=== PATIENT | male | born 1950 | race African-American/Black ===

== ENCOUNTER 2017-04-20 22:23 | Inpatient (IN) | payer MEDICARE, BC ==
[~2017-04-20] VITALS: Ht 193 cm; Wt 110.2 kg
[~2017-04-20 22:23] MED LIST: AMLODIPINE-BEN1 EAC3 ORAL; CARVEDILOL3.125 MG ORAL
[2017-04-21] VITALS (27 sets, daily range): BP systolic 136–195; BP diastolic 72–126
[2017-04-21] MEDS ORDERED: Morphine Sulfate 4mg/ml Inj IVP PRN ×2 (00:45→11:00)
[2017-04-21] MEDS ORDERED: DIPHENHYDR IV (00:53)
[2017-04-21] MEDS ORDERED: DIPRIVAN IV (01:15)
[2017-04-21] MEDS ORDERED: SODIUM CHLORID250 ML IV (01:15)
[2017-04-21] MEDS ORDERED: LABETALOL 5 MG/ML IV (01:15)
[2017-04-21] MEDS ORDERED: SOLU-MEDRO40 MG/1 M2 IJ (01:15)
[2017-04-21] MEDS ORDERED: EPINEPHRINE IV (01:15)
[2017-04-21] MEDS ORDERED: FIRAZYR30 MG/3 ML SQ (01:15)
[2017-04-21] MEDS ORDERED: FAMOTIDINE20 MG/2 ML IV (01:15)
[2017-04-21] MEDS ORDERED: MIDAZOLAM H IJ (01:15)
[2017-04-21] MEDS: D5 1/2NS 1,000 ML IV SCH ×2 (02:14→22:19)
[2017-04-21] MEDS: Solu-MEDROL 125mg Inj IVP SCH ×4 (02:15→20:09)
[2017-04-21 05:20] LABS: MEAN CORPUSCULAR HEMOGLOBIN 30.1 PG (27.0-31.0); MEAN CORPUSCULAR HGB CONC 31.9 G/DL (32.0-36.0); MEAN CORPUSCULAR VOLUME 94 FL (80-99); MEAN PLATELET VOLUME 9.1 FL (6.5-10.1); PLATELET COUNT 121 K/UL (150-450); RED BLOOD COUNT 4.25 M/UL (4.70-6.10); RED CELL DISTRIBUTION WIDTH 12.6 % (11.6-14.8); WHITE BLOOD COUNT 8.2 K/UL (4.8-10.8)
[2017-04-21 06:01] LABS: BAND NEUTROPHILS % (MANUAL) 0 % (0-8); BASOPHILS % (MANUAL) 0 % (0-2); EOSINOPHILS % (MANUAL) 1 % (0-3); LYMPHOCYTES % (MANUAL) 4 % (20-45); NEUTROPHILS % (MANUAL) 92 % (45-75); PLATELET ESTIMATE DECREASED; PLATELET MORPHOLOGY NORMAL; TOTAL CELLS COUNTED 100
[2017-04-21 06:12] LABS: ANION GAP 12 mmol/L (5-15); CARBON DIOXIDE 24 MMOL/L (21-32); CHLORIDE 109 MMOL/L (98-107); CREATININE 2.5 MG/DL (0.55-1.30); GLOMERULAR FILTRATION RATE 31.5 mL/min (>60); POTASSIUM 4.2 MMOL/L (3.5-5.1); SODIUM 145 MMOL/L (136-145)
[2017-04-21 08:43] LABS: ABG ALLEN TEST POSITIVE; ABG BASE EXCESS -0.4; ABG PCO2 40.9 mmHg (35.0-45.0)
[2017-04-21] MEDS: Pantoprazole Inj IVP SCH (08:56)
[2017-04-21] MEDS: Heparin 5000 units/ml inj SUBQ SCH ×2 (09:10→21:45)
--- NOTE | 2017-04-21 09:35 | Diagnostic Imaging Report ---
Indication: SOB Technique: One view of the chest Comparison: IV 2013 Findings: Interim endotracheal intubation, endotracheal tube tip in good position approximately 6 cm above the dayanara. There is left infrahilar atelectasis. The lungs and pleural space are otherwise clear. Heart size is normal. Aorta is tortuous and ectatic. Upper mediastinal prominence is stable. Impression: Satisfactory endotracheal intubation Left infrahilar atelectasis Other findings as described
[2017-04-21] MEDS ORDERED: D5 1/2NS 1000ml IV ONE (10:19)
--- NOTE | 2017-04-21 10:51 | History and Physical ---
History of Present Illness General Date patient seen: Apr 21, 2017 Present Illness HPI 67 year old male with hx of COPD, HTN, was taken to [facility] with dyspnea and respiratory failure. He was intubated and transferred to their ICU. He has been transferred to [facility] ICU for further management. Currently, pt is awake, nasally intubated and looks comfortable. Allergies: Coded Allergies: LISINOPRIL (Verified Allergy, Severe, 04/21/17) Medication History Scheduled Amlodipine Besylate/Benazepril 5-10 Mg* (Amlodipine-Benazepril 5-10 Mg*), 1 CAP ORAL DAILY, (Reported) Carvedilol* (Carvedilol*), 3.125 MG ORAL BID, (Reported) Miscellaneous Medications Diphenhydramine In 0.9 % Nacl (Diphenhydramine-Ns 50 Mg/50 Ml), 50 MG IV, ( Reported) Epinephrine HCl/Pf (Epinephrine 1 mg/ml Ampul), 0.3 MG IV, (Reported) Famotidine/Pf (Famotidine 20 Mg/2 Ml Vial), 20 MG IV, (Reported) Icatibant Acetate (Firazyr), 30 MG SQ, (Reported) Labetalol HCl (Labetalol HCl), 20 MG IV, (Reported) Methylprednisolone Sod Succ/Pf (Solu-Medrol (Pf) 40 Mg Vial), 125 MG IJ, ( Reported) Midazolam HCl (Midazolam HCl), 1 MG IJ, (Reported) Midazolam HCl (Midazolam HCl), 2 MG IJ, (Reported) Propofol (Diprivan), 1,000 MG IV, (Reported) Sodium Chloride 0.45 % (Sodium Chloride), 1,000 ML IV, (Reported) Patient History Healthcare decision maker Resuscitation status Full Code Advanced Directive on File Past Medical/Surgical History Past Medical/Surgical History: (1) Renal insufficiency (2) Smoker (3) Hypertension Review of Systems All Other Systems: negative except mentioned in HPI Physical Exam General Appearance: WD/WN Lines, tubes and drains: peripheral HEENT: normocephalic, atraumatic Neck: non-tender, normal alignment Respiratory/Chest: chest wall non-tender, lungs clear Breasts: no masses Cardiovascular/Chest: normal peripheral pulses Abdomen: normal bowel sounds Genitourinary/Rectal: normal genital exam Extremities: normal range of motion Last 24 Hour Vital Signs Date Time Temp Pulse Resp B/P (MAP) Pulse Ox O2 Delivery O2 Flow Rate FiO2 04/21/17 08:46 81 28 100 04/21/17 08:00 100 04/21/17 08:00 99.6 87 16 156/113 94 Mechanical Ventilator 100 04/21/17 07:20 93 32 100 04/21/17 07:00 89 13 158/90 94 Mechanical Ventilator 100 04/21/17 06:00 90 13 148/95 91 Mechanical Ventilator 100 04/21/17 05:16 93 26 100 04/21/17 05:00 92 15 145/93 92 Mechanical Ventilator 100 04/21/17 04:00 98.0 93 15 137/93 91 Mechanical Ventilator 100 04/21/17 04:00 97 04/21/17 03:29 96 21 100 04/21/17 03:00 100 16 162/100 93 Mechanical Ventilator 100 04/21/17 02:46 98.0 04/21/17 02:00 107 16 156/107 96 Mechanical Ventilator 100 04/21/17 01:24 98 28 100 04/21/17 01:00 100 04/21/17 01:00 98 16 156/107 95 Mechanical Ventilator 100 04/21/17 00:00 70 04/21/17 00:00 87 04/21/17 00:00 98.0 99 19 159/98 99 Mechanical Ventilator 70 04/20/17 23:56 75 20 70 04/20/17 23:51 75 20 70 Intake and Output 04/21/17 04/22/17 19:00 07:00 Output Total 50 ml Balance -50 ml Output Urine Total 50 ml Laboratory Tests Test 04/21/17 04:00 04/21/17 04:20 Arterial Blood pH 7.395 (7.350-7.450) Arterial Blood Partial Pressure CO2 40.9 mmHg (35.0-45.0) Arterial Blood Partial Pressure O2 75.0 mmHg (75.0-100.0) Arterial Blood HCO3 24.5 mmol/L (22.0-26.0) Arterial Blood Oxygen Saturation 94.7 % (92.0-98.0) Arterial Blood Base Excess -0.4 Dayron Test Positive White Blood Count 8.2 K/UL (4.8-10.8) Red Blood Count 4.25 M/UL (4.70-6.10) L Hemoglobin 12.8 G/DL (14.2-18.0) L Hematocrit 40.1 % (42.0-52.0) L Mean Corpuscular Volume 94 FL (80-99) Mean Corpuscular Hemoglobin 30.1 PG (27.0-31.0) Mean Corpuscular Hemoglobin Concent 31.9 G/DL (32.0-36.0) L Red Cell Distribution Width 12.6 % (11.6-14.8) Platelet Count 121 K/UL (150-450) L Mean Platelet Volume 9.1 FL (6.5-10.1) Neutrophils (%) (Auto) % (45.0-75.0) Lymphocytes (%) (Auto) % (20.0-45.0) Monocytes (%) (Auto) % (1.0-10.0) Eosinophils (%) (Auto) % (0.0-3.0) Basophils (%) (Auto) % (0.0-2.0) Differential Total Cells Counted 100 Neutrophils % (Manual) 92 % (45-75) H Lymphocytes % (Manual) 4 % (20-45) L Monocytes % (Manual) 3 % (1-10) Eosinophils % (Manual) 1 % (0-3) Basophils % (Manual) 0 % (0-2) Band Neutrophils 0 % (0-8) Platelet Estimate Decreased L Platelet Morphology Normal Sodium Level 145 MMOL/L (136-145) Potassium Level 4.2 MMOL/L (3.5-5.1) Chloride Level 109 MMOL/L (98-107) H Carbon Dioxide Level 24 MMOL/L (21-32) Anion Gap 12 mmol/L (5-15) Blood Urea Nitrogen 39 mg/dL (7-18) H Creatinine 2.5 MG/DL (0.55-1.30) H Estimat Glomerular Filtration Rate 31.5 mL/min (>60) Glucose Level 180 MG/DL (74-106) H Calcium Level 9.0 MG/DL (8.5-10.1) Microbiology Date/Time Source Procedure Growth Status 04/21/17 01:00 Sputum Gram Stain Pending Resulted 04/21/17 01:00 Sputum Sputum Culture - Preliminary NO GROWTH Resulted Height (Feet): 6 Height (Inches): 4.00 Weight (Pounds): 270 Medications Current Medications Medications (Trade) Dose Ordered Sig/Kelsi Route PRN Reason Start Time Stop Time Status Last Admin Dose Admin Acetaminophen (Tylenol) 650 mg Q6H PRN ORAL Mild Pain/Temp > 100.5 04/21/17 00:45 05/21/17 00:44 Dextrose/Sodium Chloride 1,000 ml @ 50 mls/hr Q20H IV 04/21/17 02:00 05/21/17 01:59 04/21/17 02:14 Heparin Sodium (Porcine) (Heparin 5000 units/ml) 5,000 units EVERY 12 HOURS SUBQ 04/21/17 09:00 05/21/17 08:59 04/21/17 09:10 Hydralazine HCl (Apresoline) 10 mg Q4H PRN IV For High Blood Pressure 04/21/17 00:45 05/21/17 00:44 Lorazepam (Ativan 2mg/ml 1ml) 2 mg Q2H PRN IV For Anxiety 04/21/17 00:45 04/28/17 00:44 Methylprednisolone Sodium Succinate (Solu-MEDROL) 60 mg Q6H IVP 04/21/17 02:00 05/21/17 01:59 04/21/17 08:56 Morphine Sulfate (Morphine Sulfate) 4 mg Q4H PRN IVP For Pain 04/21/17 00:45 04/28/17 00:44 04/21/17 02:16 Pantoprazole (Protonix) 40 mg DAILY IVP 04/21/17 09:00 05/21/17 08:59 04/21/17 08:56 Assessment/Plan Problem List: (1) Acute respiratory failure ICD Codes: J96.00 - Acute respiratory failure, unspecified whether with hypoxia or hypercapnia SNOMED: 95538418 (2) ATN (acute tubular necrosis) ICD Codes: N17.0 - Acute kidney failure with tubular necrosis SNOMED: 94830307 Respiratory: monitor respiratory rate, CXR Cardiac: continue to monitor HR/BP Renal: F/U I&O, keep IV fluid, check electrolytes Infectious Disease: check cultures Gastrointestinal: continue feedings/current rate Endocrine: monitor blood sugar Hematologic: monitor H/H, transfuse if hgb<8.5 Neurologic: PRN Ativan, keep patient comfortable Affect: PRN ativan Prophylaxis: Protonix Time Spent (Minutes): 40 Notes Reviewed: door captain, cardio, renal Discussed with: nurses, consultants, correctional case records supervisor VIVEK SOLOMON Apr 21, 2017 10:51
--- NOTE | 2017-04-21 11:14 | Consultation ---
Consult Note Consult Note asked to eval for elevated Cr 67 year old male with hx of COPD, HTN, was taken to [facility] with dyspnea and respiratory failure. He was intubated and transferred to their ICU. He has been transferred to [facility] for further management. Currently, pt is awake, nasally intubated and looks comfortable. Allergies: LISINOPRIL (Verified Allergy, Severe, 04/21/17) patient in ICU room B Family in room on Vent Has bonner Cr 2.5 Patient examined- discussed with RN data reviewed Assessment/Plan Acute respiratory failure- On Vent Renal failure ? CKD ? Superimposed Acute renal failure HTN- Smoker- Jorge Inhibor Allergy Plan: 2D Echo- Pulmonary support- urine studies- Kidney TIARRA CAREY Apr 21, 2017 11:14
[2017-04-21] MEDS: LORazepam Inj 2mg/ml 1ml IV PRN ×3 (11:28→19:56)
[2017-04-21] MEDS: Morphine Sulfate 4mg/ml Inj IVP PRN ×2 (12:44→22:44)
[2017-04-21 12:51] LABS: ALANINE AMINOTRANSFERASE 15 U/L (12-78); ALBUMIN/GLOBULIN RATIO 0.7 (1.0-2.7); ANION GAP 16 mmol/L (5-15); ASPARTATE AMINO TRANSFERASE 20 U/L (15-37); CALCIUM 8.9 MG/DL (8.5-10.1); CARBON DIOXIDE 21 MMOL/L (21-32); CHLORIDE 108 MMOL/L (98-107); CHOLESTEROL 138 MG/DL (< 200); CHOLESTEROL/HDL RATIO 3.9 (3.3-4.4); CREATININE 2.6 MG/DL (0.55-1.30); CRP QUANT 5.1 mg/dL (0.00-0.90); GLOMERULAR FILTRATION RATE 30.2 mL/min (>60); MAGNESIUM 1.9 MG/DL (1.8-2.4); PHOSPHORUS 3.7 MG/DL (2.5-4.9); POTASSIUM 4.4 MMOL/L (3.5-5.1); SODIUM 145 MMOL/L (136-145); TOTAL PROTEIN 7.5 G/DL (6.4-8.2); URIC ACID 6.7 MG/DL (2.6-7.2)
[2017-04-21] MEDS ORDERED: Lidocaine 1% Plain 30 ml INJ ONE (14:00)
[2017-04-21] MEDS ORDERED: Heparin 2000 units/Ns 1000ml INJ ONE (14:00)
--- NOTE | 2017-04-21 15:25 | Cardiology Report ---
APPROVED REPORT EXAM: Two-dimensional and M-mode echocardiogram with Doppler and color Doppler. INDICATION Left Ventricular Function M-Mode DIMENSIONS IVSd2.3 (0.7-1.1cm)Left Atrium (MM)5.8 (1.6-4.0cm) LVDd4.0 (3.5-5.6cm)Aortic Root4.3 (2.0-3.7cm) PWd1.9 (0.7-1.1cm)Aortic Cusp Exc.2.5 (1.5-2.0cm) LVDs2.4 (2.5-4.0cm) PWs2.5 cm Technically difficult and limited study due to patient on ventilator and combative. Normal left ventricular chamber size, systolic function and wall motion. Left ventricular ejection fraction estimated to be 60 %. Significant left ventricular hypertrophy. Anterior Echo-free space, may be due to pericardial fat or effusion. Mild bi-atrial enlargement. Right ventricular chamber size within normal limits. Mild focal aortic valve sclerosis with adequate cusp excursion. Mildly thickened mitral valve leaflets with normal excursion. Mild mitral annulus and aortic root calcification. Pulmonic valve not well visualized. Normal tricuspid valve structure. Subcostal views not obtained. A color flow and spectral Doppler study was performed and revealed: No aortic regurgitation. No mitral regurgitation. Left ventricular diastolic function could not be determined due to A-Fib. Mild tricuspid regurgitation. Tricuspid systolic velocities suggests peak right ventricular systolic pressure of 76 mmHg, consistent with severe pulmonary hypertension. Trace pulmonic regurgitation present.
--- NOTE | 2017-04-21 15:37 | Diagnostic Imaging Report ---
Indications: Needs long-term IV access Technique: Procedure performed at bedside. Procedural timeout performed. Ultrasound confirms patent compressible left basilic vein. Total sterile technique, including sterile probe cover and sterile gel, sterile gloves, hand hygiene, hat, mask,, sterile gown, large sterile drape, and preparation with 2% chlorhexidine utilized. Local anesthesia with 1% lidocaine. Under real-time ultrasound guidance, puncture basilic vein using 21-gauge needle, passage 0.018 guidewire, exchange for 5 Kiswahili peel-away sheath. 5 Kisw[place]ili Bard dual-lumen power PICC cut to 51 cm. It was inserted through the peel-away sheath. Peel-away sheath and guidewire removed. Catheter fixed to the skin. Both catheter ports aspirated and flushed. Patient tolerated procedure well, without immediate complication. Followup chest x-ray obtained, documents catheter tip position at the midsuperior vena cava Impression: Successful bedside placement of of PICC under sonographic guidance, as described above.
[2017-04-21] MEDS: Midazolam/D5W 100ml 100 ML IVPB SCH ×2 (17:37→23:06)
[2017-04-21 18:17] LABS: APPEARANCE,URINE SLIGHTLY CLOUDY; KETONES,URINE NEGATIVE (NEGATIVE); LEUKOCYTE ESTERASE ,URINE 1+ (NEGATIVE); NITRITE,URINE NEGATIVE (NEGATIVE); PH,URINE 6 (4.5-8.0); PROTEIN,URINE 3+ (NEGATIVE); UROBILINOGEN,URINE NORMAL MG/DL (0.0-1.0)
[2017-04-21 18:33] LABS: RBC,URINE TNTC /HPF (0 - 0)
[2017-04-21 18:35] LABS: BACTERIA,URINE FEW /HPF; SQUAMOUS EPITHELIAL CELL,UR OCCASIONAL /LPF (NONE/OCC)
--- NOTE | 2017-04-21 19:59 | Cardiology Progress Note ---
Assessment/Plan Assessment/Plan [id number] Objective Last 24 Hour Vital Signs Date Time Temp Pulse Resp B/P (MAP) Pulse Ox O2 Delivery O2 Flow Rate FiO2 04/21/17 18:56 98 21 90 04/21/17 18:00 100 14 145/95 95 Mechanical Ventilator 100 04/21/17 17:37 15 04/21/17 17:06 103 14 90 04/21/17 17:00 95 23 140/98 91 Mechanical Ventilator 100 04/21/17 16:00 100 04/21/17 16:00 111 04/21/17 16:00 99.2 93 14 141/72 91 Mechanical Ventilator 100 04/21/17 15:30 110 17 90 04/21/17 15:00 137 16 136/97 91 Mechanical Ventilator 100 04/21/17 14:00 137 32 183/112 91 Mechanical Ventilator 100 04/21/17 13:04 141 35 80 04/21/17 13:00 135 32 183/123 94 Mechanical Ventilator 100 04/21/17 12:00 100 04/21/17 12:00 140 04/21/17 12:00 99.6 140 30 174/108 93 Mechanical Ventilator 100 04/21/17 11:00 132 29 193/115 92 Mechanical Ventilator 100 04/21/17 10:55 88 29 80 04/21/17 10:38 169/97 04/21/17 10:00 89 16 181/114 94 Mechanical Ventilator 100 04/21/17 09:00 80 15 153/96 95 Mechanical Ventilator 100 04/21/17 08:46 81 28 100 04/21/17 08:00 85 04/21/17 08:00 100 04/21/17 08:00 99.6 87 16 156/113 94 Mechanical Ventilator 100 04/21/17 07:20 93 32 100 04/21/17 07:00 89 13 158/90 94 Mechanical Ventilator 100 04/21/17 06:00 90 13 148/95 91 Mechanical Ventilator 100 04/21/17 05:16 93 26 100 04/21/17 05:00 92 15 145/93 92 Mechanical Ventilator 100 04/21/17 04:00 98.0 93 15 137/93 91 Mechanical Ventilator 100 04/21/17 04:00 97 04/21/17 03:29 96 21 100 04/21/17 03:00 100 16 162/100 93 Mechanical Ventilator 100 04/21/17 02:46 98.0 04/21/17 02:00 107 16 156/107 96 Mechanical Ventilator 100 04/21/17 01:24 98 28 100 04/21/17 01:00 100 04/21/17 01:00 98 16 156/107 95 Mechanical Ventilator 100 04/21/17 00:00 70 04/21/17 00:00 87 04/21/17 00:00 98.0 99 19 159/98 99 Mechanical Ventilator 70 04/20/17 23:56 75 20 70 04/20/17 23:51 75 20 70 Intake and Output 04/21/17 04/22/17 19:00 07:00 Intake Total 600 ml Output Total 615 ml Balance -15 ml Intake IV Total 600 ml Output Urine Total 615 ml Laboratory Tests Test 04/21/17 04:00 04/21/17 04:20 04/21/17 16:30 Arterial Blood pH 7.395 (7.350-7.450) Arterial Blood Partial Pressure CO2 40.9 mmHg (35.0-45.0) Arterial Blood Partial Pressure O2 75.0 mmHg (75.0-100.0) Arterial Blood HCO3 24.5 mmol/L (22.0-26.0) Arterial Blood Oxygen Saturation 94.7 % (92.0-98.0) Arterial Blood Base Excess -0.4 Dayron Test Positive Sodium Level 145 MMOL/L (136-145) 145 MMOL/L (136-145) Potassium Level 4.4 MMOL/L (3.5-5.1) 4.2 MMOL/L (3.5-5.1) Chloride Level 108 MMOL/L (98-107) H 109 MMOL/L (98-107) H Carbon Dioxide Level 21 MMOL/L (21-32) 24 MMOL/L (21-32) Anion Gap 16 mmol/L (5-15) H 12 mmol/L (5-15) Blood Urea Nitrogen 37 mg/dL (7-18) H 39 mg/dL (7-18) H Creatinine 2.6 MG/DL (0.55-1.30) H 2.5 MG/DL (0.55-1.30) H Estimat Glomerular Filtration Rate 30.2 mL/min (>60) 31.5 mL/min (>60) Glucose Level 174 MG/DL (74-106) H 180 MG/DL (74-106) H Uric Acid 6.7 MG/DL (2.6-7.2) Calcium Level 8.9 MG/DL (8.5-10.1) 9.0 MG/DL (8.5-10.1) Phosphorus Level 3.7 MG/DL (2.5-4.9) Magnesium Level 1.9 MG/DL (1.8-2.4) Total Bilirubin 0.7 MG/DL (0.2-1.0) Gamma Glutamyl Transpeptidase 13 U/L (5-85) Aspartate Amino Transf (AST/SGOT) 20 U/L (15-37) Alanine Aminotransferase (ALT/SGPT) 15 U/L (12-78) Alkaline Phosphatase 54 U/L (46-116) Total Creatine Kinase 75 U/L (26-308) C-Reactive Protein, Quantitative 5.1 mg/dL (0.00-0.90) H Pro-B-Type Natriuretic Peptide 370 pg/mL (0-125) H Total Protein 7.5 G/DL (6.4-8.2) Albumin 3.2 G/DL (3.4-5.0) L Globulin 4.3 g/dL Albumin/Globulin Ratio 0.7 (1.0-2.7) L Triglycerides Level 170 MG/DL (0-200) Cholesterol Level 138 MG/DL (< 200) LDL Cholesterol 87 mg/dL (<100) HDL Cholesterol 35 MG/DL (40-60) L Cholesterol/HDL Ratio 3.9 (3.3-4.4) Thyroid Stimulating Hormone (TSH) 0.240 uiU/mL (0.360-3.740) White Blood Count 8.2 K/UL (4.8-10.8) Red Blood Count 4.25 M/UL (4.70-6.10) L Hemoglobin 12.8 G/DL (14.2-18.0) L Hematocrit 40.1 % (42.0-52.0) L Mean Corpuscular Volume 94 FL (80-99) Mean Corpuscular Hemoglobin 30.1 PG (27.0-31.0) Mean Corpuscular Hemoglobin Concent 31.9 G/DL (32.0-36.0) L Red Cell Distribution Width 12.6 % (11.6-14.8) Platelet Count 121 K/UL (150-450) L Mean Platelet Volume 9.1 FL (6.5-10.1) Neutrophils (%) (Auto) % (45.0-75.0) Lymphocytes (%) (Auto) % (20.0-45.0) Monocytes (%) (Auto) % (1.0-10.0) Eosinophils (%) (Auto) % (0.0-3.0) Basophils (%) (Auto) % (0.0-2.0) Differential Total Cells Counted 100 Neutrophils % (Manual) 92 % (45-75) H Lymphocytes % (Manual) 4 % (20-45) L Monocytes % (Manual) 3 % (1-10) Eosinophils % (Manual) 1 % (0-3) Basophils % (Manual) 0 % (0-2) Band Neutrophils 0 % (0-8) Platelet Estimate Decreased L Platelet Morphology Normal Urine Color Yellow Urine Appearance Slightly cloudy Urine pH 6 (4.5-8.0) Urine Specific Lambert 1.020 (1.005-1.035) Urine Protein 3+ (NEGATIVE) H Urine Glucose (UA) Negative (NEGATIVE) Urine Ketones Negative (NEGATIVE) Urine Occult Blood 5+ (NEGATIVE) H Urine Nitrite Negative (NEGATIVE) Urine Bilirubin Negative (NEGATIVE) Urine Urobilinogen Normal MG/DL (0.0-1.0) Urine Leukocyte Esterase 1+ (NEGATIVE) H Urine RBC Tntc /HPF (0 - 0) H Urine WBC 2-4 /HPF (0 - 0) Urine Squamous Epithelial Cells Occasional /LPF Urine Bacteria Few /HPF (NONE) Urine Eosinophils None seen Urine Random Sodium 81 MEQ/L (20-110) Microbiology Date/Time Source Procedure Growth Status 04/21/17 01:00 Sputum Gram Stain - Final Resulted 04/21/17 01:00 Sputum Sputum Culture - Preliminary NO GROWTH Resulted RUBEN CHAVEZ Apr 21, 2017 19:59
[2017-04-21] MEDS ORDERED: Metoprolol 5mg/5ml Inj IVP PRN (20:00)
[2017-04-21] MEDS: Dyna-Hex 2% Top Sol 2oz TOPIC SCH (20:09)
[2017-04-22] VITALS (46 sets, daily range): BP systolic 124–177; BP diastolic 75–104
[2017-04-22] MEDS: Solu-MEDROL 125mg Inj IVP SCH ×3 (01:34→20:50)
[2017-04-22] MEDS: Midazolam/D5W 100ml 100 ML IVPB SCH ×6 (03:30→20:06)
[2017-04-22] MEDS: Morphine Sulfate 4mg/ml Inj IVP PRN ×3 (04:21→18:55)
[2017-04-22 05:09] LABS: MEAN CORPUSCULAR HEMOGLOBIN 30.5 PG (27.0-31.0); MEAN CORPUSCULAR HGB CONC 32.4 G/DL (32.0-36.0); MEAN CORPUSCULAR VOLUME 94 FL (80-99); MEAN PLATELET VOLUME 11.6 FL (6.5-10.1); PLATELET COUNT 129 K/UL (150-450); RED CELL DISTRIBUTION WIDTH 12.7 % (11.6-14.8); WHITE BLOOD COUNT 6.8 K/UL (4.8-10.8)
[2017-04-22 05:30] LABS: ALANINE AMINOTRANSFERASE 22 U/L (12-78); ALBUMIN/GLOBULIN RATIO 0.7 (1.0-2.7); ANION GAP 10 mmol/L (5-15); ASPARTATE AMINO TRANSFERASE 23 U/L (15-37); CALCIUM 9.1 MG/DL (8.5-10.1); CARBON DIOXIDE 26 MMOL/L (21-32); CHLORIDE 113 MMOL/L (98-107); CREATININE 2.5 MG/DL (0.55-1.30); GLOMERULAR FILTRATION RATE 31.5 mL/min (>60); MAGNESIUM 2.2 MG/DL (1.8-2.4); PHOSPHORUS 2.2 MG/DL (2.5-4.9); POTASSIUM 4.4 MMOL/L (3.5-5.1); SODIUM 148 MMOL/L (136-145); TOTAL PROTEIN 7.4 G/DL (6.4-8.2)
[2017-04-22] MEDS: Nitroglycerin 2% oint pkt TOPIC SCH ×3 (06:01→18:01)
[2017-04-22 07:52] LABS: ABG PCO2 32.4 mmHg (35.0-45.0)
[2017-04-22 07:53] LABS: ABG ALLEN TEST POSITIVE; ABG BASE EXCESS -2.8
[2017-04-22] MEDS: Heparin 5000 units/ml inj SUBQ SCH (08:54)
[2017-04-22] MEDS: Pantoprazole Inj IVP SCH (09:00)
[2017-04-22 09:15] LABS: LYMPHOCYTES % (MANUAL) 4 % (20-45); NEUTROPHILS % (MANUAL) 92 % (45-75); TOTAL CELLS COUNTED 100
[2017-04-22 09:18] LABS: BAND NEUTROPHILS % (MANUAL) 0 % (0-8); BASOPHILS % (MANUAL) 0 % (0-2); EOSINOPHILS % (MANUAL) 0 % (0-3); PLATELET ESTIMATE DECREASED; PLATELET MORPHOLOGY NORMAL
--- NOTE | 2017-04-22 09:22 | Diagnostic Imaging Report ---
Indication: DYSPNEA Technique: One view of the chest Comparison: 04/21/2017 Findings: Previously demonstrated PICC has retracted somewhat, tip now projecting at the innominate venous confluence. The heart is upper limits normal in size. There is some left perihilar congestion or consolidation again demonstrated, unchanged. The remainder the lungs and pleural spaces are clear. Stable satisfactory position of endotracheal tube Impression: Slight withdrawal of the PICC. Otherwise essentially unchanged over one day, findings as described
--- NOTE | 2017-04-22 10:15 | Consultation ---
DATE OF CONSULTATION: 04/21/2017 CARDIOLOGY CONSULTATION REFERRING PHYSICIAN: Bryce Dias M.D. REASON FOR REFERRAL: Hypertension. HISTORY OF PRESENT ILLNESS: This is an elderly gentleman, who is not able to provide any meaningful history whatsoever. The patient's information is obtained from review of the chart. He presented by paramedics to [facility] having woke up, is severe, tongue swelling. The neighbors called the emergency medical services. Epinephrine was administered, 100% saturation was documented in the emergency room, felt to be angioedema, intubated emergently with anesthesia and ENT for airway protection nasally and subsequently the patient was transferred to [facility] for further care because of insurance reasons. PAST MEDICAL HISTORY: Positive for history of hypertension. No other information is available as such past medical history. He has had a history of COPD apparently per some of the records again that information is not known. ALLERGIES: Previously not been allergic to any medication. Obviously with this, CAROLIN inhibitor allergy and angioedema is suspected. SOCIAL HISTORY: No tobacco or alcohol use on file. REVIEW OF SYSTEMS: Unable to obtain. PHYSICAL EXAMINATION: GENERAL: Shows to be an elderly gentleman on a mechanical ventilator through nasotracheal intubation. He is on 90% FiO2 saturation only about 93% to 94%. NECK: Supple. He has a very poor . LUNGS: Anteriorly showed decreased breath sounds. CARDIAC: Regular rate and tachycardic. No heaves or thrills. ABDOMEN: Soft. EXTREMITIES: There is no edema of the lower extremities. NEUROLOGICAL: He is noncommunicative. He has been sedated. He is on the drip. LABORATORY AND DIAGNOSTIC DATA: White count 8.2, hemoglobin 12.8, and platelet count of 121. Most recent blood gas 7.39, pCO2 41, pO2 of 75, and bicarbonate of 25, and 94% saturation. Sodium 142, potassium 4.2, chloride 109, bicarbonate 24, BUN 39, creatinine 2.5, and glucose of 180. His creatinine is decreased from 2.9 on admission to 2.5. His liver function tests appeared to be okay. ProBNP is only 370. His total cholesterol is 138 with LDL of 87 and HDL of 35. TSH is 0.24. Remainder of thyroid stimulating hormones are pending at this time. Coags, INR 1.0 and PTT of 27. Chest x-ray performed shows left infrahilar atelectasis, lungs otherwise are clear. Echocardiogram was performed today showed ejection fraction of 60%, significant left ventricular hypertrophy, and unable to identify diastolic function secondary to atrial fibrillation. His telemetry data shows what appears to be sinus tachycardia, not atrial fibrillation. He has had some sinus rhythm earlier today as well. ASSESSMENT: 1. Allergic reaction. 2. Angioneurotic edema. 3. Hypertension. 4. Respiratory failure. 5. Hypoxemia. 6. Metabolic encephalopathy. 7. Renal insufficiency. 8. Tachycardia. PLAN: Dr. Dias, this patient was seen in cardiac consultation. The patient's cardiac enzyme has not been checked. I will order to check. His proBNP is not significantly elevated. His echocardiogram shows normal left ventricular systolic function. EKG will be ordered. His renal function to be followed. He should be on medications for blood pressure, possibly through the NG tube such as amlodipine if not then hydralazine and nitroglycerin. Nitro paste may be also administered for blood pressure control. The patient appears to be agitated at this time and it is possible that main blood pressure elevation at this time is likely related to agitation. However, he has had blood pressures in the 180/110s as well. I will follow the patient along with you. Geoff Giron M.D. DR: BRIANNE JOB#: [id number] CC:
--- NOTE | 2017-04-22 10:33 | Diagnostic Imaging Report ---
Indication: Acute renal failure Technique: Grayscale and duplex images of the kidneys, retroperitoneum, and bladder were obtained. Comparison:IV 2013 Findings: Right kidney measures 9.8 cm in length. Left kidney measures 10.6 cm in length. Both kidneys demonstrate normal echogenicity. Right kidney demonstrates borderline hydronephrosis. Right kidney demonstrates a 13 mm interpolar region cyst. Poorly visualized inferior vena cava. Left kidney is normal Bladder is empty, contains a Huff catheter. Impression: Borderline right hydronephrosis, etiology not demonstrated No left hydronephrosis Incidental finding of right renal cyst Huff catheter within empty bladder Note inability to visualize inferior vena cava.
--- NOTE | 2017-04-22 10:57 | General Progress Note ---
Assessment/Plan Status: unchanged Assessment/Plan status; Acute respiratory failure- On Vent Renal failure ? CKD ? Superimposed Acute renal failure HTN- Smoker- Jorge Inhibor Allergy Plan: Keep BP in check 2D Echo- EjFx 60% Pulmonary support- urine studies- Kidney MIKEY Right kidney demonstrates borderline hydronephrosis. Taper steroids as possible. Subjective ROS Limited/Unobtainable: Yes Allergies: Coded Allergies: LISINOPRIL (Verified Allergy, Severe, 04/21/17) Objective Last 24 Hour Vital Signs Date Time Temp Pulse Resp B/P (MAP) Pulse Ox O2 Delivery O2 Flow Rate FiO2 04/22/17 10:00 95 21 130/90 96 Mechanical Ventilator 100 04/22/17 10:00 19 04/22/17 09:05 100 23 100 04/22/17 09:00 95 21 135/90 96 Mechanical Ventilator 100 04/22/17 09:00 21 04/22/17 08:30 20 04/22/17 08:02 19 04/22/17 08:00 100.3 96 19 127/87 97 Mechanical Ventilator 100 04/22/17 08:00 100 04/22/17 08:00 96 04/22/17 07:24 97 20 100 04/22/17 07:00 96 20 135/88 98 Mechanical Ventilator 100 04/22/17 06:01 132/81 04/22/17 06:00 101 21 143/82 98 Mechanical Ventilator 100 04/22/17 06:00 21 04/22/17 05:30 103 21 133/82 98 Mechanical Ventilator 100 04/22/17 05:11 108 25 100 04/22/17 05:00 21 04/22/17 05:00 100 21 137/79 98 Mechanical Ventilator 100 04/22/17 04:30 110 20 149/82 98 Mechanical Ventilator 100 04/22/17 04:03 177/97 04/22/17 04:00 84 04/22/17 04:00 20 04/22/17 04:00 99.4 117 20 167/84 98 Mechanical Ventilator 100 04/22/17 04:00 100 04/22/17 03:30 91 20 147/97 94 Mechanical Ventilator 100 04/22/17 03:30 22 04/22/17 03:20 91 23 100 04/22/17 03:00 91 20 177/93 94 Mechanical Ventilator 100 04/22/17 03:00 21 04/22/17 02:30 91 21 157/94 96 Mechanical Ventilator 100 04/22/17 02:00 91 21 151/87 96 Mechanical Ventilator 100 04/22/17 02:00 20 04/22/17 01:30 99 21 145/89 96 Mechanical Ventilator 100 04/22/17 01:25 93 21 100 04/22/17 01:00 20 04/22/17 01:00 99 21 160/94 96 Mechanical Ventilator 100 04/22/17 00:30 99.0 99 23 158/93 96 Mechanical Ventilator 100 04/22/17 00:00 100 04/22/17 00:00 99.0 99 23 161/104 96 Mechanical Ventilator 100 04/22/17 00:00 21 04/21/17 23:30 95 22 146/92 96 Mechanical Ventilator 100 04/21/17 23:17 92 25 100 04/21/17 23:06 23 04/21/17 23:00 99 23 157/94 96 Mechanical Ventilator 100 04/21/17 23:00 23 04/21/17 22:30 102 23 195/92 96 Mechanical Ventilator 100 04/21/17 22:13 175/112 04/21/17 22:00 24 04/21/17 22:00 100 23 161/126 96 Mechanical Ventilator 100 04/21/17 21:30 99 24 100 04/21/17 21:30 98 23 153/114 96 Mechanical Ventilator 100 04/21/17 21:00 100 23 161/126 96 Mechanical Ventilator 100 04/21/17 21:00 20 04/21/17 20:30 101 24 152/107 93 Mechanical Ventilator 100 04/21/17 20:00 92 04/21/17 20:00 16 04/21/17 20:00 100 04/21/17 20:00 99.4 102 24 167/112 93 Mechanical Ventilator 100 04/21/17 18:56 98 21 90 04/21/17 18:00 100 14 145/95 95 Mechanical Ventilator 100 04/21/17 17:37 15 04/21/17 17:06 103 14 90 04/21/17 17:00 95 23 140/98 91 Mechanical Ventilator 100 04/21/17 16:00 100 04/21/17 16:00 111 04/21/17 16:00 99.2 93 14 141/72 91 Mechanical Ventilator 100 04/21/17 15:30 110 17 90 04/21/17 15:00 137 16 136/97 91 Mechanical Ventilator 100 04/21/17 14:00 137 32 183/112 91 Mechanical Ventilator 100 04/21/17 13:04 141 35 80 04/21/17 13:00 135 32 183/123 94 Mechanical Ventilator 100 04/21/17 12:00 100 04/21/17 12:00 140 04/21/17 12:00 99.6 140 30 174/108 93 Mechanical Ventilator 100 04/21/17 11:00 132 29 193/115 92 Mechanical Ventilator 100 Intake and Output 04/22/17 04/23/17 19:00 07:00 Intake Total 199 ml Output Total 180 ml Balance 19 ml Intake IV Total 199 ml Output Urine Total 180 ml Laboratory Tests 04/21/17 16:30: Urine Color Yellow, Urine Appearance Slightly cloudy, Urine pH 6, Urine Specific [place] 1.020, Urine Protein 3+H, Urine Glucose (UA) Negative, Urine Ketones Negative, Urine Occult Blood 5+H, Urine Nitrite Negative, Urine Bilirubin Negative, Urine Urobilinogen Normal, Urine Leukocyte Esterase 1+H, Urine RBC TntcH, Urine WBC 2-4, Urine Squamous Epithelial Cells Occasional, Urine Bacteria Few, Urine Eosinophils None seen, Urine Random Sodium 81 04/22/17 03:25: White Blood Count 6.8, Red Blood Count 4.40L, Hemoglobin 13.4L, Hematocrit 41.5L , Mean Corpuscular Volume 94, Mean Corpuscular Hemoglobin 30.5, Mean Corpuscular Hemoglobin Concent 32.4, Red Cell Distribution Width 12.7, Platelet Count 129L, Mean Platelet Volume 11.6H, Neutrophils (%) (Auto) , Lymphocytes (% ) (Auto) , Monocytes (%) (Auto) , Eosinophils (%) (Auto) , Basophils (%) (Auto) , Differential Total Cells Counted 100, Neutrophils % (Manual) 92H, Lymphocytes % (Manual) 4L, Monocytes % (Manual) 4, Eosinophils % (Manual) 0, Basophils % ( Manual) 0, Band Neutrophils 0, Platelet Estimate DecreasedL, Platelet Morphology Normal, Red Blood Cell Morphology Normal, Sodium Level 148H, Potassium Level 4.4, Chloride Level 113H, Carbon Dioxide Level 26, Anion Gap 10 , Blood Urea Nitrogen 47H, Creatinine 2.5H, Estimat Glomerular Filtration Rate 31.5, Glucose Level 206H, Calcium Level 9.1, Phosphorus Level 2.2L, Magnesium Level 2.2, Total Bilirubin 0.7, Aspartate Amino Transf (AST/SGOT) 23, Alanine Aminotransferase (ALT/SGPT) 22, Alkaline Phosphatase 56, Troponin I 0.622H, Total Protein 7.4, Albumin 3.1L, Globulin 4.3, Albumin/Globulin Ratio 0.7L 04/22/17 07:40: Arterial Blood pH 7.420, Arterial Blood Partial Pressure CO2 32.4L, Arterial Blood Partial Pressure O2 74.6L, Arterial Blood HCO3 20.7L, Arterial Blood Oxygen Saturation 94.7, Arterial Blood Base Excess -2.8, Dayron Test Positive Height (Feet): 6 Height (Inches): 4.00 Weight (Pounds): 267 General Appearance: moderate distress, agitated, other - intubated Cardiovascular: tachycardia Respiratory/Chest: decreased breath sounds Abdomen: distended Genitourinary/Rectal: other - TIARRA Gresham Apr 22, 2017 10:57
--- NOTE | 2017-04-22 12:41 | Pulmonolgy Critical Care Note ---
Critical Care - Asmt/Plan Problems: (1) Acute respiratory failure (2) ATN (acute tubular necrosis) (3) Hypertension (4) Renal insufficiency (5) Angioedema Respiratory: monitor respiratory rate, adjust FIO2, CXR, other - perfusin scan done results pending. still needs 100% Cardiac: d/c diagnostic cardiac sonographer Renal: F/U I&O, check electrolytes Infectious Disease: check cultures Gastrointestinal: hold feedings, abdominal imaging Endocrine: monitor blood sugar Hematologic: monitor H/H Neurologic: PRN Ativan, PRN Morphine Affect: PRN ativan Disposition: keep in ICU Notes Reviewed: cardio, renal Discussed with: nurses, consultants Critical Care - Objective Last 24 Hour Vital Signs Date Time Temp Pulse Resp B/P (MAP) Pulse Ox O2 Delivery O2 Flow Rate FiO2 04/22/17 12:14 140/86 04/22/17 12:00 100 04/22/17 11:45 23 04/22/17 11:25 100.2 04/22/17 11:12 94 23 100 04/22/17 11:00 92 20 137/96 98 Mechanical Ventilator 100 04/22/17 10:00 95 21 130/90 96 Mechanical Ventilator 100 04/22/17 10:00 19 04/22/17 09:05 100 23 100 04/22/17 09:00 95 21 135/90 96 Mechanical Ventilator 100 04/22/17 09:00 21 04/22/17 08:30 20 04/22/17 08:02 19 04/22/17 08:00 100.3 96 19 127/87 97 Mechanical Ventilator 100 04/22/17 08:00 100 04/22/17 08:00 96 04/22/17 07:24 97 20 100 04/22/17 07:00 96 20 135/88 98 Mechanical Ventilator 100 04/22/17 06:01 132/81 04/22/17 06:00 101 21 143/82 98 Mechanical Ventilator 100 04/22/17 06:00 21 04/22/17 05:30 103 21 133/82 98 Mechanical Ventilator 100 04/22/17 05:11 108 25 100 04/22/17 05:00 21 04/22/17 05:00 100 21 137/79 98 Mechanical Ventilator 100 04/22/17 04:30 110 20 149/82 98 Mechanical Ventilator 100 04/22/17 04:03 177/97 04/22/17 04:00 84 04/22/17 04:00 20 04/22/17 04:00 99.4 117 20 167/84 98 Mechanical Ventilator 100 04/22/17 04:00 100 04/22/17 03:30 91 20 147/97 94 Mechanical Ventilator 100 04/22/17 03:30 22 04/22/17 03:20 91 23 100 04/22/17 03:00 91 20 177/93 94 Mechanical Ventilator 100 04/22/17 03:00 21 04/22/17 02:30 91 21 157/94 96 Mechanical Ventilator 100 04/22/17 02:00 91 21 151/87 96 Mechanical Ventilator 100 04/22/17 02:00 20 04/22/17 01:30 99 21 145/89 96 Mechanical Ventilator 100 04/22/17 01:25 93 21 100 04/22/17 01:00 20 04/22/17 01:00 99 21 160/94 96 Mechanical Ventilator 100 04/22/17 00:30 99.0 99 23 158/93 96 Mechanical Ventilator 100 04/22/17 00:00 100 04/22/17 00:00 99.0 99 23 161/104 96 Mechanical Ventilator 100 04/22/17 00:00 21 04/21/17 23:30 95 22 146/92 96 Mechanical Ventilator 100 04/21/17 23:17 92 25 100 04/21/17 23:06 23 04/21/17 23:00 99 23 157/94 96 Mechanical Ventilator 100 04/21/17 23:00 23 04/21/17 22:30 102 23 195/92 96 Mechanical Ventilator 100 04/21/17 22:13 175/112 04/21/17 22:00 24 04/21/17 22:00 100 23 161/126 96 Mechanical Ventilator 100 04/21/17 21:30 99 24 100 04/21/17 21:30 98 23 153/114 96 Mechanical Ventilator 100 04/21/17 21:00 100 23 161/126 96 Mechanical Ventilator 100 04/21/17 21:00 20 04/21/17 20:30 101 24 152/107 93 Mechanical Ventilator 100 04/21/17 20:00 92 04/21/17 20:00 16 04/21/17 20:00 100 04/21/17 20:00 99.4 102 24 167/112 93 Mechanical Ventilator 100 04/21/17 18:56 98 21 90 04/21/17 18:00 100 14 145/95 95 Mechanical Ventilator 100 04/21/17 17:37 15 04/21/17 17:06 103 14 90 04/21/17 17:00 95 23 140/98 91 Mechanical Ventilator 100 04/21/17 16:00 100 04/21/17 16:00 111 04/21/17 16:00 99.2 93 14 141/72 91 Mechanical Ventilator 100 04/21/17 15:30 110 17 90 04/21/17 15:00 137 16 136/97 91 Mechanical Ventilator 100 04/21/17 14:00 137 32 183/112 91 Mechanical Ventilator 100 04/21/17 13:04 141 35 80 04/21/17 13:00 135 32 183/123 94 Mechanical Ventilator 100 Status: awake Condition: critical HEENT: atraumatic, normocephalic Lungs: clear, chest wall tender Heart: HR/BP stable Abdomen: soft, non-tender, active bowel sounds, feeding tube Extremities: no C/C/E, edema Micro: Microbiology Date/Time Source Procedure Growth Status 04/21/17 01:00 Sputum Gram Stain - Final Resulted 04/21/17 01:00 Sputum Sputum Culture - Preliminary Resulted 04/21/17 01:00 Indwelling Cath Urine Culture - Preliminary NO GROWTH AFTER 24 HOURS Resulted Critical Care - Subjective ROS Limited/Unobtainable: Yes ICU Day: 2 Condition: critical FI02: 100 Vent Support Breath Rate: 16 Vent Support Mode: AC Vent Tidal Volume: 700 Sputum Amount: Small PEEP: 5.0 PIP: 24 Fluids: d5 1/2 NS 50 cc.hour I&O: Intake and Output 04/22/17 04/23/17 19:00 07:00 Intake Total 199 ml Output Total 230 ml Balance -31 ml Intake IV Total 199 ml Output Urine Total 230 ml CXR: KALEE ET-Tube: 7.0 ET Position: 27 Labs: Laboratory Tests Test 04/21/17 16:30 04/22/17 03:25 04/22/17 07:40 04/22/17 12:00 Urine Color Yellow Urine Appearance Slightly cloudy Urine pH 6 (4.5-8.0) Urine Specific [place] 1.020 (1.005-1.035) Urine Protein 3+ (NEGATIVE) H Urine Glucose (UA) Negative (NEGATIVE) Urine Ketones Negative (NEGATIVE) Urine Occult Blood 5+ (NEGATIVE) H Urine Nitrite Negative (NEGATIVE) Urine Bilirubin Negative (NEGATIVE) Urine Urobilinogen Normal MG/DL (0.0-1.0) Urine Leukocyte Esterase 1+ (NEGATIVE) H Urine RBC Tntc /HPF (0 - 0) H Urine WBC 2-4 /HPF (0 - 0) Urine Squamous Epithelial Cells Occasional /LPF Urine Bacteria Few /HPF (NONE) Urine Eosinophils None seen Urine Random Sodium 81 MEQ/L (20-110) White Blood Count 6.8 K/UL (4.8-10.8) Red Blood Count 4.40 M/UL (4.70-6.10) L Hemoglobin 13.4 G/DL (14.2-18.0) L Hematocrit 41.5 % (42.0-52.0) L Mean Corpuscular Volume 94 FL (80-99) Mean Corpuscular Hemoglobin 30.5 PG (27.0-31.0) Mean Corpuscular Hemoglobin Concent 32.4 G/DL (32.0-36.0) Red Cell Distribution Width 12.7 % (11.6-14.8) Platelet Count 129 K/UL (150-450) L Mean Platelet Volume 11.6 FL (6.5-10.1) H Neutrophils (%) (Auto) % (45.0-75.0) Lymphocytes (%) (Auto) % (20.0-45.0) Monocytes (%) (Auto) % (1.0-10.0) Eosinophils (%) (Auto) % (0.0-3.0) Basophils (%) (Auto) % (0.0-2.0) Differential Total Cells Counted 100 Neutrophils % (Manual) 92 % (45-75) H Lymphocytes % (Manual) 4 % (20-45) L Monocytes % (Manual) 4 % (1-10) Eosinophils % (Manual) 0 % (0-3) Basophils % (Manual) 0 % (0-2) Band Neutrophils 0 % (0-8) Platelet Estimate Decreased L Platelet Morphology Normal Red Blood Cell Morphology Normal Sodium Level 148 MMOL/L (136-145) H Potassium Level 4.4 MMOL/L (3.5-5.1) Chloride Level 113 MMOL/L (98-107) H Carbon Dioxide Level 26 MMOL/L (21-32) Anion Gap 10 mmol/L (5-15) Blood Urea Nitrogen 47 mg/dL (7-18) H Creatinine 2.5 MG/DL (0.55-1.30) H Estimat Glomerular Filtration Rate 31.5 mL/min (>60) Glucose Level 206 MG/DL (74-106) H Calcium Level 9.1 MG/DL (8.5-10.1) Phosphorus Level 2.2 MG/DL (2.5-4.9) L Magnesium Level 2.2 MG/DL (1.8-2.4) Total Bilirubin 0.7 MG/DL (0.2-1.0) Aspartate Amino Transf (AST/SGOT) 23 U/L (15-37) Alanine Aminotransferase (ALT/SGPT) 22 U/L (12-78) Alkaline Phosphatase 56 U/L (46-116) Troponin I 0.622 ng/mL (0.000-0.056) Pending Total Protein 7.4 G/DL (6.4-8.2) Albumin 3.1 G/DL (3.4-5.0) L Globulin 4.3 g/dL Albumin/Globulin Ratio 0.7 (1.0-2.7) L Arterial Blood pH 7.420 (7.350-7.450) Arterial Blood Partial Pressure CO2 32.4 mmHg (35.0-45.0) L Arterial Blood Partial Pressure O2 74.6 mmHg (75.0-100.0) L Arterial Blood HCO3 20.7 mmol/L (22.0-26.0) L Arterial Blood Oxygen Saturation 94.7 % (92.0-98.0) Arterial Blood Base Excess -2.8 Dayron Test Positive VIVEK SOLOMON Apr 22, 2017 12:41
--- NOTE | 2017-04-22 12:45 | Consultation ---
History of Present Illness General Date patient seen: Apr 22, 2017 Time patient seen: 12:44 Reason for Consultation: lwo grade fever Present Illness HPI 67 y/o M with hx of COPD, HTN, tobacco abuse transferred from [place] to [facility] on 04[place]21. Patient presented there with dyspnea, resp failure and noticed to have severe tongue swelling and intubated nasally and admitted to ICU. Patient thought to have angioedema and received epinephrine On high dose steroids. Low grade fever. no leukocytosis. CXR with L perihilar atelactasis vs consoldiation. Not on abx. Allergies: Coded Allergies: LISINOPRIL (Verified Allergy, Severe, 04/21/17) Medication History Scheduled Amlodipine Besylate/Benazepril 5-10 Mg* (Amlodipine-Benazepril 5-10 Mg*), 1 CAP ORAL DAILY, (Reported) Carvedilol* (Carvedilol*), 3.125 MG ORAL BID, (Reported) Miscellaneous Medications Diphenhydramine In 0.9 % Nacl (Diphenhydramine-Ns 50 Mg/50 Ml), 50 MG IV, ( Reported) Epinephrine HCl/Pf (Epinephrine 1 mg/ml Ampul), 0.3 MG IV, (Reported) Famotidine/Pf (Famotidine 20 Mg/2 Ml Vial), 20 MG IV, (Reported) Icatibant Acetate (Firazyr), 30 MG SQ, (Reported) Labetalol HCl (Labetalol HCl), 20 MG IV, (Reported) Methylprednisolone Sod Succ/Pf (Solu-Medrol (Pf) 40 Mg Vial), 125 MG IJ, ( Reported) Midazolam HCl (Midazolam HCl), 1 MG IJ, (Reported) Midazolam HCl (Midazolam HCl), 2 MG IJ, (Reported) Propofol (Diprivan), 1,000 MG IV, (Reported) Sodium Chloride 0.45 % (Sodium Chloride), 1,000 ML IV, (Reported) Patient History Healthcare decision maker Resuscitation status Full Code Advanced Directive on File Patient History Narrative PHx: as above SHx +tobacco abuse Fhx: non contributory Review of Systems ROS Narrative unable to obtain Physical Exam Physical Exam Narrative General Appearance: sedated, intubated Lines, tubes and drains: peripheral, ETT HEENT: normocephalic, atraumatic Respiratory/Chest: chest wall non-tender, lungs clear Cardiovascular/Chest: normal peripheral pulses, no murmurs Abdomen: normal bowel sounds, S+D, NT, ND Extremities: no edema SKIN: no rashes Last 24 Hour Vital Signs Date Time Temp Pulse Resp B/P (MAP) Pulse Ox O2 Delivery O2 Flow Rate FiO2 04/22/17 12:14 140/86 04/22/17 12:00 100 04/22/17 11:45 23 04/22/17 11:25 100.2 04/22/17 11:12 94 23 100 04/22/17 11:00 92 20 137/96 98 Mechanical Ventilator 100 04/22/17 10:00 95 21 130/90 96 Mechanical Ventilator 100 04/22/17 10:00 19 04/22/17 09:05 100 23 100 04/22/17 09:00 95 21 135/90 96 Mechanical Ventilator 100 04/22/17 09:00 21 04/22/17 08:30 20 04/22/17 08:02 19 04/22/17 08:00 100.3 96 19 127/87 97 Mechanical Ventilator 100 04/22/17 08:00 100 04/22/17 08:00 96 04/22/17 07:24 97 20 100 04/22/17 07:00 96 20 135/88 98 Mechanical Ventilator 100 04/22/17 06:01 132/81 04/22/17 06:00 101 21 143/82 98 Mechanical Ventilator 100 04/22/17 06:00 21 04/22/17 05:30 103 21 133/82 98 Mechanical Ventilator 100 04/22/17 05:11 108 25 100 04/22/17 05:00 21 04/22/17 05:00 100 21 137/79 98 Mechanical Ventilator 100 04/22/17 04:30 110 20 149/82 98 Mechanical Ventilator 100 04/22/17 04:03 177/97 04/22/17 04:00 84 04/22/17 04:00 20 04/22/17 04:00 99.4 117 20 167/84 98 Mechanical Ventilator 100 04/22/17 04:00 100 04/22/17 03:30 91 20 147/97 94 Mechanical Ventilator 100 04/22/17 03:30 22 04/22/17 03:20 91 23 100 04/22/17 03:00 91 20 177/93 94 Mechanical Ventilator 100 04/22/17 03:00 21 04/22/17 02:30 91 21 157/94 96 Mechanical Ventilator 100 04/22/17 02:00 91 21 151/87 96 Mechanical Ventilator 100 04/22/17 02:00 20 04/22/17 01:30 99 21 145/89 96 Mechanical Ventilator 100 04/22/17 01:25 93 21 100 04/22/17 01:00 20 04/22/17 01:00 99 21 160/94 96 Mechanical Ventilator 100 04/22/17 00:30 99.0 99 23 158/93 96 Mechanical Ventilator 100 04/22/17 00:00 100 04/22/17 00:00 99.0 99 23 161/104 96 Mechanical Ventilator 100 04/22/17 00:00 21 04/21/17 23:30 95 22 146/92 96 Mechanical Ventilator 100 04/21/17 23:17 92 25 100 04/21/17 23:06 23 04/21/17 23:00 99 23 157/94 96 Mechanical Ventilator 100 04/21/17 23:00 23 04/21/17 22:30 102 23 195/92 96 Mechanical Ventilator 100 04/21/17 22:13 175/112 04/21/17 22:00 24 04/21/17 22:00 100 23 161/126 96 Mechanical Ventilator 100 04/21/17 21:30 99 24 100 04/21/17 21:30 98 23 153/114 96 Mechanical Ventilator 100 04/21/17 21:00 100 23 161/126 96 Mechanical Ventilator 100 04/21/17 21:00 20 04/21/17 20:30 101 24 152/107 93 Mechanical Ventilator 100 04/21/17 20:00 92 04/21/17 20:00 16 04/21/17 20:00 100 04/21/17 20:00 99.4 102 24 167/112 93 Mechanical Ventilator 100 04/21/17 18:56 98 21 90 04/21/17 18:00 100 14 145/95 95 Mechanical Ventilator 100 04/21/17 17:37 15 04/21/17 17:06 103 14 90 04/21/17 17:00 95 23 140/98 91 Mechanical Ventilator 100 04/21/17 16:00 100 04/21/17 16:00 111 04/21/17 16:00 99.2 93 14 141/72 91 Mechanical Ventilator 100 04/21/17 15:30 110 17 90 04/21/17 15:00 137 16 136/97 91 Mechanical Ventilator 100 04/21/17 14:00 137 32 183/112 91 Mechanical Ventilator 100 04/21/17 13:04 141 35 80 04/21/17 13:00 135 32 183/123 94 Mechanical Ventilator 100 Intake and Output 04/22/17 04/23/17 18:59 06:59 Intake Total 249 ml Output Total 380 ml Balance -131 ml Intake IV Total 249 ml Output Urine Total 380 ml Stool Total 0 ml Laboratory Tests Test 04/21/17 16:30 04/22/17 03:25 04/22/17 07:40 04/22/17 12:00 Urine Color Yellow Urine Appearance Slightly cloudy Urine pH 6 (4.5-8.0) Urine Specific [place] 1.020 (1.005-1.035) Urine Protein 3+ (NEGATIVE) H Urine Glucose (UA) Negative (NEGATIVE) Urine Ketones Negative (NEGATIVE) Urine Occult Blood 5+ (NEGATIVE) H Urine Nitrite Negative (NEGATIVE) Urine Bilirubin Negative (NEGATIVE) Urine Urobilinogen Normal MG/DL (0.0-1.0) Urine Leukocyte Esterase 1+ (NEGATIVE) H Urine RBC Tntc /HPF (0 - 0) H Urine WBC 2-4 /HPF (0 - 0) Urine Squamous Epithelial Cells Occasional /LPF Urine Bacteria Few /HPF (NONE) Urine Eosinophils None seen Urine Random Sodium 81 MEQ/L (20-110) White Blood Count 6.8 K/UL (4.8-10.8) Red Blood Count 4.40 M/UL (4.70-6.10) L Hemoglobin 13.4 G/DL (14.2-18.0) L Hematocrit 41.5 % (42.0-52.0) L Mean Corpuscular Volume 94 FL (80-99) Mean Corpuscular Hemoglobin 30.5 PG (27.0-31.0) Mean Corpuscular Hemoglobin Concent 32.4 G/DL (32.0-36.0) Red Cell Distribution Width 12.7 % (11.6-14.8) Platelet Count 129 K/UL (150-450) L Mean Platelet Volume 11.6 FL (6.5-10.1) H Neutrophils (%) (Auto) % (45.0-75.0) Lymphocytes (%) (Auto) % (20.0-45.0) Monocytes (%) (Auto) % (1.0-10.0) Eosinophils (%) (Auto) % (0.0-3.0) Basophils (%) (Auto) % (0.0-2.0) Differential Total Cells Counted 100 Neutrophils % (Manual) 92 % (45-75) H Lymphocytes % (Manual) 4 % (20-45) L Monocytes % (Manual) 4 % (1-10) Eosinophils % (Manual) 0 % (0-3) Basophils % (Manual) 0 % (0-2) Band Neutrophils 0 % (0-8) Platelet Estimate Decreased L Platelet Morphology Normal Red Blood Cell Morphology Normal Sodium Level 148 MMOL/L (136-145) H Potassium Level 4.4 MMOL/L (3.5-5.1) Chloride Level 113 MMOL/L (98-107) H Carbon Dioxide Level 26 MMOL/L (21-32) Anion Gap 10 mmol/L (5-15) Blood Urea Nitrogen 47 mg/dL (7-18) H Creatinine 2.5 MG/DL (0.55-1.30) H Estimat Glomerular Filtration Rate 31.5 mL/min (>60) Glucose Level 206 MG/DL (74-106) H Calcium Level 9.1 MG/DL (8.5-10.1) Phosphorus Level 2.2 MG/DL (2.5-4.9) L Magnesium Level 2.2 MG/DL (1.8-2.4) Total Bilirubin 0.7 MG/DL (0.2-1.0) Aspartate Amino Transf (AST/SGOT) 23 U/L (15-37) Alanine Aminotransferase (ALT/SGPT) 22 U/L (12-78) Alkaline Phosphatase 56 U/L (46-116) Troponin I 0.622 ng/mL (0.000-0.056) Pending Total Protein 7.4 G/DL (6.4-8.2) Albumin 3.1 G/DL (3.4-5.0) L Globulin 4.3 g/dL Albumin/Globulin Ratio 0.7 (1.0-2.7) L Arterial Blood pH 7.420 (7.350-7.450) Arterial Blood Partial Pressure CO2 32.4 mmHg (35.0-45.0) L Arterial Blood Partial Pressure O2 74.6 mmHg (75.0-100.0) L Arterial Blood HCO3 20.7 mmol/L (22.0-26.0) L Arterial Blood Oxygen Saturation 94.7 % (92.0-98.0) Arterial Blood Base Excess -2.8 Dayron Test Positive reviewed Height (Feet): 6 Height (Inches): 4.00 Weight (Pounds): 267 Medications Current Medications Medications (Trade) Dose Ordered Sig/Kelsi Route PRN Reason Start Time Stop Time Status Last Admin Dose Admin Acetaminophen (Tylenol) 650 mg Q6H PRN ORAL Mild Pain/Temp > 100.5 04/21/17 00:45 05/21/17 00:44 04/22/17 10:26 Chlorhexidine Gluconate (Malena-Hex 2%) 1 applic DAILY@2000 TOPIC 04/21/17 20:00 05/21/17 19:59 04/21/17 20:09 Dextrose/Sodium Chloride 1,000 ml @ 50 mls/hr Q20H IV 04/21/17 02:00 05/21/17 01:59 04/21/17 22:19 Heparin Sodium (Porcine) (Heparin 5000 units/ml) 5,000 units EVERY 12 HOURS SUBQ 04/21/17 09:00 05/21/17 08:59 04/22/17 08:54 Hydralazine HCl (Apresoline) 10 mg Q4H PRN IV For High Blood Pressure 04/21/17 00:45 05/21/17 00:44 04/22/17 04:03 Lorazepam (Ativan 2mg/ml 1ml) 2 mg Q2H PRN IV For Anxiety 04/21/17 00:45 04/28/17 00:44 04/21/17 19:56 Methylprednisolone Sodium Succinate (Solu-MEDROL) 60 mg EVERY 12 HOURS IVP 04/22/17 21:00 05/21/17 01:59 UNV Metoprolol Tartrate (Lopressor) 5 mg Q6H PRN IVP heart rate greater than 125 04/21/17 20:00 05/21/17 19:59 Midazolam HCl 100 ml @ 0 mls/hr Q24H IVPB 04/22/17 08:30 04/29/17 08:29 04/22/17 11:45 Morphine Sulfate (Morphine Sulfate) 4 mg Q2H PRN IVP For Severe Pain 04/21/17 11:45 04/28/17 11:44 04/22/17 04:21 Nitroglycerin (Nitro-Bid) 1 inch TID@0600,1200,1800 TOPIC 04/22/17 06:00 05/22/17 05:59 04/22/17 12:14 Pantoprazole (Protonix) 40 mg DAILY IVP 04/21/17 09:00 05/21/17 08:59 04/22/17 09:00 Assessment/Plan Assessment/Plan Abx: none Assesment: Angiodema s/p intubation , on high dose steroids- suspect 2ry to CAROLIN-I Low grade fever -u/a no pyuria; ucx NTD -Sp cx p ?Atelectasis vs consolidation- Possible PNA -CXR: There is some left perihilar congestion or consolidation again demonstrated, unchanged. The remainder the lungs and pleural spaces are clear. Renal insufficiency- ?acute vs chronic vs acute on chronic HTN COPD Tobacco abuse Plan: -Given low grade fever, high O2 requirements and possible consolidation on CXR, start IV Vanco and Unasyn for PNA (will cover for possible aspiration as well) pending sp cx -Obtain 2 sets of Bcx -f/u cx -Monitor CBC/BMP, temperatures -vent management -aspiration precautions Thank you for this consultation. Will continue to follow along with you. Discussed with Imani Olmstead M.D. Apr 22, 2017 12:45
--- NOTE | 2017-04-22 13:56 | Diagnostic Imaging Report ---
Indication: DYSPNEA Technique: IV administration 5.8 mCi 99M technetium macroaggregated albumin. Perfusion images obtained over the chest in multiple projections. Aerosol images could not be obtained, as patient is on ventilator Comparison: Reference made to chest radiograph of earlier the same day Findings: Definite perfusion defect is seen involving the superior segment right lower lobe. More questionable perfusion defects are seen the anterior and posterior basilar segments of the right lower lobe and much of the right middle lobe. Left lung perfusion is heterogeneous without is discrete segmental perfusion abnormality, although there is some suggestion of decreased perfusion in the posterior left upper lobe apex. Impression: Superior segment right lower lobe perfusion defect. Other equivocal right lung perfusion defects versus soft tissue attenuation artifact. In the absence of aerosol images, probably of pulmonary embolus cannot be assigned. Findings are somewhat suspicious but not definitive for the diagnosis of pulmonary embolus. Findings discussed by phone with Dr. Dias at the time of interpretation
[2017-04-22] MEDS: Ampicillin/Sulbactam Sod 3 GM in NS 110 ML IVPB SCH ×2 (14:11→20:51)
[2017-04-22] MEDS ORDERED: D5 1/2NS 1000ml IV ONE (14:16)
--- NOTE | 2017-04-22 14:23 | General Progress Note ---
Progress Note Progress Note Lung perfusion study didn't rule out PE. Considering that patient is on 100% the differential diagnosis is severe emphysema or PE. Will get CT without contrast initially, if there is no severe emphysema, we will get CT angio to look for PE. We, physicians and the daughter are aware of the potential renal impairment/ failure secondary to contrast. VIVEK SOLOMON Apr 22, 2017 14:23
--- NOTE | 2017-04-22 14:31 | GI Initial Consult Note ---
LindaRadha Virgilio N.P. 04/22/17 1431: History of Present Illness General Date patient seen: Apr 22, 2017 Time patient seen: 14:10 Referring physician: VIVEK ZHANG Reason for Consultation: ABDOMINAL DISTENTION Present Illness HPI 67 year old male with hx of COPD, HTN, was taken to [facility] with dyspnea and respiratory failure. He was intubated and transferred to their ICU. He has been transferred to [facility] for further management. Currently, pt is awake, nasally intubated and looks comfortable. GI consulted for abdominal distention. HPI as noted above. ROS limited, patient sedated in ICU. Seen on floor with daughter at bedside trach to vent, NGT present and clamped. Abdomen assessed appears enlarged and distended however soft, dull all quadrants. Per patient, the patient has long history of tobacco, ETOH and drug use. Presents today with hypoalbuminemia. Home Meds Reported Medications Sodium Chloride 0.45 % (SODIUM CHLORIDE) 250 Ml Pggybk.prt, 1000 ML IV 04/21/17 Midazolam HCl (Midazolam HCl) 2 Mg/2 Ml Vial, 2 MG IJ, VIAL 04/21/17 Midazolam HCl (Midazolam HCl) 2 Mg/2 Ml Vial, 1 MG IJ, VIAL 04/21/17 Labetalol HCl (Labetalol HCl) 5 Mg/1 Ml Vial, 20 MG IV, VIAL 04/21/17 Propofol (Diprivan) 10 Mg/1 Ml Vial, 1000 MG IV, EA 04/21/17 Icatibant Acetate (Firazyr) 30 Mg/3 Ml Syringe, 30 MG SQ, EA 04/21/17 Methylprednisolone Sod Succ/Pf (SOLU-MEDROL (PF) 40 MG VIAL) 40 Mg/1 Ml Vial, 125 MG IJ, VIAL 04/21/17 Epinephrine HCl/Pf (Epinephrine 1 mg/ml Ampul) 1 Mg/1 Ml Ampul, 0.3 MG IV, AMP 04/21/17 Famotidine/Pf (FAMOTIDINE 20 MG/2 ML VIAL) 20 Mg/2 Ml Vial, 20 MG IV, VIAL 04/21/17 Diphenhydramine In 0.9 % Nacl (DIPHENHYDRAMINE-NS 50 MG/50 ML) 50 Mg/50 Ml Piggyback, 50 MG IV, % 04/21/17 Amlodipine Besylate/Benazepril 5-10 Mg* (AMLODIPINE-BENAZEPRIL 5-10 MG*) 1 Each Capsule, 1 CAP ORAL DAILY 11/01/12 Carvedilol* (CARVEDILOL*) 3.125 Mg Tablet, 3.125 MG ORAL BID, #60 TAB 11/01/12 Med list reviewed/reconciled: Yes Allergies: Coded Allergies: LISINOPRIL (Verified Allergy, Severe, 04/21/17) Patient History History Provided By: Family Member, Medical Record [facility] Narrative (1) Renal insufficiency (2) Smoker (3) Hypertension (4) ETOH use Social History: Reports: smoking, alcohol use, drug use Review of Systems All Other Systems: limited Physical Exam Vital Signs Date Time Temp Pulse Resp B/P (MAP) Pulse Ox O2 Delivery O2 Flow Rate FiO2 04/20/17 23:51 75 20 70 04/21/17 00:00 98.0 159/98 99 Mechanical Ventilator Sp02 EP Interpretation: reviewed Labs Laboratory Tests Test 04/21/17 16:30 04/22/17 03:25 04/22/17 07:40 04/22/17 12:05 Urine Color Yellow Urine Appearance Slightly cloudy Urine pH 6 (4.5-8.0) Urine Specific [place] 1.020 (1.005-1.035) Urine Protein 3+ (NEGATIVE) H Urine Glucose (UA) Negative (NEGATIVE) Urine Ketones Negative (NEGATIVE) Urine Occult Blood 5+ (NEGATIVE) H Urine Nitrite Negative (NEGATIVE) Urine Bilirubin Negative (NEGATIVE) Urine Urobilinogen Normal MG/DL (0.0-1.0) Urine Leukocyte Esterase 1+ (NEGATIVE) H Urine RBC Tntc /HPF (0 - 0) H Urine WBC 2-4 /HPF (0 - 0) Urine Squamous Epithelial Cells Occasional /LPF Urine Bacteria Few /HPF (NONE) Urine Eosinophils None seen Urine Random Sodium 81 MEQ/L (20-110) White Blood Count 6.8 K/UL (4.8-10.8) Red Blood Count 4.40 M/UL (4.70-6.10) L Hemoglobin 13.4 G/DL (14.2-18.0) L Hematocrit 41.5 % (42.0-52.0) L Mean Corpuscular Volume 94 FL (80-99) Mean Corpuscular Hemoglobin 30.5 PG (27.0-31.0) Mean Corpuscular Hemoglobin Concent 32.4 G/DL (32.0-36.0) Red Cell Distribution Width 12.7 % (11.6-14.8) Platelet Count 129 K/UL (150-450) L Mean Platelet Volume 11.6 FL (6.5-10.1) H Neutrophils (%) (Auto) % (45.0-75.0) Lymphocytes (%) (Auto) % (20.0-45.0) Monocytes (%) (Auto) % (1.0-10.0) Eosinophils (%) (Auto) % (0.0-3.0) Basophils (%) (Auto) % (0.0-2.0) Differential Total Cells Counted 100 Neutrophils % (Manual) 92 % (45-75) H Lymphocytes % (Manual) 4 % (20-45) L Monocytes % (Manual) 4 % (1-10) Eosinophils % (Manual) 0 % (0-3) Basophils % (Manual) 0 % (0-2) Band Neutrophils 0 % (0-8) Platelet Estimate Decreased L Platelet Morphology Normal Red Blood Cell Morphology Normal Sodium Level 148 MMOL/L (136-145) H Potassium Level 4.4 MMOL/L (3.5-5.1) Chloride Level 113 MMOL/L (98-107) H Carbon Dioxide Level 26 MMOL/L (21-32) Anion Gap 10 mmol/L (5-15) Blood Urea Nitrogen 47 mg/dL (7-18) H Creatinine 2.5 MG/DL (0.55-1.30) H Estimat Glomerular Filtration Rate 31.5 mL/min (>60) Glucose Level 206 MG/DL (74-106) H Calcium Level 9.1 MG/DL (8.5-10.1) Phosphorus Level 2.2 MG/DL (2.5-4.9) L Magnesium Level 2.2 MG/DL (1.8-2.4) Total Bilirubin 0.7 MG/DL (0.2-1.0) Aspartate Amino Transf (AST/SGOT) 23 U/L (15-37) Alanine Aminotransferase (ALT/SGPT) 22 U/L (12-78) Alkaline Phosphatase 56 U/L (46-116) Troponin I 0.622 ng/mL (0.000-0.056) 0.706 ng/mL (0.000-0.056) Total Protein 7.4 G/DL (6.4-8.2) Albumin 3.1 G/DL (3.4-5.0) L Globulin 4.3 g/dL Albumin/Globulin Ratio 0.7 (1.0-2.7) L Arterial Blood pH 7.420 (7.350-7.450) Arterial Blood Partial Pressure CO2 32.4 mmHg (35.0-45.0) L Arterial Blood Partial Pressure O2 74.6 mmHg (75.0-100.0) L Arterial Blood HCO3 20.7 mmol/L (22.0-26.0) L Arterial Blood Oxygen Saturation 94.7 % (92.0-98.0) Arterial Blood Base Excess -2.8 Dayron Test Positive General Appearance: obese Head: normocephalic Neck: supple Respiratory: other - trach to vent Cardiovascular: normal rate Gastrointestinal: non tender, soft, no guarding, no mass, distended Rectal: deferred Skin: normal inspection, normal color, no rash, warm/dry, palpation normal Lymphatic: normal inspection, no adenopathy Current Medications Current Medications Medications (Trade) Dose Ordered Sig/Kelsi Route PRN Reason Start Time Stop Time Status Last Admin Dose Admin Acetaminophen (Tylenol) 650 mg Q6H PRN ORAL Mild Pain/Temp > 100.5 04/21/17 00:45 05/21/17 00:44 04/22/17 10:26 Ampicillin Sodium/ Sulbactam Sodium 3 gm/Sodium Chloride 110 ml @ 220 mls/hr Q12HR IVPB 04/22/17 14:30 04/29/17 14:29 Chlorhexidine Gluconate (Malena-Hex 2%) 1 applic DAILY@2000 TOPIC 04/21/17 20:00 05/21/17 19:59 04/21/17 20:09 Dextrose/Sodium Chloride 1,000 ml @ 50 mls/hr Q20H IV 04/21/17 02:00 05/21/17 01:59 04/21/17 22:19 Heparin Sodium (Porcine) (Heparin 5000 units/ml) 5,000 units EVERY 12 HOURS SUBQ 04/21/17 09:00 05/21/17 08:59 04/22/17 08:54 Hydralazine HCl (Apresoline) 10 mg Q4H PRN IV For High Blood Pressure 04/21/17 00:45 05/21/17 00:44 04/22/17 04:03 Lorazepam (Ativan 2mg/ml 1ml) 2 mg Q2H PRN IV For Anxiety 04/21/17 00:45 04/28/17 00:44 04/21/17 19:56 Methylprednisolone Sodium Succinate (Solu-MEDROL) 60 mg EVERY 12 HOURS IVP 04/22/17 21:00 05/21/17 01:59 Metoprolol Tartrate (Lopressor) 5 mg Q6H PRN IVP heart rate greater than 125 04/21/17 20:00 05/21/17 19:59 Midazolam HCl 100 ml @ 0 mls/hr Q24H IVPB 04/22/17 08:30 04/29/17 08:29 04/22/17 11:45 Morphine Sulfate (Morphine Sulfate) 4 mg Q2H PRN IVP For Severe Pain 04/21/17 11:45 04/28/17 11:44 04/22/17 04:21 Nicotine (Nicoderm) 1 patch Q24H TDERMAL 04/22/17 14:00 05/22/17 13:59 Nitroglycerin (Nitro-Bid) 1 inch TID@0600,1200,1800 TOPIC 04/22/17 06:00 05/22/17 05:59 04/22/17 12:14 Pantoprazole (Protonix) 40 mg DAILY IVP 04/21/17 09:00 05/21/17 08:59 04/22/17 09:00 Vancomycin HCl (Vanco rx to dose) 1 ea DAILY PRN MISC Per rx protocol 04/22/17 13:15 05/22/17 13:14 Vancomycin HCl/ Dextrose 250 ml @ 125 mls/hr Q36H IVPB 04/22/17 15:00 04/27/17 14:59 GI: Plan Problems: (1) Abdominal distension (2) Hypoalbuminemia (3) Smoker Plan defer GI procedures at this time, patient not stable given elevated troponin and respiratory failure. follow up KUB r/o intestinal gas and bloating hold NGTFs at this time, will consider LIS if needed for bowel compression possible gastroparesis >> glucose mgmt fu CT monitor H&H, prn transfusions cont ppi bowel regime, last BM x 2 days >> colace + miralax ATC fu labs Discussed with Dr. Cazares. Thank you for this patient referral, we will follow. [email or web address] 04/25/17 0949: History of Present Illness Present Illness Home Meds Reported Medications Sodium Chloride 0.45 % (SODIUM CHLORIDE) 250 Ml Pggybk.prt, 1000 ML IV 04/21/17 Midazolam HCl (Midazolam HCl) 2 Mg/2 Ml Vial, 2 MG IJ, VIAL 04/21/17 Midazolam HCl (Midazolam HCl) 2 Mg/2 Ml Vial, 1 MG IJ, VIAL 04/21/17 Labetalol HCl (Labetalol HCl) 5 Mg/1 Ml Vial, 20 MG IV, VIAL 04/21/17 Propofol (Diprivan) 10 Mg/1 Ml Vial, 1000 MG IV, EA 04/21/17 Icatibant Acetate (Firazyr) 30 Mg/3 Ml Syringe, 30 MG SQ, EA 04/21/17 Methylprednisolone Sod Succ/Pf (SOLU-MEDROL (PF) 40 MG VIAL) 40 Mg/1 Ml Vial, 125 MG IJ, VIAL 04/21/17 Epinephrine HCl/Pf (Epinephrine 1 mg/ml Ampul) 1 Mg/1 Ml Ampul, 0.3 MG IV, AMP 04/21/17 Famotidine/Pf (FAMOTIDINE 20 MG/2 ML VIAL) 20 Mg/2 Ml Vial, 20 MG IV, VIAL 04/21/17 Diphenhydramine In 0.9 % Nacl (DIPHENHYDRAMINE-NS 50 MG/50 ML) 50 Mg/50 Ml Piggyback, 50 MG IV, % 04/21/17 Amlodipine Besylate/Benazepril 5-10 Mg* (AMLODIPINE-BENAZEPRIL 5-10 MG*) 1 Each Capsule, 1 CAP ORAL DAILY 11/01/12 Carvedilol* (CARVEDILOL*) 3.125 Mg Tablet, 3.125 MG ORAL BID, #60 TAB 11/01/12 Allergies: Coded Allergies: LISINOPRIL (Verified Allergy, Severe, 04/21/17) GI: Plan Plan The patient was seen and examined at bedside and all new and available data was reviewed in the patients chart. I agree with the above findings, impression and plan. (Patient seen earlier today. Signature stamp does not reflect patient encounter time.). - [facility] Virgilio N.PBooker Apr 22, 2017 14:31 BRUNA CAZARES Apr 25, 2017 09:49
[2017-04-22] MEDS ORDERED: Vancomycin 1500mg IVPB SCH (15:00)
--- NOTE | 2017-04-22 16:04 | Diagnostic Imaging Report ---
Indication: Status post nasogastric tube placement Technique: Single view of the upper abdomen for evaluation of nasogastric tube Comparison: None Findings: There is a nasogastric tube in place, tip projected at the level gastric fundus, proximal port beyond the gastroesophageal junction. Bowel gas pattern is unremarkable. The included chest is unremarkable except for an endotracheal tube and some basilar atelectasis or scarring Impression: Satisfactory nasogastric intubation Other findings as noted
--- NOTE | 2017-04-22 16:30 | Diagnostic Imaging Report ---
ndication: DYSPNEA, low O2 saturation out of proportion to radiographic abnormality, indeterminate recent perfusion scan Technique: No axillary or chest wall mass or adenopathy. Precontrast spiral acquisitions obtained through the lungs multiplanar reconstructions were generated. Subsequent, IV administration nonionic contrast. Spiral acquisitions obtained from the lung bases to the lung apices. Multiplanar and 3-D reconstructions were generated. Total dose length product 899 and 917 mGycm. CTDIvol(s) 24, 12, 25, 29 mGy. Dose reduction achieved using automated exposure control no evidence of thoracic aortic dissection.. Precontrast images were obtained in order to see if there are sufficient pulmonary disease to preclude the need for contrast scanning. Patient was hydrated prior to the exam due to pre-existing renal insufficiency Comparison: Nuclear medicine lung perfusion scan earlier the same day, chest radiograph earlier the same day Findings: There is considerable image degradation due to respiratory motion artifact Pulmonary arterial bolus opacification is adequate. Incompletely occlusive thrombus is seen in the distal right main pulmonary artery, with extension into the right middle lobe branch and right lower lobe segmental branches. Less extensive thrombus is also seen in left upper lobe segmental branches and multiple basilar left lower lobe segmental branches. There is mild ectasia of the right and left pulmonary arteries, measuring 25 and 26 cm effectively, end of the main pulmonary artery which measures 35 mm. There is equivocal dilatation of the right ventricle, although the presence of left ventricular muscular hypertrophy and generalized cardiomegaly is difficult to state for certain. There is definitely, however, bowing of the interatrial septum. The ascending aorta is ectatic although not frankly aneurysmal, measuring 4.4 cm in diameter. There is consolidation and atelectasis of a significant portion of the posterior left lower lobe. There is also posterior dependent atelectasis of a portion of the right lower lobe. No definite effusions. No definite masses. There is some scarring at the left lung apex. There is an endotracheal tube in place in good position. There is a nasogastric tube in place in good position. No pericardial effusion. No mediastinal or hilar mass or adenopathy. The thyroid is diffusely massively enlarged, demonstrating innumerable nodules, some calcified. There is a left arm PICC. The bones are unremarkable. The included upper abdominal anatomy is remarkable for the presence of gallstones. Impression: Fairly extensive bilateral segmental pulmonary emboli. Interatrial septal bowing,, borderline pulmonary arterial dilatation, equivocal right ventricular dilatation raises concern for submassive pulmonary embolus Bilateral right greater than left pulmonary atelectatic changes Ectatic but not frankly aneurysmal ascending thoracic aorta left apical scarring Satisfactory endotracheal and nasogastric tube positions. Markedly enlarged multinodular thyroid, consistent with multinodular goiter Cholelithiasis [facility] Critical value report phoned to Dr. Dias at the time of interpretation The CT scanner at [facility] is accredited by the [employer] and the scans are performed using protocols designed to limit radiation exposure to as low as reasonably achievable to attain images of sufficient resolution adequate for diagnostic evaluation.
[2017-04-22] MEDS ORDERED: Heparin 25,000u/D5W 500ml 500 ML IV SCH (16:35)
[2017-04-22] MEDS ORDERED: Heparin 5000 units/ml inj IV ONE (16:45)
[2017-04-22 16:49] LABS: INR 1.1 (0.9-1.1); PROTHROMBIN TIME 11.1 SEC (9.30-11.50)
[2017-04-22] MEDS: LORazepam Inj 2mg/ml 1ml IV PRN (17:13)
[2017-04-22] MEDS: D5 1/2NS 1,000 ML IV SCH (18:01)
[2017-04-22] MEDS: Docusate 100mg/10ml Liq NG SCH (18:01)
--- NOTE | 2017-04-22 18:34 | Cardiology Progress Note ---
Assessment/Plan Assessment/Plan 1. Allergic reaction. 2. Angioneurotic edema. 3. Hypertension. 4. Respiratory failure. 5. Hypoxemia. 6. Metabolic encephalopathy. 7. Renal insufficiency. 8. Tachycardia. 9. pulm htn 10. Pulmo embolism 11. abn torp likely related to PE now on anticoag remain sedated ngt in place echo noted pasp 76 c/w pjtn related tp PE eventually will need chew for cuase of PE bp readign are fiale cotnrolled watch renal fxn piost iv contrast Subjective ROS Limited/Unobtainable: Yes Objective Last 24 Hour Vital Signs Date Time Temp Pulse Resp B/P (MAP) Pulse Ox O2 Delivery O2 Flow Rate FiO2 04/22/17 18:01 145/88 04/22/17 18:00 91 20 148/96 96 Mechanical Ventilator 100 04/22/17 18:00 21 04/22/17 17:35 91 22 100 04/22/17 17:30 97 20 136/86 96 Mechanical Ventilator 100 04/22/17 17:00 93 22 145/88 96 Mechanical Ventilator 100 04/22/17 17:00 19 04/22/17 16:30 85 18 156/102 98 Mechanical Ventilator 100 04/22/17 16:00 20 04/22/17 16:00 100 04/22/17 16:00 99.5 92 18 138/87 98 Mechanical Ventilator 100 04/22/17 16:00 89 04/22/17 15:45 22 04/22/17 15:30 92 17 137/88 98 Mechanical Ventilator 100 04/22/17 15:02 98 22 100 04/22/17 15:00 18 04/22/17 15:00 96 18 135/75 98 Mechanical Ventilator 100 04/22/17 14:30 93 18 138/93 97 Mechanical Ventilator 100 04/22/17 14:00 18 04/22/17 14:00 93 18 140/83 97 Mechanical Ventilator 100 04/22/17 13:30 89 20 140/83 97 Mechanical Ventilator 100 04/22/17 13:00 91 18 149/97 97 Mechanical Ventilator 100 04/22/17 13:00 18 04/22/17 13:00 95 22 100 04/22/17 12:30 97 20 149/97 98 Mechanical Ventilator 100 04/22/17 12:14 140/86 04/22/17 12:00 99.4 94 16 127/83 98 Mechanical Ventilator 100 04/22/17 12:00 20 04/22/17 12:00 92 04/22/17 12:00 100 04/22/17 11:45 23 04/22/17 11:30 94 20 140/86 98 Mechanical Ventilator 100 04/22/17 11:25 100.2 04/22/17 11:12 94 23 100 04/22/17 11:00 92 20 137/96 98 Mechanical Ventilator 100 04/22/17 10:30 99 21 135/86 96 Mechanical Ventilator 100 04/22/17 10:00 95 21 130/90 96 Mechanical Ventilator 100 04/22/17 10:00 19 04/22/17 09:30 98 20 132/88 96 Mechanical Ventilator 100 04/22/17 09:05 100 23 100 04/22/17 09:00 95 21 135/90 96 Mechanical Ventilator 100 04/22/17 09:00 21 04/22/17 08:30 20 04/22/17 08:30 92 20 124/86 97 Mechanical Ventilator 100 04/22/17 08:02 19 04/22/17 08:00 100.3 96 19 127/87 97 Mechanical Ventilator 100 04/22/17 08:00 100 04/22/17 08:00 96 04/22/17 07:30 94 20 132/75 98 Mechanical Ventilator 100 04/22/17 07:24 97 20 100 04/22/17 07:00 96 20 135/88 98 Mechanical Ventilator 100 04/22/17 06:01 132/81 04/22/17 06:00 101 21 143/82 98 Mechanical Ventilator 100 04/22/17 06:00 21 04/22/17 05:30 103 21 133/82 98 Mechanical Ventilator 100 04/22/17 05:11 108 25 100 04/22/17 05:00 21 04/22/17 05:00 100 21 137/79 98 Mechanical Ventilator 100 04/22/17 04:30 110 20 149/82 98 Mechanical Ventilator 100 04/22/17 04:03 177/97 04/22/17 04:00 84 04/22/17 04:00 20 04/22/17 04:00 99.4 117 20 167/84 98 Mechanical Ventilator 100 04/22/17 04:00 100 04/22/17 03:30 91 20 147/97 94 Mechanical Ventilator 100 04/22/17 03:30 22 04/22/17 03:20 91 23 100 04/22/17 03:00 91 20 177/93 94 Mechanical Ventilator 100 04/22/17 03:00 21 04/22/17 02:30 91 21 157/94 96 Mechanical Ventilator 100 04/22/17 02:00 91 21 151/87 96 Mechanical Ventilator 100 04/22/17 02:00 20 04/22/17 01:30 99 21 145/89 96 Mechanical Ventilator 100 04/22/17 01:25 93 21 100 04/22/17 01:00 20 04/22/17 01:00 99 21 160/94 96 Mechanical Ventilator 100 04/22/17 00:30 99.0 99 23 158/93 96 Mechanical Ventilator 100 04/22/17 00:00 100 04/22/17 00:00 99.0 99 23 161/104 96 Mechanical Ventilator 100 04/22/17 00:00 21 04/21/17 23:30 95 22 146/92 96 Mechanical Ventilator 100 04/21/17 23:17 92 25 100 04/21/17 23:06 23 04/21/17 23:00 99 23 157/94 96 Mechanical Ventilator 100 04/21/17 23:00 23 04/21/17 22:30 102 23 195/92 96 Mechanical Ventilator 100 04/21/17 22:13 175/112 04/21/17 22:00 24 04/21/17 22:00 100 23 161/126 96 Mechanical Ventilator 100 04/21/17 21:30 99 24 100 04/21/17 21:30 98 23 153/114 96 Mechanical Ventilator 100 04/21/17 21:00 100 23 161/126 96 Mechanical Ventilator 100 04/21/17 21:00 20 04/21/17 20:30 101 24 152/107 93 Mechanical Ventilator 100 04/21/17 20:00 92 04/21/17 20:00 16 04/21/17 20:00 100 04/21/17 20:00 99.4 102 24 167/112 93 Mechanical Ventilator 100 04/21/17 18:56 98 21 90 General Appearance: no apparent distress Neck: supple Cardiovascular: regular rhythm, tachycardia Respiratory/Chest: crackles/rales Abdomen: non tender, soft Extremities: no swelling Intake and Output 04/22/17 04/23/17 19:00 07:00 Intake Total 1279.102 ml Output Total 760 ml Balance 519.102 ml Intake IV Total 1279.102 ml Output Urine Total 760 ml Laboratory Tests Test 04/22/17 03:25 04/22/17 07:40 04/22/17 12:05 04/22/17 16:15 White Blood Count 6.8 K/UL (4.8-10.8) Red Blood Count 4.40 M/UL (4.70-6.10) L Hemoglobin 13.4 G/DL (14.2-18.0) L Hematocrit 41.5 % (42.0-52.0) L Mean Corpuscular Volume 94 FL (80-99) Mean Corpuscular Hemoglobin 30.5 PG (27.0-31.0) Mean Corpuscular Hemoglobin Concent 32.4 G/DL (32.0-36.0) Red Cell Distribution Width 12.7 % (11.6-14.8) Platelet Count 129 K/UL (150-450) L Mean Platelet Volume 11.6 FL (6.5-10.1) H Neutrophils (%) (Auto) % (45.0-75.0) Lymphocytes (%) (Auto) % (20.0-45.0) Monocytes (%) (Auto) % (1.0-10.0) Eosinophils (%) (Auto) % (0.0-3.0) Basophils (%) (Auto) % (0.0-2.0) Differential Total Cells Counted 100 Neutrophils % (Manual) 92 % (45-75) H Lymphocytes % (Manual) 4 % (20-45) L Monocytes % (Manual) 4 % (1-10) Eosinophils % (Manual) 0 % (0-3) Basophils % (Manual) 0 % (0-2) Band Neutrophils 0 % (0-8) Platelet Estimate Decreased L Platelet Morphology Normal Red Blood Cell Morphology Normal Sodium Level 148 MMOL/L (136-145) H Potassium Level 4.4 MMOL/L (3.5-5.1) Chloride Level 113 MMOL/L (98-107) H Carbon Dioxide Level 26 MMOL/L (21-32) Anion Gap 10 mmol/L (5-15) Blood Urea Nitrogen 47 mg/dL (7-18) H Creatinine 2.5 MG/DL (0.55-1.30) H Estimat Glomerular Filtration Rate 31.5 mL/min (>60) Glucose Level 206 MG/DL (74-106) H Calcium Level 9.1 MG/DL (8.5-10.1) Phosphorus Level 2.2 MG/DL (2.5-4.9) L Magnesium Level 2.2 MG/DL (1.8-2.4) Total Bilirubin 0.7 MG/DL (0.2-1.0) Aspartate Amino Transf (AST/SGOT) 23 U/L (15-37) Alanine Aminotransferase (ALT/SGPT) 22 U/L (12-78) Alkaline Phosphatase 56 U/L (46-116) Troponin I 0.622 ng/mL (0.000-0.056) 0.706 ng/mL (0.000-0.056) Total Protein 7.4 G/DL (6.4-8.2) Albumin 3.1 G/DL (3.4-5.0) L Globulin 4.3 g/dL Albumin/Globulin Ratio 0.7 (1.0-2.7) L Arterial Blood pH 7.420 (7.350-7.450) Arterial Blood Partial Pressure CO2 32.4 mmHg (35.0-45.0) L Arterial Blood Partial Pressure O2 74.6 mmHg (75.0-100.0) L Arterial Blood HCO3 20.7 mmol/L (22.0-26.0) L Arterial Blood Oxygen Saturation 94.7 % (92.0-98.0) Arterial Blood Base Excess -2.8 Dayron Test Positive Prothrombin Time 11.1 SEC (9.30-11.50) Prothromb Time International Ratio 1.1 (0.9-1.1) Activated Partial Thromboplast Time 29 SEC (23-33) Microbiology Date/Time Source Procedure Growth Status 04/21/17 01:00 Sputum Gram Stain - Final Resulted 04/21/17 01:00 Sputum Sputum Culture - Preliminary Resulted 04/21/17 01:00 Indwelling Cath Urine Culture - Preliminary NO GROWTH AFTER 24 HOURS Resulted RUBEN CHAVEZ Apr 22, 2017 18:34
--- NOTE | 2017-04-22 20:04 | Consultation ---
Consult Note Consult Note Have ordered hypercoagulable workup. Sulaiman Dudley Apr 22, 2017 20:04
[2017-04-22] MEDS: Dyna-Hex 2% Top Sol 2oz TOPIC SCH (20:14)
[2017-04-22] MEDS: Miralax 17gm pkt ORAL SCH (20:51)
[2017-04-23] VITALS (40 sets, daily range): BP systolic 121–193; BP diastolic 81–117
[2017-04-23 01:43] LABS: INR 1.1 (0.9-1.1)
[2017-04-23] MEDS: Heparin 25,000u/D5W 500ml 500 ML IV SCH ×3 (02:36→11:23)
[2017-04-23] MEDS: Midazolam/D5W 100ml 100 ML IVPB SCH ×8 (04:35→22:30)
[2017-04-23] MEDS: Morphine Sulfate 4mg/ml Inj IVP PRN ×3 (04:37→20:28)
[2017-04-23] MEDS: Nitroglycerin 2% oint pkt TOPIC SCH ×3 (06:03→17:15)
[2017-04-23 06:30] LABS: BASOPHILS % (AUTO) 0.9 % (0.0-2.0); LYMPHOCYTES % (AUTO) 7.9 % (20.0-45.0); MEAN CORPUSCULAR HEMOGLOBIN 30.6 PG (27.0-31.0); MEAN CORPUSCULAR HGB CONC 32.4 G/DL (32.0-36.0); MEAN CORPUSCULAR VOLUME 95 FL (80-99); MEAN PLATELET VOLUME 9.9 FL (6.5-10.1); MONOCYTES % (AUTO) 6.9 % (1.0-10.0); NEUTROPHILS % (AUTO) 84.3 % (45.0-75.0); PLATELET COUNT 107 K/UL (150-450); RED BLOOD COUNT 4.01 M/UL (4.70-6.10); RED CELL DISTRIBUTION WIDTH 13.4 % (11.6-14.8); WHITE BLOOD COUNT 6.1 K/UL (4.8-10.8)
[2017-04-23 07:29] LABS: FOLIC ACID 6.4 NG/ML (3.1-17.5)
--- NOTE | 2017-04-23 08:05 | Pulmonolgy Critical Care Note ---
Critical Care - Asmt/Plan Problems: (1) Acute respiratory failure (2) ATN (acute tubular necrosis) (3) Hypertension (4) Renal insufficiency (5) Angioedema Respiratory: monitor respiratory rate, adjust FIO2, CXR Cardiac: continue to monitor HR/BP Renal: F/U I&O, keep IV fluid Infectious Disease: check cultures Gastrointestinal: continue feedings/current rate, hold feedings Endocrine: monitor blood sugar, continue sliding scale insulin Hematologic: transfuse if hgb<8.5 Neurologic: PRN Ativan, PRN Morphine, keep patient comfortable Affect: PRN ativan Notes Reviewed: vocational teacher, renal Discussed with: nurses, consultants, welfare case workerconcert or lecture hall manager - Objective Last 24 Hour Vital Signs Date Time Temp Pulse Resp B/P (MAP) Pulse Ox O2 Delivery O2 Flow Rate FiO2 04/23/17 07:15 91 19 60 04/23/17 07:00 90 20 153/93 97 Mechanical Ventilator 100 04/23/17 06:03 134/93 04/23/17 06:00 90 17 149/93 98 Mechanical Ventilator 100 04/23/17 06:00 17 04/23/17 05:44 89 16 100 04/23/17 05:30 88 17 134/93 100 Mechanical Ventilator 100 04/23/17 05:00 89 17 142/95 98 Mechanical Ventilator 100 04/23/17 05:00 17 04/23/17 04:35 20 04/23/17 04:30 98.7 93 18 167/107 96 Mechanical Ventilator 100 04/23/17 04:00 20 04/23/17 04:00 89 19 131/95 98 Mechanical Ventilator 100 04/23/17 04:00 100 04/23/17 04:00 94 04/23/17 03:30 93 19 140/91 98 Mechanical Ventilator 100 04/23/17 03:00 95 19 161/98 97 Mechanical Ventilator 100 04/23/17 03:00 82 25 100 04/23/17 03:00 19 04/23/17 02:30 102 21 152/93 96 Mechanical Ventilator 100 04/23/17 02:00 20 04/23/17 02:00 97 20 147/101 96 Mechanical Ventilator 100 04/23/17 01:30 97 19 150/98 96 Mechanical Ventilator 100 04/23/17 01:28 87 24 100 04/23/17 01:00 97 19 158/105 97 Mechanical Ventilator 100 04/23/17 01:00 19 04/23/17 00:30 93 19 151/90 97 Mechanical Ventilator 100 04/23/17 00:00 18 04/23/17 00:00 98.8 97 19 152/101 97 Mechanical Ventilator 100 04/22/17 23:30 91 17 146/91 97 Mechanical Ventilator 100 04/22/17 23:00 89 17 144/90 97 Mechanical Ventilator 100 04/22/17 23:00 16 04/22/17 22:30 88 24 100 04/22/17 22:30 88 15 129/90 97 Mechanical Ventilator 100 04/22/17 22:00 16 04/22/17 22:00 87 15 130/86 97 Mechanical Ventilator 100 04/22/17 21:30 87 16 126/88 98 Mechanical Ventilator 100 87 04/22/17 21:16 90 22 100 04/22/17 21:00 15 04/22/17 21:00 90 15 137/91 98 Mechanical Ventilator 100 90 04/22/17 20:30 88 16 136/96 97 Mechanical Ventilator 100 88 04/22/17 20:06 18 04/22/17 20:00 88 04/22/17 20:00 98.5 88 16 134/88 97 Mechanical Ventilator 100 88 04/22/17 20:00 16 04/22/17 20:00 100 04/22/17 19:34 85 22 100 04/22/17 19:30 86 15 125/90 97 Mechanical Ventilator 100 86 04/22/17 19:00 87 20 129/96 96 Mechanical Ventilator 100 04/22/17 19:00 21 04/22/17 18:01 145/88 04/22/17 18:00 91 20 148/96 96 Mechanical Ventilator 100 04/22/17 18:00 21 04/22/17 17:35 91 22 100 04/22/17 17:30 97 20 136/86 96 Mechanical Ventilator 100 04/22/17 17:00 93 22 145/88 96 Mechanical Ventilator 100 04/22/17 17:00 19 04/22/17 16:30 85 18 156/102 98 Mechanical Ventilator 100 04/22/17 16:00 20 04/22/17 16:00 100 04/22/17 16:00 99.5 92 18 138/87 98 Mechanical Ventilator 100 04/22/17 16:00 89 04/22/17 15:45 22 04/22/17 15:30 92 17 137/88 98 Mechanical Ventilator 100 04/22/17 15:02 98 22 100 04/22/17 15:00 18 04/22/17 15:00 96 18 135/75 98 Mechanical Ventilator 100 04/22/17 14:30 93 18 138/93 97 Mechanical Ventilator 100 04/22/17 14:00 18 04/22/17 14:00 93 18 140/83 97 Mechanical Ventilator 100 04/22/17 13:30 89 20 140/83 97 Mechanical Ventilator 100 04/22/17 13:00 91 18 149/97 97 Mechanical Ventilator 100 04/22/17 13:00 18 04/22/17 13:00 95 22 100 04/22/17 12:30 97 20 149/97 98 Mechanical Ventilator 100 04/22/17 12:14 140/86 04/22/17 12:00 99.4 94 16 127/83 98 Mechanical Ventilator 100 04/22/17 12:00 20 04/22/17 12:00 92 04/22/17 12:00 100 04/22/17 11:45 23 04/22/17 11:30 94 20 140/86 98 Mechanical Ventilator 100 04/22/17 11:25 100.2 04/22/17 11:12 94 23 100 04/22/17 11:00 92 20 137/96 98 Mechanical Ventilator 100 04/22/17 10:30 99 21 135/86 96 Mechanical Ventilator 100 04/22/17 10:00 95 21 130/90 96 Mechanical Ventilator 100 04/22/17 10:00 19 04/22/17 09:30 98 20 132/88 96 Mechanical Ventilator 100 04/22/17 09:05 100 23 100 04/22/17 09:00 95 21 135/90 96 Mechanical Ventilator 100 04/22/17 09:00 21 04/22/17 08:30 20 04/22/17 08:30 92 20 124/86 97 Mechanical Ventilator 100 04/22/17 08:02 19 04/22/17 08:00 100.3 96 19 127/87 97 Mechanical Ventilator 100 04/22/17 08:00 100 04/22/17 08:00 96 Status: awake Condition: critical HEENT: atraumatic Neck: full ROM Lungs: chest wall tender Heart: HR/BP stable, HR/BP unstable Abdomen: non-tender, feeding tube Extremities: no C/C/E, edema Decubiti: stage Micro: Microbiology Date/Time Source Procedure Growth Status 04/21/17 01:00 Sputum Gram Stain - Final Complete 04/21/17 01:00 Sputum Sputum Culture - Final NORMAL UPPER RESPIRATORY MARGARITA AT 50 ... Complete 04/21/17 01:00 Indwelling Cath Urine Culture - Preliminary NO GROWTH AFTER 24 HOURS Resulted 04/21/17 00:30 Rectal Mucosa VRE Culture - Final NO VANCOMYCIN RESISTANT ENTEROCOCCUS ... Complete Critical Care - Subjective ROS Limited/Unobtainable: No ICU Day: 3 Interval Events: CT agnio was positive for PE, pt was started on Heparin drip. Fio2 is already down to 60%. pt is heavily sedated. Condition: critical EKG Rhythm: Sinus Rhythm FI02: 60 Vent Support Breath Rate: 16 Vent Support Mode: AC Vent Tidal Volume: 700 Sputum Amount: Scant PEEP: 5.0 PIP: 31 Fluids: d5 1/2 at 50 cc/hour CXR: CT positive for submassive ( it is massive) pulmonary embolism ET-Tube: 7.0 ET Position: 27 Labs: Laboratory Tests Test 04/22/17 12:05 04/22/17 16:15 04/22/17 23:55 04/23/17 05:15 Troponin I 0.706 ng/mL (0.000-0.056) 0.379 ng/mL (0.000-0.056) 0.301 ng/mL (0.000-0.056) Prothrombin Time 11.1 SEC (9.30-11.50) 12.0 SEC (9.30-11.50) H Prothromb Time International Ratio 1.1 (0.9-1.1) 1.1 (0.9-1.1) Activated Partial Thromboplast Time 29 SEC (23-33) > 150 SEC (23-33) *H Fibrinogen 319 mg/dL (200-400) Ferritin 664 NG/ML (8-388) H Folate 6.4 NG/ML (3.1-17.5) White Blood Count 6.1 K/UL (4.8-10.8) Red Blood Count 4.01 M/UL (4.70-6.10) L Hemoglobin 12.3 G/DL (14.2-18.0) L Hematocrit 38.0 % (42.0-52.0) L Mean Corpuscular Volume 95 FL (80-99) Mean Corpuscular Hemoglobin 30.6 PG (27.0-31.0) Mean Corpuscular Hemoglobin Concent 32.4 G/DL (32.0-36.0) Red Cell Distribution Width 13.4 % (11.6-14.8) Platelet Count 107 K/UL (150-450) L Mean Platelet Volume 9.9 FL (6.5-10.1) Neutrophils (%) (Auto) 84.3 % (45.0-75.0) H Lymphocytes (%) (Auto) 7.9 % (20.0-45.0) L Monocytes (%) (Auto) 6.9 % (1.0-10.0) Eosinophils (%) (Auto) 0.0 % (0.0-3.0) Basophils (%) (Auto) 0.9 % (0.0-2.0) Reticulocyte Count Pending Lupus Anticoagulant Pending Lupus Anticoagulant PTT Baseline Pending Lupus Anticoag DRVVT Screen Ratio Pending DRVVT Confirmation Interpretation Pending Hexagonal Phase Comment Pending Protein C Activity Pending Protein S Antigen Pending Free Protein S Pending Anti-Thrombin III Activity Pending Factor V Mutation Pending Prothrombin Gene Mutation Pending Prothrombin Gene Shared Component Pending Sodium Level Pending Potassium Level Pending Chloride Level Pending Carbon Dioxide Level Pending Blood Urea Nitrogen Pending Creatinine Pending Estimat Glomerular Filtration Rate Pending Glucose Level Pending Hemoglobin A1c Pending Calcium Level Pending Phosphorus Level Pending Magnesium Level Pending Total Bilirubin Pending Gamma Glutamyl Transpeptidase Pending Aspartate Amino Transf (AST/SGOT) Pending Alanine Aminotransferase (ALT/SGPT) Pending Alkaline Phosphatase Pending Total Creatine Kinase Pending Pro-B-Type Natriuretic Peptide Pending Total Protein Pending Albumin Pending Globulin Pending Triglycerides Level Pending Cholesterol Level Pending LDL Cholesterol Pending HDL Cholesterol Pending Cholesterol/HDL Ratio Pending Anti-Cardiolipin IgM Antibody Pending VIVEK SOLOMON Apr 23, 2017 08:05
[2017-04-23] MEDS: Ampicillin/Sulbactam Sod 3 GM in NS 110 ML IVPB SCH ×2 (08:24→20:33)
[2017-04-23] MEDS: Docusate 100mg/10ml Liq NG SCH ×3 (08:24→17:15)
[2017-04-23] MEDS: Solu-MEDROL 125mg Inj IVP SCH ×2 (08:24→20:33)
[2017-04-23] MEDS: Pantoprazole Inj IVP SCH (08:25)
[2017-04-23 08:37] LABS: ALANINE AMINOTRANSFERASE 30 U/L (12-78); ALBUMIN/GLOBULIN RATIO 0.7 (1.0-2.7); ANION GAP 13 mmol/L (5-15); ASPARTATE AMINO TRANSFERASE 22 U/L (15-37); CALCIUM 8.5 MG/DL (8.5-10.1); CARBON DIOXIDE 23 MMOL/L (21-32); CHLORIDE 113 MMOL/L (98-107); CHOLESTEROL 155 MG/DL (< 200); CHOLESTEROL/HDL RATIO 3.7 (3.3-4.4); CREATININE 2.6 MG/DL (0.55-1.30); GLOMERULAR FILTRATION RATE 30.2 mL/min (>60); MAGNESIUM 2.1 MG/DL (1.8-2.4); PHOSPHORUS 3.1 MG/DL (2.5-4.9); SODIUM 149 MMOL/L (136-145); TOTAL PROTEIN 6.7 G/DL (6.4-8.2)
--- NOTE | 2017-04-23 08:44 | General Progress Note ---
Assessment/Plan Problem List: (1) Renal insufficiency ICD Codes: N28.9 - Disorder of kidney and ureter, unspecified SNOMED: 823761050 (2) Hypertension ICD Codes: I10 - Essential (primary) hypertension SNOMED: 91644404 (3) Acute respiratory failure ICD Codes: J96.00 - Acute respiratory failure, unspecified whether with hypoxia or hypercapnia SNOMED: 27990847 (4) Angioedema ICD Codes: T78.3XXA - Angioneurotic edema, initial encounter SNOMED: 35062086 (5) Abdominal distension ICD Codes: R14.0 - Abdominal distension (gaseous) SNOMED: 63400319 (6) Hypoalbuminemia ICD Codes: E88.09 - Other disorders of plasma-protein metabolism, not elsewhere classified SNOMED: 039247576 Assessment/Plan start NGTF fu labs fu pulm recs Subjective ROS Limited/Unobtainable: No Allergies: Coded Allergies: LISINOPRIL (Verified Allergy, Severe, 04/21/17) Objective Last 24 Hour Vital Signs Date Time Temp Pulse Resp B/P (MAP) Pulse Ox O2 Delivery O2 Flow Rate FiO2 04/23/17 08:28 20 04/23/17 08:00 99.1 91 18 144/95 94 Mechanical Ventilator 60 04/23/17 08:00 60 04/23/17 07:15 91 19 60 04/23/17 07:00 90 20 153/93 97 Mechanical Ventilator 100 04/23/17 07:00 20 04/23/17 06:03 134/93 04/23/17 06:00 90 17 149/93 98 Mechanical Ventilator 100 04/23/17 06:00 17 04/23/17 05:44 89 16 100 04/23/17 05:30 88 17 134/93 100 Mechanical Ventilator 100 04/23/17 05:00 89 17 142/95 98 Mechanical Ventilator 100 04/23/17 05:00 17 04/23/17 04:35 20 04/23/17 04:30 98.7 93 18 167/107 96 Mechanical Ventilator 100 04/23/17 04:00 20 04/23/17 04:00 89 19 131/95 98 Mechanical Ventilator 100 04/23/17 04:00 100 04/23/17 04:00 94 04/23/17 03:30 93 19 140/91 98 Mechanical Ventilator 100 04/23/17 03:00 95 19 161/98 97 Mechanical Ventilator 100 04/23/17 03:00 82 25 100 04/23/17 03:00 19 04/23/17 02:30 102 21 152/93 96 Mechanical Ventilator 100 04/23/17 02:00 20 04/23/17 02:00 97 20 147/101 96 Mechanical Ventilator 100 04/23/17 01:30 97 19 150/98 96 Mechanical Ventilator 100 04/23/17 01:28 87 24 100 04/23/17 01:00 97 19 158/105 97 Mechanical Ventilator 100 04/23/17 01:00 19 04/23/17 00:30 93 19 151/90 97 Mechanical Ventilator 100 04/23/17 00:00 18 04/23/17 00:00 98.8 97 19 152/101 97 Mechanical Ventilator 100 04/22/17 23:30 91 17 146/91 97 Mechanical Ventilator 100 04/22/17 23:00 89 17 144/90 97 Mechanical Ventilator 100 04/22/17 23:00 16 04/22/17 22:30 88 24 100 04/22/17 22:30 88 15 129/90 97 Mechanical Ventilator 100 04/22/17 22:00 16 04/22/17 22:00 87 15 130/86 97 Mechanical Ventilator 100 04/22/17 21:30 87 16 126/88 98 Mechanical Ventilator 100 87 04/22/17 21:16 90 22 100 04/22/17 21:00 15 04/22/17 21:00 90 15 137/91 98 Mechanical Ventilator 100 90 04/22/17 20:30 88 16 136/96 97 Mechanical Ventilator 100 88 04/22/17 20:06 18 04/22/17 20:00 88 04/22/17 20:00 98.5 88 16 134/88 97 Mechanical Ventilator 100 88 04/22/17 20:00 16 04/22/17 20:00 100 04/22/17 19:34 85 22 100 04/22/17 19:30 86 15 125/90 97 Mechanical Ventilator 100 86 04/22/17 19:00 87 20 129/96 96 Mechanical Ventilator 100 04/22/17 19:00 21 04/22/17 18:01 145/88 04/22/17 18:00 91 20 148/96 96 Mechanical Ventilator 100 04/22/17 18:00 21 04/22/17 17:35 91 22 100 04/22/17 17:30 97 20 136/86 96 Mechanical Ventilator 100 04/22/17 17:00 93 22 145/88 96 Mechanical Ventilator 100 04/22/17 17:00 19 04/22/17 16:30 85 18 156/102 98 Mechanical Ventilator 100 04/22/17 16:00 20 04/22/17 16:00 100 04/22/17 16:00 99.5 92 18 138/87 98 Mechanical Ventilator 100 04/22/17 16:00 89 04/22/17 15:45 22 04/22/17 15:30 92 17 137/88 98 Mechanical Ventilator 100 04/22/17 15:02 98 22 100 04/22/17 15:00 18 04/22/17 15:00 96 18 135/75 98 Mechanical Ventilator 100 04/22/17 14:30 93 18 138/93 97 Mechanical Ventilator 100 04/22/17 14:00 18 04/22/17 14:00 93 18 140/83 97 Mechanical Ventilator 100 04/22/17 13:30 89 20 140/83 97 Mechanical Ventilator 100 04/22/17 13:00 91 18 149/97 97 Mechanical Ventilator 100 04/22/17 13:00 18 04/22/17 13:00 95 22 100 04/22/17 12:30 97 20 149/97 98 Mechanical Ventilator 100 04/22/17 12:14 140/86 04/22/17 12:00 99.4 94 16 127/83 98 Mechanical Ventilator 100 04/22/17 12:00 20 04/22/17 12:00 92 04/22/17 12:00 100 04/22/17 11:45 23 04/22/17 11:30 94 20 140/86 98 Mechanical Ventilator 100 04/22/17 11:25 100.2 04/22/17 11:12 94 23 100 04/22/17 11:00 92 20 137/96 98 Mechanical Ventilator 100 04/22/17 10:30 99 21 135/86 96 Mechanical Ventilator 100 04/22/17 10:00 95 21 130/90 96 Mechanical Ventilator 100 04/22/17 10:00 19 04/22/17 09:30 98 20 132/88 96 Mechanical Ventilator 100 04/22/17 09:05 100 23 100 04/22/17 09:00 95 21 135/90 96 Mechanical Ventilator 100 04/22/17 09:00 21 Intake and Output 04/23/17 04/24/17 19:00 07:00 Intake Total 50 ml Output Total 100 ml Balance -50 ml Free Water 50 ml Output Urine Total 100 ml Laboratory Tests 04/22/17 12:05: Troponin I 0.706H 04/22/17 16:15: Prothrombin Time 11.1, Prothromb Time International Ratio 1.1, Activated Partial Thromboplast Time 29 04/22/17 23:55: Troponin I 0.379H, Prothrombin Time 12.0H, Prothromb Time International Ratio 1.1, Activated Partial Thromboplast Time > 150*H, Fibrinogen 319, Ferritin 664H , Folate 6.4 04/23/17 05:15: Troponin I 0.301H, White Blood Count 6.1, Red Blood Count 4.01L, Hemoglobin 12.3L, Hematocrit 38.0L, Mean Corpuscular Volume 95, Mean Corpuscular Hemoglobin 30.6, Mean Corpuscular Hemoglobin Concent 32.4, Red Cell Distribution Width 13.4, Platelet Count 107L, Mean Platelet Volume 9.9, Neutrophils (%) (Auto) 84.3H, Lymphocytes (%) (Auto) 7.9L, Monocytes (%) (Auto) 6.9, Eosinophils (%) (Auto) 0.0, Basophils (%) (Auto) 0.9, Reticulocyte Count [ Pending], Lupus Anticoagulant [Pending], Lupus Anticoagulant PTT Baseline [ Pending], Lupus Anticoag DRVVT Screen Ratio [Pending], DRVVT Confirmation Interpretation [Pending], Hexagonal Phase Comment [Pending], Protein C Activity [Pending], Protein S Antigen [Pending], Free Protein S [Pending], Anti-Thrombin III Activity [Pending], Factor V Mutation [Pending], Prothrombin Gene Mutation [ Pending], Prothrombin Gene Shared Component [Pending], Sodium Level 149H, Potassium Level 4.0, Chloride Level 113H, Carbon Dioxide Level 23, Anion Gap 13 , Blood Urea Nitrogen 54H, Creatinine 2.6H, Estimat Glomerular Filtration Rate 30.2, Glucose Level 186H, Hemoglobin A1c [Pending], Calcium Level 8.5, Phosphorus Level 3.1, Magnesium Level 2.1, Total Bilirubin 0.8, Gamma Glutamyl Transpeptidase 35, Aspartate Amino Transf (AST/SGOT) 22, Alanine Aminotransferase (ALT/SGPT) 30, Alkaline Phosphatase 43L, Total Creatine Kinase 113, Pro-B-Type Natriuretic Peptide 6830H, Total Protein 6.7, Albumin 2.8L, Globulin 3.9, Albumin/Globulin Ratio 0.7L, Triglycerides Level 79, Cholesterol Level 155, LDL Cholesterol 101H, HDL Cholesterol 42, Cholesterol/HDL Ratio 3.7, Anti-Cardiolipin IgM Antibody [Pending] 04/23/17 07:40: Activated Partial Thromboplast Time [Pending], D-Dimer [Pending] Height (Feet): 6 Height (Inches): 4.00 Weight (Pounds): 274 General Appearance: lethargic EENT: normal ENT inspection Neck: supple Cardiovascular: normal rate Respiratory/Chest: decreased breath sounds Abdomen: normal bowel sounds, non tender, soft Extremities: non-tender BRUNA SUH Apr 23, 2017 08:44
[2017-04-23] MEDS: LORazepam Inj 2mg/ml 1ml IV PRN ×3 (08:53→16:02)
--- NOTE | 2017-04-23 09:17 | Infectious Diseases Prog Note ---
Assessment/Plan Assessment/Plan Abx: IV Vanco/Unasyn 04/22- Assesment: Angiodema s/p intubation , on high dose steroids- suspect 2ry to CAROLIN-I Possible Submassive b/l PE LLL PNA -CXR: There is some left perihilar congestion or consolidation again demonstrated, unchanged. The remainder the lungs and pleural spaces are clear. -CTA chest: Fairly extensive bilateral segmental pulmonary emboli. Interatrial septal bowing,, borderline pulmonary arterial dilatation, equivocal right ventricular dilatation raises concern for submassive pulmonary embolus. Bilateral right greater than left pulmonary atelectatic changes. Ectatic but not frankly aneurysmal ascending thoracic aorta left apical scarring. There is consolidation and atelectasis of a significant portion of the posterior left lower lobe. There is also posterior dependent atelectasis of a portion of the right lower lobe. No definite effusions. No definite masses. No pericardial effusion. No mediastinal or hilar mass or adenopathy. Markedly enlarged multinodular thyroid, consistent with multinodular goiter -Sp cx NTD Low grade fever- 2ry to above; improving -u/a no pyuria; ucx NTD -Bcx p Renal insufficiency- ?acute vs chronic vs acute on chronic Mutinodular goiter HTN COPD Tobacco abuse Plan: -d/c IV Vancomcyin #2 as no MRSA growth on sp cx -Continue IV Unasyn #2 for presumed PNA (will cover for possible aspiration as well) pending sp cx -f/u 2 sets of Bcx -Monitor CBC/BMP, temperatures -anticoagulation and steroids per primary team -vent management -aspiration precautions Thank you for this consultation. Will continue to follow along with you. Discussed with RN. Subjective Allergies: Coded Allergies: LISINOPRIL (Verified Allergy, Severe, 04/21/17) Subjective afebrile in ~ 24hrs no leukocytosis CTA showed possible submassive b/l PE and consoldation down to 60% fio2 from 100% Objective Vital Signs Last 24 Hour Vital Signs Date Time Temp Pulse Resp B/P (MAP) Pulse Ox O2 Delivery O2 Flow Rate FiO2 04/23/17 09:10 92 21 60 04/23/17 08:28 20 04/23/17 08:00 99.1 91 18 144/95 94 Mechanical Ventilator 60 04/23/17 08:00 60 04/23/17 07:15 91 19 60 04/23/17 07:00 90 20 153/93 97 Mechanical Ventilator 100 04/23/17 07:00 20 04/23/17 06:03 134/93 04/23/17 06:00 90 17 149/93 98 Mechanical Ventilator 100 04/23/17 06:00 17 04/23/17 05:44 89 16 100 04/23/17 05:30 88 17 134/93 100 Mechanical Ventilator 100 04/23/17 05:00 89 17 142/95 98 Mechanical Ventilator 100 04/23/17 05:00 17 04/23/17 04:35 20 04/23/17 04:30 98.7 93 18 167/107 96 Mechanical Ventilator 100 04/23/17 04:00 20 04/23/17 04:00 89 19 131/95 98 Mechanical Ventilator 100 04/23/17 04:00 100 04/23/17 04:00 94 04/23/17 03:30 93 19 140/91 98 Mechanical Ventilator 100 04/23/17 03:00 95 19 161/98 97 Mechanical Ventilator 100 04/23/17 03:00 82 25 100 04/23/17 03:00 19 04/23/17 02:30 102 21 152/93 96 Mechanical Ventilator 100 04/23/17 02:00 20 04/23/17 02:00 97 20 147/101 96 Mechanical Ventilator 100 04/23/17 01:30 97 19 150/98 96 Mechanical Ventilator 100 04/23/17 01:28 87 24 100 04/23/17 01:00 97 19 158/105 97 Mechanical Ventilator 100 04/23/17 01:00 19 04/23/17 00:30 93 19 151/90 97 Mechanical Ventilator 100 04/23/17 00:00 18 04/23/17 00:00 98.8 97 19 152/101 97 Mechanical Ventilator 100 04/22/17 23:30 91 17 146/91 97 Mechanical Ventilator 100 04/22/17 23:00 89 17 144/90 97 Mechanical Ventilator 100 04/22/17 23:00 16 04/22/17 22:30 88 24 100 04/22/17 22:30 88 15 129/90 97 Mechanical Ventilator 100 04/22/17 22:00 16 04/22/17 22:00 87 15 130/86 97 Mechanical Ventilator 100 04/22/17 21:30 87 16 126/88 98 Mechanical Ventilator 100 87 04/22/17 21:16 90 22 100 04/22/17 21:00 15 04/22/17 21:00 90 15 137/91 98 Mechanical Ventilator 100 90 04/22/17 20:30 88 16 136/96 97 Mechanical Ventilator 100 88 04/22/17 20:06 18 04/22/17 20:00 88 04/22/17 20:00 98.5 88 16 134/88 97 Mechanical Ventilator 100 88 04/22/17 20:00 16 04/22/17 20:00 100 04/22/17 19:34 85 22 100 04/22/17 19:30 86 15 125/90 97 Mechanical Ventilator 100 86 04/22/17 19:00 87 20 129/96 96 Mechanical Ventilator 100 04/22/17 19:00 21 04/22/17 18:01 145/88 04/22/17 18:00 91 20 148/96 96 Mechanical Ventilator 100 04/22/17 18:00 21 04/22/17 17:35 91 22 100 04/22/17 17:30 97 20 136/86 96 Mechanical Ventilator 100 04/22/17 17:00 93 22 145/88 96 Mechanical Ventilator 100 04/22/17 17:00 19 04/22/17 16:30 85 18 156/102 98 Mechanical Ventilator 100 04/22/17 16:00 20 04/22/17 16:00 100 04/22/17 16:00 99.5 92 18 138/87 98 Mechanical Ventilator 100 04/22/17 16:00 89 04/22/17 15:45 22 04/22/17 15:30 92 17 137/88 98 Mechanical Ventilator 100 04/22/17 15:02 98 22 100 04/22/17 15:00 18 04/22/17 15:00 96 18 135/75 98 Mechanical Ventilator 100 04/22/17 14:30 93 18 138/93 97 Mechanical Ventilator 100 04/22/17 14:00 18 04/22/17 14:00 93 18 140/83 97 Mechanical Ventilator 100 04/22/17 13:30 89 20 140/83 97 Mechanical Ventilator 100 04/22/17 13:00 91 18 149/97 97 Mechanical Ventilator 100 04/22/17 13:00 18 04/22/17 13:00 95 22 100 04/22/17 12:30 97 20 149/97 98 Mechanical Ventilator 100 04/22/17 12:14 140/86 04/22/17 12:00 99.4 94 16 127/83 98 Mechanical Ventilator 100 04/22/17 12:00 20 04/22/17 12:00 92 04/22/17 12:00 100 04/22/17 11:45 23 04/22/17 11:30 94 20 140/86 98 Mechanical Ventilator 100 04/22/17 11:25 100.2 04/22/17 11:12 94 23 100 04/22/17 11:00 92 20 137/96 98 Mechanical Ventilator 100 04/22/17 10:30 99 21 135/86 96 Mechanical Ventilator 100 04/22/17 10:00 95 21 130/90 96 Mechanical Ventilator 100 04/22/17 10:00 19 04/22/17 09:30 98 20 132/88 96 Mechanical Ventilator 100 Height (Feet): 6 Height (Inches): 4.00 Weight (Pounds): 274 Objective General Appearance: sedated, intubated Lines, tubes and drains: peripheral, ETT HEENT: normocephalic, atraumatic Respiratory/Chest: chest wall non-tender, lungs clear Cardiovascular/Chest: normal peripheral pulses, no murmurs Abdomen: normal bowel sounds, S+D, NT, ND Extremities: no edema SKIN: no rashes Microbiology Date/Time Source Procedure Growth Status 04/22/17 13:00 Sputum Gram Stain - Final Resulted 04/22/17 13:00 Sputum Sputum Culture Pending Resulted 04/21/17 01:00 Sputum Gram Stain - Final Complete 04/21/17 01:00 Sputum Sputum Culture - Final NORMAL UPPER RESPIRATORY MARGARITA AT 50 ... Complete 04/21/17 01:00 Indwelling Cath Urine Culture - Preliminary NO GROWTH AFTER 24 HOURS Resulted 04/21/17 00:30 Rectal Mucosa VRE Culture - Final NO VANCOMYCIN RESISTANT ENTEROCOCCUS ... Complete Laboratory Tests Test 04/22/17 12:05 04/22/17 16:15 04/22/17 23:55 04/23/17 05:15 Troponin I 0.706 ng/mL (0.000-0.056) 0.379 ng/mL (0.000-0.056) 0.301 ng/mL (0.000-0.056) Prothrombin Time 11.1 SEC (9.30-11.50) 12.0 SEC (9.30-11.50) H Prothromb Time International Ratio 1.1 (0.9-1.1) 1.1 (0.9-1.1) Activated Partial Thromboplast Time 29 SEC (23-33) > 150 SEC (23-33) *H Fibrinogen 319 mg/dL (200-400) Ferritin 664 NG/ML (8-388) H Folate 6.4 NG/ML (3.1-17.5) White Blood Count 6.1 K/UL (4.8-10.8) Red Blood Count 4.01 M/UL (4.70-6.10) L Hemoglobin 12.3 G/DL (14.2-18.0) L Hematocrit 38.0 % (42.0-52.0) L Mean Corpuscular Volume 95 FL (80-99) Mean Corpuscular Hemoglobin 30.6 PG (27.0-31.0) Mean Corpuscular Hemoglobin Concent 32.4 G/DL (32.0-36.0) Red Cell Distribution Width 13.4 % (11.6-14.8) Platelet Count 107 K/UL (150-450) L Mean Platelet Volume 9.9 FL (6.5-10.1) Neutrophils (%) (Auto) 84.3 % (45.0-75.0) H Lymphocytes (%) (Auto) 7.9 % (20.0-45.0) L Monocytes (%) (Auto) 6.9 % (1.0-10.0) Eosinophils (%) (Auto) 0.0 % (0.0-3.0) Basophils (%) (Auto) 0.9 % (0.0-2.0) Reticulocyte Count Pending Lupus Anticoagulant Pending Lupus Anticoagulant PTT Baseline Pending Lupus Anticoag DRVVT Screen Ratio Pending DRVVT Confirmation Interpretation Pending Hexagonal Phase Comment Pending Protein C Activity Pending Protein S Antigen Pending Free Protein S Pending Anti-Thrombin III Activity Pending Factor V Mutation Pending Prothrombin Gene Mutation Pending Prothrombin Gene Shared Component Pending Sodium Level 149 MMOL/L (136-145) H Potassium Level 4.0 MMOL/L (3.5-5.1) Chloride Level 113 MMOL/L (98-107) H Carbon Dioxide Level 23 MMOL/L (21-32) Anion Gap 13 mmol/L (5-15) Blood Urea Nitrogen 54 mg/dL (7-18) H Creatinine 2.6 MG/DL (0.55-1.30) H Estimat Glomerular Filtration Rate 30.2 mL/min (>60) Glucose Level 186 MG/DL (74-106) H Hemoglobin A1c Pending Calcium Level 8.5 MG/DL (8.5-10.1) Phosphorus Level 3.1 MG/DL (2.5-4.9) Magnesium Level 2.1 MG/DL (1.8-2.4) Total Bilirubin 0.8 MG/DL (0.2-1.0) Gamma Glutamyl Transpeptidase 35 U/L (5-85) Aspartate Amino Transf (AST/SGOT) 22 U/L (15-37) Alanine Aminotransferase (ALT/SGPT) 30 U/L (12-78) Alkaline Phosphatase 43 U/L (46-116) L Total Creatine Kinase 113 U/L (26-308) Pro-B-Type Natriuretic Peptide 6830 pg/mL (0-125) H Total Protein 6.7 G/DL (6.4-8.2) Albumin 2.8 G/DL (3.4-5.0) L Globulin 3.9 g/dL Albumin/Globulin Ratio 0.7 (1.0-2.7) L Triglycerides Level 79 MG/DL (0-200) Cholesterol Level 155 MG/DL (< 200) LDL Cholesterol 101 mg/dL (<100) H HDL Cholesterol 42 MG/DL (40-60) Cholesterol/HDL Ratio 3.7 (3.3-4.4) Anti-Cardiolipin IgM Antibody Pending Test 04/23/17 07:40 Activated Partial Thromboplast Time Pending D-Dimer Pending Current Medications Medications (Trade) Dose Ordered Sig/Kelsi Route PRN Reason Start Time Stop Time Status Last Admin Dose Admin Acetaminophen (Tylenol) 650 mg Q6H PRN ORAL Mild Pain/Temp > 100.5 04/21/17 00:45 05/21/17 00:44 04/22/17 10:26 Ampicillin Sodium/ Sulbactam Sodium 3 gm/Sodium Chloride 110 ml @ 220 mls/hr Q12HR IVPB 04/22/17 14:30 04/29/17 14:29 04/23/17 08:24 Chlorhexidine Gluconate (Malena-Hex 2%) 1 applic DAILY@2000 TOPIC 04/21/17 20:00 05/21/17 19:59 04/22/17 20:14 Dextrose/Sodium Chloride 1,000 ml @ 100 mls/hr Q10H IV 04/24/17 09:00 05/24/17 08:59 Docusate Sodium (Colace) 100 mg THREE TIMES A DAY NG 04/22/17 18:00 05/22/17 17:59 04/23/17 08:24 Heparin Sodium/ Dextrose 500 ml @ 33.913 mls/ hr adjust per protocol IV 04/23/17 03:15 05/23/17 03:14 04/23/17 06:42 Hydralazine HCl (Apresoline) 10 mg Q4H PRN IV For High Blood Pressure 04/21/17 00:45 05/21/17 00:44 04/22/17 04:03 Lorazepam (Ativan 2mg/ml 1ml) 2 mg Q2H PRN IV For Anxiety 04/21/17 00:45 04/28/17 00:44 04/23/17 08:53 Methylprednisolone Sodium Succinate (Solu-MEDROL) 60 mg EVERY 12 HOURS IVP 04/22/17 21:00 05/21/17 01:59 04/23/17 08:24 Metoprolol Tartrate (Lopressor) 5 mg Q6H PRN IVP heart rate greater than 125 04/21/17 20:00 05/21/17 19:59 Midazolam HCl 100 ml @ 0 mls/hr Q24H IVPB 04/22/17 08:30 04/29/17 08:29 04/23/17 08:28 Morphine Sulfate (Morphine Sulfate) 4 mg Q2H PRN IVP For Severe Pain 04/21/17 11:45 04/28/17 11:44 04/23/17 04:37 Nicotine (Nicoderm) 1 patch Q24H TDERMAL 04/22/17 14:00 05/22/17 13:59 04/22/17 14:11 Nitroglycerin (Nitro-Bid) 1 inch TID@0600,1200,1800 TOPIC 04/22/17 06:00 05/22/17 05:59 04/23/17 06:03 Pantoprazole (Protonix) 40 mg DAILY IVP 04/21/17 09:00 05/21/17 08:59 04/23/17 08:25 Polyethylene Glycol (Miralax) 17 gm BEDTIME ORAL 04/22/17 21:00 05/22/17 20:59 04/22/17 20:51 Vancomycin HCl (Vanco rx to dose) 1 ea DAILY PRN MISC Per rx protocol 04/22/17 13:15 05/22/17 13:14 Vancomycin HCl/ Dextrose 250 ml @ 125 mls/hr Q24H IVPB 04/23/17 15:00 04/28/17 14:59 Imani Diggs M.D. Apr 23, 2017 09:17
--- NOTE | 2017-04-23 09:23 | Cardiology Progress Note ---
Assessment/Plan Assessment/Plan 1. Allergic reaction. 2. Angioneurotic edema. 3. Hypertension. 4. Respiratory failure. 5. Hypoxemia. 6. Metabolic encephalopathy. 7. Renal insufficiency. 8. Tachycardia. 9. pulm htn 10. Pulmo embolism 11. abn torp likely related to PE 12 ACEI allergy now on anticoag remain sedated ngt in place echo noted pasp 76 c/w pjtn related tp PE today i actualy reviewed some of the echo images form prior echo and compared to present images begin performed today echo repeat today rv not appear enlarged compared to last time pasp seem lower (60's now) however (study not yet complete) ct personally reviewed there is distal right PA embolism not in the main stem his bp is high has been on ntp and iv hydralazine now has ngt will start on Norvasc fio2 requirement are now lower on 55% fio2 as opposed to 90-100% yest sat 93-96 % d/w [facility] staff we discussed possibility of transfer to [facility] however given lack of hemodynamic instability and lack of proximal main stem PA embolism and improved pasp adn no evidence for sig RV dysfunction he is felt not to require mechanical thrombectomy or chemical thrombolysis at this time will have venous duplex may need ivc filter temp if sig thrombus burden continue full dose anticoagulation ct also showes consolidation which may explain some of his hypoxemia as well is on abx sig time spent on the care of this pt on urgent and critical basis renal function is abn but nto yet changed form baseline tele reviewed ekg reviewed Subjective ROS Limited/Unobtainable: Yes Subjective intubated , on cosmo Objective Last 24 Hour Vital Signs Date Time Temp Pulse Resp B/P (MAP) Pulse Ox O2 Delivery O2 Flow Rate FiO2 04/23/17 08:28 20 04/23/17 08:00 99.1 91 18 144/95 94 Mechanical Ventilator 60 04/23/17 08:00 60 04/23/17 07:15 91 19 60 04/23/17 07:00 90 20 153/93 97 Mechanical Ventilator 100 04/23/17 07:00 20 04/23/17 06:03 134/93 04/23/17 06:00 90 17 149/93 98 Mechanical Ventilator 100 04/23/17 06:00 17 04/23/17 05:44 89 16 100 04/23/17 05:30 88 17 134/93 100 Mechanical Ventilator 100 04/23/17 05:00 89 17 142/95 98 Mechanical Ventilator 100 04/23/17 05:00 17 04/23/17 04:35 20 04/23/17 04:30 98.7 93 18 167/107 96 Mechanical Ventilator 100 04/23/17 04:00 20 04/23/17 04:00 89 19 131/95 98 Mechanical Ventilator 100 04/23/17 04:00 100 04/23/17 04:00 94 04/23/17 03:30 93 19 140/91 98 Mechanical Ventilator 100 04/23/17 03:00 95 19 161/98 97 Mechanical Ventilator 100 04/23/17 03:00 82 25 100 04/23/17 03:00 19 04/23/17 02:30 102 21 152/93 96 Mechanical Ventilator 100 04/23/17 02:00 20 04/23/17 02:00 97 20 147/101 96 Mechanical Ventilator 100 04/23/17 01:30 97 19 150/98 96 Mechanical Ventilator 100 04/23/17 01:28 87 24 100 04/23/17 01:00 97 19 158/105 97 Mechanical Ventilator 100 04/23/17 01:00 19 04/23/17 00:30 93 19 151/90 97 Mechanical Ventilator 100 04/23/17 00:00 18 04/23/17 00:00 98.8 97 19 152/101 97 Mechanical Ventilator 100 04/22/17 23:30 91 17 146/91 97 Mechanical Ventilator 100 04/22/17 23:00 89 17 144/90 97 Mechanical Ventilator 100 04/22/17 23:00 16 04/22/17 22:30 88 24 100 04/22/17 22:30 88 15 129/90 97 Mechanical Ventilator 100 04/22/17 22:00 16 04/22/17 22:00 87 15 130/86 97 Mechanical Ventilator 100 04/22/17 21:30 87 16 126/88 98 Mechanical Ventilator 100 87 04/22/17 21:16 90 22 100 04/22/17 21:00 15 04/22/17 21:00 90 15 137/91 98 Mechanical Ventilator 100 90 04/22/17 20:30 88 16 136/96 97 Mechanical Ventilator 100 88 04/22/17 20:06 18 04/22/17 20:00 88 04/22/17 20:00 98.5 88 16 134/88 97 Mechanical Ventilator 100 88 04/22/17 20:00 16 04/22/17 20:00 100 04/22/17 19:34 85 22 100 04/22/17 19:30 86 15 125/90 97 Mechanical Ventilator 100 86 04/22/17 19:00 87 20 129/96 96 Mechanical Ventilator 100 04/22/17 19:00 21 04/22/17 18:01 145/88 04/22/17 18:00 91 20 148/96 96 Mechanical Ventilator 100 04/22/17 18:00 21 04/22/17 17:35 91 22 100 04/22/17 17:30 97 20 136/86 96 Mechanical Ventilator 100 04/22/17 17:00 93 22 145/88 96 Mechanical Ventilator 100 04/22/17 17:00 19 04/22/17 16:30 85 18 156/102 98 Mechanical Ventilator 100 04/22/17 16:00 20 04/22/17 16:00 100 04/22/17 16:00 99.5 92 18 138/87 98 Mechanical Ventilator 100 04/22/17 16:00 89 04/22/17 15:45 22 04/22/17 15:30 92 17 137/88 98 Mechanical Ventilator 100 04/22/17 15:02 98 22 100 04/22/17 15:00 18 04/22/17 15:00 96 18 135/75 98 Mechanical Ventilator 100 04/22/17 14:30 93 18 138/93 97 Mechanical Ventilator 100 04/22/17 14:00 18 04/22/17 14:00 93 18 140/83 97 Mechanical Ventilator 100 04/22/17 13:30 89 20 140/83 97 Mechanical Ventilator 100 04/22/17 13:00 91 18 149/97 97 Mechanical Ventilator 100 04/22/17 13:00 18 04/22/17 13:00 95 22 100 04/22/17 12:30 97 20 149/97 98 Mechanical Ventilator 100 04/22/17 12:14 140/86 04/22/17 12:00 99.4 94 16 127/83 98 Mechanical Ventilator 100 04/22/17 12:00 20 04/22/17 12:00 92 04/22/17 12:00 100 04/22/17 11:45 23 04/22/17 11:30 94 20 140/86 98 Mechanical Ventilator 100 04/22/17 11:25 100.2 04/22/17 11:12 94 23 100 04/22/17 11:00 92 20 137/96 98 Mechanical Ventilator 100 04/22/17 10:30 99 21 135/86 96 Mechanical Ventilator 100 04/22/17 10:00 95 21 130/90 96 Mechanical Ventilator 100 04/22/17 10:00 19 04/22/17 09:30 98 20 132/88 96 Mechanical Ventilator 100 General Appearance: alert, on vent Cardiovascular: normal rate, tachycardia Respiratory/Chest: lungs clear, normal breath sounds Abdomen: normal bowel sounds, non tender, soft Extremities: no swelling Intake and Output 04/23/17 04/24/17 19:00 07:00 Intake Total 50 ml Output Total 100 ml Balance -50 ml Free Water 50 ml Output Urine Total 100 ml Laboratory Tests Test 04/22/17 12:05 04/22/17 16:15 04/22/17 23:55 04/23/17 05:15 Troponin I 0.706 ng/mL (0.000-0.056) 0.379 ng/mL (0.000-0.056) 0.301 ng/mL (0.000-0.056) Prothrombin Time 11.1 SEC (9.30-11.50) 12.0 SEC (9.30-11.50) H Prothromb Time International Ratio 1.1 (0.9-1.1) 1.1 (0.9-1.1) Activated Partial Thromboplast Time 29 SEC (23-33) > 150 SEC (23-33) *H Fibrinogen 319 mg/dL (200-400) Ferritin 664 NG/ML (8-388) H Folate 6.4 NG/ML (3.1-17.5) White Blood Count 6.1 K/UL (4.8-10.8) Red Blood Count 4.01 M/UL (4.70-6.10) L Hemoglobin 12.3 G/DL (14.2-18.0) L Hematocrit 38.0 % (42.0-52.0) L Mean Corpuscular Volume 95 FL (80-99) Mean Corpuscular Hemoglobin 30.6 PG (27.0-31.0) Mean Corpuscular Hemoglobin Concent 32.4 G/DL (32.0-36.0) Red Cell Distribution Width 13.4 % (11.6-14.8) Platelet Count 107 K/UL (150-450) L Mean Platelet Volume 9.9 FL (6.5-10.1) Neutrophils (%) (Auto) 84.3 % (45.0-75.0) H Lymphocytes (%) (Auto) 7.9 % (20.0-45.0) L Monocytes (%) (Auto) 6.9 % (1.0-10.0) Eosinophils (%) (Auto) 0.0 % (0.0-3.0) Basophils (%) (Auto) 0.9 % (0.0-2.0) Reticulocyte Count Pending Lupus Anticoagulant Pending Lupus Anticoagulant PTT Baseline Pending Lupus Anticoag DRVVT Screen Ratio Pending DRVVT Confirmation Interpretation Pending Hexagonal Phase Comment Pending Protein C Activity Pending Protein S Antigen Pending Free Protein S Pending Anti-Thrombin III Activity Pending Factor V Mutation Pending Prothrombin Gene Mutation Pending Prothrombin Gene Shared Component Pending Sodium Level 149 MMOL/L (136-145) H Potassium Level 4.0 MMOL/L (3.5-5.1) Chloride Level 113 MMOL/L (98-107) H Carbon Dioxide Level 23 MMOL/L (21-32) Anion Gap 13 mmol/L (5-15) Blood Urea Nitrogen 54 mg/dL (7-18) H Creatinine 2.6 MG/DL (0.55-1.30) H Estimat Glomerular Filtration Rate 30.2 mL/min (>60) Glucose Level 186 MG/DL (74-106) H Hemoglobin A1c Pending Calcium Level 8.5 MG/DL (8.5-10.1) Phosphorus Level 3.1 MG/DL (2.5-4.9) Magnesium Level 2.1 MG/DL (1.8-2.4) Total Bilirubin 0.8 MG/DL (0.2-1.0) Gamma Glutamyl Transpeptidase 35 U/L (5-85) Aspartate Amino Transf (AST/SGOT) 22 U/L (15-37) Alanine Aminotransferase (ALT/SGPT) 30 U/L (12-78) Alkaline Phosphatase 43 U/L (46-116) L Total Creatine Kinase 113 U/L (26-308) Pro-B-Type Natriuretic Peptide 6830 pg/mL (0-125) H Total Protein 6.7 G/DL (6.4-8.2) Albumin 2.8 G/DL (3.4-5.0) L Globulin 3.9 g/dL Albumin/Globulin Ratio 0.7 (1.0-2.7) L Triglycerides Level 79 MG/DL (0-200) Cholesterol Level 155 MG/DL (< 200) LDL Cholesterol 101 mg/dL (<100) H HDL Cholesterol 42 MG/DL (40-60) Cholesterol/HDL Ratio 3.7 (3.3-4.4) Anti-Cardiolipin IgM Antibody Pending Test 04/23/17 07:40 Activated Partial Thromboplast Time Pending D-Dimer Pending Microbiology Date/Time Source Procedure Growth Status 04/22/17 13:00 Sputum Gram Stain - Final Resulted 04/22/17 13:00 Sputum Sputum Culture Pending Resulted 04/21/17 01:00 Sputum Gram Stain - Final Complete 04/21/17 01:00 Sputum Sputum Culture - Final NORMAL UPPER RESPIRATORY MARGARITA AT 50 ... Complete 04/21/17 01:00 Indwelling Cath Urine Culture - Preliminary NO GROWTH AFTER 24 HOURS Resulted 04/21/17 00:30 Rectal Mucosa VRE Culture - Final NO VANCOMYCIN RESISTANT ENTEROCOCCUS ... Complete RUBEN CHAVEZ Apr 23, 2017 09:23
[2017-04-23] MEDS ORDERED: D5 1/2NS 1000ml IV ONE (09:35)
[2017-04-23] MEDS ORDERED: Sterile Water Irrig 1000ml IRRIG ONE (09:35)
[2017-04-23] MEDS ORDERED: Tubing IV Secondary IV ONE (09:35)
--- NOTE | 2017-04-23 10:16 | Diagnostic Imaging Report ---
Indication: DYSPNEA Technique: One view of the chest Comparison: 04/22/2017 Findings: Again demonstrated is upper mediastinum, consistent with multinodular goiter described on recent CT scan. Again demonstrated is of perihilar consolidation, unchanged. The remainder the lungs and pleural spaces are clear. Stable satisfactory positions of endotracheal and nasogastric tubes. The heart remains enlarged. Impression: Unchanged, over one day, findings as above.
--- NOTE | 2017-04-23 11:49 | General Progress Note ---
Assessment/Plan Status: unchanged Status Narrative Cr unchanged Assessment/Plan status; Pulmonary emboli , on heparin Acute respiratory failure- On Vent Renal failure ? CKD ? Superimposed Acute renal failure HTN- Smoker- Jorge Inhibor Allergy Plan: Keep BP in check 2D Echo- EjFx 60% Pulmonary support- urine studies- Kidney MIKEY Right kidney demonstrates borderline hydronephrosis. Taper steroids as possible. monitor renal parameters- Avoid nephrotoxics Subjective ROS Limited/Unobtainable: Yes Allergies: Coded Allergies: LISINOPRIL (Verified Allergy, Severe, 04/21/17) Objective Last 24 Hour Vital Signs Date Time Temp Pulse Resp B/P (MAP) Pulse Ox O2 Delivery O2 Flow Rate FiO2 04/23/17 11:30 106 25 151/89 94 Mechanical Ventilator 60 04/23/17 11:28 116 31 60 04/23/17 11:15 159/99 04/23/17 11:15 159/99 04/23/17 11:00 101 24 159/99 92 Mechanical Ventilator 60 04/23/17 10:30 102 24 193/117 92 Mechanical Ventilator 60 04/23/17 10:00 97 24 161/101 93 Mechanical Ventilator 60 04/23/17 09:53 95 168/95 04/23/17 09:30 95 22 168/95 93 Mechanical Ventilator 60 04/23/17 09:10 92 21 60 04/23/17 09:00 93 28 147/96 93 Mechanical Ventilator 55 04/23/17 08:30 91 20 161/108 95 Mechanical Ventilator 60 04/23/17 08:28 20 04/23/17 08:00 99.1 91 18 144/95 94 Mechanical Ventilator 60 04/23/17 08:00 60 04/23/17 08:00 24 04/23/17 08:00 91 04/23/17 07:30 91 16 148/93 90 Mechanical Ventilator 100 04/23/17 07:15 91 19 60 04/23/17 07:00 90 20 153/93 97 Mechanical Ventilator 100 04/23/17 07:00 20 04/23/17 06:03 134/93 04/23/17 06:00 90 17 149/93 98 Mechanical Ventilator 100 04/23/17 06:00 17 04/23/17 05:44 89 16 100 04/23/17 05:30 88 17 134/93 100 Mechanical Ventilator 100 04/23/17 05:00 89 17 142/95 98 Mechanical Ventilator 100 04/23/17 05:00 17 04/23/17 04:35 20 04/23/17 04:30 98.7 93 18 167/107 96 Mechanical Ventilator 100 04/23/17 04:00 20 04/23/17 04:00 89 19 131/95 98 Mechanical Ventilator 100 04/23/17 04:00 100 04/23/17 04:00 94 04/23/17 03:30 93 19 140/91 98 Mechanical Ventilator 100 04/23/17 03:00 95 19 161/98 97 Mechanical Ventilator 100 04/23/17 03:00 82 25 100 04/23/17 03:00 19 04/23/17 02:30 102 21 152/93 96 Mechanical Ventilator 100 04/23/17 02:00 20 04/23/17 02:00 97 20 147/101 96 Mechanical Ventilator 100 04/23/17 01:30 97 19 150/98 96 Mechanical Ventilator 100 04/23/17 01:28 87 24 100 04/23/17 01:00 97 19 158/105 97 Mechanical Ventilator 100 04/23/17 01:00 19 04/23/17 00:30 93 19 151/90 97 Mechanical Ventilator 100 04/23/17 00:00 18 04/23/17 00:00 98.8 97 19 152/101 97 Mechanical Ventilator 100 04/22/17 23:30 91 17 146/91 97 Mechanical Ventilator 100 04/22/17 23:00 89 17 144/90 97 Mechanical Ventilator 100 04/22/17 23:00 16 04/22/17 22:30 88 24 100 04/22/17 22:30 88 15 129/90 97 Mechanical Ventilator 100 04/22/17 22:00 16 04/22/17 22:00 87 15 130/86 97 Mechanical Ventilator 100 04/22/17 21:30 87 16 126/88 98 Mechanical Ventilator 100 87 04/22/17 21:16 90 22 100 04/22/17 21:00 15 04/22/17 21:00 90 15 137/91 98 Mechanical Ventilator 100 90 04/22/17 20:30 88 16 136/96 97 Mechanical Ventilator 100 88 04/22/17 20:06 18 04/22/17 20:00 88 04/22/17 20:00 98.5 88 16 134/88 97 Mechanical Ventilator 100 88 04/22/17 20:00 16 04/22/17 20:00 100 04/22/17 19:34 85 22 100 04/22/17 19:30 86 15 125/90 97 Mechanical Ventilator 100 86 04/22/17 19:00 87 20 129/96 96 Mechanical Ventilator 100 04/22/17 19:00 21 04/22/17 18:01 145/88 04/22/17 18:00 91 20 148/96 96 Mechanical Ventilator 100 04/22/17 18:00 21 04/22/17 17:35 91 22 100 04/22/17 17:30 97 20 136/86 96 Mechanical Ventilator 100 04/22/17 17:00 93 22 145/88 96 Mechanical Ventilator 100 04/22/17 17:00 19 04/22/17 16:30 85 18 156/102 98 Mechanical Ventilator 100 04/22/17 16:00 20 04/22/17 16:00 100 04/22/17 16:00 99.5 92 18 138/87 98 Mechanical Ventilator 100 04/22/17 16:00 89 04/22/17 15:45 22 04/22/17 15:30 92 17 137/88 98 Mechanical Ventilator 100 04/22/17 15:02 98 22 100 04/22/17 15:00 18 04/22/17 15:00 96 18 135/75 98 Mechanical Ventilator 100 04/22/17 14:30 93 18 138/93 97 Mechanical Ventilator 100 04/22/17 14:00 18 04/22/17 14:00 93 18 140/83 97 Mechanical Ventilator 100 04/22/17 13:30 89 20 140/83 97 Mechanical Ventilator 100 04/22/17 13:00 91 18 149/97 97 Mechanical Ventilator 100 04/22/17 13:00 18 04/22/17 13:00 95 22 100 04/22/17 12:30 97 20 149/97 98 Mechanical Ventilator 100 04/22/17 12:14 140/86 04/22/17 12:00 99.4 94 16 127/83 98 Mechanical Ventilator 100 04/22/17 12:00 20 04/22/17 12:00 92 04/22/17 12:00 100 Intake and Output 04/23/17 04/24/17 19:00 07:00 Intake Total 281.913 ml Output Total 525 ml Balance -243.087 ml Free Water 50 ml IV Total 171.913 ml Other 60 ml Output Urine Total 525 ml Laboratory Tests 04/22/17 12:05: Troponin I 0.706H 04/22/17 16:15: Prothrombin Time 11.1, Prothromb Time International Ratio 1.1, Activated Partial Thromboplast Time 29 04/22/17 23:55: Troponin I 0.379H, Prothrombin Time 12.0H, Prothromb Time International Ratio 1.1, Activated Partial Thromboplast Time > 150*H, Fibrinogen 319, Ferritin 664H , Folate 6.4 04/23/17 05:15: Troponin I 0.301H, White Blood Count 6.1, Red Blood Count 4.01L, Hemoglobin 12.3L, Hematocrit 38.0L, Mean Corpuscular Volume 95, Mean Corpuscular Hemoglobin 30.6, Mean Corpuscular Hemoglobin Concent 32.4, Red Cell Distribution Width 13.4, Platelet Count 107L, Mean Platelet Volume 9.9, Neutrophils (%) (Auto) 84.3H, Lymphocytes (%) (Auto) 7.9L, Monocytes (%) (Auto) 6.9, Eosinophils (%) (Auto) 0.0, Basophils (%) (Auto) 0.9, Reticulocyte Count [ Pending], Lupus Anticoagulant [Pending], Lupus Anticoagulant PTT Baseline [ Pending], Lupus Anticoag DRVVT Screen Ratio [Pending], DRVVT Confirmation Interpretation [Pending], Hexagonal Phase Comment [Pending], Protein C Activity [Pending], Protein S Antigen [Pending], Free Protein S [Pending], Anti-Thrombin III Activity [Pending], Factor V Mutation [Pending], Prothrombin Gene Mutation [ Pending], Prothrombin Gene Shared Component [Pending], Sodium Level 149H, Potassium Level 4.0, Chloride Level 113H, Carbon Dioxide Level 23, Anion Gap 13 , Blood Urea Nitrogen 54H, Creatinine 2.6H, Estimat Glomerular Filtration Rate 30.2, Glucose Level 186H, Hemoglobin A1c [Pending], Calcium Level 8.5, Phosphorus Level 3.1, Magnesium Level 2.1, Total Bilirubin 0.8, Gamma Glutamyl Transpeptidase 35, Aspartate Amino Transf (AST/SGOT) 22, Alanine Aminotransferase (ALT/SGPT) 30, Alkaline Phosphatase 43L, Total Creatine Kinase 113, Pro-B-Type Natriuretic Peptide 6830H, Total Protein 6.7, Albumin 2.8L, Globulin 3.9, Albumin/Globulin Ratio 0.7L, Triglycerides Level 79, Cholesterol Level 155, LDL Cholesterol 101H, HDL Cholesterol 42, Cholesterol/HDL Ratio 3.7, Anti-Cardiolipin IgM Antibody [Pending] 04/23/17 07:40: Activated Partial Thromboplast Time 105H, D-Dimer [Pending] Height (Feet): 6 Height (Inches): 4.00 Weight (Pounds): 274 General Appearance: no apparent distress, other - intubated on vent- on Versed Cardiovascular: tachycardia Respiratory/Chest: decreased breath sounds Abdomen: soft, distended Objective no other changes TIARRA PARTIDA Apr 23, 2017 11:49
[2017-04-23 12:08] LABS: RETICULOCYTE COUNT 0.6 % (0.0-2.0)
[2017-04-23 12:21] LABS: PATH BLOOD SMEAR/OMC SENT TO PATHOLOGIST
[2017-04-23 13:34] LABS: HEMOGLOBIN A1C 6.7 % (4.3-6.0)
[2017-04-23] MEDS ORDERED: Vancomycin 1500mg IVPB SCH (15:00)
[2017-04-23] MEDS: Dyna-Hex 2% Top Sol 2oz TOPIC SCH (19:45)
[2017-04-23] MEDS: Miralax 17gm pkt ORAL SCH (20:33)
[2017-04-24] VITALS (46 sets, daily range): BP systolic 94–168; BP diastolic 53–100
[2017-04-24] MEDS: Heparin 25,000u/D5W 500ml 500 ML IV SCH ×2 (00:02→17:44)
[2017-04-24] MEDS: Midazolam/D5W 100ml 100 ML IVPB SCH ×5 (01:11→12:18)
[2017-04-24 05:27] LABS: MEAN CORPUSCULAR VOLUME 94 FL (80-99); MEAN PLATELET VOLUME 8.9 FL (6.5-10.1); PLATELET COUNT 99 K/UL (150-450); RED BLOOD COUNT 4.07 M/UL (4.70-6.10); RED CELL DISTRIBUTION WIDTH 12.6 % (11.6-14.8); WHITE BLOOD COUNT 7.6 K/UL (4.8-10.8)
[2017-04-24] MEDS: Nitroglycerin 2% oint pkt TOPIC SCH ×3 (05:59→17:42)
[2017-04-24 06:22] LABS: ALANINE AMINOTRANSFERASE 46 U/L (12-78); ALBUMIN/GLOBULIN RATIO 0.6 (1.0-2.7); ANION GAP 9 mmol/L (5-15); ASPARTATE AMINO TRANSFERASE 39 U/L (15-37); CALCIUM 8.8 MG/DL (8.5-10.1); CARBON DIOXIDE 25 MMOL/L (21-32); CHLORIDE 111 MMOL/L (98-107); CREATININE 2.6 MG/DL (0.55-1.30); GLOMERULAR FILTRATION RATE 30.2 mL/min (>60); MAGNESIUM 2.2 MG/DL (1.8-2.4); PHOSPHORUS 3.6 MG/DL (2.5-4.9); POTASSIUM 4.3 MMOL/L (3.5-5.1); SODIUM 145 MMOL/L (136-145); TOTAL PROTEIN 6.9 G/DL (6.4-8.2)
[2017-04-24 06:49] LABS: ABG ALLEN TEST POSITIVE; ABG BASE EXCESS -0.6; ABG PCO2 39.6 mmHg (35.0-45.0)
[2017-04-24 07:19] LABS: BILIRUBIN,DIRECT 0.3 MG/DL (0.0-0.3)
--- NOTE | 2017-04-24 08:08 | General Progress Note ---
Assessment/Plan Problem List: (1) Renal insufficiency ICD Codes: N28.9 - Disorder of kidney and ureter, unspecified SNOMED: 870705247 (2) Hypertension ICD Codes: I10 - Essential (primary) hypertension SNOMED: 85327296 (3) Acute respiratory failure ICD Codes: J96.00 - Acute respiratory failure, unspecified whether with hypoxia or hypercapnia SNOMED: 25414851 (4) Angioedema ICD Codes: T78.3XXA - Angioneurotic edema, initial encounter SNOMED: 03690514 (5) Abdominal distension ICD Codes: R14.0 - Abdominal distension (gaseous) SNOMED: 08373236 (6) Hypoalbuminemia ICD Codes: E88.09 - Other disorders of plasma-protein metabolism, not elsewhere classified SNOMED: 900970624 Assessment/Plan NGTF tolerated fu labs fu pulm recs Subjective ROS Limited/Unobtainable: No Allergies: Coded Allergies: LISINOPRIL (Verified Allergy, Severe, 04/21/17) Objective Last 24 Hour Vital Signs Date Time Temp Pulse Resp B/P (MAP) Pulse Ox O2 Delivery O2 Flow Rate FiO2 04/24/17 07:00 94 16 136/84 96 Mechanical Ventilator 60 04/24/17 06:48 16 04/24/17 06:31 77 16 60 04/24/17 06:30 83 17 121/83 96 Mechanical Ventilator 60 04/24/17 06:00 17 04/24/17 06:00 78 16 121/83 97 Mechanical Ventilator 60 04/24/17 05:59 131/78 04/24/17 05:30 78 16 126/78 96 Mechanical Ventilator 60 04/24/17 05:25 84 19 60 04/24/17 05:00 87 17 131/78 95 Mechanical Ventilator 60 04/24/17 05:00 17 04/24/17 04:30 94 18 119/83 94 Mechanical Ventilator 60 04/24/17 04:04 16 04/24/17 04:00 60 04/24/17 04:00 17 04/24/17 04:00 89 04/24/17 04:00 100.0 90 17 135/91 95 Mechanical Ventilator 60 04/24/17 03:30 95 17 148/86 95 Mechanical Ventilator 60 04/24/17 03:05 95 20 60 04/24/17 03:00 97 17 138/84 97 Mechanical Ventilator 60 04/24/17 03:00 17 04/24/17 02:30 97 17 131/82 97 Mechanical Ventilator 60 04/24/17 02:00 92 17 141/85 97 Mechanical Ventilator 60 04/24/17 02:00 18 04/24/17 01:30 89 16 141/87 97 Mechanical Ventilator 60 04/24/17 01:25 87 18 60 04/24/17 01:11 17 04/24/17 01:00 89 17 137/85 95 Mechanical Ventilator 60 04/24/17 01:00 17 04/24/17 00:30 88 16 143/90 94 Mechanical Ventilator 60 04/24/17 00:04 94 04/24/17 00:00 17 04/24/17 00:00 98.7 94 16 134/88 94 Mechanical Ventilator 60 04/24/17 00:00 60 04/23/17 23:30 95 16 141/85 95 Mechanical Ventilator 60 04/23/17 23:00 88 16 134/86 95 Mechanical Ventilator 60 04/23/17 23:00 17 04/23/17 23:00 89 19 60 04/23/17 22:30 89 16 140/88 94 Mechanical Ventilator 60 04/23/17 22:30 16 04/23/17 22:00 16 04/23/17 22:00 99.1 88 17 142/89 94 Mechanical Ventilator 60 04/23/17 21:30 90 17 137/85 94 Mechanical Ventilator 60 04/23/17 21:18 104 28 60 04/23/17 21:00 17 04/23/17 21:00 93 19 130/88 94 Mechanical Ventilator 60 04/23/17 20:30 94 17 121/90 94 Mechanical Ventilator 60 04/23/17 20:00 100.4 91 19 132/88 95 Mechanical Ventilator 60 04/23/17 20:00 19 04/23/17 20:00 60 04/23/17 19:30 92 20 136/86 93 Mechanical Ventilator 60 04/23/17 19:25 93 04/23/17 19:16 91 20 60 04/23/17 19:00 100.5 91 18 132/81 93 Mechanical Ventilator 60 04/23/17 19:00 24 04/23/17 18:14 100.2 04/23/17 18:00 100.9 95 19 130/82 94 Mechanical Ventilator 60 04/23/17 18:00 25 04/23/17 18:00 24 04/23/17 17:17 107 26 60 04/23/17 17:15 134/86 04/23/17 17:00 113 25 148/101 94 Mechanical Ventilator 60 04/23/17 16:59 22 04/23/17 16:00 99 04/23/17 16:00 99.9 99 22 152/90 93 Mechanical Ventilator 60 04/23/17 16:00 25 04/23/17 16:00 60 04/23/17 15:30 101 23 60 04/23/17 15:00 100 25 149/94 92 Mechanical Ventilator 60 04/23/17 15:00 23 04/23/17 14:24 26 04/23/17 14:21 99.3 04/23/17 14:00 105 25 156/90 92 Mechanical Ventilator 60 04/23/17 13:30 107 32 60 04/23/17 13:00 109 24 157/92 93 Mechanical Ventilator 60 04/23/17 12:05 25 04/23/17 12:00 99.3 105 18 159/95 93 Mechanical Ventilator 60 04/23/17 12:00 109 04/23/17 12:00 60 04/23/17 11:30 106 25 151/89 94 Mechanical Ventilator 60 04/23/17 11:28 116 31 60 04/23/17 11:15 159/99 04/23/17 11:15 159/99 04/23/17 11:00 101 24 159/99 92 Mechanical Ventilator 60 04/23/17 10:30 102 24 193/117 92 Mechanical Ventilator 60 04/23/17 10:00 97 24 161/101 93 Mechanical Ventilator 60 04/23/17 09:53 95 168/95 04/23/17 09:30 95 22 168/95 93 Mechanical Ventilator 60 04/23/17 09:10 92 21 60 04/23/17 09:00 93 28 147/96 93 Mechanical Ventilator 55 04/23/17 08:30 91 20 161/108 95 Mechanical Ventilator 60 04/23/17 08:28 20 Laboratory Tests 04/23/17 16:08: Activated Partial Thromboplast Time 75H 04/24/17 05:00: Activated Partial Thromboplast Time 66H, White Blood Count 7.6, Red Blood Count 4.07L, Hemoglobin 13.0L, Hematocrit 38.2L, Mean Corpuscular Volume 94, Mean Corpuscular Hemoglobin 32.0H, Mean Corpuscular Hemoglobin Concent 34.0, Red Cell Distribution Width 12.6, Platelet Count 99L, Mean Platelet Volume 8.9, Neutrophils (%) (Auto) , Lymphocytes (%) (Auto) , Monocytes (%) (Auto) , Eosinophils (%) (Auto) , Basophils (%) (Auto) , Sodium Level 145, Potassium Level 4.3, Chloride Level 111H, Carbon Dioxide Level 25, Anion Gap 9, Blood Urea Nitrogen 56H, Creatinine 2.6H, Estimat Glomerular Filtration Rate 30.2, Glucose Level 240H, Calcium Level 8.8, Phosphorus Level 3.6, Magnesium Level 2.2 , Total Bilirubin 1.1H, Direct Bilirubin 0.3, Aspartate Amino Transf (AST/SGOT) 39H, Alanine Aminotransferase (ALT/SGPT) 46, Alkaline Phosphatase 42L, Total Protein 6.9, Albumin 2.5L, Globulin 4.4, Albumin/Globulin Ratio 0.6L 04/24/17 06:31: Arterial Blood pH 7.401, Arterial Blood Partial Pressure CO2 39.6, Arterial Blood Partial Pressure O2 82.5, Arterial Blood HCO3 24.0, Arterial Blood Oxygen Saturation 95.6, Arterial Blood Base Excess -0.6, Dayron Test Positive Height (Feet): 6 Height (Inches): 4.00 Weight (Pounds): 262 General Appearance: lethargic EENT: normal ENT inspection Neck: supple Cardiovascular: normal rate Respiratory/Chest: decreased breath sounds Abdomen: normal bowel sounds, non tender, soft Extremities: non-tender BRUNA SUH Apr 24, 2017 08:07
[2017-04-24] MEDS ORDERED: Ampicillin/Sulbactam Sod 3 GM in NS 110 ML IVPB SCH (08:30)
--- NOTE | 2017-04-24 08:36 | Pulmonolgy Critical Care Note ---
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, 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 Discussed with: nurses, 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, 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 - Objective Last 24 Hour Vital Signs Date Time Temp Pulse Resp B/P (MAP) Pulse Ox O2 Delivery O2 Flow Rate FiO2 04/24/17 08:00 90 04/24/17 08:00 60 04/24/17 07:30 90 16 129/72 96 Mechanical Ventilator 60 04/24/17 07:00 94 16 136/84 96 Mechanical Ventilator 60 04/24/17 06:48 16 04/24/17 06:31 77 16 60 04/24/17 06:30 83 17 121/83 96 Mechanical Ventilator 60 04/24/17 06:00 17 04/24/17 06:00 78 16 121/83 97 Mechanical Ventilator 60 04/24/17 05:59 131/78 04/24/17 05:30 78 16 126/78 96 Mechanical Ventilator 60 04/24/17 05:25 84 19 60 04/24/17 05:00 87 17 131/78 95 Mechanical Ventilator 60 04/24/17 05:00 17 04/24/17 04:30 94 18 119/83 94 Mechanical Ventilator 60 04/24/17 04:04 16 04/24/17 04:00 60 04/24/17 04:00 17 04/24/17 04:00 89 04/24/17 04:00 100.0 90 17 135/91 95 Mechanical Ventilator 60 04/24/17 03:30 95 17 148/86 95 Mechanical Ventilator 60 04/24/17 03:05 95 20 60 04/24/17 03:00 97 17 138/84 97 Mechanical Ventilator 60 04/24/17 03:00 17 04/24/17 02:30 97 17 131/82 97 Mechanical Ventilator 60 04/24/17 02:00 92 17 141/85 97 Mechanical Ventilator 60 04/24/17 02:00 18 04/24/17 01:30 89 16 141/87 97 Mechanical Ventilator 60 04/24/17 01:25 87 18 60 04/24/17 01:11 17 04/24/17 01:00 89 17 137/85 95 Mechanical Ventilator 60 04/24/17 01:00 17 04/24/17 00:30 88 16 143/90 94 Mechanical Ventilator 60 04/24/17 00:04 94 04/24/17 00:00 17 04/24/17 00:00 98.7 94 16 134/88 94 Mechanical Ventilator 60 04/24/17 00:00 60 04/23/17 23:30 95 16 141/85 95 Mechanical Ventilator 60 04/23/17 23:00 88 16 134/86 95 Mechanical Ventilator 60 04/23/17 23:00 17 04/23/17 23:00 89 19 60 04/23/17 22:30 89 16 140/88 94 Mechanical Ventilator 60 04/23/17 22:30 16 04/23/17 22:00 16 04/23/17 22:00 99.1 88 17 142/89 94 Mechanical Ventilator 60 04/23/17 21:30 90 17 137/85 94 Mechanical Ventilator 60 04/23/17 21:18 104 28 60 04/23/17 21:00 17 04/23/17 21:00 93 19 130/88 94 Mechanical Ventilator 60 04/23/17 20:30 94 17 121/90 94 Mechanical Ventilator 60 04/23/17 20:00 100.4 91 19 132/88 95 Mechanical Ventilator 60 04/23/17 20:00 19 04/23/17 20:00 60 04/23/17 19:30 92 20 136/86 93 Mechanical Ventilator 60 04/23/17 19:25 93 04/23/17 19:16 91 20 60 04/23/17 19:00 100.5 91 18 132/81 93 Mechanical Ventilator 60 04/23/17 19:00 24 04/23/17 18:14 100.2 04/23/17 18:00 100.9 95 19 130/82 94 Mechanical Ventilator 60 04/23/17 18:00 25 04/23/17 18:00 24 04/23/17 17:17 107 26 60 04/23/17 17:15 134/86 04/23/17 17:00 113 25 148/101 94 Mechanical Ventilator 60 04/23/17 16:59 22 04/23/17 16:00 99 04/23/17 16:00 99.9 99 22 152/90 93 Mechanical Ventilator 60 04/23/17 16:00 25 04/23/17 16:00 60 04/23/17 15:30 101 23 60 04/23/17 15:00 100 25 149/94 92 Mechanical Ventilator 60 04/23/17 15:00 23 04/23/17 14:24 26 04/23/17 14:21 99.3 04/23/17 14:00 105 25 156/90 92 Mechanical Ventilator 60 04/23/17 13:30 107 32 60 04/23/17 13:00 109 24 157/92 93 Mechanical Ventilator 60 04/23/17 12:05 25 04/23/17 12:00 99.3 105 18 159/95 93 Mechanical Ventilator 60 04/23/17 12:00 109 04/23/17 12:00 60 04/23/17 11:30 106 25 151/89 94 Mechanical Ventilator 60 04/23/17 11:28 116 31 60 04/23/17 11:15 159/99 04/23/17 11:15 159/99 04/23/17 11:00 101 24 159/99 92 Mechanical Ventilator 60 04/23/17 10:30 102 24 193/117 92 Mechanical Ventilator 60 04/23/17 10:00 97 24 161/101 93 Mechanical Ventilator 60 04/23/17 09:53 95 168/95 04/23/17 09:30 95 22 168/95 93 Mechanical Ventilator 60 04/23/17 09:10 92 21 60 04/23/17 09:00 93 28 147/96 93 Mechanical Ventilator 55 Status: sedated Condition: critical HEENT: atraumatic Lungs: chest wall tender Heart: HR/BP unstable Abdomen: soft, non-tender, feeding tube Extremities: no C/C/E, edema Micro: Microbiology Date/Time Source Procedure Growth Status 04/22/17 14:13 Blood Blood Culture - Preliminary NO GROWTH AFTER 24 HOURS Resulted 04/22/17 13:30 Blood Blood Culture - Preliminary NO GROWTH AFTER 24 HOURS Resulted 04/22/17 13:00 Sputum Gram Stain - Final Resulted 04/22/17 13:00 Sputum Sputum Culture Pending Resulted Critical Care - Subjective ROS Limited/Unobtainable: No ICU Day: 4 Intubation Day: 4 EKG Rhythm: Sinus Rhythm FI02: 60 Vent Support Breath Rate: 16 Vent Support Mode: AC Vent Tidal Volume: 700 Sputum Amount: Moderate PEEP: 5.0 PIP: 20 Secretions: WHITISH Fluids: d5 1/2 NS 100 Tube Feeding Amount: 40 I&O: Intake and Output 04/24/17 04/25/17 19:00 07:00 Intake Total 190 ml Output Total 150 ml Balance 40 ml Free Water 150 ml Tube Feeding 40 ml Output Urine Total 150 ml CXR: no change ET-Tube: 7.0 ET Position: 27 Labs: Laboratory Tests Test 04/23/17 16:08 04/24/17 05:00 04/24/17 06:31 Activated Partial Thromboplast Time 75 SEC (23-33) H 66 SEC (23-33) H White Blood Count 7.6 K/UL (4.8-10.8) Red Blood Count 4.07 M/UL (4.70-6.10) L Hemoglobin 13.0 G/DL (14.2-18.0) L Hematocrit 38.2 % (42.0-52.0) L Mean Corpuscular Volume 94 FL (80-99) Mean Corpuscular Hemoglobin 32.0 PG (27.0-31.0) H Mean Corpuscular Hemoglobin Concent 34.0 G/DL (32.0-36.0) Red Cell Distribution Width 12.6 % (11.6-14.8) Platelet Count 99 K/UL (150-450) L Mean Platelet Volume 8.9 FL (6.5-10.1) Neutrophils (%) (Auto) % (45.0-75.0) Lymphocytes (%) (Auto) % (20.0-45.0) Monocytes (%) (Auto) % (1.0-10.0) Eosinophils (%) (Auto) % (0.0-3.0) Basophils (%) (Auto) % (0.0-2.0) Sodium Level 145 MMOL/L (136-145) Potassium Level 4.3 MMOL/L (3.5-5.1) Chloride Level 111 MMOL/L (98-107) H Carbon Dioxide Level 25 MMOL/L (21-32) Anion Gap 9 mmol/L (5-15) Blood Urea Nitrogen 56 mg/dL (7-18) H Creatinine 2.6 MG/DL (0.55-1.30) H Estimat Glomerular Filtration Rate 30.2 mL/min (>60) Glucose Level 240 MG/DL (74-106) H Calcium Level 8.8 MG/DL (8.5-10.1) Phosphorus Level 3.6 MG/DL (2.5-4.9) Magnesium Level 2.2 MG/DL (1.8-2.4) Total Bilirubin 1.1 MG/DL (0.2-1.0) H Direct Bilirubin 0.3 MG/DL (0.0-0.3) Aspartate Amino Transf (AST/SGOT) 39 U/L (15-37) H Alanine Aminotransferase (ALT/SGPT) 46 U/L (12-78) Alkaline Phosphatase 42 U/L (46-116) L Total Protein 6.9 G/DL (6.4-8.2) Albumin 2.5 G/DL (3.4-5.0) L Globulin 4.4 g/dL Albumin/Globulin Ratio 0.6 (1.0-2.7) L Arterial Blood pH 7.401 (7.350-7.450) Arterial Blood Partial Pressure CO2 39.6 mmHg (35.0-45.0) Arterial Blood Partial Pressure O2 82.5 mmHg (75.0-100.0) Arterial Blood HCO3 24.0 mmol/L (22.0-26.0) Arterial Blood Oxygen Saturation 95.6 % (92.0-98.0) Arterial Blood Base Excess -0.6 Dayron Test Positive VIVEK SOLOMON Apr 24, 2017 08:36
[2017-04-24] MEDS ORDERED: Haloperidol 5mg/ml Inj IVPB PRN (08:45)
[2017-04-24] MEDS ORDERED: Sterile Water Irrig 1000ml IRRIG ONE (08:55)
[2017-04-24] MEDS ORDERED: Tubing IV Secondary IV ONE (08:55)
[2017-04-24] MEDS: D5 1/2NS 1,000 ML IV SCH ×2 (08:57→18:43)
[2017-04-24] MEDS: Pantoprazole Inj IVP SCH (08:58)
[2017-04-24] MEDS: Morphine Sulfate 4mg/ml Inj IVP PRN ×2 (08:58→18:43)
[2017-04-24] MEDS: Docusate 100mg/10ml Liq NG SCH ×3 (08:58→17:42)
[2017-04-24] MEDS: Solu-MEDROL 125mg Inj IVP SCH (08:58)
[2017-04-24] MEDS: Cefepime 2gm/D5W 110ml IV SCH ×2 (09:46)
--- NOTE | 2017-04-24 10:47 | Diagnostic Imaging Report ---
Clinical history: Acute dyspnea Technique: Portable AP chest radiograph was obtained. Comparison: 04/23/17 Findings: There is no significant interval change in the interval, allowing for differences in technique and positioning. Impression: 1. Endotracheal and enteric tubes and left arm PICC are in the appropriate position. 2. Stable upper mediastinal mass compatible with multinodular goiter seen on recent chest CT. 3. Persistent left perihilar consolidation, increased since the prior examination of 04/22/17. Pneumonia is of concern.
--- NOTE | 2017-04-24 11:50 | General Progress Note ---
Assessment/Plan Status: unchanged Status Narrative Cr 2.6 stable Assessment/Plan status; Pulmonary emboli , on heparin Acute respiratory failure- On Vent Renal failure ? CKD ? Superimposed Acute renal failure HTN- Smoker- Jorge Inhibor Allergy Plan: Keep BP in check 2D Echo- EjFx 60% Pulmonary support- urine studies- Kidney MIKEY Right kidney demonstrates borderline hydronephrosis. Taper steroids as possible. monitor renal parameters- Avoid nephrotoxics Subjective ROS Limited/Unobtainable: Yes Allergies: Coded Allergies: LISINOPRIL (Verified Allergy, Severe, 04/21/17) Objective Last 24 Hour Vital Signs Date Time Temp Pulse Resp B/P (MAP) Pulse Ox O2 Delivery O2 Flow Rate FiO2 04/24/17 11:30 84 16 130/76 95 Mechanical Ventilator 60 04/24/17 11:00 83 16 140/81 95 Mechanical Ventilator 60 04/24/17 11:00 18 04/24/17 11:00 83 21 140/81 95 Mechanical Ventilator 60 04/24/17 10:45 80 16 60 04/24/17 10:30 76 16 128/80 95 Mechanical Ventilator 60 04/24/17 10:00 18 04/24/17 10:00 77 21 127/77 95 Mechanical Ventilator 60 04/24/17 09:56 99.9 04/24/17 09:46 18 04/24/17 09:30 85 17 130/81 95 Mechanical Ventilator 60 04/24/17 09:28 101.1 04/24/17 09:00 18 04/24/17 09:00 91 22 168/91 95 Mechanical Ventilator 60 04/24/17 08:59 107 166/80 04/24/17 08:57 18 04/24/17 08:47 82 16 60 04/24/17 08:30 96 21 166/80 95 Mechanical Ventilator 60 04/24/17 08:00 90 04/24/17 08:00 60 04/24/17 08:00 16 04/24/17 08:00 101.0 92 19 139/82 96 Mechanical Ventilator 60 04/24/17 07:30 90 16 129/72 96 Mechanical Ventilator 60 04/24/17 07:00 94 16 136/84 96 Mechanical Ventilator 60 04/24/17 07:00 18 04/24/17 06:48 16 04/24/17 06:31 77 16 60 04/24/17 06:30 83 17 121/83 96 Mechanical Ventilator 60 04/24/17 06:00 17 04/24/17 06:00 78 16 121/83 97 Mechanical Ventilator 60 04/24/17 05:59 131/78 04/24/17 05:30 78 16 126/78 96 Mechanical Ventilator 60 04/24/17 05:25 84 19 60 04/24/17 05:00 87 17 131/78 95 Mechanical Ventilator 60 04/24/17 05:00 17 04/24/17 04:30 94 18 119/83 94 Mechanical Ventilator 60 04/24/17 04:04 16 04/24/17 04:00 60 04/24/17 04:00 17 04/24/17 04:00 89 04/24/17 04:00 100.0 90 17 135/91 95 Mechanical Ventilator 60 04/24/17 03:30 95 17 148/86 95 Mechanical Ventilator 60 04/24/17 03:05 95 20 60 04/24/17 03:00 97 17 138/84 97 Mechanical Ventilator 60 04/24/17 03:00 17 04/24/17 02:30 97 17 131/82 97 Mechanical Ventilator 60 04/24/17 02:00 92 17 141/85 97 Mechanical Ventilator 60 04/24/17 02:00 18 04/24/17 01:30 89 16 141/87 97 Mechanical Ventilator 60 04/24/17 01:25 87 18 60 04/24/17 01:11 17 04/24/17 01:00 89 17 137/85 95 Mechanical Ventilator 60 04/24/17 01:00 17 04/24/17 00:30 88 16 143/90 94 Mechanical Ventilator 60 04/24/17 00:04 94 04/24/17 00:00 17 04/24/17 00:00 98.7 94 16 134/88 94 Mechanical Ventilator 60 04/24/17 00:00 60 04/23/17 23:30 95 16 141/85 95 Mechanical Ventilator 60 04/23/17 23:00 88 16 134/86 95 Mechanical Ventilator 60 04/23/17 23:00 17 04/23/17 23:00 89 19 60 04/23/17 22:30 89 16 140/88 94 Mechanical Ventilator 60 04/23/17 22:30 16 04/23/17 22:00 16 04/23/17 22:00 99.1 88 17 142/89 94 Mechanical Ventilator 60 04/23/17 21:30 90 17 137/85 94 Mechanical Ventilator 60 04/23/17 21:18 104 28 60 04/23/17 21:00 17 04/23/17 21:00 93 19 130/88 94 Mechanical Ventilator 60 04/23/17 20:30 94 17 121/90 94 Mechanical Ventilator 60 04/23/17 20:00 100.4 91 19 132/88 95 Mechanical Ventilator 60 04/23/17 20:00 19 04/23/17 20:00 60 04/23/17 19:30 92 20 136/86 93 Mechanical Ventilator 60 04/23/17 19:25 93 04/23/17 19:16 91 20 60 04/23/17 19:00 100.5 91 18 132/81 93 Mechanical Ventilator 60 04/23/17 19:00 24 04/23/17 18:00 100.9 95 19 130/82 94 Mechanical Ventilator 60 04/23/17 18:00 25 04/23/17 18:00 24 04/23/17 17:17 107 26 60 04/23/17 17:15 134/86 04/23/17 17:00 113 25 148/101 94 Mechanical Ventilator 60 04/23/17 16:59 22 04/23/17 16:00 99 04/23/17 16:00 99.9 99 22 152/90 93 Mechanical Ventilator 60 04/23/17 16:00 25 04/23/17 16:00 60 04/23/17 15:30 101 23 60 04/23/17 15:00 100 25 149/94 92 Mechanical Ventilator 60 04/23/17 15:00 23 04/23/17 14:24 26 04/23/17 14:00 105 25 156/90 92 Mechanical Ventilator 60 04/23/17 13:30 107 32 60 04/23/17 13:00 109 24 157/92 93 Mechanical Ventilator 60 04/23/17 12:05 25 04/23/17 12:00 99.3 105 18 159/95 93 Mechanical Ventilator 60 04/23/17 12:00 109 04/23/17 12:00 60 Intake and Output 04/24/17 04/25/17 19:00 07:00 Intake Total 929.312 ml Output Total 500 ml Balance 429.312 ml Free Water 150 ml IV Total 589.312 ml Tube Feeding 190 ml Output Urine Total 500 ml Laboratory Tests 04/23/17 16:08: Activated Partial Thromboplast Time 75H 04/24/17 05:00: Activated Partial Thromboplast Time 66H, White Blood Count 7.6, Red Blood Count 4.07L, Hemoglobin 13.0L, Hematocrit 38.2L, Mean Corpuscular Volume 94, Mean Corpuscular Hemoglobin 32.0H, Mean Corpuscular Hemoglobin Concent 34.0, Red Cell Distribution Width 12.6, Platelet Count 99L, Mean Platelet Volume 8.9, Neutrophils (%) (Auto) , Lymphocytes (%) (Auto) , Monocytes (%) (Auto) , Eosinophils (%) (Auto) , Basophils (%) (Auto) , Sodium Level 145, Potassium Level 4.3, Chloride Level 111H, Carbon Dioxide Level 25, Anion Gap 9, Blood Urea Nitrogen 56H, Creatinine 2.6H, Estimat Glomerular Filtration Rate 30.2, Glucose Level 240H, Calcium Level 8.8, Phosphorus Level 3.6, Magnesium Level 2.2 , Total Bilirubin 1.1H, Direct Bilirubin 0.3, Aspartate Amino Transf (AST/SGOT) 39H, Alanine Aminotransferase (ALT/SGPT) 46, Alkaline Phosphatase 42L, Total Protein 6.9, Albumin 2.5L, Globulin 4.4, Albumin/Globulin Ratio 0.6L 04/24/17 06:31: Arterial Blood pH 7.401, Arterial Blood Partial Pressure CO2 39.6, Arterial Blood Partial Pressure O2 82.5, Arterial Blood HCO3 24.0, Arterial Blood Oxygen Saturation 95.6, Arterial Blood Base Excess -0.6, Dayron Test Positive Height (Feet): 6 Height (Inches): 4.00 Weight (Pounds): 262 General Appearance: no apparent distress EENT: other - on vent Cardiovascular: normal rate Respiratory/Chest: decreased breath sounds Abdomen: distended Objective no other changes TIARRA PARTIDA Apr 24, 2017 11:50
[2017-04-24] MEDS: Vancomycin 1500mg IVPB SCH (11:51)
[2017-04-24 14:45] LABS: APPEARANCE,URINE CLOUDY; KETONES,URINE NEGATIVE (NEGATIVE); LEUKOCYTE ESTERASE ,URINE 1+ (NEGATIVE); NITRITE,URINE NEGATIVE (NEGATIVE); PH,URINE 6 (4.5-8.0); PROTEIN,URINE 2+ (NEGATIVE); UROBILINOGEN,URINE NORMAL MG/DL (0.0-1.0)
[2017-04-24] MEDS ORDERED: Midazolam/D5W 100ml 100 ML IVPB PRN (15:00)
[2017-04-24] MEDS ORDERED: Midazolam for drip 50 MG in D5W 90 ML IV PRN (15:00)
[2017-04-24 15:14] LABS: BACTERIA,URINE FEW /HPF; RBC,URINE 40-60 /HPF (0 - 0); SQUAMOUS EPITHELIAL CELL,UR OCCASIONAL /LPF (NONE/OCC)
[2017-04-24] MEDS: Midazolam for drip 50 MG in NS 90 ML IV PRN ×2 (15:14→18:59)
--- NOTE | 2017-04-24 15:44 | Cardiology Progress Note ---
Assessment/Plan Assessment/Plan 1. Allergic reaction. 2. Angioneurotic edema. 3. Hypertension. 4. Respiratory failure. 5. Hypoxemia. 6. Metabolic encephalopathy. 7. Renal insufficiency. 8. Tachycardia. 9. pulm htn 10. Pulmo embolism 11. abn torp likely related to PE 12 ACEI allergy on the vent still bp i fine on abs sat are fine weanm a possible hemodyanmauiclyy stablke Subjective ROS Limited/Unobtainable: Yes Subjective intubated , on cosmo Objective Last 24 Hour Vital Signs Date Time Temp Pulse Resp B/P (MAP) Pulse Ox O2 Delivery O2 Flow Rate FiO2 04/24/17 15:14 17 04/24/17 15:00 75 17 124/73 95 Mechanical Ventilator 60 04/24/17 14:44 78 19 60 04/24/17 14:30 99.9 75 18 144/80 95 Mechanical Ventilator 60 04/24/17 14:00 18 04/24/17 14:00 100.5 78 18 137/81 95 Mechanical Ventilator 60 04/24/17 13:30 85 18 138/78 95 Mechanical Ventilator 60 04/24/17 13:00 101.6 83 18 139/78 95 Mechanical Ventilator 60 04/24/17 13:00 18 04/24/17 12:48 82 16 60 04/24/17 12:18 18 04/24/17 12:00 101.1 88 18 135/78 95 Mechanical Ventilator 60 04/24/17 12:00 60 04/24/17 12:00 87 04/24/17 12:00 18 04/24/17 11:51 130/76 04/24/17 11:30 84 16 130/76 95 Mechanical Ventilator 60 04/24/17 11:00 83 16 140/81 95 Mechanical Ventilator 60 04/24/17 11:00 18 04/24/17 11:00 83 21 140/81 95 Mechanical Ventilator 60 04/24/17 10:45 80 16 60 04/24/17 10:30 76 16 128/80 95 Mechanical Ventilator 60 04/24/17 10:00 18 04/24/17 10:00 77 21 127/77 95 Mechanical Ventilator 60 04/24/17 09:56 99.9 04/24/17 09:46 18 04/24/17 09:30 85 17 130/81 95 Mechanical Ventilator 60 04/24/17 09:28 101.1 04/24/17 09:00 18 04/24/17 09:00 91 22 168/91 95 Mechanical Ventilator 60 04/24/17 09:00 99.9 04/24/17 08:59 107 166/80 04/24/17 08:57 18 04/24/17 08:47 82 16 60 04/24/17 08:30 96 21 166/80 95 Mechanical Ventilator 60 04/24/17 08:00 90 04/24/17 08:00 60 04/24/17 08:00 16 04/24/17 08:00 101.0 92 19 139/82 96 Mechanical Ventilator 60 04/24/17 07:30 90 16 129/72 96 Mechanical Ventilator 60 04/24/17 07:00 94 16 136/84 96 Mechanical Ventilator 60 04/24/17 07:00 18 04/24/17 06:48 16 04/24/17 06:31 77 16 60 04/24/17 06:30 83 17 121/83 96 Mechanical Ventilator 60 04/24/17 06:00 17 04/24/17 06:00 78 16 121/83 97 Mechanical Ventilator 60 04/24/17 05:59 131/78 04/24/17 05:30 78 16 126/78 96 Mechanical Ventilator 60 04/24/17 05:25 84 19 60 04/24/17 05:00 87 17 131/78 95 Mechanical Ventilator 60 04/24/17 05:00 17 04/24/17 04:30 94 18 119/83 94 Mechanical Ventilator 60 04/24/17 04:04 16 04/24/17 04:00 60 04/24/17 04:00 17 04/24/17 04:00 89 04/24/17 04:00 100.0 90 17 135/91 95 Mechanical Ventilator 60 04/24/17 03:30 95 17 148/86 95 Mechanical Ventilator 60 04/24/17 03:05 95 20 60 04/24/17 03:00 97 17 138/84 97 Mechanical Ventilator 60 04/24/17 03:00 17 04/24/17 02:30 97 17 131/82 97 Mechanical Ventilator 60 04/24/17 02:00 92 17 141/85 97 Mechanical Ventilator 60 04/24/17 02:00 18 04/24/17 01:30 89 16 141/87 97 Mechanical Ventilator 60 04/24/17 01:25 87 18 60 04/24/17 01:11 17 04/24/17 01:00 89 17 137/85 95 Mechanical Ventilator 60 04/24/17 01:00 17 04/24/17 00:30 88 16 143/90 94 Mechanical Ventilator 60 04/24/17 00:04 94 04/24/17 00:00 17 04/24/17 00:00 98.7 94 16 134/88 94 Mechanical Ventilator 60 04/24/17 00:00 60 04/23/17 23:30 95 16 141/85 95 Mechanical Ventilator 60 04/23/17 23:00 88 16 134/86 95 Mechanical Ventilator 60 04/23/17 23:00 17 04/23/17 23:00 89 19 60 04/23/17 22:30 89 16 140/88 94 Mechanical Ventilator 60 04/23/17 22:30 16 04/23/17 22:00 16 04/23/17 22:00 99.1 88 17 142/89 94 Mechanical Ventilator 60 04/23/17 21:30 90 17 137/85 94 Mechanical Ventilator 60 04/23/17 21:18 104 28 60 04/23/17 21:00 17 04/23/17 21:00 93 19 130/88 94 Mechanical Ventilator 60 04/23/17 20:30 94 17 121/90 94 Mechanical Ventilator 60 04/23/17 20:00 100.4 91 19 132/88 95 Mechanical Ventilator 60 04/23/17 20:00 19 04/23/17 20:00 60 04/23/17 19:30 92 20 136/86 93 Mechanical Ventilator 60 04/23/17 19:25 93 04/23/17 19:16 91 20 60 04/23/17 19:00 100.5 91 18 132/81 93 Mechanical Ventilator 60 04/23/17 19:00 24 04/23/17 18:00 100.9 95 19 130/82 94 Mechanical Ventilator 60 04/23/17 18:00 25 04/23/17 18:00 24 04/23/17 17:17 107 26 60 04/23/17 17:15 134/86 04/23/17 17:00 113 25 148/101 94 Mechanical Ventilator 60 04/23/17 16:59 22 04/23/17 16:00 99 04/23/17 16:00 99.9 99 22 152/90 93 Mechanical Ventilator 60 04/23/17 16:00 25 04/23/17 16:00 60 General Appearance: no apparent distress Neck: supple Cardiovascular: normal rate, regular rhythm Respiratory/Chest: lungs clear, normal breath sounds Abdomen: normal bowel sounds, non tender, soft Extremities: no swelling Intake and Output 04/24/17 04/25/17 19:00 07:00 Intake Total 1976.796 ml Output Total 970 ml Balance 1006.796 ml Free Water 250 ml IV Total 1336.796 ml Tube Feeding 390 ml Output Urine Total 970 ml Laboratory Tests Test 04/23/17 16:08 04/24/17 05:00 04/24/17 06:31 04/24/17 14:20 Activated Partial Thromboplast Time 75 SEC (23-33) H 66 SEC (23-33) H White Blood Count 7.6 K/UL (4.8-10.8) Red Blood Count 4.07 M/UL (4.70-6.10) L Hemoglobin 13.0 G/DL (14.2-18.0) L Hematocrit 38.2 % (42.0-52.0) L Mean Corpuscular Volume 94 FL (80-99) Mean Corpuscular Hemoglobin 32.0 PG (27.0-31.0) H Mean Corpuscular Hemoglobin Concent 34.0 G/DL (32.0-36.0) Red Cell Distribution Width 12.6 % (11.6-14.8) Platelet Count 99 K/UL (150-450) L Mean Platelet Volume 8.9 FL (6.5-10.1) Neutrophils (%) (Auto) % (45.0-75.0) Lymphocytes (%) (Auto) % (20.0-45.0) Monocytes (%) (Auto) % (1.0-10.0) Eosinophils (%) (Auto) % (0.0-3.0) Basophils (%) (Auto) % (0.0-2.0) Sodium Level 145 MMOL/L (136-145) Potassium Level 4.3 MMOL/L (3.5-5.1) Chloride Level 111 MMOL/L (98-107) H Carbon Dioxide Level 25 MMOL/L (21-32) Anion Gap 9 mmol/L (5-15) Blood Urea Nitrogen 56 mg/dL (7-18) H Creatinine 2.6 MG/DL (0.55-1.30) H Estimat Glomerular Filtration Rate 30.2 mL/min (>60) Glucose Level 240 MG/DL (74-106) H Calcium Level 8.8 MG/DL (8.5-10.1) Phosphorus Level 3.6 MG/DL (2.5-4.9) Magnesium Level 2.2 MG/DL (1.8-2.4) Total Bilirubin 1.1 MG/DL (0.2-1.0) H Direct Bilirubin 0.3 MG/DL (0.0-0.3) Aspartate Amino Transf (AST/SGOT) 39 U/L (15-37) H Alanine Aminotransferase (ALT/SGPT) 46 U/L (12-78) Alkaline Phosphatase 42 U/L (46-116) L Total Protein 6.9 G/DL (6.4-8.2) Albumin 2.5 G/DL (3.4-5.0) L Globulin 4.4 g/dL Albumin/Globulin Ratio 0.6 (1.0-2.7) L Arterial Blood pH 7.401 (7.350-7.450) Arterial Blood Partial Pressure CO2 39.6 mmHg (35.0-45.0) Arterial Blood Partial Pressure O2 82.5 mmHg (75.0-100.0) Arterial Blood HCO3 24.0 mmol/L (22.0-26.0) Arterial Blood Oxygen Saturation 95.6 % (92.0-98.0) Arterial Blood Base Excess -0.6 Dayron Test Positive Urine Color Yellow Urine Appearance Cloudy Urine pH 6 (4.5-8.0) Urine Specific [place] 1.015 (1.005-1.035) Urine Protein 2+ (NEGATIVE) H Urine Glucose (UA) 1+ (NEGATIVE) H Urine Ketones Negative (NEGATIVE) Urine Occult Blood 5+ (NEGATIVE) H Urine Nitrite Negative (NEGATIVE) Urine Bilirubin Negative (NEGATIVE) Urine Urobilinogen Normal MG/DL (0.0-1.0) Urine Leukocyte Esterase 1+ (NEGATIVE) H Urine RBC 40-60 /HPF (0 - 0) H Urine WBC 5-10 /HPF (0 - 0) H Urine Squamous Epithelial Cells Occasional /LPF Urine Bacteria Few /HPF (NONE) Microbiology Date/Time Source Procedure Growth Status 10/27/17 14:13 Blood Blood Culture - Preliminary NO GROWTH AFTER 24 HOURS Resulted 04/22/17 13:30 Blood Blood Culture - Preliminary NO GROWTH AFTER 24 HOURS Resulted 04/22/17 13:00 Sputum Gram Stain - Final Complete 04/22/17 13:00 Sputum Sputum Culture - Final NORMAL UPPER RESPIRATORY MARGARITA PRESENT Complete RUBEN CHAVEZ Apr 24, 2017 15:44
--- NOTE | 2017-04-24 18:08 | Cardiology Report ---
APPROVED REPORT EXAM: Two-dimensional and M-mode echocardiogram with Doppler and color Doppler. INDICATION Hypertensive heart disease. Pulmonary artery pressure Limited Study Normal left ventricular chamber size, systolic function and wall motion. Left ventricular ejection fraction estimated to be 60 %. Significant left ventricular hypertrophy. Anterior Echo-free space, may be due to pericardial fat or effusion. All other cardiac chamber sizes are within normal limits. Mild bi-atrial enlargement. Right ventricular chamber sizes is mildly enlarged Mild focal aortic valve sclerosis with adequate cusp excursion. Mildly thickened mitral valve leaflets with normal excursion. Mild mitral annulus and aortic root calcification. Pulmonic valve not well visualized. Normal tricuspid valve structure. IVC dilated at 1.9 cm with physiologic collapse, estimated RAP is 10 mmHg. A color flow and spectral Doppler study was performed and revealed: No aortic regurgitation. No mitral regurgitation. Left ventricular diastolic function could not be determined due to A-Fib. Mild tricuspid regurgitation. Tricuspid systolic velocities suggests peak right ventricular systolic pressure of 61- 66 mmHg, consistent with severe pulmonary hypertension. Trace pulmonic regurgitation present.
--- NOTE | 2017-04-24 18:35 | Cardiology Report ---
APPROVED REPORT EKG Measurement Heart [id number] [place] [id number] Normal sinus rhythm Possible Left atrial enlargement Borderline ECG
--- NOTE | 2017-04-24 18:40 | Cardiology Report ---
APPROVED REPORT EKG Measurement Heart [id number] [place] [id number] [id number] Normal sinus rhythm Possible Left atrial enlargement Inferior infarct, age undetermined Abnormal ECG
--- NOTE | 2017-04-24 18:41 | General Progress Note ---
Assessment/Plan Assessment/Plan Assessment and Recs 1. Pulmonary embolism. Cardiology to assess patient for potential thrombolysis 2. DVT- right leg subacute thrombus in mid superficial femoral vein. --> on heparin drip, will eventually require lifelong anticoagulation 3. Coagulopathy 2/2 heparin drip 4. Anemia, work up if drops below 10 5. Thrombocytopenia, concerning for HIT vs sepsis, will order HIT test Subjective Constitutional: Reports: fever Allergies: Coded Allergies: LISINOPRIL (Verified Allergy, Severe, 04/21/17) All Systems: reviewed and negative except above Subjective on heparin gtt Objective Last 24 Hour Vital Signs Date Time Temp Pulse Resp B/P (MAP) Pulse Ox O2 Delivery O2 Flow Rate FiO2 04/24/17 18:24 96 23 60 04/24/17 18:00 84 18 138/89 95 Mechanical Ventilator 60 04/24/17 18:00 18 04/24/17 17:42 156/94 04/24/17 17:30 90 18 156/94 95 Mechanical Ventilator 60 04/24/17 17:00 84 18 146/90 95 Mechanical Ventilator 60 04/24/17 17:00 18 04/24/17 16:42 76 17 60 04/24/17 16:30 83 18 144/76 95 Mechanical Ventilator 60 04/24/17 16:00 18 04/24/17 16:00 99.4 83 17 137/73 95 Mechanical Ventilator 60 04/24/17 16:00 60 04/24/17 16:00 84 04/24/17 15:30 82 17 94/53 95 Mechanical Ventilator 60 04/24/17 15:14 17 04/24/17 15:00 75 17 124/73 95 Mechanical Ventilator 60 04/24/17 15:00 17 04/24/17 14:44 78 19 60 04/24/17 14:30 99.9 75 18 144/80 95 Mechanical Ventilator 60 04/24/17 14:00 18 04/24/17 14:00 100.5 78 18 137/81 95 Mechanical Ventilator 60 04/24/17 13:30 85 18 138/78 95 Mechanical Ventilator 60 04/24/17 13:00 101.6 83 18 139/78 95 Mechanical Ventilator 60 04/24/17 13:00 18 04/24/17 12:48 82 16 60 04/24/17 12:18 18 04/24/17 12:00 101.1 88 18 135/78 95 Mechanical Ventilator 60 04/24/17 12:00 60 04/24/17 12:00 87 04/24/17 12:00 18 04/24/17 11:51 130/76 04/24/17 11:30 84 16 130/76 95 Mechanical Ventilator 60 04/24/17 11:00 83 16 140/81 95 Mechanical Ventilator 60 04/24/17 11:00 18 04/24/17 11:00 83 21 140/81 95 Mechanical Ventilator 60 04/24/17 10:45 80 16 60 04/24/17 10:30 76 16 128/80 95 Mechanical Ventilator 60 04/24/17 10:00 18 04/24/17 10:00 77 21 127/77 95 Mechanical Ventilator 60 04/24/17 09:56 99.9 04/24/17 09:46 18 04/24/17 09:30 85 17 130/81 95 Mechanical Ventilator 60 04/24/17 09:28 101.1 04/24/17 09:00 18 04/24/17 09:00 91 22 168/91 95 Mechanical Ventilator 60 04/24/17 09:00 99.9 04/24/17 08:59 107 166/80 04/24/17 08:57 18 04/24/17 08:47 82 16 60 04/24/17 08:30 96 21 166/80 95 Mechanical Ventilator 60 04/24/17 08:00 90 04/24/17 08:00 60 04/24/17 08:00 16 04/24/17 08:00 101.0 92 19 139/82 96 Mechanical Ventilator 60 04/24/17 07:30 90 16 129/72 96 Mechanical Ventilator 60 04/24/17 07:00 94 16 136/84 96 Mechanical Ventilator 60 04/24/17 07:00 18 04/24/17 06:48 16 04/24/17 06:31 77 16 60 04/24/17 06:30 83 17 121/83 96 Mechanical Ventilator 60 04/24/17 06:00 17 04/24/17 06:00 78 16 121/83 97 Mechanical Ventilator 60 04/24/17 05:59 131/78 04/24/17 05:30 78 16 126/78 96 Mechanical Ventilator 60 04/24/17 05:25 84 19 60 04/24/17 05:00 87 17 131/78 95 Mechanical Ventilator 60 04/24/17 05:00 17 04/24/17 04:30 94 18 119/83 94 Mechanical Ventilator 60 04/24/17 04:04 16 04/24/17 04:00 60 04/24/17 04:00 17 04/24/17 04:00 89 04/24/17 04:00 100.0 90 17 135/91 95 Mechanical Ventilator 60 04/24/17 03:30 95 17 148/86 95 Mechanical Ventilator 60 04/24/17 03:05 95 20 60 04/24/17 03:00 97 17 138/84 97 Mechanical Ventilator 60 04/24/17 03:00 17 04/24/17 02:30 97 17 131/82 97 Mechanical Ventilator 60 04/24/17 02:00 92 17 141/85 97 Mechanical Ventilator 60 04/24/17 02:00 18 04/24/17 01:30 89 16 141/87 97 Mechanical Ventilator 60 04/24/17 01:25 87 18 60 04/24/17 01:11 17 04/24/17 01:00 89 17 137/85 95 Mechanical Ventilator 60 04/24/17 01:00 17 04/24/17 00:30 88 16 143/90 94 Mechanical Ventilator 60 04/24/17 00:04 94 04/24/17 00:00 17 04/24/17 00:00 98.7 94 16 134/88 94 Mechanical Ventilator 60 04/24/17 00:00 60 04/23/17 23:30 95 16 141/85 95 Mechanical Ventilator 60 04/23/17 23:00 88 16 134/86 95 Mechanical Ventilator 60 04/23/17 23:00 17 04/23/17 23:00 89 19 60 04/23/17 22:30 89 16 140/88 94 Mechanical Ventilator 60 04/23/17 22:30 16 04/23/17 22:00 16 04/23/17 22:00 99.1 88 17 142/89 94 Mechanical Ventilator 60 04/23/17 21:30 90 17 137/85 94 Mechanical Ventilator 60 04/23/17 21:18 104 28 60 04/23/17 21:00 17 04/23/17 21:00 93 19 130/88 94 Mechanical Ventilator 60 04/23/17 20:30 94 17 121/90 94 Mechanical Ventilator 60 04/23/17 20:00 100.4 91 19 132/88 95 Mechanical Ventilator 60 04/23/17 20:00 19 04/23/17 20:00 60 04/23/17 19:30 92 20 136/86 93 Mechanical Ventilator 60 04/23/17 19:25 93 04/23/17 19:16 91 20 60 04/23/17 19:00 100.5 91 18 132/81 93 Mechanical Ventilator 60 04/23/17 19:00 24 Intake and Output 04/24/17 04/25/17 19:00 07:00 Intake Total 3062.108 ml Output Total 1420 ml Balance 1642.108 ml Free Water 550 ml IV Total 1972.108 ml Tube Feeding 540 ml Output Urine Total 1420 ml # Bowel Movements 2 Laboratory Tests 04/24/17 05:00: White Blood Count 7.6, Red Blood Count 4.07L, Hemoglobin 13.0L, Hematocrit 38.2L , Mean Corpuscular Volume 94, Mean Corpuscular Hemoglobin 32.0H, Mean Corpuscular Hemoglobin Concent 34.0, Red Cell Distribution Width 12.6, Platelet Count 99L, Mean Platelet Volume 8.9, Neutrophils (%) (Auto) , Lymphocytes (%) ( Auto) , Monocytes (%) (Auto) , Eosinophils (%) (Auto) , Basophils (%) (Auto) , Activated Partial Thromboplast Time 66H, Sodium Level 145, Potassium Level 4.3, Chloride Level 111H, Carbon Dioxide Level 25, Anion Gap 9, Blood Urea Nitrogen 56H, Creatinine 2.6H, Estimat Glomerular Filtration Rate 30.2, Glucose Level 240H, Calcium Level 8.8, Phosphorus Level 3.6, Magnesium Level 2.2, Total Bilirubin 1.1H, Direct Bilirubin 0.3, Aspartate Amino Transf (AST/SGOT) 39H, Alanine Aminotransferase (ALT/SGPT) 46, Alkaline Phosphatase 42L, Total Protein 6.9, Albumin 2.5L, Globulin 4.4, Albumin/Globulin Ratio 0.6L 04/24/17 06:31: Arterial Blood pH 7.401, Arterial Blood Partial Pressure CO2 39.6, Arterial Blood Partial Pressure O2 82.5, Arterial Blood HCO3 24.0, Arterial Blood Oxygen Saturation 95.6, Arterial Blood Base Excess -0.6, Dayron Test Positive 04/24/17 14:20: Urine Color Yellow, Urine Appearance Cloudy, Urine pH 6, Urine Specific [place] 1.015, Urine Protein 2+H, Urine Glucose (UA) 1+H, Urine Ketones Negative, Urine Occult Blood 5+H, Urine Nitrite Negative, Urine Bilirubin Negative, Urine Urobilinogen Normal, Urine Leukocyte Esterase 1+H, Urine RBC 40-60H, Urine WBC 5 -10H, Urine Squamous Epithelial Cells Occasional, Urine Bacteria Few Height (Feet): 6 Height (Inches): 4.00 Weight (Pounds): 262 EENT: normal ENT inspection Cardiovascular: normal rate Edema: mild edema Neurologic: alert Skin: warm/dry Sulaiman Dudley Apr 24, 2017 18:41
[2017-04-24] MEDS: Dyna-Hex 2% Top Sol 2oz TOPIC SCH (20:29)
[2017-04-24] MEDS: Miralax 17gm pkt ORAL SCH (20:29)
[2017-04-24] MEDS: Solu-MEDROL 40mg Inj IVP SCH (20:30)
[2017-04-25] VITALS (48 sets, daily range): BP systolic 108–177; BP diastolic 71–97
[2017-04-25] MEDS: Miralax 17gm pkt ORAL SCH ×2 (00:10→20:43)
[2017-04-25] MEDS: Haloperidol Lactate 5 MG in D5W 55 ML IVPB PRN ×2 (00:10→04:45)
[2017-04-25] MEDS: Midazolam for drip 50 MG in NS 90 ML IV PRN ×3 (03:09→20:46)
[2017-04-25] MEDS: LORazepam Inj 2mg/ml 1ml IV PRN (03:17)
[2017-04-25 04:43] LABS: MEAN CORPUSCULAR HEMOGLOBIN 30.5 PG (27.0-31.0); MEAN CORPUSCULAR HGB CONC 32.1 G/DL (32.0-36.0); MEAN CORPUSCULAR VOLUME 95 FL (80-99); MEAN PLATELET VOLUME 11.9 FL (6.5-10.1); PLATELET COUNT 99 K/UL (150-450); RED BLOOD COUNT 4.09 M/UL (4.70-6.10); RED CELL DISTRIBUTION WIDTH 12.3 % (11.6-14.8); WHITE BLOOD COUNT 8.3 K/UL (4.8-10.8)
[2017-04-25] MEDS: D5 1/2NS 1,000 ML IV SCH (04:46)
[2017-04-25 05:33] LABS: ALANINE AMINOTRANSFERASE 47 U/L (12-78); ALBUMIN/GLOBULIN RATIO 0.6 (1.0-2.7); ANION GAP 11 mmol/L (5-15); ASPARTATE AMINO TRANSFERASE 23 U/L (15-37); CALCIUM 8.6 MG/DL (8.5-10.1); CARBON DIOXIDE 23 MMOL/L (21-32); CHLORIDE 109 MMOL/L (98-107); CREATININE 2.2 MG/DL (0.55-1.30); GLOMERULAR FILTRATION RATE 36.6 mL/min (>60); MAGNESIUM 2.1 MG/DL (1.8-2.4); POTASSIUM 4.7 MMOL/L (3.5-5.1); SODIUM 143 MMOL/L (136-145); TOTAL PROTEIN 6.4 G/DL (6.4-8.2)
[2017-04-25] MEDS: Nitroglycerin 2% oint pkt TOPIC SCH ×3 (05:45→17:27)
[2017-04-25] MEDS: Heparin 25,000u/D5W 500ml 500 ML IV SCH ×3 (06:10→14:21)
[2017-04-25] MEDS ORDERED: Heparin 5000 units/ml inj IV ONE ×2 (06:15→13:45)
[2017-04-25] MEDS: Pantoprazole Inj IVP SCH ×2 (09:14→17:28)
[2017-04-25] MEDS: Solu-MEDROL 40mg Inj IVP SCH (09:14)
[2017-04-25] MEDS: Docusate 100mg/10ml Liq NG SCH ×3 (09:15→17:26)
[2017-04-25] MEDS: Cefepime 2gm/D5W 110ml IV SCH ×2 (09:27)
--- NOTE | 2017-04-25 09:43 | Infectious Diseases Prog Note ---
Assessment/Plan Assessment/Plan Assesment: Angiodema s/p intubation , on high dose steroids- suspect 2ry to CAROLIN-I Possible Submassive b/l PE, R DVT LLL PNA -CXR 04/24: Persistent left perihilar consolidation, increased since the prior examination of 04/22/17. Pneumonia is of concern. -CXR: There is some left perihilar congestion or consolidation again demonstrated, unchanged. The remainder the lungs and pleural spaces are clear. -CTA chest: Fairly extensive bilateral segmental pulmonary emboli. Interatrial septal bowing,, borderline pulmonary arterial dilatation, equivocal right ventricular dilatation raises concern for submassive pulmonary embolus. Bilateral right greater than left pulmonary atelectatic changes. Ectatic but not frankly aneurysmal ascending thoracic aorta left apical scarring. There is consolidation and atelectasis of a significant portion of the posterior left lower lobe. There is also posterior dependent atelectasis of a portion of the right lower lobe. No definite effusions. No definite masses. No pericardial effusion. No mediastinal or hilar mass or adenopathy. Markedly enlarged multinodular thyroid, consistent with multinodular goiter -Sp cx Normal keely x2 Fever- multifactorial- due to PE/DVT, PNA- worsened 04/24, improving now -10:29 u/a mild pyuria WBC 5-10 Bcx p sp cx p -04/22 Bcx NTD Renal insufficiency- ?acute vs chronic vs acute on chronic Mutinodular goiter HTN COPD Tobacco abuse Plan: -Continue IV Vancomycin and Cefepime #2 pending repeat cultures -04/24 SP Unasyn #3 -04/23 SP IV Vanco #2 -Monitor CBC/BMP, temperatures -anticoagulation and steroids per primary team -vent management -aspiration precautions Thank you for this consultation. Will continue to follow along with you. Discussed with RN. Subjective Allergies: Coded Allergies: LISINOPRIL (Verified Allergy, Severe, 04/21/17) Subjective febrile yesterday to 101, afebrile now in >12hrs no leukocytosis unasyn switched to Vanco and Cefepime Objective Vital Signs Last 24 Hour Vital Signs Date Time Temp Pulse Resp B/P (MAP) Pulse Ox O2 Delivery O2 Flow Rate FiO2 04/25/17 09:14 69 121/82 04/25/17 07:00 72 19 125/77 94 Mechanical Ventilator 60 04/25/17 07:00 18 04/25/17 06:57 58 16 60 04/25/17 06:30 58 19 113/78 94 Mechanical Ventilator 60 04/25/17 06:00 56 19 108/71 94 Mechanical Ventilator 60 04/25/17 06:00 17 04/25/17 05:45 113/73 04/25/17 05:30 59 19 113/73 94 Mechanical Ventilator 60 04/25/17 05:26 53 19 60 04/25/17 05:00 65 19 113/72 94 Mechanical Ventilator 60 04/25/17 05:00 17 04/25/17 04:30 61 19 132/85 94 Mechanical Ventilator 60 04/25/17 04:00 98.4 62 19 130/84 94 Mechanical Ventilator 60 04/25/17 04:00 60 04/25/17 04:00 18 04/25/17 04:00 74 04/25/17 03:30 65 20 133/83 95 Mechanical Ventilator 60 04/25/17 03:30 65 19 133/83 94 Mechanical Ventilator 60 04/25/17 03:10 61 19 60 04/25/17 03:09 19 04/25/17 03:00 58 19 130/83 95 Mechanical Ventilator 60 04/25/17 03:00 19 04/25/17 02:30 59 19 125/81 94 Mechanical Ventilator 60 04/25/17 02:00 74 16 148/92 94 Mechanical Ventilator 60 04/25/17 02:00 19 04/25/17 01:30 73 16 153/97 93 Mechanical Ventilator 60 04/25/17 01:15 92 21 60 04/25/17 01:00 65 16 145/85 93 Mechanical Ventilator 60 04/25/17 00:30 56 16 133/83 94 Mechanical Ventilator 60 04/25/17 00:00 56 04/25/17 00:00 60 04/25/17 00:00 98.1 56 16 126/79 94 Mechanical Ventilator 60 04/24/17 23:34 93 16 60 04/24/17 23:30 59 16 128/78 94 Mechanical Ventilator 60 04/24/17 23:00 59 16 137/84 94 Mechanical Ventilator 60 04/24/17 23:00 17 04/24/17 22:30 98.2 58 18 134/90 95 Mechanical Ventilator 60 04/24/17 22:00 18 04/24/17 22:00 57 16 119/75 95 Mechanical Ventilator 60 04/24/17 21:40 92 20 60 04/24/17 21:30 67 16 124/81 95 Mechanical Ventilator 60 04/24/17 21:00 18 04/24/17 21:00 71 18 154/100 95 Mechanical Ventilator 60 04/24/17 20:30 68 18 127/81 95 Mechanical Ventilator 60 04/24/17 20:00 69 04/24/17 20:00 18 04/24/17 20:00 60 04/24/17 20:00 99.4 69 18 130/79 95 Mechanical Ventilator 60 04/24/17 19:30 68 18 128/79 95 Mechanical Ventilator 60 04/24/17 19:13 99.4 04/24/17 19:00 18 04/24/17 19:00 77 18 130/83 95 Mechanical Ventilator 60 04/24/17 18:59 18 04/24/17 18:24 96 23 60 04/24/17 18:00 84 18 138/89 95 Mechanical Ventilator 60 04/24/17 18:00 18 04/24/17 17:42 156/94 04/24/17 17:30 90 18 156/94 95 Mechanical Ventilator 60 04/24/17 17:00 84 18 146/90 95 Mechanical Ventilator 60 04/24/17 17:00 18 04/24/17 16:42 76 17 60 04/24/17 16:30 83 18 144/76 95 Mechanical Ventilator 60 04/24/17 16:00 18 04/24/17 16:00 99.4 83 17 137/73 95 Mechanical Ventilator 60 04/24/17 16:00 60 04/24/17 16:00 84 04/24/17 15:59 99.4 04/24/17 15:30 82 17 94/53 95 Mechanical Ventilator 60 04/24/17 15:14 17 04/24/17 15:00 75 17 124/73 95 Mechanical Ventilator 60 04/24/17 15:00 17 04/24/17 14:44 78 19 60 04/24/17 14:30 99.9 75 18 144/80 95 Mechanical Ventilator 60 04/24/17 14:00 18 04/24/17 14:00 100.5 78 18 137/81 95 Mechanical Ventilator 60 04/24/17 13:30 85 18 138/78 95 Mechanical Ventilator 60 04/24/17 13:00 101.6 83 18 139/78 95 Mechanical Ventilator 60 04/24/17 13:00 18 04/24/17 12:48 82 16 60 04/24/17 12:18 18 04/24/17 12:00 101.1 88 18 135/78 95 Mechanical Ventilator 60 04/24/17 12:00 60 04/24/17 12:00 87 04/24/17 12:00 18 04/24/17 11:51 130/76 04/24/17 11:30 84 16 130/76 95 Mechanical Ventilator 60 04/24/17 11:00 83 16 140/81 95 Mechanical Ventilator 60 04/24/17 11:00 18 04/24/17 11:00 83 21 140/81 95 Mechanical Ventilator 60 04/24/17 10:45 80 16 60 04/24/17 10:30 76 16 128/80 95 Mechanical Ventilator 60 04/24/17 10:00 18 04/24/17 10:00 77 21 127/77 95 Mechanical Ventilator 60 04/24/17 09:46 18 Height (Feet): 6 Height (Inches): 4.00 Weight (Pounds): 270 Objective General Appearance: sedated, intubated Lines, tubes and drains: peripheral, ETT HEENT: normocephalic, atraumatic Respiratory/Chest: chest wall non-tender, lungs clear Cardiovascular/Chest: normal peripheral pulses, no murmurs Abdomen: normal bowel sounds, S+D, NT, ND Extremities: no edema SKIN: no rashes Microbiology Date/Time Source Procedure Growth Status 04/22/17 14:13 Blood Blood Culture - Preliminary NO GROWTH AFTER 48 HOURS Resulted 04/22/17 13:30 Blood Blood Culture - Preliminary NO GROWTH AFTER 48 HOURS Resulted 04/22/17 13:00 Sputum Gram Stain - Final Complete 04/22/17 13:00 Sputum Sputum Culture - Final NORMAL UPPER RESPIRATORY KEELY PRESENT Complete Laboratory Tests Test 04/24/17 14:20 04/25/17 03:50 Urine Color Yellow Urine Appearance Cloudy Urine pH 6 (4.5-8.0) Urine Specific [place] 1.015 (1.005-1.035) Urine Protein 2+ (NEGATIVE) H Urine Glucose (UA) 1+ (NEGATIVE) H Urine Ketones Negative (NEGATIVE) Urine Occult Blood 5+ (NEGATIVE) H Urine Nitrite Negative (NEGATIVE) Urine Bilirubin Negative (NEGATIVE) Urine Urobilinogen Normal MG/DL (0.0-1.0) Urine Leukocyte Esterase 1+ (NEGATIVE) H Urine RBC 40-60 /HPF (0 - 0) H Urine WBC 5-10 /HPF (0 - 0) H Urine Squamous Epithelial Cells Occasional /LPF Urine Bacteria Few /HPF (NONE) White Blood Count 8.3 K/UL (4.8-10.8) Red Blood Count 4.09 M/UL (4.70-6.10) L Hemoglobin 12.5 G/DL (14.2-18.0) L Hematocrit 38.8 % (42.0-52.0) L Mean Corpuscular Volume 95 FL (80-99) Mean Corpuscular Hemoglobin 30.5 PG (27.0-31.0) Mean Corpuscular Hemoglobin Concent 32.1 G/DL (32.0-36.0) Red Cell Distribution Width 12.3 % (11.6-14.8) Platelet Count 99 K/UL (150-450) L Mean Platelet Volume 11.9 FL (6.5-10.1) H Neutrophils (%) (Auto) % (45.0-75.0) Lymphocytes (%) (Auto) % (20.0-45.0) Monocytes (%) (Auto) % (1.0-10.0) Eosinophils (%) (Auto) % (0.0-3.0) Basophils (%) (Auto) % (0.0-2.0) Activated Partial Thromboplast Time 55 SEC (23-33) H Sodium Level 143 MMOL/L (136-145) Potassium Level 4.7 MMOL/L (3.5-5.1) Chloride Level 109 MMOL/L (98-107) H Carbon Dioxide Level 23 MMOL/L (21-32) Anion Gap 11 mmol/L (5-15) Blood Urea Nitrogen 53 mg/dL (7-18) H Creatinine 2.2 MG/DL (0.55-1.30) H Estimat Glomerular Filtration Rate 36.6 mL/min (>60) Glucose Level 331 MG/DL (74-106) H Calcium Level 8.6 MG/DL (8.5-10.1) Phosphorus Level 4.0 MG/DL (2.5-4.9) Magnesium Level 2.1 MG/DL (1.8-2.4) Total Bilirubin 0.6 MG/DL (0.2-1.0) Aspartate Amino Transf (AST/SGOT) 23 U/L (15-37) Alanine Aminotransferase (ALT/SGPT) 47 U/L (12-78) Alkaline Phosphatase 50 U/L (46-116) Troponin I 0.053 ng/mL (0.000-0.056) Total Protein 6.4 G/DL (6.4-8.2) Albumin 2.3 G/DL (3.4-5.0) L Globulin 4.1 g/dL Albumin/Globulin Ratio 0.6 (1.0-2.7) L Heparin-PF4 Antibody Screen Pending Current Medications Medications (Trade) Dose Ordered Sig/Kelsi Route PRN Reason Start Time Stop Time Status Last Admin Dose Admin Acetaminophen (Tylenol) 650 mg Q6H PRN ORAL Mild Pain/Temp > 100.5 04/21/17 00:45 05/21/17 00:44 04/24/17 15:00 Amlodipine Besylate (Norvasc) 5 mg DAILY ORAL 04/23/17 09:30 05/23/17 09:29 04/25/17 09:14 Cefepime HCl 2 gm/ Dextrose 110 ml @ 220 mls/hr Q24H IV 04/24/17 10:00 05/01/17 09:59 04/25/17 09:27 Chlorhexidine Gluconate (Malena-Hex 2%) 1 applic DAILY@2000 TOPIC 04/21/17 20:00 05/21/17 19:59 04/24/17 20:29 Dextrose/Sodium Chloride 1,000 ml @ 100 mls/hr Q10H IV 04/24/17 09:00 05/24/17 08:59 04/25/17 04:46 Docusate Sodium (Colace) 100 mg THREE TIMES A DAY NG 04/22/17 18:00 05/22/17 17:59 04/25/17 09:15 Haloperidol Lactate 5 mg/ Dextrose 56 ml @ 224 mls/hr Q1H PRN IVPB AGITATION 04/24/17 08:45 05/24/17 08:44 04/25/17 04:45 Heparin Sodium/ Dextrose 500 ml @ 34.8 mls/hr adjust per protocol IV 04/25/17 06:15 05/25/17 06:14 04/25/17 06:10 Hydralazine HCl (Apresoline) 10 mg Q4H PRN IV For High Blood Pressure 04/21/17 00:45 05/21/17 00:44 04/23/17 11:15 Lorazepam (Ativan 2mg/ml 1ml) 2 mg Q2H PRN IV For Anxiety 04/21/17 00:45 04/28/17 00:44 04/25/17 03:17 Methylprednisolone Sodium Succinate (Solu-MEDROL) 40 mg EVERY 12 HOURS IVP 04/24/17 21:00 05/24/17 20:59 04/25/17 09:14 Metoprolol Tartrate (Lopressor) 5 mg Q6H PRN IVP heart rate greater than 125 04/21/17 20:00 05/21/17 19:59 Midazolam HCl 50 mg/Sodium Chloride 100 ml @ 0 mls/hr Q24H PRN IV . 04/24/17 15:00 05/24/17 14:59 04/25/17 03:09 Morphine Sulfate (Morphine Sulfate) 4 mg Q2H PRN IVP For Severe Pain 04/21/17 11:45 04/28/17 11:44 04/24/17 18:43 Nicotine (Nicoderm) 1 patch Q24H TDERMAL 04/22/17 14:00 05/22/17 13:59 04/24/17 14:16 Nitroglycerin (Nitro-Bid) 1 inch TID@0600,1200,1800 TOPIC 04/22/17 06:00 05/22/17 05:59 04/25/17 05:45 Pantoprazole (Protonix) 40 mg DAILY IVP 04/21/17 09:00 05/21/17 08:59 04/25/17 09:14 Polyethylene Glycol (Miralax) 17 gm BEDTIME ORAL 04/22/17 21:00 05/22/17 20:59 04/25/17 00:10 Vancomycin HCl (Vanco rx to dose) 1 ea DAILY PRN MISC Per rx protocol 04/24/17 08:45 05/24/17 08:44 Vancomycin HCl/ Dextrose 250 ml @ 125 mls/hr Q24H IVPB 04/24/17 11:00 11/3/17 10:59 04/24/17 11:51 Imani Diggs M.D. Apr 25, 2017 09:43
[2017-04-25 09:50] LABS: ABG PCO2 38.9 mmHg (35.0-45.0)
[2017-04-25 09:51] LABS: ABG ALLEN TEST POSITIVE; ABG BASE EXCESS -0.7
--- NOTE | 2017-04-25 10:33 | GI Progress Note ---
Assessment/Plan Problems: (1) Abdominal distension ICD Codes: R14.0 - Abdominal distension (gaseous) SNOMED: 00101198 (2) Hypoalbuminemia ICD Codes: E88.09 - Other disorders of plasma-protein metabolism, not elsewhere classified SNOMED: 779592535 (3) Angioedema ICD Codes: T78.3XXA - Angioneurotic edema, initial encounter SNOMED: 43920828 Status: unchanged Status Narrative Discussed with Dr. Cazares. Assessment/Plan NGTF tolerated fu labs fu pulm recs Subjective Subjective limited Objective Last 24 Hour Vital Signs Date Time Temp Pulse Resp B/P (MAP) Pulse Ox O2 Delivery O2 Flow Rate FiO2 04/25/17 09:29 66 16 60 04/25/17 09:14 69 121/82 04/25/17 07:00 72 19 125/77 94 Mechanical Ventilator 60 04/25/17 07:00 18 04/25/17 06:57 58 16 60 04/25/17 06:30 58 19 113/78 94 Mechanical Ventilator 60 04/25/17 06:00 56 19 108/71 94 Mechanical Ventilator 60 04/25/17 06:00 17 04/25/17 05:45 113/73 04/25/17 05:30 59 19 113/73 94 Mechanical Ventilator 60 04/25/17 05:26 53 19 60 04/25/17 05:00 65 19 113/72 94 Mechanical Ventilator 60 04/25/17 05:00 17 04/25/17 04:30 61 19 132/85 94 Mechanical Ventilator 60 04/25/17 04:00 98.4 62 19 130/84 94 Mechanical Ventilator 60 04/25/17 04:00 60 04/25/17 04:00 18 04/25/17 04:00 74 04/25/17 03:30 65 20 133/83 95 Mechanical Ventilator 60 04/25/17 03:30 65 19 133/83 94 Mechanical Ventilator 60 04/25/17 03:10 61 19 60 04/25/17 03:09 19 04/25/17 03:00 58 19 130/83 95 Mechanical Ventilator 60 04/25/17 03:00 19 04/25/17 02:30 59 19 125/81 94 Mechanical Ventilator 60 04/25/17 02:00 74 16 148/92 94 Mechanical Ventilator 60 04/25/17 02:00 19 04/25/17 01:30 73 16 153/97 93 Mechanical Ventilator 60 04/25/17 01:15 92 21 60 04/25/17 01:00 65 16 145/85 93 Mechanical Ventilator 60 04/25/17 00:30 56 16 133/83 94 Mechanical Ventilator 60 04/25/17 00:00 56 04/25/17 00:00 60 04/25/17 00:00 98.1 56 16 126/79 94 Mechanical Ventilator 60 04/24/17 23:34 93 16 60 04/24/17 23:30 59 16 128/78 94 Mechanical Ventilator 60 04/24/17 23:00 59 16 137/84 94 Mechanical Ventilator 60 04/24/17 23:00 17 04/24/17 22:30 98.2 58 18 134/90 95 Mechanical Ventilator 60 04/24/17 22:00 18 04/24/17 22:00 57 16 119/75 95 Mechanical Ventilator 60 04/24/17 21:40 92 20 60 04/24/17 21:30 67 16 124/81 95 Mechanical Ventilator 60 04/24/17 21:00 18 04/24/17 21:00 71 18 154/100 95 Mechanical Ventilator 60 04/24/17 20:30 68 18 127/81 95 Mechanical Ventilator 60 04/24/17 20:00 69 04/24/17 20:00 18 04/24/17 20:00 60 04/24/17 20:00 99.4 69 18 130/79 95 Mechanical Ventilator 60 04/24/17 19:30 68 18 128/79 95 Mechanical Ventilator 60 04/24/17 19:13 99.4 04/24/17 19:00 18 04/24/17 19:00 77 18 130/83 95 Mechanical Ventilator 60 04/24/17 18:59 18 04/24/17 18:24 96 23 60 04/24/17 18:00 84 18 138/89 95 Mechanical Ventilator 60 04/24/17 18:00 18 04/24/17 17:42 156/94 04/24/17 17:30 90 18 156/94 95 Mechanical Ventilator 60 04/24/17 17:00 84 18 146/90 95 Mechanical Ventilator 60 04/24/17 17:00 18 04/24/17 16:42 76 17 60 04/24/17 16:30 83 18 144/76 95 Mechanical Ventilator 60 04/24/17 16:00 18 04/24/17 16:00 99.4 83 17 137/73 95 Mechanical Ventilator 60 04/24/17 16:00 60 04/24/17 16:00 84 04/24/17 15:59 99.4 04/24/17 15:30 82 17 94/53 95 Mechanical Ventilator 60 04/24/17 15:14 17 04/24/17 15:00 75 17 124/73 95 Mechanical Ventilator 60 04/24/17 15:00 17 04/24/17 14:44 78 19 60 04/24/17 14:30 99.9 75 18 144/80 95 Mechanical Ventilator 60 04/24/17 14:00 18 04/24/17 14:00 100.5 78 18 137/81 95 Mechanical Ventilator 60 04/24/17 13:30 85 18 138/78 95 Mechanical Ventilator 60 04/24/17 13:00 101.6 83 18 139/78 95 Mechanical Ventilator 60 04/24/17 13:00 18 04/24/17 12:48 82 16 60 04/24/17 12:18 18 04/24/17 12:00 101.1 88 18 135/78 95 Mechanical Ventilator 60 04/24/17 12:00 60 04/24/17 12:00 87 04/24/17 12:00 18 04/24/17 11:51 130/76 04/24/17 11:30 84 16 130/76 95 Mechanical Ventilator 60 04/24/17 11:00 83 16 140/81 95 Mechanical Ventilator 60 04/24/17 11:00 18 04/24/17 11:00 83 21 140/81 95 Mechanical Ventilator 60 04/24/17 10:45 80 16 60 04/24/17 10:30 76 16 128/80 95 Mechanical Ventilator 60 Laboratory Tests Test 04/24/17 14:20 04/25/17 03:50 04/25/17 09:20 Urine Color Yellow Urine Appearance Cloudy Urine pH 6 (4.5-8.0) Urine Specific [place] 1.015 (1.005-1.035) Urine Protein 2+ (NEGATIVE) H Urine Glucose (UA) 1+ (NEGATIVE) H Urine Ketones Negative (NEGATIVE) Urine Occult Blood 5+ (NEGATIVE) H Urine Nitrite Negative (NEGATIVE) Urine Bilirubin Negative (NEGATIVE) Urine Urobilinogen Normal MG/DL (0.0-1.0) Urine Leukocyte Esterase 1+ (NEGATIVE) H Urine RBC 40-60 /HPF (0 - 0) H Urine WBC 5-10 /HPF (0 - 0) H Urine Squamous Epithelial Cells Occasional /LPF Urine Bacteria Few /HPF (NONE) White Blood Count 8.3 K/UL (4.8-10.8) Red Blood Count 4.09 M/UL (4.70-6.10) L Hemoglobin 12.5 G/DL (14.2-18.0) L Hematocrit 38.8 % (42.0-52.0) L Mean Corpuscular Volume 95 FL (80-99) Mean Corpuscular Hemoglobin 30.5 PG (27.0-31.0) Mean Corpuscular Hemoglobin Concent 32.1 G/DL (32.0-36.0) Red Cell Distribution Width 12.3 % (11.6-14.8) Platelet Count 99 K/UL (150-450) L Mean Platelet Volume 11.9 FL (6.5-10.1) H Neutrophils (%) (Auto) % (45.0-75.0) Lymphocytes (%) (Auto) % (20.0-45.0) Monocytes (%) (Auto) % (1.0-10.0) Eosinophils (%) (Auto) % (0.0-3.0) Basophils (%) (Auto) % (0.0-2.0) Activated Partial Thromboplast Time 55 SEC (23-33) H Sodium Level 143 MMOL/L (136-145) Potassium Level 4.7 MMOL/L (3.5-5.1) Chloride Level 109 MMOL/L (98-107) H Carbon Dioxide Level 23 MMOL/L (21-32) Anion Gap 11 mmol/L (5-15) Blood Urea Nitrogen 53 mg/dL (7-18) H Creatinine 2.2 MG/DL (0.55-1.30) H Estimat Glomerular Filtration Rate 36.6 mL/min (>60) Glucose Level 331 MG/DL (74-106) H Calcium Level 8.6 MG/DL (8.5-10.1) Phosphorus Level 4.0 MG/DL (2.5-4.9) Magnesium Level 2.1 MG/DL (1.8-2.4) Total Bilirubin 0.6 MG/DL (0.2-1.0) Aspartate Amino Transf (AST/SGOT) 23 U/L (15-37) Alanine Aminotransferase (ALT/SGPT) 47 U/L (12-78) Alkaline Phosphatase 50 U/L (46-116) Troponin I 0.053 ng/mL (0.000-0.056) Total Protein 6.4 G/DL (6.4-8.2) Albumin 2.3 G/DL (3.4-5.0) L Globulin 4.1 g/dL Albumin/Globulin Ratio 0.6 (1.0-2.7) L Heparin-PF4 Antibody Screen Pending Arterial Blood pH 7.405 (7.350-7.450) Arterial Blood Partial Pressure CO2 38.9 mmHg (35.0-45.0) Arterial Blood Partial Pressure O2 67.0 mmHg (75.0-100.0) L Arterial Blood HCO3 23.8 mmol/L (22.0-26.0) Arterial Blood Oxygen Saturation 92.7 % (92.0-98.0) Arterial Blood Base Excess -0.7 Dayron Test Positive Height (Feet): 6 Height (Inches): 4.00 Weight (Pounds): 270 General Appearance: no apparent distress, obese Cardiovascular: normal rate Respiratory/Chest: normal breath sounds, no respiratory distress, other - trach to vent Abdominal Exam: normal bowel sounds, non tender, soft, other - NGT Radha Mckeon N.P. Apr 25, 2017 10:33
[2017-04-25] MEDS ORDERED: Tubing IV Secondary IV ONE ×2 (10:42→15:54)
[2017-04-25] MEDS ORDERED: NS 275ml ONE (10:42)
--- NOTE | 2017-04-25 10:57 | Diagnostic Imaging Report ---
Indication: DYSPNEA Technique: One view of the chest Comparison: 04/24/2017 Findings: Stable satisfactory positions of endotracheal tube, nasogastric tube, left arm PICC. Left perihilar interstitial prominence and possible consolidation persists. There may be a small left pleural effusion. Is increased atelectasis at the right lung base Impression: Increased bibasilar atelectasis, over one day Other stable findings as described
--- NOTE | 2017-04-25 11:03 | Pulmonolgy Critical Care Note ---
Critical Care - Asmt/Plan Problems: (1) Acute respiratory failure (2) ATN (acute tubular necrosis) (3) Hypertension (4) Renal insufficiency (5) Angioedema Respiratory: monitor respiratory rate, adjust FIO2, CXR Cardiac: continue to monitor HR/BP Renal: F/U I&O, decrease IV fluid, check electrolytes, other - dc iv fluid Infectious Disease: check cultures Gastrointestinal: continue feedings/current rate Endocrine: monitor blood sugar, check TSH Hematologic: monitor H/H Neurologic: PRN Ativan, PRN Morphine Prophylaxis: Protonix, Heparin Time Spent (Minutes): 40 Notes Reviewed: cardio, renal, ID Discussed with: nurses, consultants, rifle case repairerprotection manager - Objective Last 24 Hour Vital Signs Date Time Temp Pulse Resp B/P (MAP) Pulse Ox O2 Delivery O2 Flow Rate FiO2 04/25/17 10:55 79 24 60 04/25/17 10:30 72 17 156/95 94 Mechanical Ventilator 65 04/25/17 10:00 69 16 177/94 95 Mechanical Ventilator 60 04/25/17 09:30 68 16 128/84 94 Mechanical Ventilator 60 04/25/17 09:29 66 16 60 04/25/17 09:14 69 121/82 04/25/17 09:00 68 15 121/82 94 Mechanical Ventilator 60 04/25/17 08:30 65 15 164/87 94 Mechanical Ventilator 60 04/25/17 08:00 63 04/25/17 08:00 60 04/25/17 08:00 97.4 61 15 116/79 94 Mechanical Ventilator 60 04/25/17 07:30 67 15 129/79 94 Mechanical Ventilator 60 04/25/17 07:00 72 19 125/77 94 Mechanical Ventilator 60 04/25/17 07:00 18 04/25/17 06:57 58 16 60 04/25/17 06:30 58 19 113/78 94 Mechanical Ventilator 60 04/25/17 06:00 56 19 108/71 94 Mechanical Ventilator 60 04/25/17 06:00 17 04/25/17 05:45 113/73 04/25/17 05:30 59 19 113/73 94 Mechanical Ventilator 60 04/25/17 05:26 53 19 60 04/25/17 05:00 65 19 113/72 94 Mechanical Ventilator 60 04/25/17 05:00 17 04/25/17 04:30 61 19 132/85 94 Mechanical Ventilator 60 04/25/17 04:00 98.4 62 19 130/84 94 Mechanical Ventilator 60 04/25/17 04:00 60 04/25/17 04:00 18 04/25/17 04:00 74 04/25/17 03:30 65 20 133/83 95 Mechanical Ventilator 60 04/25/17 03:30 65 19 133/83 94 Mechanical Ventilator 60 04/25/17 03:10 61 19 60 04/25/17 03:09 19 04/25/17 03:00 58 19 130/83 95 Mechanical Ventilator 60 04/25/17 03:00 19 04/25/17 02:30 59 19 125/81 94 Mechanical Ventilator 60 04/25/17 02:00 74 16 148/92 94 Mechanical Ventilator 60 04/25/17 02:00 19 04/25/17 01:30 73 16 153/97 93 Mechanical Ventilator 60 04/25/17 01:15 92 21 60 04/25/17 01:00 65 16 145/85 93 Mechanical Ventilator 60 04/25/17 00:30 56 16 133/83 94 Mechanical Ventilator 60 04/25/17 00:00 56 04/25/17 00:00 60 04/25/17 00:00 98.1 56 16 126/79 94 Mechanical Ventilator 60 04/24/17 23:34 93 16 60 04/24/17 23:30 59 16 128/78 94 Mechanical Ventilator 60 04/24/17 23:00 59 16 137/84 94 Mechanical Ventilator 60 04/24/17 23:00 17 04/24/17 22:30 98.2 58 18 134/90 95 Mechanical Ventilator 60 04/24/17 22:00 18 04/24/17 22:00 57 16 119/75 95 Mechanical Ventilator 60 04/24/17 21:40 92 20 60 04/24/17 21:30 67 16 124/81 95 Mechanical Ventilator 60 04/24/17 21:00 18 04/24/17 21:00 71 18 154/100 95 Mechanical Ventilator 60 04/24/17 20:30 68 18 127/81 95 Mechanical Ventilator 60 04/24/17 20:00 69 04/24/17 20:00 18 04/24/17 20:00 60 04/24/17 20:00 99.4 69 18 130/79 95 Mechanical Ventilator 60 04/24/17 19:30 68 18 128/79 95 Mechanical Ventilator 60 04/24/17 19:13 99.4 04/24/17 19:00 18 04/24/17 19:00 77 18 130/83 95 Mechanical Ventilator 60 04/24/17 18:59 18 04/24/17 18:24 96 23 60 04/24/17 18:00 84 18 138/89 95 Mechanical Ventilator 60 04/24/17 18:00 18 04/24/17 17:42 156/94 04/24/17 17:30 90 18 156/94 95 Mechanical Ventilator 60 04/24/17 17:00 84 18 146/90 95 Mechanical Ventilator 60 04/24/17 17:00 18 04/24/17 16:42 76 17 60 04/24/17 16:30 83 18 144/76 95 Mechanical Ventilator 60 04/24/17 16:00 18 04/24/17 16:00 99.4 83 17 137/73 95 Mechanical Ventilator 60 04/24/17 16:00 60 04/24/17 16:00 84 04/24/17 15:59 99.4 04/24/17 15:30 82 17 94/53 95 Mechanical Ventilator 60 04/24/17 15:14 17 04/24/17 15:00 75 17 124/73 95 Mechanical Ventilator 60 04/24/17 15:00 17 04/24/17 14:44 78 19 60 04/24/17 14:30 99.9 75 18 144/80 95 Mechanical Ventilator 60 04/24/17 14:00 18 04/24/17 14:00 100.5 78 18 137/81 95 Mechanical Ventilator 60 04/24/17 13:30 85 18 138/78 95 Mechanical Ventilator 60 04/24/17 13:00 101.6 83 18 139/78 95 Mechanical Ventilator 60 04/24/17 13:00 18 04/24/17 12:48 82 16 60 04/24/17 12:18 18 04/24/17 12:00 101.1 88 18 135/78 95 Mechanical Ventilator 60 04/24/17 12:00 60 04/24/17 12:00 87 04/24/17 12:00 18 04/24/17 11:51 130/76 04/24/17 11:30 84 16 130/76 95 Mechanical Ventilator 60 Status: awake Condition: critical HEENT: atraumatic Neck: full ROM Heart: HR/BP stable, HR/BP unstable Abdomen: soft Micro: Microbiology Date/Time Source Procedure Growth Status 04/22/17 14:13 Blood Blood Culture - Preliminary NO GROWTH AFTER 48 HOURS Resulted 04/22/17 13:30 Blood Blood Culture - Preliminary NO GROWTH AFTER 48 HOURS Resulted 04/22/17 13:00 Sputum Gram Stain - Final Complete 04/22/17 13:00 Sputum Sputum Culture - Final NORMAL UPPER RESPIRATORY MARGARITA PRESENT Complete Critical Care - Subjective ROS Limited/Unobtainable: Yes ICU Day: 5 Intubation Day: 5 Interval Events: open eyes, comfortable FI02: 65 Vent Support Breath Rate: 16 Vent Support Mode: AC Vent Tidal Volume: 700 Sputum Amount: Large PEEP: 5.0 PIP: 25 Secretions: clear, little Tube Feeding Amount: 50 I&O: Intake and Output 04/25/17 04/26/17 19:00 07:00 Intake Total 230 ml Output Total 375 ml Balance -145 ml Free Water 50 ml Tube Feeding 150 ml Other 30 ml Output Urine Total 375 ml CXR: increased bibasilar atelectasis ET-Tube: 7.0 ET Position: 27 Labs: Laboratory Tests Test 04/24/17 14:20 04/25/17 03:50 04/25/17 09:20 Urine Color Yellow Urine Appearance Cloudy Urine pH 6 (4.5-8.0) Urine Specific [place] 1.015 (1.005-1.035) Urine Protein 2+ (NEGATIVE) H Urine Glucose (UA) 1+ (NEGATIVE) H Urine Ketones Negative (NEGATIVE) Urine Occult Blood 5+ (NEGATIVE) H Urine Nitrite Negative (NEGATIVE) Urine Bilirubin Negative (NEGATIVE) Urine Urobilinogen Normal MG/DL (0.0-1.0) Urine Leukocyte Esterase 1+ (NEGATIVE) H Urine RBC 40-60 /HPF (0 - 0) H Urine WBC 5-10 /HPF (0 - 0) H Urine Squamous Epithelial Cells Occasional /LPF Urine Bacteria Few /HPF (NONE) White Blood Count 8.3 K/UL (4.8-10.8) Red Blood Count 4.09 M/UL (4.70-6.10) L Hemoglobin 12.5 G/DL (14.2-18.0) L Hematocrit 38.8 % (42.0-52.0) L Mean Corpuscular Volume 95 FL (80-99) Mean Corpuscular Hemoglobin 30.5 PG (27.0-31.0) Mean Corpuscular Hemoglobin Concent 32.1 G/DL (32.0-36.0) Red Cell Distribution Width 12.3 % (11.6-14.8) Platelet Count 99 K/UL (150-450) L Mean Platelet Volume 11.9 FL (6.5-10.1) H Neutrophils (%) (Auto) % (45.0-75.0) Lymphocytes (%) (Auto) % (20.0-45.0) Monocytes (%) (Auto) % (1.0-10.0) Eosinophils (%) (Auto) % (0.0-3.0) Basophils (%) (Auto) % (0.0-2.0) Activated Partial Thromboplast Time 55 SEC (23-33) H Sodium Level 143 MMOL/L (136-145) Potassium Level 4.7 MMOL/L (3.5-5.1) Chloride Level 109 MMOL/L (98-107) H Carbon Dioxide Level 23 MMOL/L (21-32) Anion Gap 11 mmol/L (5-15) Blood Urea Nitrogen 53 mg/dL (7-18) H Creatinine 2.2 MG/DL (0.55-1.30) H Estimat Glomerular Filtration Rate 36.6 mL/min (>60) Glucose Level 331 MG/DL (74-106) H Calcium Level 8.6 MG/DL (8.5-10.1) Phosphorus Level 4.0 MG/DL (2.5-4.9) Magnesium Level 2.1 MG/DL (1.8-2.4) Total Bilirubin 0.6 MG/DL (0.2-1.0) Aspartate Amino Transf (AST/SGOT) 23 U/L (15-37) Alanine Aminotransferase (ALT/SGPT) 47 U/L (12-78) Alkaline Phosphatase 50 U/L (46-116) Troponin I 0.053 ng/mL (0.000-0.056) Total Protein 6.4 G/DL (6.4-8.2) Albumin 2.3 G/DL (3.4-5.0) L Globulin 4.1 g/dL Albumin/Globulin Ratio 0.6 (1.0-2.7) L Heparin-PF4 Antibody Screen Pending Arterial Blood pH 7.405 (7.350-7.450) Arterial Blood Partial Pressure CO2 38.9 mmHg (35.0-45.0) Arterial Blood Partial Pressure O2 67.0 mmHg (75.0-100.0) L Arterial Blood HCO3 23.8 mmol/L (22.0-26.0) Arterial Blood Oxygen Saturation 92.7 % (92.0-98.0) Arterial Blood Base Excess -0.7 Dayron Test Positive VIVEK SOLOMON Apr 25, 2017 11:03
--- NOTE | 2017-04-25 11:20 | Diagnostic Imaging Report ---
APPROVED REPORT CPT Code: 33414 Present Symptoms Lower Extremity Pain: Bilateral RIGHT LEG: Venous imaging reveals subacute thrombus in the mid superficial femoral vein. Imaging also reveals patency of the common femoral, popliteal and calf veins.The greater saphenous vein is also within normal limits. LEFT LEG: Venous imaging reveals a patent deep venous system. There is no evidence of thrombus within the femoral, popliteal or tibial segments. The greater saphenous vein is also within normal limits. Doppler indicates normal spontaneous flow within these segments. GABRIELE Guerrero was notified of the abnormal results at 11:30 hours.
[2017-04-25] MEDS: Vancomycin 1500mg IVPB SCH (11:27)
--- NOTE | 2017-04-25 15:06 | General Progress Note ---
Assessment/Plan Status: stable Status Narrative Cr down 2.2 Assessment/Plan status; Pulmonary emboli , on heparin Acute respiratory failure- On Vent Renal failure ? CKD ? Superimposed Acute renal failure HTN- Smoker- Jorge Inhibor Allergy Plan: Keep BP in check 2D Echo- EjFx 60% Pulmonary support- urine studies- Kidney MIKEY Right kidney demonstrates borderline hydronephrosis. Taper steroids as possible. monitor renal parameters- Avoid nephrotoxics Subjective ROS Limited/Unobtainable: Yes Allergies: Coded Allergies: LISINOPRIL (Verified Allergy, Severe, 04/21/17) Objective Last 24 Hour Vital Signs Date Time Temp Pulse Resp B/P (MAP) Pulse Ox O2 Delivery O2 Flow Rate FiO2 04/25/17 14:30 63 15 123/80 94 Mechanical Ventilator 65 04/25/17 14:00 63 15 133/90 95 Mechanical Ventilator 65 04/25/17 13:30 64 16 136/87 95 Mechanical Ventilator 65 04/25/17 13:16 62 16 65 04/25/17 13:00 65 15 128/82 96 Mechanical Ventilator 65 04/25/17 12:32 121/82 04/25/17 12:30 99.5 67 16 148/88 95 Mechanical Ventilator 65 04/25/17 12:00 73 04/25/17 12:00 65 16 121/82 94 Mechanical Ventilator 65 04/25/17 12:00 65 04/25/17 11:39 16 04/25/17 11:30 71 17 128/82 94 Mechanical Ventilator 65 04/25/17 11:00 72 17 122/82 94 Mechanical Ventilator 65 04/25/17 10:55 79 24 65 04/25/17 10:30 72 17 156/95 94 Mechanical Ventilator 65 04/25/17 10:00 69 16 177/94 95 Mechanical Ventilator 60 04/25/17 09:30 68 16 128/84 94 Mechanical Ventilator 60 04/25/17 09:29 66 16 60 04/25/17 09:14 69 121/82 04/25/17 09:00 68 15 121/82 94 Mechanical Ventilator 60 04/25/17 08:30 65 15 164/87 94 Mechanical Ventilator 60 04/25/17 08:00 63 04/25/17 08:00 60 04/25/17 08:00 97.4 61 15 116/79 94 Mechanical Ventilator 60 04/25/17 07:30 67 15 129/79 94 Mechanical Ventilator 60 04/25/17 07:00 72 19 125/77 94 Mechanical Ventilator 60 04/25/17 07:00 18 04/25/17 06:57 58 16 60 04/25/17 06:30 58 19 113/78 94 Mechanical Ventilator 60 04/25/17 06:00 56 19 108/71 94 Mechanical Ventilator 60 04/25/17 06:00 17 04/25/17 05:45 113/73 04/25/17 05:30 59 19 113/73 94 Mechanical Ventilator 60 04/25/17 05:26 53 19 60 04/25/17 05:00 65 19 113/72 94 Mechanical Ventilator 60 04/25/17 05:00 17 04/25/17 04:30 61 19 132/85 94 Mechanical Ventilator 60 04/25/17 04:00 98.4 62 19 130/84 94 Mechanical Ventilator 60 04/25/17 04:00 60 04/25/17 04:00 18 04/25/17 04:00 74 04/25/17 03:30 65 20 133/83 95 Mechanical Ventilator 60 04/25/17 03:30 65 19 133/83 94 Mechanical Ventilator 60 04/25/17 03:10 61 19 60 04/25/17 03:09 19 04/25/17 03:00 58 19 130/83 95 Mechanical Ventilator 60 04/25/17 03:00 19 04/25/17 02:30 59 19 125/81 94 Mechanical Ventilator 60 04/25/17 02:00 74 16 148/92 94 Mechanical Ventilator 60 04/25/17 02:00 19 04/25/17 01:30 73 16 153/97 93 Mechanical Ventilator 60 04/25/17 01:15 92 21 60 04/25/17 01:00 65 16 145/85 93 Mechanical Ventilator 60 04/25/17 00:30 56 16 133/83 94 Mechanical Ventilator 60 04/25/17 00:00 56 04/25/17 00:00 60 04/25/17 00:00 98.1 56 16 126/79 94 Mechanical Ventilator 60 04/24/17 23:34 93 16 60 04/24/17 23:30 59 16 128/78 94 Mechanical Ventilator 60 04/24/17 23:00 59 16 137/84 94 Mechanical Ventilator 60 04/24/17 23:00 17 04/24/17 22:30 98.2 58 18 134/90 95 Mechanical Ventilator 60 04/24/17 22:00 18 04/24/17 22:00 57 16 119/75 95 Mechanical Ventilator 60 04/24/17 21:40 92 20 60 04/24/17 21:30 67 16 124/81 95 Mechanical Ventilator 60 04/24/17 21:00 18 04/24/17 21:00 71 18 154/100 95 Mechanical Ventilator 60 04/24/17 20:30 68 18 127/81 95 Mechanical Ventilator 60 04/24/17 20:00 69 04/24/17 20:00 18 04/24/17 20:00 60 04/24/17 20:00 99.4 69 18 130/79 95 Mechanical Ventilator 60 04/24/17 19:30 68 18 128/79 95 Mechanical Ventilator 60 04/24/17 19:13 99.4 04/24/17 19:00 18 04/24/17 19:00 77 18 130/83 95 Mechanical Ventilator 60 04/24/17 18:59 18 04/24/17 18:24 96 23 60 04/24/17 18:00 84 18 138/89 95 Mechanical Ventilator 60 04/24/17 18:00 18 04/24/17 17:42 156/94 04/24/17 17:30 90 18 156/94 95 Mechanical Ventilator 60 04/24/17 17:00 84 18 146/90 95 Mechanical Ventilator 60 04/24/17 17:00 18 04/24/17 16:42 76 17 60 04/24/17 16:30 83 18 144/76 95 Mechanical Ventilator 60 04/24/17 16:00 18 04/24/17 16:00 99.4 83 17 137/73 95 Mechanical Ventilator 60 04/24/17 16:00 60 04/24/17 16:00 84 04/24/17 15:59 99.4 04/24/17 15:30 82 17 94/53 95 Mechanical Ventilator 60 04/24/17 15:14 17 Intake and Output 04/25/17 04/26/17 19:00 07:00 Intake Total 540 ml Output Total 805 ml Balance -265 ml Free Water 100 ml Tube Feeding 400 ml Other 40 ml Output Urine Total 805 ml # Bowel Movements 4 Laboratory Tests 04/25/17 03:50: White Blood Count 8.3, Red Blood Count 4.09L, Hemoglobin 12.5L, Hematocrit 38.8L , Mean Corpuscular Volume 95, Mean Corpuscular Hemoglobin 30.5, Mean Corpuscular Hemoglobin Concent 32.1, Red Cell Distribution Width 12.3, Platelet Count 99L, Mean Platelet Volume 11.9H, Neutrophils (%) (Auto) , Lymphocytes (%) (Auto) , Monocytes (%) (Auto) , Eosinophils (%) (Auto) , Basophils (%) (Auto) , Activated Partial Thromboplast Time 55H, Sodium Level 143, Potassium Level 4.7, Chloride Level 109H, Carbon Dioxide Level 23, Anion Gap 11, Blood Urea Nitrogen 53H, Creatinine 2.2H, Estimat Glomerular Filtration Rate 36.6, Glucose Level 331H, Calcium Level 8.6, Phosphorus Level 4.0, Magnesium Level 2.1, Total Bilirubin 0.6, Aspartate Amino Transf (AST/SGOT) 23, Alanine Aminotransferase ( ALT/SGPT) 47, Alkaline Phosphatase 50, Troponin I 0.053, Total Protein 6.4, Albumin 2.3L, Globulin 4.1, Albumin/Globulin Ratio 0.6L, Heparin-PF4 Antibody Screen [Pending] 04/25/17 09:20: Arterial Blood pH 7.405, Arterial Blood Partial Pressure CO2 38.9, Arterial Blood Partial Pressure O2 67.0L, Arterial Blood HCO3 23.8, Arterial Blood Oxygen Saturation 92.7, Arterial Blood Base Excess -0.7, Dayron Test Positive 04/25/17 11:55: Activated Partial Thromboplast Time 63H Height (Feet): 6 Height (Inches): 4.00 Weight (Pounds): 270 EENT: other - intubated Cardiovascular: normal rate Respiratory/Chest: decreased breath sounds Abdomen: soft Objective no other changes TIARRA PARTIDA Apr 25, 2017 15:06
[2017-04-25] MEDS ORDERED: D5 1/2NS 1000ml IV ONE (15:54)
[2017-04-25 18:30] LABS: INR 1.1 (0.9-1.1); PROTHROMBIN TIME 11.3 SEC (9.30-11.50)
--- NOTE | 2017-04-25 19:17 | Cardiology Progress Note ---
Assessment/Plan Assessment/Plan 1. Allergic reaction. 2. Angioneurotic edema. 3. Hypertension. 4. Respiratory failure. 5. Hypoxemia. 6. Metabolic encephalopathy. 7. Renal insufficiency. 8. Tachycardia. 9. pulm htn 10. Pulmo embolism 11. abn torp likely related to PE 12 ACEI allergy 13. dvt on the vent still bp is fine on abx sat are fine wean a possible hemodynamically stable still requirs high flow oxygen dvt noted may have been more extensive prior to embolization Subjective Cardiovascular: Denies: chest pain, palpitations Respiratory: Reports: shortness of breath Gastrointestinal/Abdominal: Denies: abdominal pain, nausea Genitourinary: Denies: no symptoms Subjective intubated , on cosmo now fully awake and responsive Objective Last 24 Hour Vital Signs Date Time Temp Pulse Resp B/P (MAP) Pulse Ox O2 Delivery O2 Flow Rate FiO2 04/25/17 18:30 68 18 132/89 95 Mechanical Ventilator 65 04/25/17 18:00 68 18 126/85 95 Mechanical Ventilator 65 04/25/17 18:00 16 04/25/17 17:30 70 18 120/83 96 Mechanical Ventilator 65 04/25/17 17:27 122/85 04/25/17 17:14 71 18 65 04/25/17 17:00 18 04/25/17 17:00 69 15 122/85 96 Mechanical Ventilator 65 04/25/17 16:30 70 17 134/86 95 Mechanical Ventilator 65 04/25/17 16:00 98.7 68 15 126/84 94 Mechanical Ventilator 65 04/25/17 16:00 63 04/25/17 16:00 16 04/25/17 16:00 65 04/25/17 15:30 63 16 128/77 94 Mechanical Ventilator 65 04/25/17 15:14 62 19 65 04/25/17 15:00 63 16 132/85 95 Mechanical Ventilator 65 04/25/17 15:00 16 04/25/17 14:30 63 15 123/80 94 Mechanical Ventilator 65 04/25/17 14:00 16 04/25/17 14:00 63 15 133/90 95 Mechanical Ventilator 65 04/25/17 13:30 64 16 136/87 95 Mechanical Ventilator 65 04/25/17 13:16 62 16 65 04/25/17 13:00 16 04/25/17 13:00 65 15 128/82 96 Mechanical Ventilator 65 04/25/17 12:32 121/82 04/25/17 12:30 99.5 67 16 148/88 95 Mechanical Ventilator 65 04/25/17 12:00 16 04/25/17 12:00 73 04/25/17 12:00 65 16 121/82 94 Mechanical Ventilator 65 04/25/17 12:00 65 04/25/17 11:39 16 04/25/17 11:30 71 17 128/82 94 Mechanical Ventilator 65 04/25/17 11:00 72 17 122/82 94 Mechanical Ventilator 65 04/25/17 11:00 16 04/25/17 10:55 79 24 65 04/25/17 10:30 72 17 156/95 94 Mechanical Ventilator 65 04/25/17 10:00 69 16 177/94 95 Mechanical Ventilator 60 04/25/17 10:00 16 04/25/17 09:30 68 16 128/84 94 Mechanical Ventilator 60 04/25/17 09:29 66 16 60 04/25/17 09:14 69 121/82 04/25/17 09:00 68 15 121/82 94 Mechanical Ventilator 60 04/25/17 09:00 17 04/25/17 08:30 65 15 164/87 94 Mechanical Ventilator 60 04/25/17 08:00 63 04/25/17 08:00 60 04/25/17 08:00 16 04/25/17 08:00 97.4 61 15 116/79 94 Mechanical Ventilator 60 04/25/17 07:30 67 15 129/79 94 Mechanical Ventilator 60 04/25/17 07:00 72 19 125/77 94 Mechanical Ventilator 60 04/25/17 07:00 18 04/25/17 06:57 58 16 60 04/25/17 06:30 58 19 113/78 94 Mechanical Ventilator 60 04/25/17 06:00 56 19 108/71 94 Mechanical Ventilator 60 04/25/17 06:00 17 04/25/17 05:45 113/73 04/25/17 05:30 59 19 113/73 94 Mechanical Ventilator 60 04/25/17 05:26 53 19 60 04/25/17 05:00 65 19 113/72 94 Mechanical Ventilator 60 04/25/17 05:00 17 04/25/17 04:30 61 19 132/85 94 Mechanical Ventilator 60 04/25/17 04:00 98.4 62 19 130/84 94 Mechanical Ventilator 60 04/25/17 04:00 60 04/25/17 04:00 18 04/25/17 04:00 74 04/25/17 03:30 65 20 133/83 95 Mechanical Ventilator 60 04/25/17 03:30 65 19 133/83 94 Mechanical Ventilator 60 04/25/17 03:10 61 19 60 04/25/17 03:09 19 04/25/17 03:00 58 19 130/83 95 Mechanical Ventilator 60 04/25/17 03:00 19 04/25/17 02:30 59 19 125/81 94 Mechanical Ventilator 60 04/25/17 02:00 74 16 148/92 94 Mechanical Ventilator 60 04/25/17 02:00 19 04/25/17 01:30 73 16 153/97 93 Mechanical Ventilator 60 04/25/17 01:15 92 21 60 04/25/17 01:00 65 16 145/85 93 Mechanical Ventilator 60 04/25/17 00:30 56 16 133/83 94 Mechanical Ventilator 60 04/25/17 00:00 56 04/25/17 00:00 60 04/25/17 00:00 98.1 56 16 126/79 94 Mechanical Ventilator 60 04/24/17 23:34 93 16 60 04/24/17 23:30 59 16 128/78 94 Mechanical Ventilator 60 04/24/17 23:00 59 16 137/84 94 Mechanical Ventilator 60 04/24/17 23:00 17 04/24/17 22:30 98.2 58 18 134/90 95 Mechanical Ventilator 60 04/24/17 22:00 18 04/24/17 22:00 57 16 119/75 95 Mechanical Ventilator 60 04/24/17 21:40 92 20 60 04/24/17 21:30 67 16 124/81 95 Mechanical Ventilator 60 04/24/17 21:00 18 04/24/17 21:00 71 18 154/100 95 Mechanical Ventilator 60 04/24/17 20:30 68 18 127/81 95 Mechanical Ventilator 60 04/24/17 20:00 69 04/24/17 20:00 18 04/24/17 20:00 60 04/24/17 20:00 99.4 69 18 130/79 95 Mechanical Ventilator 60 04/24/17 19:30 68 18 128/79 95 Mechanical Ventilator 60 General Appearance: no apparent distress, alert Neck: supple Cardiovascular: normal rate, regular rhythm Respiratory/Chest: lungs clear Abdomen: non tender, soft Extremities: no swelling Intake and Output 04/25/17 04/26/17 19:00 07:00 Intake Total 1866.472 ml Output Total 1255 ml Balance 611.472 ml Free Water 100 ml IV Total 1176.472 ml Tube Feeding 550 ml Other 40 ml Output Urine Total 1255 ml # Bowel Movements 4 Laboratory Tests Test 04/25/17 03:50 04/25/17 09:20 04/25/17 11:55 04/25/17 18:08 White Blood Count 8.3 K/UL (4.8-10.8) Red Blood Count 4.09 M/UL (4.70-6.10) L Hemoglobin 12.5 G/DL (14.2-18.0) L Hematocrit 38.8 % (42.0-52.0) L Mean Corpuscular Volume 95 FL (80-99) Mean Corpuscular Hemoglobin 30.5 PG (27.0-31.0) Mean Corpuscular Hemoglobin Concent 32.1 G/DL (32.0-36.0) Red Cell Distribution Width 12.3 % (11.6-14.8) Platelet Count 99 K/UL (150-450) L Mean Platelet Volume 11.9 FL (6.5-10.1) H Neutrophils (%) (Auto) % (45.0-75.0) Lymphocytes (%) (Auto) % (20.0-45.0) Monocytes (%) (Auto) % (1.0-10.0) Eosinophils (%) (Auto) % (0.0-3.0) Basophils (%) (Auto) % (0.0-2.0) Activated Partial Thromboplast Time 55 SEC (23-33) H 63 SEC (23-33) H Sodium Level 143 MMOL/L (136-145) Potassium Level 4.7 MMOL/L (3.5-5.1) Chloride Level 109 MMOL/L (98-107) H Carbon Dioxide Level 23 MMOL/L (21-32) Anion Gap 11 mmol/L (5-15) Blood Urea Nitrogen 53 mg/dL (7-18) H Creatinine 2.2 MG/DL (0.55-1.30) H Estimat Glomerular Filtration Rate 36.6 mL/min (>60) Glucose Level 331 MG/DL (74-106) H Calcium Level 8.6 MG/DL (8.5-10.1) Phosphorus Level 4.0 MG/DL (2.5-4.9) Magnesium Level 2.1 MG/DL (1.8-2.4) Total Bilirubin 0.6 MG/DL (0.2-1.0) Aspartate Amino Transf (AST/SGOT) 23 U/L (15-37) Alanine Aminotransferase (ALT/SGPT) 47 U/L (12-78) Alkaline Phosphatase 50 U/L (46-116) Troponin I 0.053 ng/mL (0.000-0.056) Total Protein 6.4 G/DL (6.4-8.2) Albumin 2.3 G/DL (3.4-5.0) L Globulin 4.1 g/dL Albumin/Globulin Ratio 0.6 (1.0-2.7) L Heparin-PF4 Antibody Screen Pending Arterial Blood pH 7.405 (7.350-7.450) Arterial Blood Partial Pressure CO2 38.9 mmHg (35.0-45.0) Arterial Blood Partial Pressure O2 67.0 mmHg (75.0-100.0) L Arterial Blood HCO3 23.8 mmol/L (22.0-26.0) Arterial Blood Oxygen Saturation 92.7 % (92.0-98.0) Arterial Blood Base Excess -0.7 Dayron Test Positive Prothrombin Time 11.3 SEC (9.30-11.50) Prothromb Time International Ratio 1.1 (0.9-1.1) Microbiology Date/Time Source Procedure Growth Status 04/24/17 08:50 Sputum Gram Stain - Final Resulted 04/24/17 08:50 Sputum Sputum Culture Pending Resulted RUBEN CHAVEZ Apr 25, 2017 19:17
[2017-04-25] MEDS ORDERED: Warfarin Sodium 7.5mg ORAL SCH (20:00)
[2017-04-25] MEDS: Dyna-Hex 2% Top Sol 2oz TOPIC SCH (20:12)
--- NOTE | 2017-04-25 22:23 | General Progress Note ---
Assessment/Plan Assessment/Plan Assessment and Recs 1. Pulmonary embolism. Cardiology to assess patient for potential thrombolysis 2. DVT- right leg subacute thrombus in mid superficial femoral vein. --> on heparin drip, will eventually require lifelong anticoagulation 3. Coagulopathy 2/2 heparin drip 4. Anemia, work up if drops below 10 5. Thrombocytopenia, concerning for HIT vs sepsis, will order HIT test Subjective Constitutional: Reports: no symptoms HEENT: Reports: no symptoms Gastrointestinal/Abdominal: Reports: abdomen distended Genitourinary: Reports: no symptoms Neurologic/Psychiatric: Reports: no symptoms Endocrine: Reports: no symptoms Hematologic/Lymphatic: Reports: no symptoms Allergies: Coded Allergies: LISINOPRIL (Verified Allergy, Severe, 04/21/17) Subjective on oxygen Objective Last 24 Hour Vital Signs Date Time Temp Pulse Resp B/P (MAP) Pulse Ox O2 Delivery O2 Flow Rate FiO2 04/25/17 21:30 73 21 123/81 95 Mechanical Ventilator 65 04/25/17 21:13 72 18 65 04/25/17 21:00 72 18 124/81 94 Mechanical Ventilator 65 04/25/17 21:00 21 04/25/17 20:46 21 04/25/17 20:30 71 20 124/81 95 Mechanical Ventilator 65 04/25/17 20:00 98.8 68 18 121/81 94 Mechanical Ventilator 65 04/25/17 20:00 68 04/25/17 20:00 21 04/25/17 20:00 65 04/25/17 19:30 70 20 65 04/25/17 19:30 68 19 121/81 95 Mechanical Ventilator 65 04/25/17 19:00 68 18 126/85 98 Mechanical Ventilator 65 04/25/17 19:00 18 04/25/17 18:30 68 18 132/89 95 Mechanical Ventilator 65 04/25/17 18:00 68 18 126/85 95 Mechanical Ventilator 65 04/25/17 18:00 16 04/25/17 17:30 70 18 120/83 96 Mechanical Ventilator 65 04/25/17 17:27 122/85 04/25/17 17:14 71 18 65 04/25/17 17:00 18 04/25/17 17:00 69 15 122/85 96 Mechanical Ventilator 65 04/25/17 16:30 70 17 134/86 95 Mechanical Ventilator 65 04/25/17 16:00 98.7 68 15 126/84 94 Mechanical Ventilator 65 04/25/17 16:00 63 04/25/17 16:00 16 04/25/17 16:00 65 04/25/17 15:30 63 16 128/77 94 Mechanical Ventilator 65 04/25/17 15:14 62 19 65 04/25/17 15:00 63 16 132/85 95 Mechanical Ventilator 65 04/25/17 15:00 16 04/25/17 14:30 63 15 123/80 94 Mechanical Ventilator 65 04/25/17 14:00 16 04/25/17 14:00 63 15 133/90 95 Mechanical Ventilator 65 04/25/17 13:30 64 16 136/87 95 Mechanical Ventilator 65 04/25/17 13:16 62 16 65 04/25/17 13:00 16 04/25/17 13:00 65 15 128/82 96 Mechanical Ventilator 65 04/25/17 12:32 121/82 04/25/17 12:30 99.5 67 16 148/88 95 Mechanical Ventilator 65 04/25/17 12:00 16 04/25/17 12:00 73 04/25/17 12:00 65 16 121/82 94 Mechanical Ventilator 65 04/25/17 12:00 65 04/25/17 11:39 16 04/25/17 11:30 71 17 128/82 94 Mechanical Ventilator 65 04/25/17 11:00 72 17 122/82 94 Mechanical Ventilator 65 04/25/17 11:00 16 04/25/17 10:55 79 24 65 04/25/17 10:30 72 17 156/95 94 Mechanical Ventilator 65 04/25/17 10:00 69 16 177/94 95 Mechanical Ventilator 60 04/25/17 10:00 16 04/25/17 09:30 68 16 128/84 94 Mechanical Ventilator 60 04/25/17 09:29 66 16 60 04/25/17 09:14 69 121/82 04/25/17 09:00 68 15 121/82 94 Mechanical Ventilator 60 04/25/17 09:00 17 04/25/17 08:30 65 15 164/87 94 Mechanical Ventilator 60 04/25/17 08:00 63 04/25/17 08:00 60 04/25/17 08:00 16 04/25/17 08:00 97.4 61 15 116/79 94 Mechanical Ventilator 60 04/25/17 07:30 67 15 129/79 94 Mechanical Ventilator 60 04/25/17 07:00 72 19 125/77 94 Mechanical Ventilator 60 04/25/17 07:00 18 04/25/17 06:57 58 16 60 04/25/17 06:30 58 19 113/78 94 Mechanical Ventilator 60 04/25/17 06:00 56 19 108/71 94 Mechanical Ventilator 60 04/25/17 06:00 17 04/25/17 05:45 113/73 04/25/17 05:30 59 19 113/73 94 Mechanical Ventilator 60 04/25/17 05:26 53 19 60 04/25/17 05:00 65 19 113/72 94 Mechanical Ventilator 60 04/25/17 05:00 17 04/25/17 04:30 61 19 132/85 94 Mechanical Ventilator 60 04/25/17 04:00 98.4 62 19 130/84 94 Mechanical Ventilator 60 04/25/17 04:00 60 04/25/17 04:00 18 04/25/17 04:00 74 04/25/17 03:30 65 20 133/83 95 Mechanical Ventilator 60 04/25/17 03:30 65 19 133/83 94 Mechanical Ventilator 60 04/25/17 03:10 61 19 60 04/25/17 03:09 19 04/25/17 03:00 58 19 130/83 95 Mechanical Ventilator 60 04/25/17 03:00 19 04/25/17 02:30 59 19 125/81 94 Mechanical Ventilator 60 04/25/17 02:00 74 16 148/92 94 Mechanical Ventilator 60 04/25/17 02:00 19 04/25/17 01:30 73 16 153/97 93 Mechanical Ventilator 60 04/25/17 01:15 92 21 60 04/25/17 01:00 65 16 145/85 93 Mechanical Ventilator 60 04/25/17 00:30 56 16 133/83 94 Mechanical Ventilator 60 04/25/17 00:00 56 04/25/17 00:00 60 04/25/17 00:00 98.1 56 16 126/79 94 Mechanical Ventilator 60 04/24/17 23:34 93 16 60 04/24/17 23:30 59 16 128/78 94 Mechanical Ventilator 60 04/24/17 23:00 59 16 137/84 94 Mechanical Ventilator 60 04/24/17 23:00 17 04/24/17 22:30 98.2 58 18 134/90 95 Mechanical Ventilator 60 Intake and Output 04/25/17 04/26/17 19:00 07:00 Intake Total 1967.690 ml 252.436 ml Output Total 1295 ml 260 ml Balance 672.690 ml -7.564 ml Free Water 100 ml IV Total 1227.690 ml 102.436 ml Tube Feeding 600 ml 100 ml Other 40 ml 50 ml Output Urine Total 1295 ml 260 ml # Bowel Movements 4 Laboratory Tests 04/25/17 03:50: White Blood Count 8.3, Red Blood Count 4.09L, Hemoglobin 12.5L, Hematocrit 38.8L , Mean Corpuscular Volume 95, Mean Corpuscular Hemoglobin 30.5, Mean Corpuscular Hemoglobin Concent 32.1, Red Cell Distribution Width 12.3, Platelet Count 99L, Mean Platelet Volume 11.9H, Neutrophils (%) (Auto) , Lymphocytes (%) (Auto) , Monocytes (%) (Auto) , Eosinophils (%) (Auto) , Basophils (%) (Auto) , Activated Partial Thromboplast Time 55H, Sodium Level 143, Potassium Level 4.7, Chloride Level 109H, Carbon Dioxide Level 23, Anion Gap 11, Blood Urea Nitrogen 53H, Creatinine 2.2H, Estimat Glomerular Filtration Rate 36.6, Glucose Level 331H, Calcium Level 8.6, Phosphorus Level 4.0, Magnesium Level 2.1, Total Bilirubin 0.6, Aspartate Amino Transf (AST/SGOT) 23, Alanine Aminotransferase ( ALT/SGPT) 47, Alkaline Phosphatase 50, Troponin I 0.053, Total Protein 6.4, Albumin 2.3L, Globulin 4.1, Albumin/Globulin Ratio 0.6L, Heparin-PF4 Antibody Screen [Pending] 04/25/17 09:20: Arterial Blood pH 7.405, Arterial Blood Partial Pressure CO2 38.9, Arterial Blood Partial Pressure O2 67.0L, Arterial Blood HCO3 23.8, Arterial Blood Oxygen Saturation 92.7, Arterial Blood Base Excess -0.7, Dayron Test Positive 04/25/17 11:55: Activated Partial Thromboplast Time 63H 04/25/17 18:08: Prothrombin Time 11.3, Prothromb Time International Ratio 1.1 04/25/17 20:12: Activated Partial Thromboplast Time 121H Height (Feet): 6 Height (Inches): 4.00 Weight (Pounds): 270 General Appearance: no apparent distress EENT: normal ENT inspection Abdomen: non tender Extremities: non-tender Neurologic: pharmacy cashier II-XII grossly normal Sulaiman Dudley Apr 25, 2017 22:23
[2017-04-26] VITALS (48 sets, daily range): BP systolic 115–152; BP diastolic 72–103
[2017-04-26] MEDS: Haloperidol Lactate 5 MG in D5W 55 ML IVPB PRN ×3 (00:01→06:37)
[2017-04-26] MEDS: Heparin 25,000u/D5W 500ml 500 ML IV SCH ×3 (00:39→15:21)
[2017-04-26] MEDS: LORazepam Inj 2mg/ml 1ml IV PRN (01:43)
[2017-04-26] MEDS: Midazolam for drip 50 MG in NS 90 ML IV PRN ×4 (02:35→22:51)
[2017-04-26] MEDS: Morphine Sulfate 4mg/ml Inj IVP PRN (03:55)
[2017-04-26 05:03] LABS: BASOPHILS % (AUTO) 1.4 % (0.0-2.0); EOSINOPHILS % (AUTO) 1.4 % (0.0-3.0); LYMPHOCYTES % (AUTO) 7.4 % (20.0-45.0); MEAN CORPUSCULAR HEMOGLOBIN 30.2 PG (27.0-31.0); MEAN CORPUSCULAR HGB CONC 31.8 G/DL (32.0-36.0); MEAN CORPUSCULAR VOLUME 95 FL (80-99); MEAN PLATELET VOLUME 8.6 FL (6.5-10.1); MONOCYTES % (AUTO) 6.7 % (1.0-10.0); PLATELET COUNT 116 K/UL (150-450); RED BLOOD COUNT 3.63 M/UL (4.70-6.10); RED CELL DISTRIBUTION WIDTH 12.7 % (11.6-14.8); WHITE BLOOD COUNT 7.5 K/UL (4.8-10.8)
[2017-04-26 05:23] LABS: PROTHROMBIN TIME 10.8 SEC (9.30-11.50)
[2017-04-26 05:47] LABS: ALANINE AMINOTRANSFERASE 56 U/L (12-78); ALBUMIN/GLOBULIN RATIO 0.6 (1.0-2.7); ANION GAP 8 mmol/L (5-15); ASPARTATE AMINO TRANSFERASE 31 U/L (15-37); CALCIUM 8.5 MG/DL (8.5-10.1); CARBON DIOXIDE 25 MMOL/L (21-32); CHLORIDE 108 MMOL/L (98-107); CREATININE 1.8 MG/DL (0.55-1.30); GLOMERULAR FILTRATION RATE 46.2 mL/min (>60); POTASSIUM 3.9 MMOL/L (3.5-5.1); SODIUM 141 MMOL/L (136-145); TOTAL PROTEIN 6.2 G/DL (6.4-8.2)
[2017-04-26] MEDS: Nitroglycerin 2% oint pkt TOPIC SCH ×3 (05:52→18:06)
[2017-04-26 05:55] LABS: MAGNESIUM 2.1 MG/DL (1.8-2.4); PHOSPHORUS 2.8 MG/DL (2.5-4.9)
[2017-04-26] MEDS ORDERED: Heparin 5000 units/ml inj IV ONE (06:00)
[2017-04-26 06:57] LABS: ABG BASE EXCESS -0.8; ABG PCO2 37.1 mmHg (35.0-45.0)
[2017-04-26 06:58] LABS: ABG ALLEN TEST POSITIVE
[2017-04-26] MEDS: Pantoprazole Inj IVP SCH ×2 (08:34→18:05)
[2017-04-26] MEDS: Docusate 100mg/10ml Liq NG SCH ×3 (08:35→18:05)
[2017-04-26] MEDS: Vancomycin 1500mg IVPB SCH (11:00)
[2017-04-26] MEDS: Cefepime 2gm/D5W 110ml IV SCH ×2 (11:02)
--- NOTE | 2017-04-26 11:24 | Diagnostic Imaging Report ---
Indication: Dyspnea Comparison: 04/25/17 A single view chest radiograph was obtained. Findings: Patchy interstitial opacities noted bilaterally unchanged. Heart size is stable. Tubes and lines are stable. Impression: No change from the prior day
--- NOTE | 2017-04-26 11:41 | Pulmonolgy Critical Care Note ---
Critical Care - Asmt/Plan Problems: (1) Acute respiratory failure (2) ATN (acute tubular necrosis) (3) Hypertension (4) Renal insufficiency (5) Angioedema Respiratory: monitor respiratory rate, adjust FIO2, other - still needs fio2 of 60. otherwise desaturates. Cardiac: continue to monitor HR/BP Renal: F/U I&O Infectious Disease: check cultures, continue antibiotics Gastrointestinal: continue feedings/current rate Endocrine: monitor blood sugar, check TSH, continue sliding scale insulin Hematologic: transfuse if hgb<8.5 Neurologic: PRN Ativan, keep patient comfortable Affect: PRN ativan Prophylaxis: Heparin Notes Reviewed: mission coordinator, cardio Discussed with: nurses, consultants, case management assistantcomplaint manager - Objective Last 24 Hour Vital Signs Date Time Temp Pulse Resp B/P (MAP) Pulse Ox O2 Delivery O2 Flow Rate FiO2 04/26/17 11:01 126/83 04/26/17 10:44 86 20 65 04/26/17 10:00 93 22 152/103 95 Mechanical Ventilator 65 04/26/17 09:50 94 133/86 04/26/17 09:30 88 20 133/86 95 Mechanical Ventilator 65 04/26/17 09:10 95 20 65 04/26/17 09:00 84 20 128/78 95 Mechanical Ventilator 65 04/26/17 08:30 73 17 120/80 94 Mechanical Ventilator 65 04/26/17 08:00 65 04/26/17 08:00 98.4 82 21 125/84 96 Mechanical Ventilator 65 04/26/17 08:00 79 04/26/17 07:30 77 17 126/77 95 Mechanical Ventilator 65 04/26/17 07:00 73 17 120/75 98 Mechanical Ventilator 65 04/26/17 07:00 17 04/26/17 06:31 78 18 65 04/26/17 06:30 76 19 124/83 99 Mechanical Ventilator 65 04/26/17 06:02 17 04/26/17 06:00 75 18 127/81 95 Mechanical Ventilator 65 04/26/17 05:52 128/90 04/26/17 05:30 70 16 128/90 96 Mechanical Ventilator 65 04/26/17 05:00 70 16 130/72 96 Mechanical Ventilator 65 04/26/17 05:00 16 04/26/17 04:52 74 18 65 04/26/17 04:30 73 17 120/80 94 Mechanical Ventilator 65 04/26/17 04:00 75 04/26/17 04:00 98.5 75 22 128/88 94 Mechanical Ventilator 65 04/26/17 04:00 22 04/26/17 04:00 65 04/26/17 03:30 71 19 127/77 95 Mechanical Ventilator 65 04/26/17 03:30 91 20 65 04/26/17 03:00 73 21 126/80 95 Mechanical Ventilator 65 04/26/17 03:00 21 04/26/17 02:35 17 04/26/17 02:30 71 20 124/77 94 Mechanical Ventilator 65 04/26/17 02:00 73 21 115/77 97 Mechanical Ventilator 65 04/26/17 02:00 21 04/26/17 01:30 71 20 117/80 94 Mechanical Ventilator 65 04/26/17 01:30 94 19 65 04/26/17 01:00 21 04/26/17 01:00 67 16 123/79 98 Mechanical Ventilator 65 04/26/17 00:30 72 23 127/77 98 Mechanical Ventilator 65 04/26/17 00:00 98.7 78 18 142/87 100 Mechanical Ventilator 65 04/26/17 00:00 75 04/26/17 00:00 20 04/26/17 00:00 65 04/25/17 23:50 72 20 Mechanical Ventilator 50 04/25/17 23:30 70 20 65 04/25/17 23:30 86 28 124/79 98 Mechanical Ventilator 65 04/25/17 23:00 20 04/25/17 23:00 73 23 122/94 95 Mechanical Ventilator 65 04/25/17 22:30 72 20 123/80 96 Mechanical Ventilator 65 04/25/17 22:00 74 21 123/80 96 Mechanical Ventilator 65 04/25/17 22:00 23 04/25/17 21:30 73 21 123/81 95 Mechanical Ventilator 65 04/25/17 21:13 72 18 65 04/25/17 21:00 72 18 124/81 94 Mechanical Ventilator 65 04/25/17 21:00 21 04/25/17 20:46 21 04/25/17 20:30 71 20 124/81 95 Mechanical Ventilator 65 04/25/17 20:00 98.8 68 18 121/81 94 Mechanical Ventilator 65 04/25/17 20:00 68 04/25/17 20:00 21 04/25/17 20:00 65 04/25/17 19:30 70 20 65 04/25/17 19:30 68 19 121/81 95 Mechanical Ventilator 65 04/25/17 19:00 68 18 126/85 98 Mechanical Ventilator 65 04/25/17 19:00 18 04/25/17 18:30 68 18 132/89 95 Mechanical Ventilator 65 04/25/17 18:00 68 18 126/85 95 Mechanical Ventilator 65 04/25/17 18:00 16 04/25/17 17:30 70 18 120/83 96 Mechanical Ventilator 65 04/25/17 17:27 122/85 04/25/17 17:14 71 18 65 04/25/17 17:00 18 04/25/17 17:00 69 15 122/85 96 Mechanical Ventilator 65 04/25/17 16:30 70 17 134/86 95 Mechanical Ventilator 65 04/25/17 16:00 98.7 68 15 126/84 94 Mechanical Ventilator 65 04/25/17 16:00 63 04/25/17 16:00 16 04/25/17 16:00 65 04/25/17 15:30 63 16 128/77 94 Mechanical Ventilator 65 04/25/17 15:14 62 19 65 04/25/17 15:00 63 16 132/85 95 Mechanical Ventilator 65 04/25/17 15:00 16 04/25/17 14:30 63 15 123/80 94 Mechanical Ventilator 65 04/25/17 14:00 16 04/25/17 14:00 63 15 133/90 95 Mechanical Ventilator 65 04/25/17 13:30 64 16 136/87 95 Mechanical Ventilator 65 04/25/17 13:16 62 16 65 04/25/17 13:00 16 04/25/17 13:00 65 15 128/82 96 Mechanical Ventilator 65 04/25/17 12:32 121/82 04/25/17 12:30 99.5 67 16 148/88 95 Mechanical Ventilator 65 04/25/17 12:00 16 04/25/17 12:00 73 04/25/17 12:00 65 16 121/82 94 Mechanical Ventilator 65 04/25/17 12:00 65 Status: awake Condition: critical HEENT: atraumatic Lungs: clear Heart: HR/BP stable, HR/BP unstable Abdomen: soft, active bowel sounds Extremities: no C/C/E, edema Decubiti: location Micro: Microbiology Date/Time Source Procedure Growth Status 04/24/17 08:50 Blood Blood Culture - Preliminary NO GROWTH AFTER 24 HOURS Resulted 04/24/17 08:00 Blood Blood Culture - Preliminary NO GROWTH AFTER 24 HOURS Resulted 04/24/17 08:50 Sputum Gram Stain - Final Complete 04/24/17 08:50 Sputum Culture - Final Radha Albicans Usual Upper Respiratory Vivien Complete Critical Care - Subjective FI02: 65 Vent Support Breath Rate: 16 Vent Support Mode: AC Vent Tidal Volume: 700 Sputum Amount: Moderate PEEP: 5.0 PIP: 32 Tube Feeding Amount: 50 I&O: Intake and Output 04/26/17 04/27/17 19:00 07:00 Intake Total 220 ml Output Total 380 ml Balance -160 ml Tube Feeding 100 ml Other 120 ml Output Urine Total 380 ml # Bowel Movements 1 CXR: mild interstitial edema, ET in good position ET-Tube: 7.0 ET Position: 27 VIVEK SOLOMON Apr 26, 2017 11:41
[2017-04-26] MEDS ORDERED: Lidocaine 1% Plain 30 ml INJ ONE (12:00)
[2017-04-26] MEDS ORDERED: Heparin 2000 units/Ns 1000ml INJ ONE (12:00)
--- NOTE | 2017-04-26 12:59 | Infectious Diseases Prog Note ---
Assessment/Plan Assessment/Plan Assesment: LLL PNA -CXR 04/24: Persistent left perihilar consolidation, increased since the prior examination of 04/22/17. Pneumonia is of concern. -CXR: There is some left perihilar congestion or consolidation again demonstrated, unchanged. The remainder the lungs and pleural spaces are clear. -CTA chest: Fairly extensive bilateral segmental pulmonary emboli. concern for submassive pulmonary embolus. consolidation and atelectasis of a significant portion of the posterior left lower lobe. -Sp cx Normal keely x2 Fever- multifactorial- due to PE/DVT, Angiodema s/p intubation , on high dose steroids- suspect 2ry to CAROLIN-I Possible Submassive b/l PE, R DVT Renal insufficiency- ?acute vs chronic vs acute on chronic Mutinodular goiter HTN COPD Tobacco abuse Plan: -Continue IV Vancomycin and Cefepime #3 -04/24 SP Unasyn #3 -04/23 SP IV Vanco #2 -Monitor CBC/BMP, temperatures -anticoagulation and steroids per primary team -vent management -aspiration precautions Subjective Constitutional: Denies: no symptoms, fever, chills, fatigue, anorexia, drenching sweats, other Allergies: Coded Allergies: LISINOPRIL (Verified Allergy, Severe, 04/21/17) Objective Vital Signs Last 24 Hour Vital Signs Date Time Temp Pulse Resp B/P (MAP) Pulse Ox O2 Delivery O2 Flow Rate FiO2 04/26/17 12:55 16 04/26/17 12:50 9 18 50 04/26/17 12:00 99.2 99 22 128/80 94 Mechanical Ventilator 60 04/26/17 12:00 111 04/26/17 12:00 16 04/26/17 12:00 60 04/26/17 11:30 96 21 121/80 93 Mechanical Ventilator 60 04/26/17 11:01 126/83 04/26/17 11:00 16 04/26/17 11:00 94 20 119/79 95 Mechanical Ventilator 65 04/26/17 10:44 86 20 65 04/26/17 10:30 89 18 126/83 99 Mechanical Ventilator 65 04/26/17 10:00 16 04/26/17 10:00 93 22 152/103 95 Mechanical Ventilator 65 04/26/17 09:50 94 133/86 04/26/17 09:30 88 20 133/86 95 Mechanical Ventilator 65 04/26/17 09:10 95 20 65 04/26/17 09:00 84 20 128/78 95 Mechanical Ventilator 65 04/26/17 09:00 16 04/26/17 08:30 73 17 120/80 94 Mechanical Ventilator 65 04/26/17 08:00 65 04/26/17 08:00 98.4 82 21 125/84 96 Mechanical Ventilator 65 04/26/17 08:00 16 04/26/17 08:00 79 04/26/17 07:30 77 17 126/77 95 Mechanical Ventilator 65 04/26/17 07:00 73 17 120/75 98 Mechanical Ventilator 65 04/26/17 07:00 17 04/26/17 06:31 78 18 65 04/26/17 06:30 76 19 124/83 99 Mechanical Ventilator 65 04/26/17 06:02 17 04/26/17 06:00 75 18 127/81 95 Mechanical Ventilator 65 04/26/17 05:52 128/90 04/26/17 05:30 70 16 128/90 96 Mechanical Ventilator 65 04/26/17 05:00 70 16 130/72 96 Mechanical Ventilator 65 04/26/17 05:00 16 04/26/17 04:52 74 18 65 04/26/17 04:30 73 17 120/80 94 Mechanical Ventilator 65 04/26/17 04:00 75 04/26/17 04:00 98.5 75 22 128/88 94 Mechanical Ventilator 65 04/26/17 04:00 22 04/26/17 04:00 65 04/26/17 03:30 71 19 127/77 95 Mechanical Ventilator 65 04/26/17 03:30 91 20 65 04/26/17 03:00 73 21 126/80 95 Mechanical Ventilator 65 04/26/17 03:00 21 04/26/17 02:35 17 04/26/17 02:30 71 20 124/77 94 Mechanical Ventilator 65 04/26/17 02:00 73 21 115/77 97 Mechanical Ventilator 65 04/26/17 02:00 21 04/26/17 01:30 71 20 117/80 94 Mechanical Ventilator 65 04/26/17 01:30 94 19 65 04/26/17 01:00 21 04/26/17 01:00 67 16 123/79 98 Mechanical Ventilator 65 04/26/17 00:30 72 23 127/77 98 Mechanical Ventilator 65 04/26/17 00:00 98.7 78 18 142/87 100 Mechanical Ventilator 65 04/26/17 00:00 75 04/26/17 00:00 20 04/26/17 00:00 65 04/25/17 23:50 72 20 Mechanical Ventilator 50 04/25/17 23:30 70 20 65 04/25/17 23:30 86 28 124/79 98 Mechanical Ventilator 65 04/25/17 23:00 20 04/25/17 23:00 73 23 122/94 95 Mechanical Ventilator 65 04/25/17 22:30 72 20 123/80 96 Mechanical Ventilator 65 04/25/17 22:00 74 21 123/80 96 Mechanical Ventilator 65 04/25/17 22:00 23 04/25/17 21:30 73 21 123/81 95 Mechanical Ventilator 65 04/25/17 21:13 72 18 65 04/25/17 21:00 72 18 124/81 94 Mechanical Ventilator 65 04/25/17 21:00 21 04/25/17 20:46 21 04/25/17 20:30 71 20 124/81 95 Mechanical Ventilator 65 04/25/17 20:00 98.8 68 18 121/81 94 Mechanical Ventilator 65 04/25/17 20:00 68 04/25/17 20:00 21 04/25/17 20:00 65 04/25/17 19:30 70 20 65 04/25/17 19:30 68 19 121/81 95 Mechanical Ventilator 65 04/25/17 19:00 68 18 126/85 98 Mechanical Ventilator 65 04/25/17 19:00 18 04/25/17 18:30 68 18 132/89 95 Mechanical Ventilator 65 04/25/17 18:00 68 18 126/85 95 Mechanical Ventilator 65 04/25/17 18:00 16 04/25/17 17:30 70 18 120/83 96 Mechanical Ventilator 65 04/25/17 17:27 122/85 04/25/17 17:14 71 18 65 04/25/17 17:00 18 04/25/17 17:00 69 15 122/85 96 Mechanical Ventilator 65 04/25/17 16:30 70 17 134/86 95 Mechanical Ventilator 65 04/25/17 16:00 98.7 68 15 126/84 94 Mechanical Ventilator 65 04/25/17 16:00 63 04/25/17 16:00 16 04/25/17 16:00 65 04/25/17 15:30 63 16 128/77 94 Mechanical Ventilator 65 04/25/17 15:14 62 19 65 04/25/17 15:00 63 16 132/85 95 Mechanical Ventilator 65 04/25/17 15:00 16 04/25/17 14:30 63 15 123/80 94 Mechanical Ventilator 65 04/25/17 14:00 16 04/25/17 14:00 63 15 133/90 95 Mechanical Ventilator 65 04/25/17 13:30 64 16 136/87 95 Mechanical Ventilator 65 04/25/17 13:16 62 16 65 04/25/17 13:00 16 04/25/17 13:00 65 15 128/82 96 Mechanical Ventilator 65 Height (Feet): 6 Height (Inches): 4.00 Weight (Pounds): 271 HEENT: anicteric Respiratory/Chest: normal breath sounds Cardiovascular: normal rate Abdomen: normal bowel sounds Microbiology Date/Time Source Procedure Growth Status 04/24/17 08:50 Blood Blood Culture - Preliminary NO GROWTH AFTER 24 HOURS Resulted 04/24/17 08:00 Blood Blood Culture - Preliminary NO GROWTH AFTER 24 HOURS Resulted 04/24/17 08:50 Sputum Gram Stain - Final Complete 04/24/17 08:50 Sputum Culture - Final Radha Albicans Usual Upper Respiratory Keely Complete Laboratory Tests Test 04/25/17 18:08 04/25/17 20:12 04/26/17 04:00 04/26/17 06:32 Prothrombin Time 11.3 SEC (9.30-11.50) 10.8 SEC (9.30-11.50) Prothromb Time International Ratio 1.1 (0.9-1.1) 1.0 (0.9-1.1) Activated Partial Thromboplast Time 121 SEC (23-33) H 62 SEC (23-33) H White Blood Count 7.5 K/UL (4.8-10.8) Red Blood Count 3.63 M/UL (4.70-6.10) L Hemoglobin 11.0 G/DL (14.2-18.0) L Hematocrit 34.5 % (42.0-52.0) L Mean Corpuscular Volume 95 FL (80-99) Mean Corpuscular Hemoglobin 30.2 PG (27.0-31.0) Mean Corpuscular Hemoglobin Concent 31.8 G/DL (32.0-36.0) L Red Cell Distribution Width 12.7 % (11.6-14.8) Platelet Count 116 K/UL (150-450) L Mean Platelet Volume 8.6 FL (6.5-10.1) Neutrophils (%) (Auto) 83.0 % (45.0-75.0) H Lymphocytes (%) (Auto) 7.4 % (20.0-45.0) L Monocytes (%) (Auto) 6.7 % (1.0-10.0) Eosinophils (%) (Auto) 1.4 % (0.0-3.0) Basophils (%) (Auto) 1.4 % (0.0-2.0) Sodium Level 141 MMOL/L (136-145) Potassium Level 3.9 MMOL/L (3.5-5.1) Chloride Level 108 MMOL/L (98-107) H Carbon Dioxide Level 25 MMOL/L (21-32) Anion Gap 8 mmol/L (5-15) Blood Urea Nitrogen 45 mg/dL (7-18) H Creatinine 1.8 MG/DL (0.55-1.30) H Estimat Glomerular Filtration Rate 46.2 mL/min (>60) Glucose Level 153 MG/DL (74-106) #H Calcium Level 8.5 MG/DL (8.5-10.1) Phosphorus Level 2.8 MG/DL (2.5-4.9) Magnesium Level 2.1 MG/DL (1.8-2.4) Total Bilirubin 0.6 MG/DL (0.2-1.0) Aspartate Amino Transf (AST/SGOT) 31 U/L (15-37) Alanine Aminotransferase (ALT/SGPT) 56 U/L (12-78) Alkaline Phosphatase 49 U/L (46-116) Total Protein 6.2 G/DL (6.4-8.2) L Albumin 2.2 G/DL (3.4-5.0) L Globulin 4.0 g/dL Albumin/Globulin Ratio 0.6 (1.0-2.7) L Arterial Blood pH 7.417 (7.350-7.450) Arterial Blood Partial Pressure CO2 37.1 mmHg (35.0-45.0) Arterial Blood Partial Pressure O2 73.8 mmHg (75.0-100.0) L Arterial Blood HCO3 23.4 mmol/L (22.0-26.0) Arterial Blood Oxygen Saturation 94.5 % (92.0-98.0) Arterial Blood Base Excess -0.8 Dayron Test Positive Test 04/26/17 12:00 Activated Partial Thromboplast Time Pending Vancomycin Level Trough Pending Current Medications Medications (Trade) Dose Ordered Sig/Kelsi Route PRN Reason Start Time Stop Time Status Last Admin Dose Admin Acetaminophen (Tylenol) 650 mg Q6H PRN ORAL Mild Pain/Temp > 100.5 04/21/17 00:45 05/21/17 00:44 04/24/17 15:00 Amlodipine Besylate (Norvasc) 5 mg DAILY ORAL 04/23/17 09:30 05/23/17 09:29 04/26/17 09:50 Cefepime HCl 2 gm/ Dextrose 110 ml @ 220 mls/hr Q24H IV 04/24/17 10:00 04/26/17 13:00 04/26/17 11:02 Cefepime HCl 2 gm/ Sodium Chloride 110 ml @ 220 mls/hr Q24H IV 04/27/17 10:00 05/04/17 09:59 Chlorhexidine Gluconate (Malena-Hex 2%) 1 applic DAILY@2000 TOPIC 04/21/17 20:00 05/21/17 19:59 04/25/17 20:12 Docusate Sodium (Colace) 100 mg THREE TIMES A DAY NG 04/22/17 18:00 05/22/17 17:59 04/25/17 17:26 Haloperidol Lactate 5 mg/ Dextrose 56 ml @ 224 mls/hr Q1H PRN IVPB AGITATION 04/24/17 08:45 05/24/17 08:44 04/26/17 06:37 Heparin Sodium/ Dextrose 500 ml @ 36.767 mls/ hr adjust per protocol IV 04/26/17 06:00 05/26/17 05:59 04/26/17 06:02 Hydralazine HCl (Apresoline) 10 mg Q4H PRN IV For High Blood Pressure 04/21/17 00:45 05/21/17 00:44 04/23/17 11:15 Lorazepam (Ativan 2mg/ml 1ml) 2 mg Q2H PRN IV For Anxiety 04/21/17 00:45 04/28/17 00:44 04/26/17 01:43 Metoprolol Tartrate (Lopressor) 5 mg Q6H PRN IVP heart rate greater than 125 04/21/17 20:00 05/21/17 19:59 Midazolam HCl 50 mg/Sodium Chloride 100 ml @ 0 mls/hr Q24H PRN IV . 04/24/17 15:00 05/24/17 14:59 04/26/17 12:55 Morphine Sulfate (Morphine Sulfate) 4 mg Q2H PRN IVP For Severe Pain 04/21/17 11:45 04/28/17 11:44 04/26/17 03:55 Nicotine (Nicoderm) 1 patch Q24H TDERMAL 04/22/17 14:00 05/22/17 13:59 04/25/17 14:14 Nitroglycerin (Nitro-Bid) 1 inch TID@0600,1200,1800 TOPIC 04/22/17 06:00 05/22/17 05:59 04/26/17 11:01 Pantoprazole (Protonix) 40 mg BID IVP 04/25/17 18:00 05/21/17 08:59 04/26/17 08:34 Polyethylene Glycol (Miralax) 17 gm BEDTIME ORAL 04/22/17 21:00 05/22/17 20:59 04/25/17 20:43 Vancomycin HCl (Vanco rx to dose) 1 ea DAILY PRN MISC Per rx protocol 04/24/17 08:45 05/24/17 08:44 Vancomycin HCl/ Dextrose 250 ml @ 125 mls/hr Q24H IVPB 04/24/17 11:00 04/29/17 10:59 04/25/17 11:27 DIANA VELAZQUEZ M.D. Apr 26, 2017 12:59
--- NOTE | 2017-04-26 13:12 | GI Progress Note ---
Assessment/Plan Problems: (1) Abdominal distension ICD Codes: R14.0 - Abdominal distension (gaseous) SNOMED: 54544252 (2) Hypoalbuminemia ICD Codes: E88.09 - Other disorders of plasma-protein metabolism, not elsewhere classified SNOMED: 578007238 (3) Angioedema ICD Codes: T78.3XXA - Angioneurotic edema, initial encounter SNOMED: 11688160 Status: progressing, unchanged Status Narrative Discussed with Dr. Cazares. Assessment/Plan NGTF tolerated fu labs ppi fu pulm recs Subjective Subjective limited Objective Last 24 Hour Vital Signs Date Time Temp Pulse Resp B/P (MAP) Pulse Ox O2 Delivery O2 Flow Rate FiO2 04/26/17 12:55 16 04/26/17 12:50 9 18 50 04/26/17 12:30 93 21 137/80 95 Mechanical Ventilator 60 04/26/17 12:00 99.2 99 22 128/80 94 Mechanical Ventilator 60 04/26/17 12:00 111 04/26/17 12:00 16 04/26/17 12:00 60 04/26/17 11:30 96 21 121/80 93 Mechanical Ventilator 60 04/26/17 11:01 126/83 04/26/17 11:00 16 04/26/17 11:00 94 20 119/79 95 Mechanical Ventilator 65 04/26/17 10:44 86 20 65 04/26/17 10:30 89 18 126/83 99 Mechanical Ventilator 65 04/26/17 10:00 16 04/26/17 10:00 93 22 152/103 95 Mechanical Ventilator 65 04/26/17 09:50 94 133/86 04/26/17 09:30 88 20 133/86 95 Mechanical Ventilator 65 04/26/17 09:10 95 20 65 04/26/17 09:00 84 20 128/78 95 Mechanical Ventilator 65 04/26/17 09:00 16 04/26/17 08:30 73 17 120/80 94 Mechanical Ventilator 65 04/26/17 08:00 65 04/26/17 08:00 98.4 82 21 125/84 96 Mechanical Ventilator 65 04/26/17 08:00 16 04/26/17 08:00 79 04/26/17 07:30 77 17 126/77 95 Mechanical Ventilator 65 04/26/17 07:00 73 17 120/75 98 Mechanical Ventilator 65 04/26/17 07:00 17 04/26/17 06:31 78 18 65 04/26/17 06:30 76 19 124/83 99 Mechanical Ventilator 65 04/26/17 06:02 17 04/26/17 06:00 75 18 127/81 95 Mechanical Ventilator 65 04/26/17 05:52 128/90 04/26/17 05:30 70 16 128/90 96 Mechanical Ventilator 65 04/26/17 05:00 70 16 130/72 96 Mechanical Ventilator 65 04/26/17 05:00 16 04/26/17 04:52 74 18 65 04/26/17 04:30 73 17 120/80 94 Mechanical Ventilator 65 04/26/17 04:00 75 04/26/17 04:00 98.5 75 22 128/88 94 Mechanical Ventilator 65 04/26/17 04:00 22 04/26/17 04:00 65 04/26/17 03:30 71 19 127/77 95 Mechanical Ventilator 65 04/26/17 03:30 91 20 65 04/26/17 03:00 73 21 126/80 95 Mechanical Ventilator 65 04/26/17 03:00 21 04/26/17 02:35 17 04/26/17 02:30 71 20 124/77 94 Mechanical Ventilator 65 04/26/17 02:00 73 21 115/77 97 Mechanical Ventilator 65 04/26/17 02:00 21 04/26/17 01:30 71 20 117/80 94 Mechanical Ventilator 65 04/26/17 01:30 94 19 65 04/26/17 01:00 21 04/26/17 01:00 67 16 123/79 98 Mechanical Ventilator 65 04/26/17 00:30 72 23 127/77 98 Mechanical Ventilator 65 04/26/17 00:00 98.7 78 18 142/87 100 Mechanical Ventilator 65 04/26/17 00:00 75 04/26/17 00:00 20 04/26/17 00:00 65 04/25/17 23:50 72 20 Mechanical Ventilator 50 04/25/17 23:30 70 20 65 04/25/17 23:30 86 28 124/79 98 Mechanical Ventilator 65 04/25/17 23:00 20 04/25/17 23:00 73 23 122/94 95 Mechanical Ventilator 65 04/25/17 22:30 72 20 123/80 96 Mechanical Ventilator 65 04/25/17 22:00 74 21 123/80 96 Mechanical Ventilator 65 04/25/17 22:00 23 04/25/17 21:30 73 21 123/81 95 Mechanical Ventilator 65 04/25/17 21:13 72 18 65 04/25/17 21:00 72 18 124/81 94 Mechanical Ventilator 65 04/25/17 21:00 21 04/25/17 20:46 21 04/25/17 20:30 71 20 124/81 95 Mechanical Ventilator 65 04/25/17 20:00 98.8 68 18 121/81 94 Mechanical Ventilator 65 04/25/17 20:00 68 04/25/17 20:00 21 04/25/17 20:00 65 04/25/17 19:30 70 20 65 04/25/17 19:30 68 19 121/81 95 Mechanical Ventilator 65 04/25/17 19:00 68 18 126/85 98 Mechanical Ventilator 65 04/25/17 19:00 18 04/25/17 18:30 68 18 132/89 95 Mechanical Ventilator 65 04/25/17 18:00 68 18 126/85 95 Mechanical Ventilator 65 04/25/17 18:00 16 04/25/17 17:30 70 18 120/83 96 Mechanical Ventilator 65 04/25/17 17:27 122/85 04/25/17 17:14 71 18 65 04/25/17 17:00 18 04/25/17 17:00 69 15 122/85 96 Mechanical Ventilator 65 04/25/17 16:30 70 17 134/86 95 Mechanical Ventilator 65 04/25/17 16:00 98.7 68 15 126/84 94 Mechanical Ventilator 65 04/25/17 16:00 63 04/25/17 16:00 16 04/25/17 16:00 65 04/25/17 15:30 63 16 128/77 94 Mechanical Ventilator 65 04/25/17 15:14 62 19 65 04/25/17 15:00 63 16 132/85 95 Mechanical Ventilator 65 04/25/17 15:00 16 04/25/17 14:30 63 15 123/80 94 Mechanical Ventilator 65 04/25/17 14:00 16 04/25/17 14:00 63 15 133/90 95 Mechanical Ventilator 65 04/25/17 13:30 64 16 136/87 95 Mechanical Ventilator 65 10/30/17 13:16 62 16 65 Intake and Output 04/26/17 04/27/17 19:00 07:00 Intake Total 643.835 ml Output Total 430 ml Balance 213.835 ml IV Total 373.835 ml Tube Feeding 150 ml Other 120 ml Output Urine Total 430 ml # Bowel Movements 2 Laboratory Tests Test 04/25/17 18:08 04/25/17 20:12 04/26/17 04:00 04/26/17 06:32 Prothrombin Time 11.3 SEC (9.30-11.50) 10.8 SEC (9.30-11.50) Prothromb Time International Ratio 1.1 (0.9-1.1) 1.0 (0.9-1.1) Activated Partial Thromboplast Time 121 SEC (23-33) H 62 SEC (23-33) H White Blood Count 7.5 K/UL (4.8-10.8) Red Blood Count 3.63 M/UL (4.70-6.10) L Hemoglobin 11.0 G/DL (14.2-18.0) L Hematocrit 34.5 % (42.0-52.0) L Mean Corpuscular Volume 95 FL (80-99) Mean Corpuscular Hemoglobin 30.2 PG (27.0-31.0) Mean Corpuscular Hemoglobin Concent 31.8 G/DL (32.0-36.0) L Red Cell Distribution Width 12.7 % (11.6-14.8) Platelet Count 116 K/UL (150-450) L Mean Platelet Volume 8.6 FL (6.5-10.1) Neutrophils (%) (Auto) 83.0 % (45.0-75.0) H Lymphocytes (%) (Auto) 7.4 % (20.0-45.0) L Monocytes (%) (Auto) 6.7 % (1.0-10.0) Eosinophils (%) (Auto) 1.4 % (0.0-3.0) Basophils (%) (Auto) 1.4 % (0.0-2.0) Sodium Level 141 MMOL/L (136-145) Potassium Level 3.9 MMOL/L (3.5-5.1) Chloride Level 108 MMOL/L (98-107) H Carbon Dioxide Level 25 MMOL/L (21-32) Anion Gap 8 mmol/L (5-15) Blood Urea Nitrogen 45 mg/dL (7-18) H Creatinine 1.8 MG/DL (0.55-1.30) H Estimat Glomerular Filtration Rate 46.2 mL/min (>60) Glucose Level 153 MG/DL (74-106) #H Calcium Level 8.5 MG/DL (8.5-10.1) Phosphorus Level 2.8 MG/DL (2.5-4.9) Magnesium Level 2.1 MG/DL (1.8-2.4) Total Bilirubin 0.6 MG/DL (0.2-1.0) Aspartate Amino Transf (AST/SGOT) 31 U/L (15-37) Alanine Aminotransferase (ALT/SGPT) 56 U/L (12-78) Alkaline Phosphatase 49 U/L (46-116) Total Protein 6.2 G/DL (6.4-8.2) L Albumin 2.2 G/DL (3.4-5.0) L Globulin 4.0 g/dL Albumin/Globulin Ratio 0.6 (1.0-2.7) L Arterial Blood pH 7.417 (7.350-7.450) Arterial Blood Partial Pressure CO2 37.1 mmHg (35.0-45.0) Arterial Blood Partial Pressure O2 73.8 mmHg (75.0-100.0) L Arterial Blood HCO3 23.4 mmol/L (22.0-26.0) Arterial Blood Oxygen Saturation 94.5 % (92.0-98.0) Arterial Blood Base Excess -0.8 Dayron Test Positive Test 04/26/17 12:00 Activated Partial Thromboplast Time 76 SEC (23-33) H Vancomycin Level Trough Pending Height (Feet): 6 Height (Inches): 4.00 Weight (Pounds): 271 General Appearance: no apparent distress Cardiovascular: normal rate Respiratory/Chest: other - trach to vent Abdominal Exam: soft, other - NGT Radha Mckeon N.P. Apr 26, 2017 13:12
[2017-04-26] MEDS ORDERED: D5 1/2NS 1000ml IV ONE (13:52)
[2017-04-26] MEDS ORDERED: NS 275ml ONE (13:52)
--- NOTE | 2017-04-26 15:06 | Cardiology Progress Note ---
Assessment/Plan Assessment/Plan 1. Allergic reaction. 2. Angioneurotic edema. 3. Hypertension. 4. Respiratory failure. 5. Hypoxemia. 6. Metabolic encephalopathy. 7. Renal insufficiency. 8. Tachycardia. 9. pulm htn 10. Pulmo embolism 11. abn torp likely related to PE 12 ACEI allergy 13. dvt on the vent still bp is fine on abx sat are fine wean a possible hemodynamically stable less oxygen dvt noted may have been more extensive prior to embolization pre RT has this secretion likey th cause of his present oxygen requirement Subjective ROS Limited/Unobtainable: Yes Subjective intubated , on cosmo Objective Last 24 Hour Vital Signs Date Time Temp Pulse Resp B/P (MAP) Pulse Ox O2 Delivery O2 Flow Rate FiO2 04/26/17 14:55 94 20 50 04/26/17 14:30 95 25 130/78 94 Mechanical Ventilator 60 04/26/17 14:00 95 23 138/92 95 Mechanical Ventilator 60 04/26/17 13:30 94 22 135/86 96 Mechanical Ventilator 60 04/26/17 13:00 94 22 127/76 97 Mechanical Ventilator 60 04/26/17 12:55 16 04/26/17 12:50 9 18 50 04/26/17 12:30 93 21 137/80 95 Mechanical Ventilator 60 04/26/17 12:00 99.2 99 22 128/80 94 Mechanical Ventilator 60 04/26/17 12:00 111 04/26/17 12:00 16 04/26/17 12:00 60 04/26/17 11:30 96 21 121/80 93 Mechanical Ventilator 60 04/26/17 11:01 126/83 04/26/17 11:00 16 04/26/17 11:00 94 20 119/79 95 Mechanical Ventilator 65 04/26/17 10:44 86 20 65 04/26/17 10:30 89 18 126/83 99 Mechanical Ventilator 65 04/26/17 10:00 16 04/26/17 10:00 93 22 152/103 95 Mechanical Ventilator 65 04/26/17 09:50 94 133/86 04/26/17 09:30 88 20 133/86 95 Mechanical Ventilator 65 04/26/17 09:10 95 20 65 04/26/17 09:00 84 20 128/78 95 Mechanical Ventilator 65 04/26/17 09:00 16 04/26/17 08:30 73 17 120/80 94 Mechanical Ventilator 65 04/26/17 08:00 65 04/26/17 08:00 98.4 82 21 125/84 96 Mechanical Ventilator 65 04/26/17 08:00 16 04/26/17 08:00 79 04/26/17 07:30 77 17 126/77 95 Mechanical Ventilator 65 04/26/17 07:00 73 17 120/75 98 Mechanical Ventilator 65 04/26/17 07:00 17 04/26/17 06:31 78 18 65 04/26/17 06:30 76 19 124/83 99 Mechanical Ventilator 65 04/26/17 06:02 17 04/26/17 06:00 75 18 127/81 95 Mechanical Ventilator 65 04/26/17 05:52 128/90 04/26/17 05:30 70 16 128/90 96 Mechanical Ventilator 65 04/26/17 05:00 70 16 130/72 96 Mechanical Ventilator 65 04/26/17 05:00 16 04/26/17 04:52 74 18 65 04/26/17 04:30 73 17 120/80 94 Mechanical Ventilator 65 04/26/17 04:00 75 04/26/17 04:00 98.5 75 22 128/88 94 Mechanical Ventilator 65 04/26/17 04:00 22 04/26/17 04:00 65 04/26/17 03:30 71 19 127/77 95 Mechanical Ventilator 65 04/26/17 03:30 91 20 65 04/26/17 03:00 73 21 126/80 95 Mechanical Ventilator 65 04/26/17 03:00 21 04/26/17 02:35 17 04/26/17 02:30 71 20 124/77 94 Mechanical Ventilator 65 04/26/17 02:00 73 21 115/77 97 Mechanical Ventilator 65 04/26/17 02:00 21 04/26/17 01:30 71 20 117/80 94 Mechanical Ventilator 65 04/26/17 01:30 94 19 65 04/26/17 01:00 21 04/26/17 01:00 67 16 123/79 98 Mechanical Ventilator 65 04/26/17 00:30 72 23 127/77 98 Mechanical Ventilator 65 04/26/17 00:00 98.7 78 18 142/87 100 Mechanical Ventilator 65 04/26/17 00:00 75 04/26/17 00:00 20 04/26/17 00:00 65 04/25/17 23:50 72 20 Mechanical Ventilator 50 04/25/17 23:30 70 20 65 04/25/17 23:30 86 28 124/79 98 Mechanical Ventilator 65 04/25/17 23:00 20 04/25/17 23:00 73 23 122/94 95 Mechanical Ventilator 65 04/25/17 22:30 72 20 123/80 96 Mechanical Ventilator 65 04/25/17 22:00 74 21 123/80 96 Mechanical Ventilator 65 04/25/17 22:00 23 04/25/17 21:30 73 21 123/81 95 Mechanical Ventilator 65 04/25/17 21:13 72 18 65 04/25/17 21:00 72 18 124/81 94 Mechanical Ventilator 65 04/25/17 21:00 21 04/25/17 20:46 21 04/25/17 20:30 71 20 124/81 95 Mechanical Ventilator 65 04/25/17 20:00 98.8 68 18 121/81 94 Mechanical Ventilator 65 04/25/17 20:00 68 04/25/17 20:00 21 04/25/17 20:00 65 04/25/17 19:30 70 20 65 04/25/17 19:30 68 19 121/81 95 Mechanical Ventilator 65 04/25/17 19:00 68 18 126/85 98 Mechanical Ventilator 65 04/25/17 19:00 18 04/25/17 18:30 68 18 132/89 95 Mechanical Ventilator 65 04/25/17 18:00 68 18 126/85 95 Mechanical Ventilator 65 04/25/17 18:00 16 04/25/17 17:30 70 18 120/83 96 Mechanical Ventilator 65 04/25/17 17:27 122/85 04/25/17 17:14 71 18 65 04/25/17 17:00 18 04/25/17 17:00 69 15 122/85 96 Mechanical Ventilator 65 04/25/17 16:30 70 17 134/86 95 Mechanical Ventilator 65 04/25/17 16:00 98.7 68 15 126/84 94 Mechanical Ventilator 65 04/25/17 16:00 63 04/25/17 16:00 16 04/25/17 16:00 65 04/25/17 15:30 63 16 128/77 94 Mechanical Ventilator 65 04/25/17 15:14 62 19 65 General Appearance: no apparent distress, alert Neck: supple Cardiovascular: normal rate, regular rhythm Respiratory/Chest: lungs clear Abdomen: normal bowel sounds, non tender, soft Extremities: no swelling Intake and Output 04/26/17 04/27/17 19:00 07:00 Intake Total 743.835 ml Output Total 605 ml Balance 138.835 ml IV Total 373.835 ml Tube Feeding 250 ml Other 120 ml Output Urine Total 605 ml # Bowel Movements 2 Laboratory Tests Test 04/25/17 18:08 04/25/17 20:12 04/26/17 04:00 04/26/17 06:32 Prothrombin Time 11.3 SEC (9.30-11.50) 10.8 SEC (9.30-11.50) Prothromb Time International Ratio 1.1 (0.9-1.1) 1.0 (0.9-1.1) Activated Partial Thromboplast Time 121 SEC (23-33) H 62 SEC (23-33) H White Blood Count 7.5 K/UL (4.8-10.8) Red Blood Count 3.63 M/UL (4.70-6.10) L Hemoglobin 11.0 G/DL (14.2-18.0) L Hematocrit 34.5 % (42.0-52.0) L Mean Corpuscular Volume 95 FL (80-99) Mean Corpuscular Hemoglobin 30.2 PG (27.0-31.0) Mean Corpuscular Hemoglobin Concent 31.8 G/DL (32.0-36.0) L Red Cell Distribution Width 12.7 % (11.6-14.8) Platelet Count 116 K/UL (150-450) L Mean Platelet Volume 8.6 FL (6.5-10.1) Neutrophils (%) (Auto) 83.0 % (45.0-75.0) H Lymphocytes (%) (Auto) 7.4 % (20.0-45.0) L Monocytes (%) (Auto) 6.7 % (1.0-10.0) Eosinophils (%) (Auto) 1.4 % (0.0-3.0) Basophils (%) (Auto) 1.4 % (0.0-2.0) Sodium Level 141 MMOL/L (136-145) Potassium Level 3.9 MMOL/L (3.5-5.1) Chloride Level 108 MMOL/L (98-107) H Carbon Dioxide Level 25 MMOL/L (21-32) Anion Gap 8 mmol/L (5-15) Blood Urea Nitrogen 45 mg/dL (7-18) H Creatinine 1.8 MG/DL (0.55-1.30) H Estimat Glomerular Filtration Rate 46.2 mL/min (>60) Glucose Level 153 MG/DL (74-106) #H Calcium Level 8.5 MG/DL (8.5-10.1) Phosphorus Level 2.8 MG/DL (2.5-4.9) Magnesium Level 2.1 MG/DL (1.8-2.4) Total Bilirubin 0.6 MG/DL (0.2-1.0) Aspartate Amino Transf (AST/SGOT) 31 U/L (15-37) Alanine Aminotransferase (ALT/SGPT) 56 U/L (12-78) Alkaline Phosphatase 49 U/L (46-116) Total Protein 6.2 G/DL (6.4-8.2) L Albumin 2.2 G/DL (3.4-5.0) L Globulin 4.0 g/dL Albumin/Globulin Ratio 0.6 (1.0-2.7) L Arterial Blood pH 7.417 (7.350-7.450) Arterial Blood Partial Pressure CO2 37.1 mmHg (35.0-45.0) Arterial Blood Partial Pressure O2 73.8 mmHg (75.0-100.0) L Arterial Blood HCO3 23.4 mmol/L (22.0-26.0) Arterial Blood Oxygen Saturation 94.5 % (92.0-98.0) Arterial Blood Base Excess -0.8 Dayron Test Positive Test 04/26/17 12:00 Activated Partial Thromboplast Time 76 SEC (23-33) H Vancomycin Level Trough 12.3 ug/mL (5.0-12.0) H Microbiology Date/Time Source Procedure Growth Status 04/24/17 08:50 Blood Blood Culture - Preliminary NO GROWTH AFTER 24 HOURS Resulted 04/24/17 08:00 Blood Blood Culture - Preliminary NO GROWTH AFTER 24 HOURS Resulted 04/24/17 08:50 Sputum Gram Stain - Final Complete 04/24/17 08:50 Sputum Culture - Final Radha Albicans Usual Upper Respiratory Vivien Complete RUBEN CHAVEZ 31, 2017 15:06
--- NOTE | 2017-04-26 15:44 | General Progress Note ---
Assessment/Plan Status: unchanged Status Narrative Cr lower Assessment/Plan status; Pulmonary emboli , on heparin Acute respiratory failure- On Vent Renal failure ? CKD ? Superimposed Acute renal failure HTN- Smoker- Jorge Inhibor Allergy Plan: Keep BP in check hold coumadin for ? need of trach 2D Echo- EjFx 60% Pulmonary support- urine studies- Kidney MIKEY Right kidney demonstrates borderline hydronephrosis. Taper steroids as possible. monitor renal parameters- Avoid nephrotoxics Subjective ROS Limited/Unobtainable: Yes Allergies: Coded Allergies: LISINOPRIL (Verified Allergy, Severe, 04/21/17) Objective Last 24 Hour Vital Signs Date Time Temp Pulse Resp B/P (MAP) Pulse Ox O2 Delivery O2 Flow Rate FiO2 04/26/17 14:55 94 20 50 04/26/17 14:30 95 25 130/78 94 Mechanical Ventilator 60 04/26/17 14:00 95 23 138/92 95 Mechanical Ventilator 60 04/26/17 13:30 94 22 135/86 96 Mechanical Ventilator 60 04/26/17 13:00 94 22 127/76 97 Mechanical Ventilator 60 04/26/17 12:55 16 04/26/17 12:50 9 18 50 04/26/17 12:30 93 21 137/80 95 Mechanical Ventilator 60 04/26/17 12:00 99.2 99 22 128/80 94 Mechanical Ventilator 60 04/26/17 12:00 111 04/26/17 12:00 16 04/26/17 12:00 60 04/26/17 11:30 96 21 121/80 93 Mechanical Ventilator 60 04/26/17 11:01 126/83 04/26/17 11:00 16 04/26/17 11:00 94 20 119/79 95 Mechanical Ventilator 65 04/26/17 10:44 86 20 65 04/26/17 10:30 89 18 126/83 99 Mechanical Ventilator 65 04/26/17 10:00 16 04/26/17 10:00 93 22 152/103 95 Mechanical Ventilator 65 04/26/17 09:50 94 133/86 04/26/17 09:30 88 20 133/86 95 Mechanical Ventilator 65 04/26/17 09:10 95 20 65 04/26/17 09:00 84 20 128/78 95 Mechanical Ventilator 65 04/26/17 09:00 16 04/26/17 08:30 73 17 120/80 94 Mechanical Ventilator 65 04/26/17 08:00 65 04/26/17 08:00 98.4 82 21 125/84 96 Mechanical Ventilator 65 04/26/17 08:00 16 04/26/17 08:00 79 04/26/17 07:30 77 17 126/77 95 Mechanical Ventilator 65 04/26/17 07:00 73 17 120/75 98 Mechanical Ventilator 65 04/26/17 07:00 17 04/26/17 06:31 78 18 65 04/26/17 06:30 76 19 124/83 99 Mechanical Ventilator 65 04/26/17 06:02 17 04/26/17 06:00 75 18 127/81 95 Mechanical Ventilator 65 04/26/17 05:52 128/90 04/26/17 05:30 70 16 128/90 96 Mechanical Ventilator 65 04/26/17 05:00 70 16 130/72 96 Mechanical Ventilator 65 04/26/17 05:00 16 04/26/17 04:52 74 18 65 04/26/17 04:30 73 17 120/80 94 Mechanical Ventilator 65 04/26/17 04:00 75 04/26/17 04:00 98.5 75 22 128/88 94 Mechanical Ventilator 65 04/26/17 04:00 22 04/26/17 04:00 65 04/26/17 03:30 71 19 127/77 95 Mechanical Ventilator 65 04/26/17 03:30 91 20 65 04/26/17 03:00 73 21 126/80 95 Mechanical Ventilator 65 04/26/17 03:00 21 04/26/17 02:35 17 04/26/17 02:30 71 20 124/77 94 Mechanical Ventilator 65 04/26/17 02:00 73 21 115/77 97 Mechanical Ventilator 65 04/26/17 02:00 21 04/26/17 01:30 71 20 117/80 94 Mechanical Ventilator 65 04/26/17 01:30 94 19 65 04/26/17 01:00 21 04/26/17 01:00 67 16 123/79 98 Mechanical Ventilator 65 04/26/17 00:30 72 23 127/77 98 Mechanical Ventilator 65 04/26/17 00:00 98.7 78 18 142/87 100 Mechanical Ventilator 65 04/26/17 00:00 75 04/26/17 00:00 20 04/26/17 00:00 65 04/25/17 23:50 72 20 Mechanical Ventilator 50 04/25/17 23:30 70 20 65 04/25/17 23:30 86 28 124/79 98 Mechanical Ventilator 65 04/25/17 23:00 20 04/25/17 23:00 73 23 122/94 95 Mechanical Ventilator 65 04/25/17 22:30 72 20 123/80 96 Mechanical Ventilator 65 04/25/17 22:00 74 21 123/80 96 Mechanical Ventilator 65 04/25/17 22:00 23 04/25/17 21:30 73 21 123/81 95 Mechanical Ventilator 65 04/25/17 21:13 72 18 65 04/25/17 21:00 72 18 124/81 94 Mechanical Ventilator 65 04/25/17 21:00 21 04/25/17 20:46 21 04/25/17 20:30 71 20 124/81 95 Mechanical Ventilator 65 04/25/17 20:00 98.8 68 18 121/81 94 Mechanical Ventilator 65 04/25/17 20:00 68 04/25/17 20:00 21 04/25/17 20:00 65 04/25/17 19:30 70 20 65 04/25/17 19:30 68 19 121/81 95 Mechanical Ventilator 65 04/25/17 19:00 68 18 126/85 98 Mechanical Ventilator 65 04/25/17 19:00 18 04/25/17 18:30 68 18 132/89 95 Mechanical Ventilator 65 04/25/17 18:00 68 18 126/85 95 Mechanical Ventilator 65 04/25/17 18:00 16 04/25/17 17:30 70 18 120/83 96 Mechanical Ventilator 65 04/25/17 17:27 122/85 04/25/17 17:14 71 18 65 04/25/17 17:00 18 04/25/17 17:00 69 15 122/85 96 Mechanical Ventilator 65 04/25/17 16:30 70 17 134/86 95 Mechanical Ventilator 65 04/25/17 16:00 98.7 68 15 126/84 94 Mechanical Ventilator 65 04/25/17 16:00 63 04/25/17 16:00 16 04/25/17 16:00 65 Intake and Output 04/26/17 04/27/17 19:00 07:00 Intake Total 743.835 ml Output Total 605 ml Balance 138.835 ml IV Total 373.835 ml Tube Feeding 250 ml Other 120 ml Output Urine Total 605 ml # Bowel Movements 2 Laboratory Tests 04/25/17 18:08: Prothrombin Time 11.3, Prothromb Time International Ratio 1.1 04/25/17 20:12: Activated Partial Thromboplast Time 121H 04/26/17 04:00: Prothrombin Time 10.8, Prothromb Time International Ratio 1.0, Activated Partial Thromboplast Time 62H, White Blood Count 7.5, Red Blood Count 3.63L, Hemoglobin 11.0L, Hematocrit 34.5L, Mean Corpuscular Volume 95, Mean Corpuscular Hemoglobin 30.2, Mean Corpuscular Hemoglobin Concent 31.8L, Red Cell Distribution Width 12.7, Platelet Count 116L, Mean Platelet Volume 8.6, Neutrophils (%) (Auto) 83.0H, Lymphocytes (%) (Auto) 7.4L, Monocytes (%) (Auto) 6.7, Eosinophils (%) (Auto) 1.4, Basophils (%) (Auto) 1.4, Sodium Level 141, Potassium Level 3.9, Chloride Level 108H, Carbon Dioxide Level 25, Anion Gap 8, Blood Urea Nitrogen 45H, Creatinine 1.8H, Estimat Glomerular Filtration Rate 46.2, Glucose Level 153#H, Calcium Level 8.5, Phosphorus Level 2.8, Magnesium Level 2.1, Total Bilirubin 0.6, Aspartate Amino Transf (AST/SGOT) 31, Alanine Aminotransferase (ALT/SGPT) 56, Alkaline Phosphatase 49, Total Protein 6.2L, Albumin 2.2L, Globulin 4.0, Albumin/Globulin Ratio 0.6L 04/26/17 06:32: Arterial Blood pH 7.417, Arterial Blood Partial Pressure CO2 37.1, Arterial Blood Partial Pressure O2 73.8L, Arterial Blood HCO3 23.4, Arterial Blood Oxygen Saturation 94.5, Arterial Blood Base Excess -0.8, Dayron Test Positive 04/26/17 12:00: Activated Partial Thromboplast Time 76H, Vancomycin Level Trough 12.3H Height (Feet): 6 Height (Inches): 4.00 Weight (Pounds): 271 General Appearance: no apparent distress EENT: other - on vent fio2 50% Respiratory/Chest: decreased breath sounds Abdomen: soft Objective no other changes TIARRA PARTIDA Apr 26, 2017 15:44
[2017-04-26] MEDS: Vancomycin 750mg/NS 250ml IVPB SCH (15:56)
--- NOTE | 2017-04-26 17:27 | General Progress Note ---
Assessment/Plan Assessment/Plan Assessment and Recs 1. Pulmonary embolism. Cardiology to assess patient for potential thrombolysis --> sob improving, requiring less o2 --> on heparin 2. DVT- right leg subacute thrombus in mid superficial femoral vein. --> on heparin drip, will eventually require lifelong anticoagulation 3. Coagulopathy 2/2 heparin drip 4. Anemia, work up if drops below 10 5. Thrombocytopenia, concerning for HIT vs sepsis, will order HIT test Subjective ROS Limited/Unobtainable: Yes Allergies: Coded Allergies: LISINOPRIL (Verified Allergy, Severe, 04/21/17) All Systems: reviewed and negative except above Subjective NAD Objective Last 24 Hour Vital Signs Date Time Temp Pulse Resp B/P (MAP) Pulse Ox O2 Delivery O2 Flow Rate FiO2 04/26/17 17:00 94 25 134/77 97 Mechanical Ventilator 60 04/26/17 16:49 90 20 50 04/26/17 16:30 88 20 149/91 95 Mechanical Ventilator 60 04/26/17 16:00 99.3 94 22 149/94 97 Mechanical Ventilator 60 04/26/17 16:00 50 04/26/17 16:00 108 04/26/17 15:51 22 04/26/17 15:30 91 22 133/87 94 Mechanical Ventilator 60 04/26/17 15:00 96 24 136/93 96 Mechanical Ventilator 60 04/26/17 14:55 94 20 50 04/26/17 14:30 95 25 130/78 94 Mechanical Ventilator 60 04/26/17 14:00 95 23 138/92 95 Mechanical Ventilator 60 04/26/17 13:30 94 22 135/86 96 Mechanical Ventilator 60 04/26/17 13:00 94 22 127/76 97 Mechanical Ventilator 60 04/26/17 12:55 16 04/26/17 12:50 9 18 50 04/26/17 12:30 93 21 137/80 95 Mechanical Ventilator 60 04/26/17 12:00 99.2 99 22 128/80 94 Mechanical Ventilator 60 04/26/17 12:00 111 04/26/17 12:00 16 04/26/17 12:00 60 04/26/17 11:30 96 21 121/80 93 Mechanical Ventilator 60 04/26/17 11:01 126/83 04/26/17 11:00 16 04/26/17 11:00 94 20 119/79 95 Mechanical Ventilator 65 04/26/17 10:44 86 20 65 04/26/17 10:30 89 18 126/83 99 Mechanical Ventilator 65 04/26/17 10:00 16 04/26/17 10:00 93 22 152/103 95 Mechanical Ventilator 65 04/26/17 09:50 94 133/86 04/26/17 09:30 88 20 133/86 95 Mechanical Ventilator 65 04/26/17 09:10 95 20 65 04/26/17 09:00 84 20 128/78 95 Mechanical Ventilator 65 04/26/17 09:00 16 04/26/17 08:30 73 17 120/80 94 Mechanical Ventilator 65 04/26/17 08:00 65 04/26/17 08:00 98.4 82 21 125/84 96 Mechanical Ventilator 65 04/26/17 08:00 16 04/26/17 08:00 79 04/26/17 07:30 77 17 126/77 95 Mechanical Ventilator 65 04/26/17 07:00 73 17 120/75 98 Mechanical Ventilator 65 04/26/17 07:00 17 04/26/17 06:31 78 18 65 04/26/17 06:30 76 19 124/83 99 Mechanical Ventilator 65 04/26/17 06:02 17 04/26/17 06:00 75 18 127/81 95 Mechanical Ventilator 65 04/26/17 05:52 128/90 04/26/17 05:30 70 16 128/90 96 Mechanical Ventilator 65 04/26/17 05:00 70 16 130/72 96 Mechanical Ventilator 65 04/26/17 05:00 16 04/26/17 04:52 74 18 65 04/26/17 04:30 73 17 120/80 94 Mechanical Ventilator 65 04/26/17 04:00 75 04/26/17 04:00 98.5 75 22 128/88 94 Mechanical Ventilator 65 04/26/17 04:00 22 04/26/17 04:00 65 04/26/17 03:30 71 19 127/77 95 Mechanical Ventilator 65 04/26/17 03:30 91 20 65 04/26/17 03:00 73 21 126/80 95 Mechanical Ventilator 65 04/26/17 03:00 21 04/26/17 02:35 17 04/26/17 02:30 71 20 124/77 94 Mechanical Ventilator 65 04/26/17 02:00 73 21 115/77 97 Mechanical Ventilator 65 04/26/17 02:00 21 04/26/17 01:30 71 20 117/80 94 Mechanical Ventilator 65 04/26/17 01:30 94 19 65 04/26/17 01:00 21 04/26/17 01:00 67 16 123/79 98 Mechanical Ventilator 65 04/26/17 00:30 72 23 127/77 98 Mechanical Ventilator 65 04/26/17 00:00 98.7 78 18 142/87 100 Mechanical Ventilator 65 04/26/17 00:00 75 04/26/17 00:00 20 04/26/17 00:00 65 04/25/17 23:50 72 20 Mechanical Ventilator 50 04/25/17 23:30 70 20 65 04/25/17 23:30 86 28 124/79 98 Mechanical Ventilator 65 04/25/17 23:00 20 04/25/17 23:00 73 23 122/94 95 Mechanical Ventilator 65 04/25/17 22:30 72 20 123/80 96 Mechanical Ventilator 65 04/25/17 22:00 74 21 123/80 96 Mechanical Ventilator 65 04/25/17 22:00 23 04/25/17 21:30 73 21 123/81 95 Mechanical Ventilator 65 04/25/17 21:13 72 18 65 04/25/17 21:00 72 18 124/81 94 Mechanical Ventilator 65 04/25/17 21:00 21 04/25/17 20:46 21 04/25/17 20:30 71 20 124/81 95 Mechanical Ventilator 65 04/25/17 20:00 98.8 68 18 121/81 94 Mechanical Ventilator 65 04/25/17 20:00 68 04/25/17 20:00 21 04/25/17 20:00 65 04/25/17 19:30 70 20 65 04/25/17 19:30 68 19 121/81 95 Mechanical Ventilator 65 04/25/17 19:00 68 18 126/85 98 Mechanical Ventilator 65 04/25/17 19:00 18 04/25/17 18:30 68 18 132/89 95 Mechanical Ventilator 65 04/25/17 18:00 68 18 126/85 95 Mechanical Ventilator 65 04/25/17 18:00 16 04/25/17 17:30 70 18 120/83 96 Mechanical Ventilator 65 04/25/17 17:27 122/85 Intake and Output 04/26/17 04/27/17 19:00 07:00 Intake Total 893.835 ml Output Total 945 ml Balance -51.165 ml IV Total 373.835 ml Tube Feeding 400 ml Other 120 ml Output Urine Total 945 ml # Bowel Movements 3 Laboratory Tests 04/25/17 18:08: Prothrombin Time 11.3, Prothromb Time International Ratio 1.1 04/25/17 20:12: Activated Partial Thromboplast Time 121H 04/26/17 04:00: Prothrombin Time 10.8, Prothromb Time International Ratio 1.0, Activated Partial Thromboplast Time 62H, White Blood Count 7.5, Red Blood Count 3.63L, Hemoglobin 11.0L, Hematocrit 34.5L, Mean Corpuscular Volume 95, Mean Corpuscular Hemoglobin 30.2, Mean Corpuscular Hemoglobin Concent 31.8L, Red Cell Distribution Width 12.7, Platelet Count 116L, Mean Platelet Volume 8.6, Neutrophils (%) (Auto) 83.0H, Lymphocytes (%) (Auto) 7.4L, Monocytes (%) (Auto) 6.7, Eosinophils (%) (Auto) 1.4, Basophils (%) (Auto) 1.4, Sodium Level 141, Potassium Level 3.9, Chloride Level 108H, Carbon Dioxide Level 25, Anion Gap 8, Blood Urea Nitrogen 45H, Creatinine 1.8H, Estimat Glomerular Filtration Rate 46.2, Glucose Level 153#H, Calcium Level 8.5, Phosphorus Level 2.8, Magnesium Level 2.1, Total Bilirubin 0.6, Aspartate Amino Transf (AST/SGOT) 31, Alanine Aminotransferase (ALT/SGPT) 56, Alkaline Phosphatase 49, Total Protein 6.2L, Albumin 2.2L, Globulin 4.0, Albumin/Globulin Ratio 0.6L 04/26/17 06:32: Arterial Blood pH 7.417, Arterial Blood Partial Pressure CO2 37.1, Arterial Blood Partial Pressure O2 73.8L, Arterial Blood HCO3 23.4, Arterial Blood Oxygen Saturation 94.5, Arterial Blood Base Excess -0.8, Dayron Test Positive 04/26/17 12:00: Activated Partial Thromboplast Time 76H, Vancomycin Level Trough 12.3H Height (Feet): 6 Height (Inches): 4.00 Weight (Pounds): 271 General Appearance: no apparent distress EENT: normal ENT inspection Neck: normal inspection Cardiovascular: no gallop/murmur Respiratory/Chest: chest wall non-tender Abdomen: non tender, no organomegaly, no mass Sulaiman Dudley Apr 26, 2017 17:27
[2017-04-26] MEDS ORDERED: Dyna-Hex 2% Top Sol 2oz TOPIC SCH (20:00)
[2017-04-26] MEDS: Dyna-Hex 2% Top Sol 2oz TOPIC SCH (20:00)
[2017-04-26] MEDS: Miralax 17gm pkt ORAL SCH (21:00)
[2017-04-26] MEDS ORDERED: Midazolam/D5W 100ml 100 ML IVPB ONE (22:44)
[2017-04-27] VITALS (42 sets, daily range): BP systolic 114–157; BP diastolic 67–93
[2017-04-27] MEDS: Vancomycin 750mg/NS 250ml IVPB SCH (02:49)
[2017-04-27 04:41] LABS: BASOPHILS % (AUTO) 1.3 % (0.0-2.0); EOSINOPHILS % (AUTO) 4.3 % (0.0-3.0); LYMPHOCYTES % (AUTO) 11.3 % (20.0-45.0); MEAN CORPUSCULAR HGB CONC 33.1 G/DL (32.0-36.0); MEAN CORPUSCULAR VOLUME 94 FL (80-99); MEAN PLATELET VOLUME 10.1 FL (6.5-10.1); MONOCYTES % (AUTO) 7.9 % (1.0-10.0); NEUTROPHILS % (AUTO) 75.3 % (45.0-75.0); PLATELET COUNT 102 K/UL (150-450); RED BLOOD COUNT 3.98 M/UL (4.70-6.10); WHITE BLOOD COUNT 6.6 K/UL (4.8-10.8)
[2017-04-27 05:08] LABS: INR 1.1 (0.9-1.1); PROTHROMBIN TIME 11.8 SEC (9.30-11.50)
[2017-04-27 05:09] LABS: ALANINE AMINOTRANSFERASE 61 U/L (12-78); ALBUMIN/GLOBULIN RATIO 0.6 (1.0-2.7); ANION GAP 15 mmol/L (5-15); ASPARTATE AMINO TRANSFERASE 38 U/L (15-37); CALCIUM 8.7 MG/DL (8.5-10.1); CARBON DIOXIDE 20 MMOL/L (21-32); CHLORIDE 108 MMOL/L (98-107); CREATININE 1.9 MG/DL (0.55-1.30); GLOMERULAR FILTRATION RATE 43.4 mL/min (>60); POTASSIUM 4.3 MMOL/L (3.5-5.1); SODIUM 143 MMOL/L (136-145); TOTAL PROTEIN 6.2 G/DL (6.4-8.2)
[2017-04-27] MEDS ORDERED: Midazolam/D5W 100ml 100 ML IVPB ONE (05:43)
[2017-04-27] MEDS: Nitroglycerin 2% oint pkt TOPIC SCH ×3 (05:47→17:48)
[2017-04-27] MEDS: Heparin 25,000u/D5W 500ml 500 ML IV SCH ×3 (05:53→20:08)
[2017-04-27] MEDS: Midazolam for drip 50 MG in NS 90 ML IV PRN (05:54)
[2017-04-27] MEDS ORDERED: Heparin 25,000u/D5W 500ml 500 ML IV SCH (06:30)
[2017-04-27] MEDS ORDERED: Heparin 5000 units/ml inj IV ONE ×2 (06:30)
[2017-04-27] MEDS: Docusate 100mg/10ml Liq NG SCH ×3 (08:43→16:34)
[2017-04-27 09:22] LABS: ABG ALLEN TEST POSITIVE; ABG BASE EXCESS -1.1; ABG PCO2 37.1 mmHg (35.0-45.0)
[2017-04-27] MEDS: Pantoprazole Inj IVP SCH ×2 (09:28→17:47)
[2017-04-27] MEDS: Cefepime HCl 2 GM in NS 110 ML IV SCH (09:38)
[2017-04-27] MEDS ORDERED: Midazolam/D5W 100ml 100 ML IVPB PRN (10:15)
--- NOTE | 2017-04-27 10:18 | Diagnostic Imaging Report ---
Indication: DYSPNEA Technique: One view of the chest Comparison: 04/26/2017 Findings: Stable satisfactory positions of endotracheal tube, nasogastric tube, left arm PICC. Of note, the PICC is actually in farther on the current exam stable pulmonary vascular prominence, central bronchial wall thickening. Some atelectasis is seen in the left infrahilar region. No new infiltrates. Pleural spaces remain clear. Impression: Unchanged, over one day, findings as above.
--- NOTE | 2017-04-27 11:14 | GI Progress Note ---
Assessment/Plan Problems: (1) Abdominal distension ICD Codes: R14.0 - Abdominal distension (gaseous) SNOMED: 98468964 (2) Hypoalbuminemia ICD Codes: E88.09 - Other disorders of plasma-protein metabolism, not elsewhere classified SNOMED: 168422992 (3) Angioedema ICD Codes: T78.3XXA - Angioneurotic edema, initial encounter SNOMED: 60222320 Status: progressing, unchanged Status Narrative Discussed with Dr. Cazares. Assessment/Plan NGTF tolerated fu labs ppi fu pulm recs Subjective Subjective limited Objective Last 24 Hour Vital Signs Date Time Temp Pulse Resp B/P (MAP) Pulse Ox O2 Delivery O2 Flow Rate FiO2 04/27/17 10:37 70 18 50 04/27/17 10:30 71 23 127/70 96 Mechanical Ventilator 50 04/27/17 10:00 73 19 114/67 100 Mechanical Ventilator 50 04/27/17 09:30 74 20 117/68 100 Mechanical Ventilator 50 04/27/17 09:28 75 122/67 04/27/17 09:06 78 19 50 04/27/17 09:00 75 20 122/67 100 Mechanical Ventilator 50 04/27/17 08:30 99.1 77 23 119/78 97 Mechanical Ventilator 50 04/27/17 08:00 80 21 117/67 100 Mechanical Ventilator 50 04/27/17 08:00 50 04/27/17 08:00 78 04/27/17 07:30 85 22 114/67 100 Mechanical Ventilator 50 04/27/17 07:20 88 19 50 04/27/17 07:00 23 04/27/17 07:00 89 27 124/81 100 Mechanical Ventilator 50 04/27/17 06:30 92 27 135/79 100 Mechanical Ventilator 50 04/27/17 06:00 86 29 129/81 100 Mechanical Ventilator 50 04/27/17 06:00 29 04/27/17 06:00 29 04/27/17 06:00 29 04/27/17 06:00 29 04/27/17 06:00 29 04/27/17 06:00 29 04/27/17 06:00 27 04/27/17 06:00 29 04/27/17 06:00 29 04/27/17 05:54 18 04/27/17 05:47 116/80 04/27/17 05:30 89 25 116/80 99 Mechanical Ventilator 50 04/27/17 05:00 82 27 127/83 99 Mechanical Ventilator 50 04/27/17 05:00 27 04/27/17 05:00 27 04/27/17 05:00 27 04/27/17 05:00 27 04/27/17 05:00 27 04/27/17 05:00 27 04/27/17 05:00 27 04/27/17 05:00 27 04/27/17 05:00 27 04/27/17 05:00 27 04/27/17 05:00 27 04/27/17 05:00 27 04/27/17 04:47 79 28 50 04/27/17 04:30 80 23 157/85 97 Mechanical Ventilator 50 04/27/17 04:00 50 04/27/17 04:00 82 04/27/17 04:00 99.1 80 23 146/81 97 Mechanical Ventilator 50 04/27/17 04:00 24 04/27/17 03:30 80 23 139/88 97 Mechanical Ventilator 50 04/27/17 03:00 24 04/27/17 03:00 80 23 147/81 97 Mechanical Ventilator 50 04/27/17 02:31 86 24 50 04/27/17 02:30 82 25 149/83 97 Mechanical Ventilator 50 04/27/17 02:00 23 04/27/17 02:00 83 23 137/83 97 Mechanical Ventilator 50 04/27/17 01:30 85 25 151/83 97 Mechanical Ventilator 50 04/27/17 01:23 81 23 50 04/27/17 01:00 85 25 136/83 97 Mechanical Ventilator 50 04/27/17 01:00 22 04/27/17 00:30 85 25 156/85 97 Mechanical Ventilator 50 04/27/17 00:00 50 04/27/17 00:00 85 04/27/17 00:00 98.8 85 25 139/79 97 Mechanical Ventilator 50 04/27/17 00:00 25 04/26/17 23:30 85 25 135/82 97 Mechanical Ventilator 50 04/26/17 23:25 84 24 50 04/26/17 23:00 87 23 137/80 98 Mechanical Ventilator 50 04/26/17 23:00 23 04/26/17 22:51 22 04/26/17 22:30 88 23 129/82 98 Mechanical Ventilator 50 04/26/17 22:00 23 04/26/17 22:00 84 23 152/96 99 Mechanical Ventilator 50 04/26/17 21:45 92 26 50 04/26/17 21:30 86 26 138/75 99 Mechanical Ventilator 50 04/26/17 21:00 23 04/26/17 21:00 85 23 132/82 98 Mechanical Ventilator 50 04/26/17 20:30 85 23 141/81 99 Mechanical Ventilator 50 04/26/17 20:00 23 04/26/17 20:00 85 04/26/17 20:00 50 04/26/17 20:00 99.3 85 23 126/90 99 Mechanical Ventilator 50 04/26/17 19:30 92 27 121/78 98 Mechanical Ventilator 50 04/26/17 19:29 93 30 50 04/26/17 19:00 95 25 141/82 98 Mechanical Ventilator 60 04/26/17 19:00 28 04/26/17 18:30 88 23 128/77 97 Mechanical Ventilator 60 04/26/17 18:06 128/81 04/26/17 18:00 20 04/26/17 18:00 89 24 128/81 95 Mechanical Ventilator 60 04/26/17 17:30 92 24 130/85 96 Mechanical Ventilator 60 04/26/17 17:00 94 25 134/77 97 Mechanical Ventilator 60 04/26/17 17:00 19 04/26/17 16:49 90 20 50 04/26/17 16:30 88 20 149/91 95 Mechanical Ventilator 60 04/26/17 16:00 99.3 94 22 149/94 97 Mechanical Ventilator 60 04/26/17 16:00 20 04/26/17 16:00 50 04/26/17 16:00 108 04/26/17 15:51 22 04/26/17 15:30 91 22 133/87 94 Mechanical Ventilator 60 04/26/17 15:00 96 24 136/93 96 Mechanical Ventilator 60 04/26/17 15:00 20 04/26/17 14:55 94 20 50 04/26/17 14:30 95 25 130/78 94 Mechanical Ventilator 60 04/26/17 14:00 95 23 138/92 95 Mechanical Ventilator 60 04/26/17 14:00 20 04/26/17 13:30 94 22 135/86 96 Mechanical Ventilator 60 04/26/17 13:00 94 22 127/76 97 Mechanical Ventilator 60 04/26/17 13:00 19 04/26/17 12:55 16 04/26/17 12:50 9 18 50 04/26/17 12:30 93 21 137/80 95 Mechanical Ventilator 60 04/26/17 12:00 99.2 99 22 128/80 94 Mechanical Ventilator 60 04/26/17 12:00 111 04/26/17 12:00 16 04/26/17 12:00 60 04/26/17 11:30 96 21 121/80 93 Mechanical Ventilator 60 Intake and Output 04/27/17 04/28/17 19:00 07:00 Intake Total 422.0 ml Output Total 300 ml Balance 122.0 ml Free Water 50 ml IV Total 222.0 ml Tube Feeding 150 ml Output Urine Total 300 ml # Bowel Movements 2 Laboratory Tests Test 04/26/17 12:00 04/27/17 04:00 04/27/17 09:00 Activated Partial Thromboplast Time 76 SEC (23-33) H 47 SEC (23-33) H Vancomycin Level Trough 12.3 ug/mL (5.0-12.0) H White Blood Count 6.6 K/UL (4.8-10.8) Red Blood Count 3.98 M/UL (4.70-6.10) L Hemoglobin 12.4 G/DL (14.2-18.0) L Hematocrit 37.3 % (42.0-52.0) L Mean Corpuscular Volume 94 FL (80-99) Mean Corpuscular Hemoglobin 31.0 PG (27.0-31.0) Mean Corpuscular Hemoglobin Concent 33.1 G/DL (32.0-36.0) Red Cell Distribution Width 13.0 % (11.6-14.8) Platelet Count 102 K/UL (150-450) L Mean Platelet Volume 10.1 FL (6.5-10.1) Neutrophils (%) (Auto) 75.3 % (45.0-75.0) H Lymphocytes (%) (Auto) 11.3 % (20.0-45.0) L Monocytes (%) (Auto) 7.9 % (1.0-10.0) Eosinophils (%) (Auto) 4.3 % (0.0-3.0) H Basophils (%) (Auto) 1.3 % (0.0-2.0) Prothrombin Time 11.8 SEC (9.30-11.50) H Prothromb Time International Ratio 1.1 (0.9-1.1) Sodium Level 143 MMOL/L (136-145) Potassium Level 4.3 MMOL/L (3.5-5.1) Chloride Level 108 MMOL/L (98-107) H Carbon Dioxide Level 20 MMOL/L (21-32) L Anion Gap 15 mmol/L (5-15) Blood Urea Nitrogen 48 mg/dL (7-18) H Creatinine 1.9 MG/DL (0.55-1.30) H Estimat Glomerular Filtration Rate 43.4 mL/min (>60) Glucose Level 140 MG/DL (74-106) H Calcium Level 8.7 MG/DL (8.5-10.1) Phosphorus Level 3.0 MG/DL (2.5-4.9) Magnesium Level 2.0 MG/DL (1.8-2.4) Total Bilirubin 0.5 MG/DL (0.2-1.0) Aspartate Amino Transf (AST/SGOT) 38 U/L (15-37) H Alanine Aminotransferase (ALT/SGPT) 61 U/L (12-78) Alkaline Phosphatase 50 U/L (46-116) Total Protein 6.2 G/DL (6.4-8.2) L Albumin 2.3 G/DL (3.4-5.0) L Globulin 3.9 g/dL Albumin/Globulin Ratio 0.6 (1.0-2.7) L Arterial Blood pH 7.412 (7.350-7.450) Arterial Blood Partial Pressure CO2 37.1 mmHg (35.0-45.0) Arterial Blood Partial Pressure O2 81.5 mmHg (75.0-100.0) Arterial Blood HCO3 23.1 mmol/L (22.0-26.0) Arterial Blood Oxygen Saturation 95.5 % (92.0-98.0) Arterial Blood Base Excess -1.1 Dayron Test Positive Height (Feet): 6 Height (Inches): 4.00 Weight (Pounds): 276 General Appearance: no apparent distress Cardiovascular: normal rate Respiratory/Chest: other - mech vent Abdominal Exam: other - ngt Radha Mckeon N.P. Apr 27, 2017 11:14
--- NOTE | 2017-04-27 12:27 | General Progress Note ---
Assessment/Plan Status: stable - from renal stand Status Narrative Cr stable Assessment/Plan status; Pulmonary emboli , on heparin Acute respiratory failure- On Vent Renal failure ? CKD ? Superimposed Acute renal failure HTN- Smoker- Jorge Inhibor Allergy Plan: Keep BP in check hold coumadin for ? need of trach 2D Echo- EjFx 60% Pulmonary support- urine studies- Kidney MIKEY Right kidney demonstrates borderline hydronephrosis. Taper steroids as possible. monitor renal parameters- Avoid nephrotoxics Subjective ROS Limited/Unobtainable: Yes Allergies: Coded Allergies: LISINOPRIL (Verified Allergy, Severe, 04/21/17) Objective Last 24 Hour Vital Signs Date Time Temp Pulse Resp B/P (MAP) Pulse Ox O2 Delivery O2 Flow Rate FiO2 04/27/17 12:02 22 04/27/17 12:00 74 04/27/17 12:00 50 04/27/17 12:00 99.0 74 23 125/76 97 Mechanical Ventilator 50 04/27/17 11:30 73 25 126/83 98 Mechanical Ventilator 50 04/27/17 11:13 124/71 04/27/17 11:00 86 25 124/71 98 Mechanical Ventilator 50 04/27/17 11:00 21 04/27/17 10:37 70 18 50 04/27/17 10:30 71 23 127/70 96 Mechanical Ventilator 50 04/27/17 10:00 20 04/27/17 10:00 73 19 114/67 100 Mechanical Ventilator 50 04/27/17 09:30 74 20 117/68 100 Mechanical Ventilator 50 04/27/17 09:28 75 122/67 04/27/17 09:06 78 19 50 04/27/17 09:00 75 20 122/67 100 Mechanical Ventilator 50 04/27/17 09:00 19 04/27/17 08:30 99.1 77 23 119/78 97 Mechanical Ventilator 50 04/27/17 08:00 80 21 117/67 100 Mechanical Ventilator 50 04/27/17 08:00 50 04/27/17 08:00 21 04/27/17 08:00 78 04/27/17 07:30 85 22 114/67 100 Mechanical Ventilator 50 04/27/17 07:20 88 19 50 04/27/17 07:00 23 04/27/17 07:00 89 27 124/81 100 Mechanical Ventilator 50 04/27/17 06:30 92 27 135/79 100 Mechanical Ventilator 50 04/27/17 06:00 86 29 129/81 100 Mechanical Ventilator 50 04/27/17 06:00 29 04/27/17 06:00 29 04/27/17 06:00 29 04/27/17 06:00 29 04/27/17 06:00 29 04/27/17 06:00 29 04/27/17 06:00 27 04/27/17 06:00 29 04/27/17 06:00 29 04/27/17 05:54 18 04/27/17 05:47 116/80 04/27/17 05:30 89 25 116/80 99 Mechanical Ventilator 50 04/27/17 05:00 82 27 127/83 99 Mechanical Ventilator 50 04/27/17 05:00 27 04/27/17 05:00 27 04/27/17 05:00 27 04/27/17 05:00 27 04/27/17 05:00 27 04/27/17 05:00 27 04/27/17 05:00 27 04/27/17 05:00 27 04/27/17 05:00 27 04/27/17 05:00 27 04/27/17 05:00 27 04/27/17 05:00 27 04/27/17 04:47 79 28 50 04/27/17 04:30 80 23 157/85 97 Mechanical Ventilator 50 04/27/17 04:00 50 04/27/17 04:00 82 04/27/17 04:00 99.1 80 23 146/81 97 Mechanical Ventilator 50 04/27/17 04:00 24 04/27/17 03:30 80 23 139/88 97 Mechanical Ventilator 50 04/27/17 03:00 24 04/27/17 03:00 80 23 147/81 97 Mechanical Ventilator 50 04/27/17 02:31 86 24 50 04/27/17 02:30 82 25 149/83 97 Mechanical Ventilator 50 04/27/17 02:00 23 04/27/17 02:00 83 23 137/83 97 Mechanical Ventilator 50 04/27/17 01:30 85 25 151/83 97 Mechanical Ventilator 50 04/27/17 01:23 81 23 50 04/27/17 01:00 85 25 136/83 97 Mechanical Ventilator 50 04/27/17 01:00 22 04/27/17 00:30 85 25 156/85 97 Mechanical Ventilator 50 04/27/17 00:00 50 04/27/17 00:00 85 04/27/17 00:00 98.8 85 25 139/79 97 Mechanical Ventilator 50 04/27/17 00:00 25 04/26/17 23:30 85 25 135/82 97 Mechanical Ventilator 50 04/26/17 23:25 84 24 50 04/26/17 23:00 87 23 137/80 98 Mechanical Ventilator 50 04/26/17 23:00 23 04/26/17 22:51 22 04/26/17 22:30 88 23 129/82 98 Mechanical Ventilator 50 04/26/17 22:00 23 04/26/17 22:00 84 23 152/96 99 Mechanical Ventilator 50 04/26/17 21:45 92 26 50 04/26/17 21:30 86 26 138/75 99 Mechanical Ventilator 50 04/26/17 21:00 23 04/26/17 21:00 85 23 132/82 98 Mechanical Ventilator 50 04/26/17 20:30 85 23 141/81 99 Mechanical Ventilator 50 04/26/17 20:00 23 04/26/17 20:00 85 04/26/17 20:00 50 04/26/17 20:00 99.3 85 23 126/90 99 Mechanical Ventilator 50 04/26/17 19:30 92 27 121/78 98 Mechanical Ventilator 50 04/26/17 19:29 93 30 50 04/26/17 19:00 95 25 141/82 98 Mechanical Ventilator 60 04/26/17 19:00 28 04/26/17 18:30 88 23 128/77 97 Mechanical Ventilator 60 04/26/17 18:06 128/81 04/26/17 18:00 20 04/26/17 18:00 89 24 128/81 95 Mechanical Ventilator 60 04/26/17 17:30 92 24 130/85 96 Mechanical Ventilator 60 04/26/17 17:00 94 25 134/77 97 Mechanical Ventilator 60 04/26/17 17:00 19 04/26/17 16:49 90 20 50 04/26/17 16:30 88 20 149/91 95 Mechanical Ventilator 60 04/26/17 16:00 99.3 94 22 149/94 97 Mechanical Ventilator 60 04/26/17 16:00 20 04/26/17 16:00 50 04/26/17 16:00 108 04/26/17 15:51 22 04/26/17 15:30 91 22 133/87 94 Mechanical Ventilator 60 04/26/17 15:00 96 24 136/93 96 Mechanical Ventilator 60 04/26/17 15:00 20 04/26/17 14:55 94 20 50 04/26/17 14:30 95 25 130/78 94 Mechanical Ventilator 60 04/26/17 14:00 95 23 138/92 95 Mechanical Ventilator 60 04/26/17 14:00 20 04/26/17 13:30 94 22 135/86 96 Mechanical Ventilator 60 04/26/17 13:00 94 22 127/76 97 Mechanical Ventilator 60 04/26/17 13:00 19 04/26/17 12:55 16 04/26/17 12:50 9 18 50 04/26/17 12:30 93 21 137/80 95 Mechanical Ventilator 60 Intake and Output 04/27/17 04/28/17 19:00 07:00 Intake Total 644.571 ml Output Total 620 ml Balance 24.571 ml Free Water 50 ml IV Total 344.571 ml Tube Feeding 250 ml Output Urine Total 620 ml # Bowel Movements 4 Laboratory Tests 04/27/17 04:00: White Blood Count 6.6, Red Blood Count 3.98L, Hemoglobin 12.4L, Hematocrit 37.3L , Mean Corpuscular Volume 94, Mean Corpuscular Hemoglobin 31.0, Mean Corpuscular Hemoglobin Concent 33.1, Red Cell Distribution Width 13.0, Platelet Count 102L, Mean Platelet Volume 10.1, Neutrophils (%) (Auto) 75.3H, Lymphocytes (%) (Auto) 11.3L, Monocytes (%) (Auto) 7.9, Eosinophils (%) (Auto) 4.3H, Basophils (%) (Auto) 1.3, Prothrombin Time 11.8H, Prothromb Time International Ratio 1.1, Activated Partial Thromboplast Time 47H, Sodium Level 143, Potassium Level 4.3, Chloride Level 108H, Carbon Dioxide Level 20L, Anion Gap 15, Blood Urea Nitrogen 48H, Creatinine 1.9H, Estimat Glomerular Filtration Rate 43.4, Glucose Level 140H, Calcium Level 8.7, Phosphorus Level 3.0, Magnesium Level 2.0, Total Bilirubin 0.5, Aspartate Amino Transf (AST/SGOT) 38H , Alanine Aminotransferase (ALT/SGPT) 61, Alkaline Phosphatase 50, Total Protein 6.2L, Albumin 2.3L, Globulin 3.9, Albumin/Globulin Ratio 0.6L 04/27/17 09:00: Arterial Blood pH 7.412, Arterial Blood Partial Pressure CO2 37.1, Arterial Blood Partial Pressure O2 81.5, Arterial Blood HCO3 23.1, Arterial Blood Oxygen Saturation 95.5, Arterial Blood Base Excess -1.1, Dayron Test Positive 04/27/17 11:55: Activated Partial Thromboplast Time [Pending] Height (Feet): 6 Height (Inches): 4.00 Weight (Pounds): 276 EENT: other - on Vent Cardiovascular: normal rate Respiratory/Chest: decreased breath sounds Abdomen: distended Objective no other changes TIARRA PARTIDA Apr 27, 2017 12:27
--- NOTE | 2017-04-27 12:32 | Infectious Diseases Prog Note ---
Assessment/Plan Assessment/Plan Assesment: LLL PNA -CXR 04/24: Persistent left perihilar consolidation, increased since the prior examination of 04/22/17. Pneumonia is of concern. -CXR: There is some left perihilar congestion or consolidation again demonstrated, unchanged. The remainder the lungs and pleural spaces are clear. -CTA chest: Fairly extensive bilateral segmental pulmonary emboli. concern for submassive pulmonary embolus. consolidation and atelectasis of a significant portion of the posterior left lower lobe. -Sp cx Normal keely x2 Fever- multifactorial- due to PE/DVT, Angiodema s/p intubation , on high dose steroids- suspect 2ry to CAROLIN-I Possible Submassive b/l PE, R DVT Renal insufficiency- ?acute vs chronic vs acute on chronic Mutinodular goiter HTN COPD Tobacco abuse Plan: -Continue IV Cefepime # 4 / and DC Vancomycin d# 4 -04/24 SP Unasyn #3 -04/23 SP IV Vanco #2 -Monitor CBC/BMP, temperatures -anticoagulation and steroids per primary team -vent management -aspiration precautions Subjective Constitutional: Denies: no symptoms, fever, chills, fatigue, anorexia, drenching sweats, other Allergies: Coded Allergies: LISINOPRIL (Verified Allergy, Severe, 04/21/17) Objective Vital Signs Last 24 Hour Vital Signs Date Time Temp Pulse Resp B/P (MAP) Pulse Ox O2 Delivery O2 Flow Rate FiO2 04/27/17 12:02 22 04/27/17 12:00 74 04/27/17 12:00 50 04/27/17 12:00 99.0 74 23 125/76 97 Mechanical Ventilator 50 04/27/17 11:30 73 25 126/83 98 Mechanical Ventilator 50 04/27/17 11:13 124/71 04/27/17 11:00 86 25 124/71 98 Mechanical Ventilator 50 04/27/17 11:00 21 04/27/17 10:37 70 18 50 04/27/17 10:30 71 23 127/70 96 Mechanical Ventilator 50 04/27/17 10:00 20 04/27/17 10:00 73 19 114/67 100 Mechanical Ventilator 50 04/27/17 09:30 74 20 117/68 100 Mechanical Ventilator 50 04/27/17 09:28 75 122/67 04/27/17 09:06 78 19 50 04/27/17 09:00 75 20 122/67 100 Mechanical Ventilator 50 04/27/17 09:00 19 04/27/17 08:30 99.1 77 23 119/78 97 Mechanical Ventilator 50 04/27/17 08:00 80 21 117/67 100 Mechanical Ventilator 50 04/27/17 08:00 50 04/27/17 08:00 21 04/27/17 08:00 78 04/27/17 07:30 85 22 114/67 100 Mechanical Ventilator 50 04/27/17 07:20 88 19 50 04/27/17 07:00 23 04/27/17 07:00 89 27 124/81 100 Mechanical Ventilator 50 04/27/17 06:30 92 27 135/79 100 Mechanical Ventilator 50 04/27/17 06:00 86 29 129/81 100 Mechanical Ventilator 50 04/27/17 06:00 29 04/27/17 06:00 29 04/27/17 06:00 29 04/27/17 06:00 29 04/27/17 06:00 29 04/27/17 06:00 29 04/27/17 06:00 27 04/27/17 06:00 29 04/27/17 06:00 29 04/27/17 05:54 18 04/27/17 05:47 116/80 04/27/17 05:30 89 25 116/80 99 Mechanical Ventilator 50 04/27/17 05:00 82 27 127/83 99 Mechanical Ventilator 50 04/27/17 05:00 27 04/27/17 05:00 27 04/27/17 05:00 27 04/27/17 05:00 27 04/27/17 05:00 27 04/27/17 05:00 27 04/27/17 05:00 27 04/27/17 05:00 27 04/27/17 05:00 27 04/27/17 05:00 27 04/27/17 05:00 27 04/27/17 05:00 27 04/27/17 04:47 79 28 50 04/27/17 04:30 80 23 157/85 97 Mechanical Ventilator 50 04/27/17 04:00 50 04/27/17 04:00 82 04/27/17 04:00 99.1 80 23 146/81 97 Mechanical Ventilator 50 04/27/17 04:00 24 04/27/17 03:30 80 23 139/88 97 Mechanical Ventilator 50 04/27/17 03:00 24 04/27/17 03:00 80 23 147/81 97 Mechanical Ventilator 50 04/27/17 02:31 86 24 50 04/27/17 02:30 82 25 149/83 97 Mechanical Ventilator 50 04/27/17 02:00 23 04/27/17 02:00 83 23 137/83 97 Mechanical Ventilator 50 04/27/17 01:30 85 25 151/83 97 Mechanical Ventilator 50 04/27/17 01:23 81 23 50 04/27/17 01:00 85 25 136/83 97 Mechanical Ventilator 50 04/27/17 01:00 22 04/27/17 00:30 85 25 156/85 97 Mechanical Ventilator 50 04/27/17 00:00 50 04/27/17 00:00 85 04/27/17 00:00 98.8 85 25 139/79 97 Mechanical Ventilator 50 04/27/17 00:00 25 04/26/17 23:30 85 25 135/82 97 Mechanical Ventilator 50 04/26/17 23:25 84 24 50 04/26/17 23:00 87 23 137/80 98 Mechanical Ventilator 50 04/26/17 23:00 23 04/26/17 22:51 22 04/26/17 22:30 88 23 129/82 98 Mechanical Ventilator 50 04/26/17 22:00 23 04/26/17 22:00 84 23 152/96 99 Mechanical Ventilator 50 04/26/17 21:45 92 26 50 04/26/17 21:30 86 26 138/75 99 Mechanical Ventilator 50 04/26/17 21:00 23 04/26/17 21:00 85 23 132/82 98 Mechanical Ventilator 50 04/26/17 20:30 85 23 141/81 99 Mechanical Ventilator 50 04/26/17 20:00 23 04/26/17 20:00 85 04/26/17 20:00 50 04/26/17 20:00 99.3 85 23 126/90 99 Mechanical Ventilator 50 04/26/17 19:30 92 27 121/78 98 Mechanical Ventilator 50 04/26/17 19:29 93 30 50 04/26/17 19:00 95 25 141/82 98 Mechanical Ventilator 60 04/26/17 19:00 28 04/26/17 18:30 88 23 128/77 97 Mechanical Ventilator 60 04/26/17 18:06 128/81 04/26/17 18:00 20 04/26/17 18:00 89 24 128/81 95 Mechanical Ventilator 60 04/26/17 17:30 92 24 130/85 96 Mechanical Ventilator 60 04/26/17 17:00 94 25 134/77 97 Mechanical Ventilator 60 04/26/17 17:00 19 04/26/17 16:49 90 20 50 04/26/17 16:30 88 20 149/91 95 Mechanical Ventilator 60 04/26/17 16:00 99.3 94 22 149/94 97 Mechanical Ventilator 60 04/26/17 16:00 20 04/26/17 16:00 50 04/26/17 16:00 108 04/26/17 15:51 22 04/26/17 15:30 91 22 133/87 94 Mechanical Ventilator 60 04/26/17 15:00 96 24 136/93 96 Mechanical Ventilator 60 04/26/17 15:00 20 04/26/17 14:55 94 20 50 04/26/17 14:30 95 25 130/78 94 Mechanical Ventilator 60 04/26/17 14:00 95 23 138/92 95 Mechanical Ventilator 60 04/26/17 14:00 20 04/26/17 13:30 94 22 135/86 96 Mechanical Ventilator 60 04/26/17 13:00 94 22 127/76 97 Mechanical Ventilator 60 04/26/17 13:00 19 04/26/17 12:55 16 04/26/17 12:50 9 18 50 Height (Feet): 6 Height (Inches): 4.00 Weight (Pounds): 276 HEENT: anicteric Respiratory/Chest: normal breath sounds Cardiovascular: regularly irregular Abdomen: non distended Laboratory Tests Test 04/27/17 04:00 04/27/17 09:00 04/27/17 11:55 White Blood Count 6.6 K/UL (4.8-10.8) Red Blood Count 3.98 M/UL (4.70-6.10) L Hemoglobin 12.4 G/DL (14.2-18.0) L Hematocrit 37.3 % (42.0-52.0) L Mean Corpuscular Volume 94 FL (80-99) Mean Corpuscular Hemoglobin 31.0 PG (27.0-31.0) Mean Corpuscular Hemoglobin Concent 33.1 G/DL (32.0-36.0) Red Cell Distribution Width 13.0 % (11.6-14.8) Platelet Count 102 K/UL (150-450) L Mean Platelet Volume 10.1 FL (6.5-10.1) Neutrophils (%) (Auto) 75.3 % (45.0-75.0) H Lymphocytes (%) (Auto) 11.3 % (20.0-45.0) L Monocytes (%) (Auto) 7.9 % (1.0-10.0) Eosinophils (%) (Auto) 4.3 % (0.0-3.0) H Basophils (%) (Auto) 1.3 % (0.0-2.0) Prothrombin Time 11.8 SEC (9.30-11.50) H Prothromb Time International Ratio 1.1 (0.9-1.1) Activated Partial Thromboplast Time 47 SEC (23-33) H Pending Sodium Level 143 MMOL/L (136-145) Potassium Level 4.3 MMOL/L (3.5-5.1) Chloride Level 108 MMOL/L (98-107) H Carbon Dioxide Level 20 MMOL/L (21-32) L Anion Gap 15 mmol/L (5-15) Blood Urea Nitrogen 48 mg/dL (7-18) H Creatinine 1.9 MG/DL (0.55-1.30) H Estimat Glomerular Filtration Rate 43.4 mL/min (>60) Glucose Level 140 MG/DL (74-106) H Calcium Level 8.7 MG/DL (8.5-10.1) Phosphorus Level 3.0 MG/DL (2.5-4.9) Magnesium Level 2.0 MG/DL (1.8-2.4) Total Bilirubin 0.5 MG/DL (0.2-1.0) Aspartate Amino Transf (AST/SGOT) 38 U/L (15-37) H Alanine Aminotransferase (ALT/SGPT) 61 U/L (12-78) Alkaline Phosphatase 50 U/L (46-116) Total Protein 6.2 G/DL (6.4-8.2) L Albumin 2.3 G/DL (3.4-5.0) L Globulin 3.9 g/dL Albumin/Globulin Ratio 0.6 (1.0-2.7) L Arterial Blood pH 7.412 (7.350-7.450) Arterial Blood Partial Pressure CO2 37.1 mmHg (35.0-45.0) Arterial Blood Partial Pressure O2 81.5 mmHg (75.0-100.0) Arterial Blood HCO3 23.1 mmol/L (22.0-26.0) Arterial Blood Oxygen Saturation 95.5 % (92.0-98.0) Arterial Blood Base Excess -1.1 Dayron Test Positive Current Medications Medications (Trade) Dose Ordered Sig/Kelsi Route PRN Reason Start Time Stop Time Status Last Admin Dose Admin Acetaminophen (Tylenol) 650 mg Q6H PRN ORAL Mild Pain/Temp > 100.5 04/21/17 00:45 05/21/17 00:44 04/24/17 15:00 Amlodipine Besylate (Norvasc) 5 mg DAILY GT 04/28/17 09:00 05/23/17 09:29 Cefepime HCl 2 gm/ Sodium Chloride 110 ml @ 220 mls/hr Q24H IV 04/27/17 10:00 05/04/17 09:59 04/27/17 09:38 Chlorhexidine Gluconate (Malena-Hex 2%) 1 applic DAILY@2000 TOPIC 04/21/17 20:00 05/21/17 19:59 04/26/17 20:00 Docusate Sodium (Colace) 100 mg THREE TIMES A DAY NG 04/22/17 18:00 05/22/17 17:59 04/26/17 18:05 Haloperidol Lactate 5 mg/ Dextrose 56 ml @ 224 mls/hr Q1H PRN IVPB AGITATION 04/24/17 08:45 05/24/17 08:44 04/26/17 06:37 Heparin Sodium/ Dextrose 500 ml @ 46.571 mls/ hr adjust per protocol IV 04/27/17 06:30 05/27/17 06:29 04/27/17 06:53 Hydralazine HCl (Apresoline) 10 mg Q4H PRN IV For High Blood Pressure 04/21/17 00:45 05/21/17 00:44 04/23/17 11:15 Lorazepam (Ativan 2mg/ml 1ml) 2 mg Q2H PRN IV For Anxiety 04/21/17 00:45 04/28/17 00:44 04/26/17 01:43 Metoprolol Tartrate (Lopressor) 5 mg Q6H PRN IVP heart rate greater than 125 04/21/17 20:00 05/21/17 19:59 Midazolam HCl 100 ml @ 0 mls/hr Q24H PRN IVPB . 04/27/17 10:15 05/24/17 14:59 04/27/17 12:02 Morphine Sulfate (Morphine Sulfate) 4 mg Q2H PRN IVP For Severe Pain 04/21/17 11:45 04/28/17 11:44 04/26/17 03:55 Nicotine (Nicoderm) 1 patch Q24H TDERMAL 04/22/17 14:00 05/22/17 13:59 04/26/17 13:56 Nitroglycerin (Nitro-Bid) 1 inch TID@0600,1200,1800 TOPIC 04/22/17 06:00 05/22/17 05:59 04/27/17 11:13 Pantoprazole (Protonix) 40 mg BID IVP 04/25/17 18:00 05/21/17 08:59 04/27/17 09:28 Polyethylene Glycol (Miralax) 17 gm BEDTIME GT 04/27/17 21:00 05/22/17 20:59 Vancomycin HCl (Vanco rx to dose) 1 ea DAILY PRN MISC Per rx protocol 04/24/17 08:45 05/24/17 08:44 Vancomycin/Sodium Chloride 250 ml @ 166.667 mls/hr Q12H IVPB 04/26/17 15:00 05/01/17 14:59 04/27/17 02:49 DIANA VELAZQUEZ M.D. Apr 27, 2017 12:32
--- NOTE | 2017-04-27 12:58 | Pulmonolgy Critical Care Note ---
Critical Care - Asmt/Plan Problems: (1) Acute respiratory failure (2) ATN (acute tubular necrosis) (3) Hypertension (4) Renal insufficiency (5) Angioedema Respiratory: adjust tidal volume, monitor respiratory rate Cardiac: start pressors, continue to monitor HR/BP Renal: F/U I&O, keep IV fluid Infectious Disease: check cultures, continue antibiotics Gastrointestinal: hold feedings Endocrine: monitor blood sugar, check TSH, continue sliding scale insulin Hematologic: monitor H/H, transfuse if hgb<8.5 Neurologic: PRN Morphine, keep patient comfortable Affect: PRN ativan Prophylaxis: Heparin Notes Reviewed: director payment, renal Discussed with: nurses, consultants, case management specialistlaunch manager - Objective Last 24 Hour Vital Signs Date Time Temp Pulse Resp B/P (MAP) Pulse Ox O2 Delivery O2 Flow Rate FiO2 04/27/17 12:02 22 04/27/17 12:00 74 04/27/17 12:00 50 04/27/17 12:00 99.0 74 23 125/76 97 Mechanical Ventilator 50 04/27/17 11:30 73 25 126/83 98 Mechanical Ventilator 50 04/27/17 11:13 124/71 04/27/17 11:00 86 25 124/71 98 Mechanical Ventilator 50 04/27/17 11:00 21 04/27/17 10:37 70 18 50 04/27/17 10:30 71 23 127/70 96 Mechanical Ventilator 50 04/27/17 10:00 20 04/27/17 10:00 73 19 114/67 100 Mechanical Ventilator 50 04/27/17 09:30 74 20 117/68 100 Mechanical Ventilator 50 04/27/17 09:28 75 122/67 04/27/17 09:06 78 19 50 04/27/17 09:00 75 20 122/67 100 Mechanical Ventilator 50 04/27/17 09:00 19 04/27/17 08:30 99.1 77 23 119/78 97 Mechanical Ventilator 50 04/27/17 08:00 80 21 117/67 100 Mechanical Ventilator 50 04/27/17 08:00 50 04/27/17 08:00 21 04/27/17 08:00 78 04/27/17 07:30 85 22 114/67 100 Mechanical Ventilator 50 04/27/17 07:20 88 19 50 04/27/17 07:00 23 04/27/17 07:00 89 27 124/81 100 Mechanical Ventilator 50 04/27/17 06:30 92 27 135/79 100 Mechanical Ventilator 50 04/27/17 06:00 86 29 129/81 100 Mechanical Ventilator 50 04/27/17 06:00 29 04/27/17 06:00 29 04/27/17 06:00 29 04/27/17 06:00 29 04/27/17 06:00 29 04/27/17 06:00 29 04/27/17 06:00 27 04/27/17 06:00 29 04/27/17 06:00 29 04/27/17 05:54 18 04/27/17 05:47 116/80 04/27/17 05:30 89 25 116/80 99 Mechanical Ventilator 50 04/27/17 05:00 82 27 127/83 99 Mechanical Ventilator 50 04/27/17 05:00 27 04/27/17 05:00 27 04/27/17 05:00 27 04/27/17 05:00 27 04/27/17 05:00 27 04/27/17 05:00 27 04/27/17 05:00 27 04/27/17 05:00 27 04/27/17 05:00 27 04/27/17 05:00 27 04/27/17 05:00 27 04/27/17 05:00 27 04/27/17 04:47 79 28 50 04/27/17 04:30 80 23 157/85 97 Mechanical Ventilator 50 04/27/17 04:00 50 04/27/17 04:00 82 04/27/17 04:00 99.1 80 23 146/81 97 Mechanical Ventilator 50 04/27/17 04:00 24 04/27/17 03:30 80 23 139/88 97 Mechanical Ventilator 50 04/27/17 03:00 24 04/27/17 03:00 80 23 147/81 97 Mechanical Ventilator 50 04/27/17 02:31 86 24 50 04/27/17 02:30 82 25 149/83 97 Mechanical Ventilator 50 04/27/17 02:00 23 04/27/17 02:00 83 23 137/83 97 Mechanical Ventilator 50 04/27/17 01:30 85 25 151/83 97 Mechanical Ventilator 50 04/27/17 01:23 81 23 50 04/27/17 01:00 85 25 136/83 97 Mechanical Ventilator 50 04/27/17 01:00 22 04/27/17 00:30 85 25 156/85 97 Mechanical Ventilator 50 04/27/17 00:00 50 04/27/17 00:00 85 04/27/17 00:00 98.8 85 25 139/79 97 Mechanical Ventilator 50 04/27/17 00:00 25 04/26/17 23:30 85 25 135/82 97 Mechanical Ventilator 50 04/26/17 23:25 84 24 50 04/26/17 23:00 87 23 137/80 98 Mechanical Ventilator 50 04/26/17 23:00 23 04/26/17 22:51 22 04/26/17 22:30 88 23 129/82 98 Mechanical Ventilator 50 04/26/17 22:00 23 04/26/17 22:00 84 23 152/96 99 Mechanical Ventilator 50 04/26/17 21:45 92 26 50 04/26/17 21:30 86 26 138/75 99 Mechanical Ventilator 50 04/26/17 21:00 23 04/26/17 21:00 85 23 132/82 98 Mechanical Ventilator 50 04/26/17 20:30 85 23 141/81 99 Mechanical Ventilator 50 04/26/17 20:00 23 04/26/17 20:00 85 04/26/17 20:00 50 04/26/17 20:00 99.3 85 23 126/90 99 Mechanical Ventilator 50 04/26/17 19:30 92 27 121/78 98 Mechanical Ventilator 50 04/26/17 19:29 93 30 50 04/26/17 19:00 95 25 141/82 98 Mechanical Ventilator 60 04/26/17 19:00 28 04/26/17 18:30 88 23 128/77 97 Mechanical Ventilator 60 04/26/17 18:06 128/81 04/26/17 18:00 20 04/26/17 18:00 89 24 128/81 95 Mechanical Ventilator 60 04/26/17 17:30 92 24 130/85 96 Mechanical Ventilator 60 04/26/17 17:00 94 25 134/77 97 Mechanical Ventilator 60 04/26/17 17:00 19 04/26/17 16:49 90 20 50 04/26/17 16:30 88 20 149/91 95 Mechanical Ventilator 60 04/26/17 16:00 99.3 94 22 149/94 97 Mechanical Ventilator 60 04/26/17 16:00 20 04/26/17 16:00 50 04/26/17 16:00 108 04/26/17 15:51 22 04/26/17 15:30 91 22 133/87 94 Mechanical Ventilator 60 04/26/17 15:00 96 24 136/93 96 Mechanical Ventilator 60 04/26/17 15:00 20 04/26/17 14:55 94 20 50 04/26/17 14:30 95 25 130/78 94 Mechanical Ventilator 60 04/26/17 14:00 95 23 138/92 95 Mechanical Ventilator 60 04/26/17 14:00 20 04/26/17 13:30 94 22 135/86 96 Mechanical Ventilator 60 04/26/17 13:00 94 22 127/76 97 Mechanical Ventilator 60 04/26/17 13:00 19 04/26/17 12:55 16 Status: sedated Condition: critical Heart: HR/BP unstable, regular Abdomen: non-tender, active bowel sounds Extremities: no C/C/E Decubiti: location, stage Critical Care - Subjective ROS Limited/Unobtainable: No ICU Day: 7 Intubation Day: 7 EKG Rhythm: Sinus Rhythm FI02: 50 Vent Support Breath Rate: 16 Vent Support Mode: AC Vent Tidal Volume: 700 Sputum Amount: Moderate PEEP: 5.0 PIP: 25 Tube Feeding Amount: 50 I&O: Intake and Output 04/27/17 04/28/17 19:00 07:00 Intake Total 644.571 ml Output Total 620 ml Balance 24.571 ml Free Water 50 ml IV Total 344.571 ml Tube Feeding 250 ml Output Urine Total 620 ml # Bowel Movements 4 CXR: no change, ET tube in place ET-Tube: 7.0 ET Position: 27 Labs: Laboratory Tests Test 04/27/17 04:00 04/27/17 09:00 04/27/17 11:55 White Blood Count 6.6 K/UL (4.8-10.8) Red Blood Count 3.98 M/UL (4.70-6.10) L Hemoglobin 12.4 G/DL (14.2-18.0) L Hematocrit 37.3 % (42.0-52.0) L Mean Corpuscular Volume 94 FL (80-99) Mean Corpuscular Hemoglobin 31.0 PG (27.0-31.0) Mean Corpuscular Hemoglobin Concent 33.1 G/DL (32.0-36.0) Red Cell Distribution Width 13.0 % (11.6-14.8) Platelet Count 102 K/UL (150-450) L Mean Platelet Volume 10.1 FL (6.5-10.1) Neutrophils (%) (Auto) 75.3 % (45.0-75.0) H Lymphocytes (%) (Auto) 11.3 % (20.0-45.0) L Monocytes (%) (Auto) 7.9 % (1.0-10.0) Eosinophils (%) (Auto) 4.3 % (0.0-3.0) H Basophils (%) (Auto) 1.3 % (0.0-2.0) Prothrombin Time 11.8 SEC (9.30-11.50) H Prothromb Time International Ratio 1.1 (0.9-1.1) Activated Partial Thromboplast Time 47 SEC (23-33) H > 150 SEC (23-33) *H Sodium Level 143 MMOL/L (136-145) Potassium Level 4.3 MMOL/L (3.5-5.1) Chloride Level 108 MMOL/L (98-107) H Carbon Dioxide Level 20 MMOL/L (21-32) L Anion Gap 15 mmol/L (5-15) Blood Urea Nitrogen 48 mg/dL (7-18) H Creatinine 1.9 MG/DL (0.55-1.30) H Estimat Glomerular Filtration Rate 43.4 mL/min (>60) Glucose Level 140 MG/DL (74-106) H Calcium Level 8.7 MG/DL (8.5-10.1) Phosphorus Level 3.0 MG/DL (2.5-4.9) Magnesium Level 2.0 MG/DL (1.8-2.4) Total Bilirubin 0.5 MG/DL (0.2-1.0) Aspartate Amino Transf (AST/SGOT) 38 U/L (15-37) H Alanine Aminotransferase (ALT/SGPT) 61 U/L (12-78) Alkaline Phosphatase 50 U/L (46-116) Total Protein 6.2 G/DL (6.4-8.2) L Albumin 2.3 G/DL (3.4-5.0) L Globulin 3.9 g/dL Albumin/Globulin Ratio 0.6 (1.0-2.7) L Arterial Blood pH 7.412 (7.350-7.450) Arterial Blood Partial Pressure CO2 37.1 mmHg (35.0-45.0) Arterial Blood Partial Pressure O2 81.5 mmHg (75.0-100.0) Arterial Blood HCO3 23.1 mmol/L (22.0-26.0) Arterial Blood Oxygen Saturation 95.5 % (92.0-98.0) Arterial Blood Base Excess -1.1 Dayron Test Positive VIVEK SOLOMON Apr 27, 2017 12:58
[2017-04-27] MEDS ORDERED: Haloperidol 5mg/ml Inj IVPB PRN (13:15)
[2017-04-27] MEDS ORDERED: NS 275ml ONE (15:59)
--- NOTE | 2017-04-27 16:54 | Cardiology Progress Note ---
Assessment/Plan Assessment/Plan 1. Allergic reaction. 2. Angioneurotic edema. 3. Hypertension. 4. Respiratory failure. 5. Hypoxemia. 6. Metabolic encephalopathy. 7. Renal insufficiency. 8. Tachycardia. 9. pulm htn 10. Pulmo embolism 11. abn torp likely related to PE 12 ACEI allergy 13. dvt on the vent still bp is fine on abx sat are fine wean a possible hemodynamically stable dvt noted may have been more extensive prior to embolization telel neg d/w rn Subjective ROS Limited/Unobtainable: Yes Subjective intubated , on cosmo Objective Last 24 Hour Vital Signs Date Time Temp Pulse Resp B/P (MAP) Pulse Ox O2 Delivery O2 Flow Rate FiO2 04/27/17 16:47 76 24 40 04/27/17 16:00 78 04/27/17 16:00 40 04/27/17 16:00 99.0 74 23 136/79 97 Mechanical Ventilator 40 04/27/17 15:35 79 29 40 04/27/17 15:30 78 26 155/93 98 Mechanical Ventilator 40 04/27/17 15:00 22 04/27/17 15:00 80 24 140/83 98 Mechanical Ventilator 40 04/27/17 14:30 79 25 134/83 98 Mechanical Ventilator 40 04/27/17 14:00 78 25 137/80 98 Mechanical Ventilator 40 04/27/17 14:00 21 04/27/17 13:30 80 25 133/74 98 Mechanical Ventilator 40 04/27/17 13:00 76 26 130/79 98 Mechanical Ventilator 50 04/27/17 13:00 22 04/27/17 12:52 79 24 40 04/27/17 12:30 73 25 126/83 98 Mechanical Ventilator 50 04/27/17 12:02 22 04/27/17 12:00 74 04/27/17 12:00 50 04/27/17 12:00 99.0 74 23 125/76 97 Mechanical Ventilator 50 04/27/17 11:30 73 25 126/83 98 Mechanical Ventilator 50 04/27/17 11:13 124/71 04/27/17 11:00 86 25 124/71 98 Mechanical Ventilator 50 04/27/17 11:00 21 04/27/17 10:37 70 18 50 04/27/17 10:30 71 23 127/70 96 Mechanical Ventilator 50 04/27/17 10:00 20 04/27/17 10:00 73 19 114/67 100 Mechanical Ventilator 50 04/27/17 09:30 74 20 117/68 100 Mechanical Ventilator 50 04/27/17 09:28 75 122/67 04/27/17 09:06 78 19 50 04/27/17 09:00 75 20 122/67 100 Mechanical Ventilator 50 04/27/17 09:00 19 04/27/17 08:30 99.1 77 23 119/78 97 Mechanical Ventilator 50 04/27/17 08:00 80 21 117/67 100 Mechanical Ventilator 50 04/27/17 08:00 50 04/27/17 08:00 21 04/27/17 08:00 78 04/27/17 07:30 85 22 114/67 100 Mechanical Ventilator 50 04/27/17 07:20 88 19 50 04/27/17 07:00 23 04/27/17 07:00 89 27 124/81 100 Mechanical Ventilator 50 04/27/17 06:30 92 27 135/79 100 Mechanical Ventilator 50 04/27/17 06:00 86 29 129/81 100 Mechanical Ventilator 50 04/27/17 06:00 29 04/27/17 06:00 29 04/27/17 06:00 29 04/27/17 06:00 29 04/27/17 06:00 29 04/27/17 06:00 29 04/27/17 06:00 27 04/27/17 06:00 29 04/27/17 06:00 29 04/27/17 05:54 18 04/27/17 05:47 116/80 04/27/17 05:30 89 25 116/80 99 Mechanical Ventilator 50 04/27/17 05:00 82 27 127/83 99 Mechanical Ventilator 50 04/27/17 05:00 27 04/27/17 05:00 27 04/27/17 05:00 27 04/27/17 05:00 27 04/27/17 05:00 27 04/27/17 05:00 27 04/27/17 05:00 27 04/27/17 05:00 27 04/27/17 05:00 27 04/27/17 05:00 27 04/27/17 05:00 27 04/27/17 05:00 27 04/27/17 04:47 79 28 50 04/27/17 04:30 80 23 157/85 97 Mechanical Ventilator 50 04/27/17 04:00 50 04/27/17 04:00 82 04/27/17 04:00 99.1 80 23 146/81 97 Mechanical Ventilator 50 04/27/17 04:00 24 04/27/17 03:30 80 23 139/88 97 Mechanical Ventilator 50 04/27/17 03:00 24 04/27/17 03:00 80 23 147/81 97 Mechanical Ventilator 50 04/27/17 02:31 86 24 50 04/27/17 02:30 82 25 149/83 97 Mechanical Ventilator 50 04/27/17 02:00 23 04/27/17 02:00 83 23 137/83 97 Mechanical Ventilator 50 04/27/17 01:30 85 25 151/83 97 Mechanical Ventilator 50 04/27/17 01:23 81 23 50 04/27/17 01:00 85 25 136/83 97 Mechanical Ventilator 50 04/27/17 01:00 22 04/27/17 00:30 85 25 156/85 97 Mechanical Ventilator 50 04/27/17 00:00 50 04/27/17 00:00 85 04/27/17 00:00 98.8 85 25 139/79 97 Mechanical Ventilator 50 04/27/17 00:00 25 04/26/17 23:30 85 25 135/82 97 Mechanical Ventilator 50 04/26/17 23:25 84 24 50 04/26/17 23:00 87 23 137/80 98 Mechanical Ventilator 50 04/26/17 23:00 23 04/26/17 22:51 22 04/26/17 22:30 88 23 129/82 98 Mechanical Ventilator 50 04/26/17 22:00 23 04/26/17 22:00 84 23 152/96 99 Mechanical Ventilator 50 04/26/17 21:45 92 26 50 04/26/17 21:30 86 26 138/75 99 Mechanical Ventilator 50 04/26/17 21:00 23 04/26/17 21:00 85 23 132/82 98 Mechanical Ventilator 50 04/26/17 20:30 85 23 141/81 99 Mechanical Ventilator 50 04/26/17 20:00 23 04/26/17 20:00 85 04/26/17 20:00 50 04/26/17 20:00 99.3 85 23 126/90 99 Mechanical Ventilator 50 04/26/17 19:30 92 27 121/78 98 Mechanical Ventilator 50 04/26/17 19:29 93 30 50 04/26/17 19:00 95 25 141/82 98 Mechanical Ventilator 60 04/26/17 19:00 28 04/26/17 18:30 88 23 128/77 97 Mechanical Ventilator 60 04/26/17 18:06 128/81 04/26/17 18:00 20 04/26/17 18:00 89 24 128/81 95 Mechanical Ventilator 60 04/26/17 17:30 92 24 130/85 96 Mechanical Ventilator 60 04/26/17 17:00 94 25 134/77 97 Mechanical Ventilator 60 04/26/17 17:00 19 General Appearance: no apparent distress, other - sleeping / seedated Neck: supple Cardiovascular: normal rate, regular rhythm Respiratory/Chest: lungs clear - ant Abdomen: normal bowel sounds, non tender, soft Extremities: no swelling Intake and Output 04/27/17 04/28/17 19:00 07:00 Intake Total 1101.246 ml Output Total 1040 ml Balance 61.246 ml Free Water 100 ml IV Total 551.246 ml Tube Feeding 450 ml Output Urine Total 1040 ml # Bowel Movements 5 Laboratory Tests Test 04/27/17 04:00 04/27/17 09:00 04/27/17 11:55 White Blood Count 6.6 K/UL (4.8-10.8) Red Blood Count 3.98 M/UL (4.70-6.10) L Hemoglobin 12.4 G/DL (14.2-18.0) L Hematocrit 37.3 % (42.0-52.0) L Mean Corpuscular Volume 94 FL (80-99) Mean Corpuscular Hemoglobin 31.0 PG (27.0-31.0) Mean Corpuscular Hemoglobin Concent 33.1 G/DL (32.0-36.0) Red Cell Distribution Width 13.0 % (11.6-14.8) Platelet Count 102 K/UL (150-450) L Mean Platelet Volume 10.1 FL (6.5-10.1) Neutrophils (%) (Auto) 75.3 % (45.0-75.0) H Lymphocytes (%) (Auto) 11.3 % (20.0-45.0) L Monocytes (%) (Auto) 7.9 % (1.0-10.0) Eosinophils (%) (Auto) 4.3 % (0.0-3.0) H Basophils (%) (Auto) 1.3 % (0.0-2.0) Prothrombin Time 11.8 SEC (9.30-11.50) H Prothromb Time International Ratio 1.1 (0.9-1.1) Activated Partial Thromboplast Time 47 SEC (23-33) H > 150 SEC (23-33) *H Sodium Level 143 MMOL/L (136-145) Potassium Level 4.3 MMOL/L (3.5-5.1) Chloride Level 108 MMOL/L (98-107) H Carbon Dioxide Level 20 MMOL/L (21-32) L Anion Gap 15 mmol/L (5-15) Blood Urea Nitrogen 48 mg/dL (7-18) H Creatinine 1.9 MG/DL (0.55-1.30) H Estimat Glomerular Filtration Rate 43.4 mL/min (>60) Glucose Level 140 MG/DL (74-106) H Calcium Level 8.7 MG/DL (8.5-10.1) Phosphorus Level 3.0 MG/DL (2.5-4.9) Magnesium Level 2.0 MG/DL (1.8-2.4) Total Bilirubin 0.5 MG/DL (0.2-1.0) Aspartate Amino Transf (AST/SGOT) 38 U/L (15-37) H Alanine Aminotransferase (ALT/SGPT) 61 U/L (12-78) Alkaline Phosphatase 50 U/L (46-116) Total Protein 6.2 G/DL (6.4-8.2) L Albumin 2.3 G/DL (3.4-5.0) L Globulin 3.9 g/dL Albumin/Globulin Ratio 0.6 (1.0-2.7) L Arterial Blood pH 7.412 (7.350-7.450) Arterial Blood Partial Pressure CO2 37.1 mmHg (35.0-45.0) Arterial Blood Partial Pressure O2 81.5 mmHg (75.0-100.0) Arterial Blood HCO3 23.1 mmol/L (22.0-26.0) Arterial Blood Oxygen Saturation 95.5 % (92.0-98.0) Arterial Blood Base Excess -1.1 Dayron Test Positive RUBEN CHAVEZ Apr 27, 2017 16:54
--- NOTE | 2017-04-27 18:04 | General Progress Note ---
Assessment/Plan Assessment/Plan Assessment and Recs 1. Pulmonary embolism. --> sob improving, requiring less o2 --> on heparin gtt 2. DVT- right leg subacute thrombus in mid superficial femoral vein. --> on heparin drip, will eventually require lifelong anticoagulation 3. Coagulopathy 2/2 heparin drip 4. Anemia, work up if drops below 10 5. Thrombocytopenia, concerning for HIT vs sepsis --> HIT test pending Subjective ROS Limited/Unobtainable: Yes Allergies: Coded Allergies: LISINOPRIL (Verified Allergy, Severe, 04/21/17) Subjective on heparin drip Objective Last 24 Hour Vital Signs Date Time Temp Pulse Resp B/P (MAP) Pulse Ox O2 Delivery O2 Flow Rate FiO2 04/27/17 17:48 136/78 04/27/17 17:30 77 20 136/78 96 Mechanical Ventilator 40 04/27/17 17:00 79 26 138/81 98 Mechanical Ventilator 40 04/27/17 16:47 76 24 40 04/27/17 16:30 79 26 138/81 98 Mechanical Ventilator 40 04/27/17 16:00 78 04/27/17 16:00 40 04/27/17 16:00 99.0 74 23 136/79 97 Mechanical Ventilator 40 04/27/17 15:35 79 29 40 04/27/17 15:30 78 26 155/93 98 Mechanical Ventilator 40 04/27/17 15:00 22 04/27/17 15:00 80 24 140/83 98 Mechanical Ventilator 40 04/27/17 14:30 79 25 134/83 98 Mechanical Ventilator 40 04/27/17 14:00 78 25 137/80 98 Mechanical Ventilator 40 04/27/17 14:00 21 04/27/17 13:30 80 25 133/74 98 Mechanical Ventilator 40 04/27/17 13:00 76 26 130/79 98 Mechanical Ventilator 50 04/27/17 13:00 22 04/27/17 12:52 79 24 40 04/27/17 12:30 73 25 126/83 98 Mechanical Ventilator 50 04/27/17 12:02 22 04/27/17 12:00 74 04/27/17 12:00 50 04/27/17 12:00 99.0 74 23 125/76 97 Mechanical Ventilator 50 04/27/17 11:30 73 25 126/83 98 Mechanical Ventilator 50 04/27/17 11:13 124/71 11/1/17 11:00 86 25 124/71 98 Mechanical Ventilator 50 04/27/17 11:00 21 04/27/17 10:37 70 18 50 04/27/17 10:30 71 23 127/70 96 Mechanical Ventilator 50 04/27/17 10:00 20 04/27/17 10:00 73 19 114/67 100 Mechanical Ventilator 50 04/27/17 09:30 74 20 117/68 100 Mechanical Ventilator 50 04/27/17 09:28 75 122/67 04/27/17 09:06 78 19 50 04/27/17 09:00 75 20 122/67 100 Mechanical Ventilator 50 04/27/17 09:00 19 04/27/17 08:30 99.1 77 23 119/78 97 Mechanical Ventilator 50 04/27/17 08:00 80 21 117/67 100 Mechanical Ventilator 50 04/27/17 08:00 50 04/27/17 08:00 21 04/27/17 08:00 78 04/27/17 07:30 85 22 114/67 100 Mechanical Ventilator 50 04/27/17 07:20 88 19 50 04/27/17 07:00 23 04/27/17 07:00 89 27 124/81 100 Mechanical Ventilator 50 04/27/17 06:30 92 27 135/79 100 Mechanical Ventilator 50 04/27/17 06:00 86 29 129/81 100 Mechanical Ventilator 50 04/27/17 06:00 29 04/27/17 06:00 29 04/27/17 06:00 29 04/27/17 06:00 29 04/27/17 06:00 29 04/27/17 06:00 29 04/27/17 06:00 27 04/27/17 06:00 29 04/27/17 06:00 29 04/27/17 05:54 18 04/27/17 05:47 116/80 04/27/17 05:30 89 25 116/80 99 Mechanical Ventilator 50 04/27/17 05:00 82 27 127/83 99 Mechanical Ventilator 50 04/27/17 05:00 27 04/27/17 05:00 27 04/27/17 05:00 27 04/27/17 05:00 27 04/27/17 05:00 27 04/27/17 05:00 27 04/27/17 05:00 27 04/27/17 05:00 27 04/27/17 05:00 27 04/27/17 05:00 27 04/27/17 05:00 27 04/27/17 05:00 27 04/27/17 04:47 79 28 50 04/27/17 04:30 80 23 157/85 97 Mechanical Ventilator 50 04/27/17 04:00 50 04/27/17 04:00 82 04/27/17 04:00 99.1 80 23 146/81 97 Mechanical Ventilator 50 04/27/17 04:00 24 04/27/17 03:30 80 23 139/88 97 Mechanical Ventilator 50 04/27/17 03:00 24 04/27/17 03:00 80 23 147/81 97 Mechanical Ventilator 50 04/27/17 02:31 86 24 50 04/27/17 02:30 82 25 149/83 97 Mechanical Ventilator 50 04/27/17 02:00 23 04/27/17 02:00 83 23 137/83 97 Mechanical Ventilator 50 04/27/17 01:30 85 25 151/83 97 Mechanical Ventilator 50 04/27/17 01:23 81 23 50 04/27/17 01:00 85 25 136/83 97 Mechanical Ventilator 50 04/27/17 01:00 22 04/27/17 00:30 85 25 156/85 97 Mechanical Ventilator 50 04/27/17 00:00 50 04/27/17 00:00 85 04/27/17 00:00 98.8 85 25 139/79 97 Mechanical Ventilator 50 04/27/17 00:00 25 04/26/17 23:30 85 25 135/82 97 Mechanical Ventilator 50 04/26/17 23:25 84 24 50 04/26/17 23:00 87 23 137/80 98 Mechanical Ventilator 50 04/26/17 23:00 23 04/26/17 22:51 22 04/26/17 22:30 88 23 129/82 98 Mechanical Ventilator 50 04/26/17 22:00 23 04/26/17 22:00 84 23 152/96 99 Mechanical Ventilator 50 04/26/17 21:45 92 26 50 04/26/17 21:30 86 26 138/75 99 Mechanical Ventilator 50 04/26/17 21:00 23 04/26/17 21:00 85 23 132/82 98 Mechanical Ventilator 50 04/26/17 20:30 85 23 141/81 99 Mechanical Ventilator 50 04/26/17 20:00 23 04/26/17 20:00 85 04/26/17 20:00 50 04/26/17 20:00 99.3 85 23 126/90 99 Mechanical Ventilator 50 04/26/17 19:30 92 27 121/78 98 Mechanical Ventilator 50 04/26/17 19:29 93 30 50 04/26/17 19:00 95 25 141/82 98 Mechanical Ventilator 60 04/26/17 19:00 28 04/26/17 18:30 88 23 128/77 97 Mechanical Ventilator 60 04/26/17 18:06 128/81 Intake and Output 04/27/17 04/28/17 19:00 07:00 Intake Total 1201.246 ml Output Total 1140 ml Balance 61.246 ml Free Water 150 ml IV Total 551.246 ml Tube Feeding 500 ml Output Urine Total 1140 ml # Bowel Movements 5 Laboratory Tests 04/27/17 04:00: White Blood Count 6.6, Red Blood Count 3.98L, Hemoglobin 12.4L, Hematocrit 37.3L , Mean Corpuscular Volume 94, Mean Corpuscular Hemoglobin 31.0, Mean Corpuscular Hemoglobin Concent 33.1, Red Cell Distribution Width 13.0, Platelet Count 102L, Mean Platelet Volume 10.1, Neutrophils (%) (Auto) 75.3H, Lymphocytes (%) (Auto) 11.3L, Monocytes (%) (Auto) 7.9, Eosinophils (%) (Auto) 4.3H, Basophils (%) (Auto) 1.3, Prothrombin Time 11.8H, Prothromb Time International Ratio 1.1, Activated Partial Thromboplast Time 47H, Sodium Level 143, Potassium Level 4.3, Chloride Level 108H, Carbon Dioxide Level 20L, Anion Gap 15, Blood Urea Nitrogen 48H, Creatinine 1.9H, Estimat Glomerular Filtration Rate 43.4, Glucose Level 140H, Calcium Level 8.7, Phosphorus Level 3.0, Magnesium Level 2.0, Total Bilirubin 0.5, Aspartate Amino Transf (AST/SGOT) 38H , Alanine Aminotransferase (ALT/SGPT) 61, Alkaline Phosphatase 50, Total Protein 6.2L, Albumin 2.3L, Globulin 3.9, Albumin/Globulin Ratio 0.6L 04/27/17 09:00: Arterial Blood pH 7.412, Arterial Blood Partial Pressure CO2 37.1, Arterial Blood Partial Pressure O2 81.5, Arterial Blood HCO3 23.1, Arterial Blood Oxygen Saturation 95.5, Arterial Blood Base Excess -1.1, Dayron Test Positive 04/27/17 11:55: Activated Partial Thromboplast Time > 150*H Height (Feet): 6 Height (Inches): 4.00 Weight (Pounds): 276 General Appearance: no apparent distress EENT: normal ENT inspection Neck: normal alignment, supple Edema: mild edema 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
[2017-04-27] MEDS: Dyna-Hex 2% Top Sol 2oz TOPIC SCH (19:38)
[2017-04-27] MEDS: Miralax 17gm pkt GT SCH (21:00)
[2017-04-28] VITALS (24 sets, daily range): BP systolic 123–168; BP diastolic 46–102
[2017-04-28] MEDS: Morphine Sulfate 4mg/ml Inj IVP PRN (01:10)
[2017-04-28 04:56] LABS: BASOPHILS % (AUTO) 1.3 % (0.0-2.0); EOSINOPHILS % (AUTO) 3.1 % (0.0-3.0); LYMPHOCYTES % (AUTO) 8.8 % (20.0-45.0); MEAN CORPUSCULAR HEMOGLOBIN 30.2 PG (27.0-31.0); MEAN CORPUSCULAR HGB CONC 32.2 G/DL (32.0-36.0); MEAN CORPUSCULAR VOLUME 94 FL (80-99); MEAN PLATELET VOLUME 11.8 FL (6.5-10.1); MONOCYTES % (AUTO) 7.3 % (1.0-10.0); NEUTROPHILS % (AUTO) 79.5 % (45.0-75.0); PLATELET COUNT 113 K/UL (150-450); RED BLOOD COUNT 3.81 M/UL (4.70-6.10); WHITE BLOOD COUNT 6.8 K/UL (4.8-10.8)
[2017-04-28 05:14] LABS: MAGNESIUM 2.2 MG/DL (1.8-2.4); PHOSPHORUS 3.6 MG/DL (2.5-4.9)
[2017-04-28 05:18] LABS: INR 1.1 (0.9-1.1); PROTHROMBIN TIME 11.1 SEC (9.30-11.50)
[2017-04-28 05:26] LABS: ALANINE AMINOTRANSFERASE 67 U/L (12-78); ALBUMIN/GLOBULIN RATIO 0.5 (1.0-2.7); ANION GAP 5 mmol/L (5-15); ASPARTATE AMINO TRANSFERASE 30 U/L (15-37); CALCIUM 8.7 MG/DL (8.5-10.1); CARBON DIOXIDE 29 MMOL/L (21-32); CHLORIDE 105 MMOL/L (98-107); GLOMERULAR FILTRATION RATE 40.8 mL/min (>60); POTASSIUM 4.2 MMOL/L (3.5-5.1); SODIUM 138 MMOL/L (136-145); TOTAL PROTEIN 6.2 G/DL (6.4-8.2)
[2017-04-28] MEDS: Nitroglycerin 2% oint pkt TOPIC SCH ×3 (05:38→18:05)
[2017-04-28 08:30] LABS: ABG ALLEN TEST POSITIVE; ABG BASE EXCESS 29.9; ABG PCO2 35.5 mmHg (35.0-45.0)
[2017-04-28] MEDS: Pantoprazole Inj IVP SCH ×2 (08:34→18:05)
[2017-04-28] MEDS: Docusate 100mg/10ml Liq NG SCH ×3 (08:35→17:59)
[2017-04-28] MEDS: Cefepime HCl 2 GM in NS 110 ML IV SCH (09:41)
[2017-04-28] MEDS: Heparin 25,000u/D5W 500ml 500 ML IV SCH (10:02)
--- NOTE | 2017-04-28 11:03 | GI Progress Note ---
Assessment/Plan Problems: (1) Abdominal distension ICD Codes: R14.0 - Abdominal distension (gaseous) SNOMED: 16991576 (2) Hypoalbuminemia ICD Codes: E88.09 - Other disorders of plasma-protein metabolism, not elsewhere classified SNOMED: 788248773 (3) Angioedema ICD Codes: T78.3XXA - Angioneurotic edema, initial encounter SNOMED: 79047043 Status: progressing Status Narrative Discussed with Dr. Cazares. Assessment/Plan NGTF tolerated fu labs ppi fu pulm recs, now on CPAP Subjective Subjective limited Objective Last 24 Hour Vital Signs Date Time Temp Pulse Resp B/P (MAP) Pulse Ox O2 Delivery O2 Flow Rate FiO2 04/28/17 10:38 96 21 45 04/28/17 10:00 97 22 147/101 98 Mechanical Ventilator 45 04/28/17 09:03 95 04/28/17 09:02 45 04/28/17 09:00 45 04/28/17 09:00 93 18 135/83 97 Mechanical Ventilator 40 04/28/17 08:55 91 22 40 04/28/17 08:34 93 136/82 04/28/17 08:00 91 04/28/17 08:00 99.6 92 18 123/86 94 Mechanical Ventilator 40 04/28/17 08:00 40 04/28/17 07:10 93 20 40 04/28/17 07:00 84 20 123/83 98 Mechanical Ventilator 40 04/28/17 06:00 83 20 149/80 98 Mechanical Ventilator 40 04/28/17 05:38 137/75 04/28/17 05:21 82 18 40 04/28/17 05:00 83 19 137/75 96 Mechanical Ventilator 40 04/28/17 04:00 40 04/28/17 04:00 83 04/28/17 04:00 99.8 83 20 133/75 97 Mechanical Ventilator 40 04/28/17 03:27 86 19 40 04/28/17 03:00 86 19 139/82 96 Mechanical Ventilator 40 04/28/17 02:00 85 20 135/79 98 Mechanical Ventilator 40 04/28/17 01:27 82 21 40 04/28/17 01:00 85 20 135/79 98 Mechanical Ventilator 40 04/28/17 00:00 79 04/28/17 00:00 99.9 83 20 147/88 97 Mechanical Ventilator 40 04/28/17 00:00 40 04/27/17 23:20 79 23 40 04/27/17 23:00 80 20 140/80 96 Mechanical Ventilator 40 04/27/17 22:00 80 21 131/72 97 Mechanical Ventilator 40 04/27/17 21:16 80 23 40 04/27/17 21:00 101.0 79 0 137/87 96 Mechanical Ventilator 40 04/27/17 20:37 101.0 04/27/17 20:00 40 04/27/17 20:00 87 04/27/17 20:00 100.4 84 21 140/84 97 Mechanical Ventilator 40 04/27/17 19:16 82 25 40 04/27/17 19:00 83 19 141/86 96 Mechanical Ventilator 40 04/27/17 18:00 81 19 140/81 96 Mechanical Ventilator 40 04/27/17 17:48 136/78 04/27/17 17:30 77 20 136/78 96 Mechanical Ventilator 40 04/27/17 17:00 79 26 138/81 98 Mechanical Ventilator 40 04/27/17 16:47 76 24 40 04/27/17 16:30 79 26 138/81 98 Mechanical Ventilator 40 04/27/17 16:00 78 04/27/17 16:00 40 04/27/17 16:00 99.0 74 23 136/79 97 Mechanical Ventilator 40 04/27/17 15:35 79 29 40 04/27/17 15:30 78 26 155/93 98 Mechanical Ventilator 40 04/27/17 15:00 22 04/27/17 15:00 80 24 140/83 98 Mechanical Ventilator 40 04/27/17 14:30 79 25 134/83 98 Mechanical Ventilator 40 04/27/17 14:00 78 25 137/80 98 Mechanical Ventilator 40 04/27/17 14:00 21 04/27/17 13:30 80 25 133/74 98 Mechanical Ventilator 40 04/27/17 13:00 76 26 130/79 98 Mechanical Ventilator 50 04/27/17 13:00 22 04/27/17 12:52 79 24 40 04/27/17 12:30 73 25 126/83 98 Mechanical Ventilator 50 04/27/17 12:02 22 04/27/17 12:00 74 04/27/17 12:00 50 04/27/17 12:00 99.0 74 23 125/76 97 Mechanical Ventilator 50 04/27/17 11:30 73 25 126/83 98 Mechanical Ventilator 50 04/27/17 11:13 124/71 Intake and Output 04/28/17 04/29/17 19:00 07:00 Intake Total 283.534 ml Output Total 425 ml Balance -141.466 ml Free Water 30 ml IV Total 73.534 ml Tube Feeding 150 ml Other 30 ml Output Urine Total 425 ml Laboratory Tests Test 04/27/17 11:55 04/27/17 19:30 04/28/17 04:00 04/28/17 08:15 Activated Partial Thromboplast Time > 150 SEC (23-33) *H 79 SEC (23-33) H 70 SEC (23-33) H White Blood Count 6.8 K/UL (4.8-10.8) Red Blood Count 3.81 M/UL (4.70-6.10) L Hemoglobin 11.5 G/DL (14.2-18.0) L Hematocrit 35.7 % (42.0-52.0) L Mean Corpuscular Volume 94 FL (80-99) Mean Corpuscular Hemoglobin 30.2 PG (27.0-31.0) Mean Corpuscular Hemoglobin Concent 32.2 G/DL (32.0-36.0) Red Cell Distribution Width 13.0 % (11.6-14.8) Platelet Count 113 K/UL (150-450) L Mean Platelet Volume 11.8 FL (6.5-10.1) H Neutrophils (%) (Auto) 79.5 % (45.0-75.0) H Lymphocytes (%) (Auto) 8.8 % (20.0-45.0) L Monocytes (%) (Auto) 7.3 % (1.0-10.0) Eosinophils (%) (Auto) 3.1 % (0.0-3.0) H Basophils (%) (Auto) 1.3 % (0.0-2.0) Prothrombin Time 11.1 SEC (9.30-11.50) Prothromb Time International Ratio 1.1 (0.9-1.1) Sodium Level 138 MMOL/L (136-145) Potassium Level 4.2 MMOL/L (3.5-5.1) Chloride Level 105 MMOL/L (98-107) Carbon Dioxide Level 29 MMOL/L (21-32) Anion Gap 5 mmol/L (5-15) Blood Urea Nitrogen 41 mg/dL (7-18) H Creatinine 2.0 MG/DL (0.55-1.30) H Estimat Glomerular Filtration Rate 40.8 mL/min (>60) Glucose Level 193 MG/DL (74-106) H Calcium Level 8.7 MG/DL (8.5-10.1) Phosphorus Level 3.6 MG/DL (2.5-4.9) Magnesium Level 2.2 MG/DL (1.8-2.4) Total Bilirubin 0.8 MG/DL (0.2-1.0) Aspartate Amino Transf (AST/SGOT) 30 U/L (15-37) Alanine Aminotransferase (ALT/SGPT) 67 U/L (12-78) Alkaline Phosphatase 54 U/L (46-116) Total Protein 6.2 G/DL (6.4-8.2) L Albumin 2.1 G/DL (3.4-5.0) L Globulin 4.1 g/dL Albumin/Globulin Ratio 0.5 (1.0-2.7) L Arterial Blood pH 7.480 (7.350-7.450) Arterial Blood Partial Pressure CO2 35.5 mmHg (35.0-45.0) Arterial Blood Partial Pressure O2 67.2 mmHg (75.0-100.0) L Arterial Blood HCO3 26.2 mmol/L (22.0-26.0) H Arterial Blood Oxygen Saturation 93.0 % (92.0-98.0) Arterial Blood Base Excess 29.9 Dayron Test Positive Height (Feet): 6 Height (Inches): 4.00 Weight (Pounds): 270 General Appearance: no apparent distress, obese Cardiovascular: normal rate Respiratory/Chest: other - cpap Abdominal Exam: other - ZEINABT Radha Mckeon N.P. Apr 28, 2017 11:03
[2017-04-28 11:59] LABS: ABG BASE EXCESS 2.7; ABG PCO2 37.9 mmHg (35.0-45.0)
[2017-04-28 12:01] LABS: ABG ALLEN TEST POSITIVE
--- NOTE | 2017-04-28 12:51 | Diagnostic Imaging Report ---
Indication: DYSPNEA Technique: One view of the chest Comparison: 04/27/2017 Findings: Perihilar interstitial prominence appears similar to the previous exam. Left arm PICC remains. Stable satisfactory positions of endotracheal and nasogastric tubes. The heart remains borderline enlarged. Findings are unchanged. Impression: Unchanged, over one day, findings as above.
--- NOTE | 2017-04-28 13:07 | Pulmonolgy Critical Care Note ---
Critical Care - Asmt/Plan Problems: (1) Acute respiratory failure (2) ATN (acute tubular necrosis) (3) Hypertension (4) Renal insufficiency (5) Angioedema Respiratory: monitor respiratory rate, adjust FIO2, CXR Cardiac: continue pressors, continue to monitor HR/BP Renal: F/U I&O Infectious Disease: check cultures Gastrointestinal: continue feedings/current rate, hold feedings Endocrine: monitor blood sugar, check HgA1C, continue sliding scale insulin Hematologic: monitor H/H, transfuse if hgb<8.5 Neurologic: keep patient comfortable Affect: PRN ativan Disposition: keep in ICU Notes Reviewed: cardio, renal Discussed with: nurses, consultants, block and case makermanager data warehouse - Objective Last 24 Hour Vital Signs Date Time Temp Pulse Resp B/P (MAP) Pulse Ox O2 Delivery O2 Flow Rate FiO2 04/28/17 13:00 96 22 162/93 97 Mechanical Ventilator 45 04/28/17 12:12 143/89 04/28/17 12:00 95 04/28/17 12:00 99.6 94 23 136/82 97 Mechanical Ventilator 45 04/28/17 11:00 93 22 140/84 98 Mechanical Ventilator 45 04/28/17 10:38 96 21 45 04/28/17 10:00 97 22 147/101 98 Mechanical Ventilator 45 04/28/17 09:03 95 04/28/17 09:02 45 04/28/17 09:00 45 04/28/17 09:00 93 18 135/83 97 Mechanical Ventilator 40 04/28/17 08:55 91 22 40 04/28/17 08:34 93 136/82 04/28/17 08:00 91 04/28/17 08:00 99.6 92 18 123/86 94 Mechanical Ventilator 40 04/28/17 08:00 40 04/28/17 07:10 93 20 40 04/28/17 07:00 84 20 123/83 98 Mechanical Ventilator 40 04/28/17 06:00 83 20 149/80 98 Mechanical Ventilator 40 04/28/17 05:38 137/75 04/28/17 05:21 82 18 40 04/28/17 05:00 83 19 137/75 96 Mechanical Ventilator 40 04/28/17 04:00 40 04/28/17 04:00 83 04/28/17 04:00 99.8 83 20 133/75 97 Mechanical Ventilator 40 04/28/17 03:27 86 19 40 04/28/17 03:00 86 19 139/82 96 Mechanical Ventilator 40 04/28/17 02:00 85 20 135/79 98 Mechanical Ventilator 40 04/28/17 01:27 82 21 40 04/28/17 01:00 85 20 135/79 98 Mechanical Ventilator 40 04/28/17 00:00 79 04/28/17 00:00 99.9 83 20 147/88 97 Mechanical Ventilator 40 04/28/17 00:00 40 04/27/17 23:20 79 23 40 04/27/17 23:00 80 20 140/80 96 Mechanical Ventilator 40 04/27/17 22:00 80 21 131/72 97 Mechanical Ventilator 40 04/27/17 21:16 80 23 40 04/27/17 21:00 101.0 79 0 137/87 96 Mechanical Ventilator 40 04/27/17 20:37 101.0 04/27/17 20:00 40 04/27/17 20:00 87 04/27/17 20:00 100.4 84 21 140/84 97 Mechanical Ventilator 40 04/27/17 19:16 82 25 40 04/27/17 19:00 83 19 141/86 96 Mechanical Ventilator 40 04/27/17 18:00 81 19 140/81 96 Mechanical Ventilator 40 04/27/17 17:48 136/78 04/27/17 17:30 77 20 136/78 96 Mechanical Ventilator 40 04/27/17 17:00 79 26 138/81 98 Mechanical Ventilator 40 04/27/17 16:47 76 24 40 04/27/17 16:30 79 26 138/81 98 Mechanical Ventilator 40 04/27/17 16:00 78 04/27/17 16:00 40 04/27/17 16:00 99.0 74 23 136/79 97 Mechanical Ventilator 40 04/27/17 15:35 79 29 40 04/27/17 15:30 78 26 155/93 98 Mechanical Ventilator 40 04/27/17 15:00 22 04/27/17 15:00 80 24 140/83 98 Mechanical Ventilator 40 04/27/17 14:30 79 25 134/83 98 Mechanical Ventilator 40 04/27/17 14:00 78 25 137/80 98 Mechanical Ventilator 40 04/27/17 14:00 21 04/27/17 13:30 80 25 133/74 98 Mechanical Ventilator 40 Status: awake, sedated HEENT: atraumatic Neck: full ROM Lungs: clear Heart: HR/BP stable, HR/BP unstable Abdomen: soft, non-tender, active bowel sounds Extremities: no C/C/E, edema Decubiti: location Critical Care - Subjective ROS Limited/Unobtainable: Yes Intubation Day: 8 Interval Events: fio2 down to 45%, saturating 98%. awake, tolerating weaning, following commands. Condition: critical EKG Rhythm: Sinus Rhythm FI02: 45 Vent Support Breath Rate: 8 Vent Support Mode: CPAP Vent Tidal Volume: 700 Sputum Amount: Small PEEP: 5.0 PIP: 28 Tube Feeding Amount: 50 I&O: Intake and Output 04/28/17 04/29/17 19:00 07:00 Intake Total 617.068 ml Output Total 855 ml Balance -237.932 ml Free Water 30 ml IV Total 257.068 ml Tube Feeding 300 ml Other 30 ml Output Urine Total 855 ml CXR: unchanged ET-Tube: 7.0 ET Position: 27 Labs: Laboratory Tests Test 04/27/17 19:30 04/28/17 04:00 04/28/17 08:15 04/28/17 11:49 Activated Partial Thromboplast Time 79 SEC (23-33) H 70 SEC (23-33) H White Blood Count 6.8 K/UL (4.8-10.8) Red Blood Count 3.81 M/UL (4.70-6.10) L Hemoglobin 11.5 G/DL (14.2-18.0) L Hematocrit 35.7 % (42.0-52.0) L Mean Corpuscular Volume 94 FL (80-99) Mean Corpuscular Hemoglobin 30.2 PG (27.0-31.0) Mean Corpuscular Hemoglobin Concent 32.2 G/DL (32.0-36.0) Red Cell Distribution Width 13.0 % (11.6-14.8) Platelet Count 113 K/UL (150-450) L Mean Platelet Volume 11.8 FL (6.5-10.1) H Neutrophils (%) (Auto) 79.5 % (45.0-75.0) H Lymphocytes (%) (Auto) 8.8 % (20.0-45.0) L Monocytes (%) (Auto) 7.3 % (1.0-10.0) Eosinophils (%) (Auto) 3.1 % (0.0-3.0) H Basophils (%) (Auto) 1.3 % (0.0-2.0) Prothrombin Time 11.1 SEC (9.30-11.50) Prothromb Time International Ratio 1.1 (0.9-1.1) Sodium Level 138 MMOL/L (136-145) Potassium Level 4.2 MMOL/L (3.5-5.1) Chloride Level 105 MMOL/L (98-107) Carbon Dioxide Level 29 MMOL/L (21-32) Anion Gap 5 mmol/L (5-15) Blood Urea Nitrogen 41 mg/dL (7-18) H Creatinine 2.0 MG/DL (0.55-1.30) H Estimat Glomerular Filtration Rate 40.8 mL/min (>60) Glucose Level 193 MG/DL (74-106) H Calcium Level 8.7 MG/DL (8.5-10.1) Phosphorus Level 3.6 MG/DL (2.5-4.9) Magnesium Level 2.2 MG/DL (1.8-2.4) Total Bilirubin 0.8 MG/DL (0.2-1.0) Aspartate Amino Transf (AST/SGOT) 30 U/L (15-37) Alanine Aminotransferase (ALT/SGPT) 67 U/L (12-78) Alkaline Phosphatase 54 U/L (46-116) Total Protein 6.2 G/DL (6.4-8.2) L Albumin 2.1 G/DL (3.4-5.0) L Globulin 4.1 g/dL Albumin/Globulin Ratio 0.5 (1.0-2.7) L Arterial Blood pH 7.480 (7.350-7.450) 7.460 (7.350-7.450) Arterial Blood Partial Pressure CO2 35.5 mmHg (35.0-45.0) 37.9 mmHg (35.0-45.0) Arterial Blood Partial Pressure O2 67.2 mmHg (75.0-100.0) L 85.0 mmHg (75.0-100.0) Arterial Blood HCO3 26.2 mmol/L (22.0-26.0) H 26.5 mmol/L (22.0-26.0) H Arterial Blood Oxygen Saturation 93.0 % (92.0-98.0) 95.9 % (92.0-98.0) Arterial Blood Base Excess 29.9 2.7 Dayron Test Positive Positive VIVEK SOLOMON Apr 28, 2017 13:07
--- NOTE | 2017-04-28 14:12 | Infectious Diseases Prog Note ---
Assessment/Plan Assessment/Plan Assesment: FEVER LLL PNA -CXR 04/24: Persistent left perihilar consolidation, increased since the prior examination of 04/22/17. Pneumonia is of concern. -CXR: There is some left perihilar congestion or consolidation again demonstrated, unchanged. The remainder the lungs and pleural spaces are clear. -CTA chest: Fairly extensive bilateral segmental pulmonary emboli. concern for submassive pulmonary embolus. consolidation and atelectasis of a significant portion of the posterior left lower lobe. -Sp cx Normal keely x2 Fever- multifactorial- due to PE/DVT, Angiodema s/p intubation , on high dose steroids- suspect 2ry to CAROLIN-I Possible Submassive b/l PE, R DVT Renal insufficiency- ?acute vs chronic vs acute on chronic Mutinodular goiter HTN COPD Tobacco abuse Plan: -Continue IV Cefepime # 5 / 1 sp Vancomycin d# 4 -04/24 SP Unasyn #3 -04/23 SP IV Vanco #2 -Monitor CBC/BMP, temperatures -anticoagulation and steroids per primary team -vent management -aspiration precautions Subjective Constitutional: Denies: no symptoms, fever, chills, fatigue, anorexia, drenching sweats, other Allergies: Coded Allergies: LISINOPRIL (Verified Allergy, Severe, 04/21/17) Objective Vital Signs Last 24 Hour Vital Signs Date Time Temp Pulse Resp B/P (MAP) Pulse Ox O2 Delivery O2 Flow Rate FiO2 04/28/17 13:11 Venturi Mask 10.0 45 04/28/17 13:10 100 Venturi Mask 10.0 45 04/28/17 13:10 Venturi Mask 10.0 45 04/28/17 13:00 96 22 162/93 97 Mechanical Ventilator 45 04/28/17 12:39 95 24 45 04/28/17 12:12 143/89 04/28/17 12:00 95 04/28/17 12:00 99.6 94 23 136/82 97 Mechanical Ventilator 45 04/28/17 11:00 93 22 140/84 98 Mechanical Ventilator 45 04/28/17 10:38 96 21 45 04/28/17 10:00 97 22 147/101 98 Mechanical Ventilator 45 04/28/17 09:03 95 04/28/17 09:02 45 04/28/17 09:00 45 04/28/17 09:00 93 18 135/83 97 Mechanical Ventilator 40 04/28/17 08:55 91 22 40 04/28/17 08:34 93 136/82 04/28/17 08:00 91 04/28/17 08:00 99.6 92 18 123/86 94 Mechanical Ventilator 40 04/28/17 08:00 40 04/28/17 07:10 93 20 40 04/28/17 07:00 84 20 123/83 98 Mechanical Ventilator 40 04/28/17 06:00 83 20 149/80 98 Mechanical Ventilator 40 04/28/17 05:38 137/75 04/28/17 05:21 82 18 40 04/28/17 05:00 83 19 137/75 96 Mechanical Ventilator 40 04/28/17 04:00 40 04/28/17 04:00 83 04/28/17 04:00 99.8 83 20 133/75 97 Mechanical Ventilator 40 04/28/17 03:27 86 19 40 04/28/17 03:00 86 19 139/82 96 Mechanical Ventilator 40 04/28/17 02:00 85 20 135/79 98 Mechanical Ventilator 40 04/28/17 01:27 82 21 40 04/28/17 01:00 85 20 135/79 98 Mechanical Ventilator 40 04/28/17 00:00 79 04/28/17 00:00 99.9 83 20 147/88 97 Mechanical Ventilator 40 04/28/17 00:00 40 04/27/17 23:20 79 23 40 04/27/17 23:00 80 20 140/80 96 Mechanical Ventilator 40 04/27/17 22:00 80 21 131/72 97 Mechanical Ventilator 40 04/27/17 21:16 80 23 40 04/27/17 21:00 101.0 79 0 137/87 96 Mechanical Ventilator 40 04/27/17 20:37 101.0 04/27/17 20:00 40 04/27/17 20:00 87 04/27/17 20:00 100.4 84 21 140/84 97 Mechanical Ventilator 40 04/27/17 19:16 82 25 40 04/27/17 19:00 83 19 141/86 96 Mechanical Ventilator 40 04/27/17 18:00 81 19 140/81 96 Mechanical Ventilator 40 04/27/17 17:48 136/78 04/27/17 17:30 77 20 136/78 96 Mechanical Ventilator 40 04/27/17 17:00 79 26 138/81 98 Mechanical Ventilator 40 04/27/17 16:47 76 24 40 04/27/17 16:30 79 26 138/81 98 Mechanical Ventilator 40 04/27/17 16:00 78 04/27/17 16:00 40 04/27/17 16:00 99.0 74 23 136/79 97 Mechanical Ventilator 40 04/27/17 15:35 79 29 40 04/27/17 15:30 78 26 155/93 98 Mechanical Ventilator 40 04/27/17 15:00 22 04/27/17 15:00 80 24 140/83 98 Mechanical Ventilator 40 04/27/17 14:30 79 25 134/83 98 Mechanical Ventilator 40 Height (Feet): 6 Height (Inches): 4.00 Weight (Pounds): 270 HEENT: anicteric Respiratory/Chest: no accessory muscle use Cardiovascular: regularly irregular Abdomen: no organomegaly Laboratory Tests Test 04/27/17 19:30 04/28/17 04:00 04/28/17 08:15 04/28/17 11:49 Activated Partial Thromboplast Time 79 SEC (23-33) H 70 SEC (23-33) H White Blood Count 6.8 K/UL (4.8-10.8) Red Blood Count 3.81 M/UL (4.70-6.10) L Hemoglobin 11.5 G/DL (14.2-18.0) L Hematocrit 35.7 % (42.0-52.0) L Mean Corpuscular Volume 94 FL (80-99) Mean Corpuscular Hemoglobin 30.2 PG (27.0-31.0) Mean Corpuscular Hemoglobin Concent 32.2 G/DL (32.0-36.0) Red Cell Distribution Width 13.0 % (11.6-14.8) Platelet Count 113 K/UL (150-450) L Mean Platelet Volume 11.8 FL (6.5-10.1) H Neutrophils (%) (Auto) 79.5 % (45.0-75.0) H Lymphocytes (%) (Auto) 8.8 % (20.0-45.0) L Monocytes (%) (Auto) 7.3 % (1.0-10.0) Eosinophils (%) (Auto) 3.1 % (0.0-3.0) H Basophils (%) (Auto) 1.3 % (0.0-2.0) Prothrombin Time 11.1 SEC (9.30-11.50) Prothromb Time International Ratio 1.1 (0.9-1.1) Sodium Level 138 MMOL/L (136-145) Potassium Level 4.2 MMOL/L (3.5-5.1) Chloride Level 105 MMOL/L (98-107) Carbon Dioxide Level 29 MMOL/L (21-32) Anion Gap 5 mmol/L (5-15) Blood Urea Nitrogen 41 mg/dL (7-18) H Creatinine 2.0 MG/DL (0.55-1.30) H Estimat Glomerular Filtration Rate 40.8 mL/min (>60) Glucose Level 193 MG/DL (74-106) H Calcium Level 8.7 MG/DL (8.5-10.1) Phosphorus Level 3.6 MG/DL (2.5-4.9) Magnesium Level 2.2 MG/DL (1.8-2.4) Total Bilirubin 0.8 MG/DL (0.2-1.0) Aspartate Amino Transf (AST/SGOT) 30 U/L (15-37) Alanine Aminotransferase (ALT/SGPT) 67 U/L (12-78) Alkaline Phosphatase 54 U/L (46-116) Total Protein 6.2 G/DL (6.4-8.2) L Albumin 2.1 G/DL (3.4-5.0) L Globulin 4.1 g/dL Albumin/Globulin Ratio 0.5 (1.0-2.7) L Arterial Blood pH 7.480 (7.350-7.450) 7.460 (7.350-7.450) Arterial Blood Partial Pressure CO2 35.5 mmHg (35.0-45.0) 37.9 mmHg (35.0-45.0) Arterial Blood Partial Pressure O2 67.2 mmHg (75.0-100.0) L 85.0 mmHg (75.0-100.0) Arterial Blood HCO3 26.2 mmol/L (22.0-26.0) H 26.5 mmol/L (22.0-26.0) H Arterial Blood Oxygen Saturation 93.0 % (92.0-98.0) 95.9 % (92.0-98.0) Arterial Blood Base Excess 29.9 2.7 Dayron Test Positive Positive Current Medications Medications (Trade) Dose Ordered Sig/Kelsi Route PRN Reason Start Time Stop Time Status Last Admin Dose Admin Acetaminophen (Tylenol) 650 mg Q6H PRN ORAL Mild Pain/Temp > 100.5 04/21/17 00:45 05/21/17 00:44 04/27/17 19:38 Amlodipine Besylate (Norvasc) 5 mg DAILY GT 04/28/17 09:00 05/23/17 09:29 04/28/17 08:34 Cefepime HCl 2 gm/ Sodium Chloride 110 ml @ 220 mls/hr Q24H IV 04/27/17 10:00 05/04/17 09:59 04/28/17 09:41 Chlorhexidine Gluconate (Malena-Hex 2%) 1 applic DAILY@2000 TOPIC 04/21/17 20:00 05/21/17 19:59 04/27/17 19:38 Docusate Sodium (Colace) 100 mg THREE TIMES A DAY NG 04/22/17 18:00 05/22/17 17:59 04/26/17 18:05 Haloperidol Lactate 5 mg/ Dextrose 56 ml @ 224 mls/hr Q1H PRN IVPB AGITATION 04/24/17 08:45 05/24/17 08:44 04/26/17 06:37 Heparin Sodium/ Dextrose 500 ml @ 36.767 mls/ hr adjust per protocol IV 04/27/17 13:45 05/27/17 13:44 04/28/17 10:02 Hydralazine HCl (Apresoline) 10 mg Q4H PRN IV For High Blood Pressure 04/21/17 00:45 05/21/17 00:44 04/23/17 11:15 Metoprolol Tartrate (Lopressor) 5 mg Q6H PRN IVP heart rate greater than 125 04/21/17 20:00 05/21/17 19:59 Midazolam HCl 100 ml @ 0 mls/hr Q24H PRN IVPB . 04/27/17 10:15 05/24/17 14:59 04/27/17 12:02 Nicotine (Nicoderm) 1 patch Q24H TDERMAL 04/22/17 14:00 11/26/17 13:59 04/28/17 13:36 Nitroglycerin (Nitro-Bid) 1 inch TID@0600,1200,1800 TOPIC 04/22/17 06:00 05/22/17 05:59 04/28/17 12:12 Pantoprazole (Protonix) 40 mg BID IVP 04/25/17 18:00 05/21/17 08:59 04/28/17 08:34 Polyethylene Glycol (Miralax) 17 gm BEDTIME GT 04/27/17 21:00 05/22/17 20:59 DIANA VELAZQUEZ M.D. Apr 28, 2017 14:12
--- NOTE | 2017-04-28 17:55 | General Progress Note ---
Assessment/Plan Status: stable Status Narrative Cr 2- Extubated- Assessment/Plan status; Pulmonary emboli , on heparin Acute respiratory failure- Was On Vent- Now extubated Renal failure ? CKD ? Superimposed Acute renal failure HTN- Smoker- Jorge Inhibor Allergy Plan: Post extubation care- Keep BP in check ? resume coumadin? 2D Echo- EjFx 60% Pulmonary support- urine studies- Kidney MIKEY Right kidney demonstrates borderline hydronephrosis. Taper steroids as possible. monitor renal parameters- Avoid nephrotoxics Subjective ROS Limited/Unobtainable: No Constitutional: Reports: malaise, other - extubated Allergies: Coded Allergies: LISINOPRIL (Verified Allergy, Severe, 04/21/17) Objective Last 24 Hour Vital Signs Date Time Temp Pulse Resp B/P (MAP) Pulse Ox O2 Delivery O2 Flow Rate FiO2 04/28/17 17:00 81 15 145/84 98 Venturi Mask 45 04/28/17 16:00 81 04/28/17 16:00 99.1 80 12 134/80 80 Venturi Mask 45 04/28/17 15:00 82 18 126/72 93 Venturi Mask 45 04/28/17 14:00 87 16 143/82 93 Venturi Mask 45 04/28/17 13:11 Venturi Mask 10.0 45 04/28/17 13:10 100 Venturi Mask 10.0 45 04/28/17 13:10 Venturi Mask 10.0 45 04/28/17 13:00 96 22 162/93 97 Mechanical Ventilator 45 04/28/17 12:39 95 24 45 04/28/17 12:12 143/89 04/28/17 12:00 95 04/28/17 12:00 99.6 94 23 136/82 97 Mechanical Ventilator 45 04/28/17 11:00 93 22 140/84 98 Mechanical Ventilator 45 04/28/17 10:38 96 21 45 04/28/17 10:00 97 22 147/101 98 Mechanical Ventilator 45 04/28/17 09:03 95 04/28/17 09:02 45 04/28/17 09:00 45 04/28/17 09:00 93 18 135/83 97 Mechanical Ventilator 40 04/28/17 08:55 91 22 40 04/28/17 08:34 93 136/82 04/28/17 08:00 91 04/28/17 08:00 99.6 92 18 123/86 94 Mechanical Ventilator 40 04/28/17 08:00 40 04/28/17 07:10 93 20 40 04/28/17 07:00 84 20 123/83 98 Mechanical Ventilator 40 04/28/17 06:00 83 20 149/80 98 Mechanical Ventilator 40 04/28/17 05:38 137/75 04/28/17 05:21 82 18 40 04/28/17 05:00 83 19 137/75 96 Mechanical Ventilator 40 04/28/17 04:00 40 04/28/17 04:00 83 04/28/17 04:00 99.8 83 20 133/75 97 Mechanical Ventilator 40 04/28/17 03:27 86 19 40 04/28/17 03:00 86 19 139/82 96 Mechanical Ventilator 40 04/28/17 02:00 85 20 135/79 98 Mechanical Ventilator 40 04/28/17 01:27 82 21 40 04/28/17 01:00 85 20 135/79 98 Mechanical Ventilator 40 04/28/17 00:00 79 04/28/17 00:00 99.9 83 20 147/88 97 Mechanical Ventilator 40 04/28/17 00:00 40 04/27/17 23:20 79 23 40 04/27/17 23:00 80 20 140/80 96 Mechanical Ventilator 40 04/27/17 22:00 80 21 131/72 97 Mechanical Ventilator 40 04/27/17 21:16 80 23 40 04/27/17 21:00 101.0 79 0 137/87 96 Mechanical Ventilator 40 04/27/17 20:37 101.0 04/27/17 20:00 40 04/27/17 20:00 87 04/27/17 20:00 100.4 84 21 140/84 97 Mechanical Ventilator 40 04/27/17 19:16 82 25 40 04/27/17 19:00 83 19 141/86 96 Mechanical Ventilator 40 04/27/17 18:00 81 19 140/81 96 Mechanical Ventilator 40 Intake and Output 04/28/17 04/29/17 19:00 07:00 Intake Total 850.903 ml Output Total 1380 ml Balance -529.097 ml Free Water 30 ml IV Total 440.903 ml Tube Feeding 350 ml Other 30 ml Output Urine Total 1380 ml Laboratory Tests 04/27/17 19:30: Activated Partial Thromboplast Time 79H 04/28/17 04:00: Activated Partial Thromboplast Time 70H, White Blood Count 6.8, Red Blood Count 3.81L, Hemoglobin 11.5L, Hematocrit 35.7L, Mean Corpuscular Volume 94, Mean Corpuscular Hemoglobin 30.2, Mean Corpuscular Hemoglobin Concent 32.2, Red Cell Distribution Width 13.0, Platelet Count 113L, Mean Platelet Volume 11.8H, Neutrophils (%) (Auto) 79.5H, Lymphocytes (%) (Auto) 8.8L, Monocytes (%) (Auto) 7.3, Eosinophils (%) (Auto) 3.1H, Basophils (%) (Auto) 1.3, Prothrombin Time 11.1, Prothromb Time International Ratio 1.1, Sodium Level 138, Potassium Level 4.2, Chloride Level 105, Carbon Dioxide Level 29, Anion Gap 5, Blood Urea Nitrogen 41H, Creatinine 2.0H, Estimat Glomerular Filtration Rate 40.8, Glucose Level 193H, Calcium Level 8.7, Phosphorus Level 3.6, Magnesium Level 2.2, Total Bilirubin 0.8, Aspartate Amino Transf (AST/SGOT) 30, Alanine Aminotransferase ( ALT/SGPT) 67, Alkaline Phosphatase 54, Total Protein 6.2L, Albumin 2.1L, Globulin 4.1, Albumin/Globulin Ratio 0.5L 04/28/17 08:15: Arterial Blood pH 7.480H, Arterial Blood Partial Pressure CO2 35.5, Arterial Blood Partial Pressure O2 67.2L, Arterial Blood HCO3 26.2H, Arterial Blood Oxygen Saturation 93.0, Arterial Blood Base Excess 29.9, Dayron Test Positive 04/28/17 11:49: Arterial Blood pH 7.460H, Arterial Blood Partial Pressure CO2 37.9, Arterial Blood Partial Pressure O2 85.0, Arterial Blood HCO3 26.5H, Arterial Blood Oxygen Saturation 95.9, Arterial Blood Base Excess 2.7, Dayron Test Positive 04/28/17 15:15: Vancomycin Level Trough 5.9 Height (Feet): 6 Height (Inches): 4.00 Weight (Pounds): 270 General Appearance: no apparent distress, confused Cardiovascular: normal rate Respiratory/Chest: decreased breath sounds Abdomen: soft Objective no other changes TIARRA PARTIDA Apr 28, 2017 17:55
[2017-04-28] MEDS ORDERED: Haloperidol 5mg/ml Inj ONE (20:10)
[2017-04-28] MEDS: Haloperidol Lactate 5 MG in D5W 55 ML IVPB PRN (20:16)
[2017-04-28] MEDS: Dyna-Hex 2% Top Sol 2oz TOPIC SCH (20:27)
[2017-04-28] MEDS: Miralax 17gm pkt GT SCH (21:00)
--- NOTE | 2017-04-28 22:18 | General Progress Note ---
Assessment/Plan Assessment/Plan Assessment and Recs 1. Pulmonary embolism. --> on heparin gtt 2. DVT- right leg subacute thrombus in mid superficial femoral vein. --> on heparin drip, will eventually require lifelong anticoagulation 3. Coagulopathy 2/2 heparin drip 4. Anemia, work up if drops below 10 5. Thrombocytopenia, concerning for HIT vs sepsis --> HIT test negative Subjective ROS Limited/Unobtainable: Yes Constitutional: Reports: weakness Neurologic/Psychiatric: Reports: emotional problems Allergies: Coded Allergies: LISINOPRIL (Verified Allergy, Severe, 04/21/17) Subjective on heparin drip Objective Last 24 Hour Vital Signs Date Time Temp Pulse Resp B/P (MAP) Pulse Ox O2 Delivery O2 Flow Rate FiO2 04/28/17 22:05 169/97 04/28/17 19:00 78 15 142/81 95 Venturi Mask 45 04/28/17 18:45 95 Venturi Mask 10.0 45 04/28/17 18:45 Venturi Mask 10.0 45 04/28/17 18:05 131/81 04/28/17 18:00 82 13 131/81 96 Venturi Mask 45 04/28/17 17:00 81 15 145/84 98 Venturi Mask 45 04/28/17 16:00 81 04/28/17 16:00 99.1 80 12 134/80 80 Venturi Mask 45 04/28/17 15:00 82 18 126/72 93 Venturi Mask 45 04/28/17 14:00 87 16 143/82 93 Venturi Mask 45 04/28/17 13:11 Venturi Mask 10.0 45 04/28/17 13:10 100 Venturi Mask 10.0 45 04/28/17 13:10 Venturi Mask 10.0 45 04/28/17 13:00 96 22 162/93 97 Mechanical Ventilator 45 04/28/17 12:39 95 24 45 04/28/17 12:12 143/89 04/28/17 12:00 95 04/28/17 12:00 99.6 94 23 136/82 97 Mechanical Ventilator 45 04/28/17 11:00 93 22 140/84 98 Mechanical Ventilator 45 04/28/17 10:38 96 21 45 04/28/17 10:00 97 22 147/101 98 Mechanical Ventilator 45 04/28/17 09:03 95 04/28/17 09:02 45 04/28/17 09:00 45 04/28/17 09:00 93 18 135/83 97 Mechanical Ventilator 40 04/28/17 08:55 91 22 40 04/28/17 08:34 93 136/82 04/28/17 08:00 91 04/28/17 08:00 99.6 92 18 123/86 94 Mechanical Ventilator 40 04/28/17 08:00 40 04/28/17 07:10 93 20 40 04/28/17 07:00 84 20 123/83 98 Mechanical Ventilator 40 04/28/17 06:00 83 20 149/80 98 Mechanical Ventilator 40 04/28/17 05:38 137/75 04/28/17 05:21 82 18 40 04/28/17 05:00 83 19 137/75 96 Mechanical Ventilator 40 04/28/17 04:00 40 04/28/17 04:00 83 04/28/17 04:00 99.8 83 20 133/75 97 Mechanical Ventilator 40 04/28/17 03:27 86 19 40 04/28/17 03:00 86 19 139/82 96 Mechanical Ventilator 40 04/28/17 02:00 85 20 135/79 98 Mechanical Ventilator 40 04/28/17 01:27 82 21 40 04/28/17 01:00 85 20 135/79 98 Mechanical Ventilator 40 04/28/17 00:00 79 04/28/17 00:00 99.9 83 20 147/88 97 Mechanical Ventilator 40 04/28/17 00:00 40 04/27/17 23:20 79 23 40 04/27/17 23:00 80 20 140/80 96 Mechanical Ventilator 40 Intake and Output 04/28/17 04/29/17 19:00 07:00 Intake Total 924.437 ml 36.767 ml Output Total 1780 ml Balance -855.563 ml 36.767 ml Free Water 30 ml IV Total 514.437 ml 36.767 ml Tube Feeding 350 ml Other 30 ml Output Urine Total 1780 ml # Bowel Movements 1 Laboratory Tests 04/28/17 04:00: White Blood Count 6.8, Red Blood Count 3.81L, Hemoglobin 11.5L, Hematocrit 35.7L , Mean Corpuscular Volume 94, Mean Corpuscular Hemoglobin 30.2, Mean Corpuscular Hemoglobin Concent 32.2, Red Cell Distribution Width 13.0, Platelet Count 113L, Mean Platelet Volume 11.8H, Neutrophils (%) (Auto) 79.5H, Lymphocytes (%) (Auto) 8.8L, Monocytes (%) (Auto) 7.3, Eosinophils (%) (Auto) 3.1H, Basophils (%) (Auto) 1.3, Prothrombin Time 11.1, Prothromb Time International Ratio 1.1, Activated Partial Thromboplast Time 70H, Sodium Level 138, Potassium Level 4.2, Chloride Level 105, Carbon Dioxide Level 29, Anion Gap 5, Blood Urea Nitrogen 41H, Creatinine 2.0H, Estimat Glomerular Filtration Rate 40.8, Glucose Level 193H, Calcium Level 8.7, Phosphorus Level 3.6, Magnesium Level 2.2, Total Bilirubin 0.8, Aspartate Amino Transf (AST/SGOT) 30, Alanine Aminotransferase (ALT/SGPT) 67, Alkaline Phosphatase 54, Total Protein 6.2L, Albumin 2.1L, Globulin 4.1, Albumin/Globulin Ratio 0.5L 04/28/17 08:15: Arterial Blood pH 7.480H, Arterial Blood Partial Pressure CO2 35.5, Arterial Blood Partial Pressure O2 67.2L, Arterial Blood HCO3 26.2H, Arterial Blood Oxygen Saturation 93.0, Arterial Blood Base Excess 29.9, Dayron Test Positive 04/28/17 11:49: Arterial Blood pH 7.460H, Arterial Blood Partial Pressure CO2 37.9, Arterial Blood Partial Pressure O2 85.0, Arterial Blood HCO3 26.5H, Arterial Blood Oxygen Saturation 95.9, Arterial Blood Base Excess 2.7, Dayron Test Positive 04/28/17 15:15: Vancomycin Level Trough 5.9 Height (Feet): 6 Height (Inches): 4.00 Weight (Pounds): 270 General Appearance: no apparent distress EENT: PERRL/EOMI, normal ENT inspection Neck: normal alignment Edema: mild edema Neurologic: devil tender II-XII grossly normal Skin: normal pigmentation RHODA MCLEOD Apr 28, 2017 22:18
[2017-04-29] VITALS (24 sets, daily range): BP systolic 116–161; BP diastolic 75–99
[2017-04-29] MEDS ORDERED: Haloperidol 5mg/ml Inj ONE ×2 (00:01→05:10)
[2017-04-29] MEDS: Haloperidol Lactate 5 MG in D5W 55 ML IVPB PRN ×3 (00:11→08:17)
[2017-04-29] MEDS: Heparin 25,000u/D5W 500ml 500 ML IV SCH (00:14)
[2017-04-29 04:44] LABS: BASOPHILS % (AUTO) 0.8 % (0.0-2.0); EOSINOPHILS % (AUTO) 2.1 % (0.0-3.0); LYMPHOCYTES % (AUTO) 9.4 % (20.0-45.0); MEAN CORPUSCULAR HEMOGLOBIN 30.4 PG (27.0-31.0); MEAN CORPUSCULAR HGB CONC 32.7 G/DL (32.0-36.0); MEAN CORPUSCULAR VOLUME 93 FL (80-99); MEAN PLATELET VOLUME 10.8 FL (6.5-10.1); NEUTROPHILS % (AUTO) 78.7 % (45.0-75.0); PLATELET COUNT 147 K/UL (150-450); RED CELL DISTRIBUTION WIDTH 13.1 % (11.6-14.8); WHITE BLOOD COUNT 8.6 K/UL (4.8-10.8)
[2017-04-29 04:56] LABS: INR 1.1 (0.9-1.1); PROTHROMBIN TIME 11.3 SEC (9.30-11.50)
[2017-04-29 04:59] LABS: ALANINE AMINOTRANSFERASE 60 U/L (12-78); ALBUMIN/GLOBULIN RATIO 0.5 (1.0-2.7); ANION GAP 9 mmol/L (5-15); ASPARTATE AMINO TRANSFERASE 24 U/L (15-37); CALCIUM 8.9 MG/DL (8.5-10.1); CARBON DIOXIDE 28 MMOL/L (21-32); CHLORIDE 104 MMOL/L (98-107); CREATININE 1.8 MG/DL (0.55-1.30); GLOMERULAR FILTRATION RATE 46.2 mL/min (>60); POTASSIUM 4.2 MMOL/L (3.5-5.1); SODIUM 140 MMOL/L (136-145); TOTAL PROTEIN 6.6 G/DL (6.4-8.2)
[2017-04-29 05:05] LABS: BILIRUBIN,DIRECT 0.3 MG/DL (0.0-0.3); PHOSPHORUS 3.8 MG/DL (2.5-4.9)
[2017-04-29] MEDS ORDERED: Heparin 25,000u/D5W 500ml 500 ML IV SCH (05:15)
[2017-04-29] MEDS ORDERED: Heparin 5000 units/ml inj IV ONE (05:15)
[2017-04-29] MEDS: Nitroglycerin 2% oint pkt TOPIC SCH ×3 (05:34→17:51)
[2017-04-29 08:00] LABS: ABG ALLEN TEST POSITIVE; ABG BASE EXCESS 2.9
[2017-04-29] MEDS: Docusate 100mg/10ml Liq NG SCH ×3 (09:09→17:51)
[2017-04-29] MEDS: Pantoprazole Inj IVP SCH ×2 (09:10→20:56)
[2017-04-29] MEDS: Cefepime HCl 2 GM in NS 110 ML IV SCH (09:55)
[2017-04-29 10:06] LABS: ANTI THROMBIN III ACTIVITY 101 % (75-135); PROTEIN C ACTIVITY 88 % (73-180); PROTEIN S ANTIGEN 148 % (60-150); PROTEIN S FREE 165 % (57-157)
--- NOTE | 2017-04-29 10:47 | Nephrology Progress Note ---
Assessment/Plan Problem List: (1) Renal insufficiency (2) Acute respiratory failure (3) Pulmonary embolism (4) Benign hypertensive kidney disease with chronic kidney disease Assessment Pulmonary emboli , on heparin, bleeding complications Acute respiratory failure- Was On Vent- Now extubated Renal failure ? CKD ? Superimposed Acute renal failure HTN- Smoker- Jorge Inhibor Allergy Plan Plan: Post extubation care- Keep BP in check Off heparin- Due IVC filter 2D Echo- EjFx 60% Pulmonary support- urine studies- Kidney MIKEY Right kidney demonstrates borderline hydronephrosis. monitor renal parameters- Avoid nephrotoxics Subjective ROS Limited/Unobtainable: No Constitutional: Reports: malaise, weakness, other - nasal bleed Objective Objective Last 24 Hour Vital Signs Date Time Temp Pulse Resp B/P (MAP) Pulse Ox O2 Delivery O2 Flow Rate FiO2 04/29/17 10:00 103 19 129/88 99 Room Air 04/29/17 09:09 122 161/92 04/29/17 09:00 98 19 117/97 99 Room Air 04/29/17 08:00 98.7 98 19 161/92 98 Room Air 04/29/17 08:00 120 04/29/17 07:45 99 Room Air 21 04/29/17 07:45 Room Air 21 04/29/17 07:00 98 16 131/82 97 Nasal Cannula 3.0 04/29/17 06:00 97 16 158/92 97 Nasal Cannula 3.0 04/29/17 05:34 141/87 04/29/17 05:00 78 16 141/87 97 Nasal Cannula 3.0 04/29/17 04:00 98.6 78 16 138/93 97 Nasal Cannula 3.0 04/29/17 04:00 79 04/29/17 03:00 78 15 138/93 97 Venturi Mask 45 04/29/17 02:00 98.0 82 15 128/93 97 Venturi Mask 45 04/29/17 01:00 81 15 146/85 97 Venturi Mask 45 04/29/17 00:00 98.0 81 15 133/81 97 Venturi Mask 45 04/29/17 00:00 81 04/28/17 23:00 83 15 153/87 97 Venturi Mask 45 04/28/17 22:05 169/97 04/28/17 22:00 79 15 168/89 96 Venturi Mask 45 04/28/17 21:00 80 15 154/102 96 Venturi Mask 45 04/28/17 20:00 85 04/28/17 20:00 98.4 85 15 145/86 96 Venturi Mask 45 04/28/17 19:00 78 15 142/81 95 Venturi Mask 45 04/28/17 18:45 95 Venturi Mask 10.0 45 04/28/17 18:45 Venturi Mask 10.0 45 04/28/17 18:05 131/81 04/28/17 18:00 82 13 131/81 96 Venturi Mask 45 04/28/17 17:00 81 15 145/84 98 Venturi Mask 45 04/28/17 16:00 81 04/28/17 16:00 99.1 80 12 134/80 80 Venturi Mask 45 04/28/17 15:00 82 18 126/72 93 Venturi Mask 45 04/28/17 14:00 87 16 143/82 93 Venturi Mask 45 04/28/17 13:11 Venturi Mask 10.0 45 04/28/17 13:10 100 Venturi Mask 10.0 45 04/28/17 13:10 Venturi Mask 10.0 45 04/28/17 13:00 96 22 162/93 97 Mechanical Ventilator 45 04/28/17 12:39 95 24 45 04/28/17 12:12 143/89 04/28/17 12:00 95 04/28/17 12:00 99.6 94 23 136/82 97 Mechanical Ventilator 45 04/28/17 11:00 93 22 140/84 98 Mechanical Ventilator 45 Intake and Output 04/29/17 04/30/17 19:00 07:00 Intake Total 20 ml Output Total 300 ml Balance -280 ml Intake Oral 20 ml Output Urine Total 300 ml Laboratory Tests 04/28/17 11:49: Arterial Blood pH 7.460H, Arterial Blood Partial Pressure CO2 37.9, Arterial Blood Partial Pressure O2 85.0, Arterial Blood HCO3 26.5H, Arterial Blood Oxygen Saturation 95.9, Arterial Blood Base Excess 2.7, Dayron Test Positive 04/28/17 15:15: Vancomycin Level Trough 5.9 04/29/17 04:05: White Blood Count 8.6, Red Blood Count 3.70L, Hemoglobin 11.3L, Hematocrit 34.4L , Mean Corpuscular Volume 93, Mean Corpuscular Hemoglobin 30.4, Mean Corpuscular Hemoglobin Concent 32.7, Red Cell Distribution Width 13.1, Platelet Count 147L, Mean Platelet Volume 10.8H, Neutrophils (%) (Auto) 78.7H, Lymphocytes (%) (Auto) 9.4L, Monocytes (%) (Auto) 9.0, Eosinophils (%) (Auto) 2.1, Basophils (%) (Auto) 0.8, Prothrombin Time 11.3, Prothromb Time International Ratio 1.1, Activated Partial Thromboplast Time 62H, Sodium Level 140, Potassium Level 4.2, Chloride Level 104, Carbon Dioxide Level 28, Anion Gap 9, Blood Urea Nitrogen 39H, Creatinine 1.8H, Estimat Glomerular Filtration Rate 46.2, Glucose Level 164H, Calcium Level 8.9, Phosphorus Level 3.8, Magnesium Level 2.0, Total Bilirubin 1.1H, Direct Bilirubin 0.3, Aspartate Amino Transf (AST/SGOT) 24, Alanine Aminotransferase (ALT/SGPT) 60, Alkaline Phosphatase 51, Total Protein 6.6, Albumin 2.1L, Globulin 4.5, Albumin/Globulin Ratio 0.5L 04/29/17 07:50: Arterial Blood pH 7.510H, Arterial Blood Partial Pressure CO2 32.0L, Arterial Blood Partial Pressure O2 67.4L, Arterial Blood HCO3 25.4, Arterial Blood Oxygen Saturation 92.6, Arterial Blood Base Excess 2.9, Dayron Test Positive Height (Feet): 6 Height (Inches): 4.00 Weight (Pounds): 271 General Appearance: mild distress, other - day 1 post extubation Cardiovascular: tachycardia Respiratory/Chest: decreased breath sounds Abdomen: distended TIARRA PARTIDA Apr 29, 2017 10:47
--- NOTE | 2017-04-29 10:57 | Anethesia Preoperative Eval ---
Anesthesia Pre-op PMH/ROS General Date of Evaluation: Apr 29, 2017 Time of Evaluation: 10:28 Anesthesiologist: hesham ASA Score: ASA 3 Mallampati Score Class I : Soft palate, uvula, fauces, pillars visible Class II: Soft palate, uvula, fauces visible Class III: Soft palate, base of uvula visible Class IV: Only hard plate visible Mallampati Classification: Class II Surgeon: Kevin Diagnosis: DVT, PE Surgical Procedure: IVC Filter placement Anesthesia History: none Social History: current smoker Family History: no anesthesia problems Allergies: Coded Allergies: LISINOPRIL (Verified Allergy, Severe, 04/21/17) Medications: see eMAR Past Medical History Cardiovascular: Reports: HTN Pulmonary: Reports: COPD, other - pulmonary emboli, acute respiratory Hematology/Immune: Reports: DVT Anesthesia Pre-op Phys. Exam Physician Exam Last Vital Signs Date Time Temp Pulse Resp B/P (MAP) Pulse Ox O2 Delivery O2 Flow Rate FiO2 04/29/17 09:09 122 161/92 04/29/17 09:00 19 99 Room Air 04/29/17 08:00 98.7 04/29/17 07:45 21 04/29/17 07:00 3.0 Constitutional: other Neurologic: CN 2-12 intact Cardiovascular: other - tachycardia, Respiratory: other - upper respiratory sound Airway Exam Mallampati Score: Class II MO: full Neck: supple TMD: 2fb Teeth: missing Anesthesia Pre-op A/P Labs Hematology Test 04/29/17 04:05 White Blood Count 8.6 K/UL (4.8-10.8) Red Blood Count 3.70 M/UL (4.70-6.10) L Hemoglobin 11.3 G/DL (14.2-18.0) L Hematocrit 34.4 % (42.0-52.0) L Mean Corpuscular Volume 93 FL (80-99) Mean Corpuscular Hemoglobin 30.4 PG (27.0-31.0) Mean Corpuscular Hemoglobin Concent 32.7 G/DL (32.0-36.0) Red Cell Distribution Width 13.1 % (11.6-14.8) Platelet Count 147 K/UL (150-450) L Mean Platelet Volume 10.8 FL (6.5-10.1) H Neutrophils (%) (Auto) 78.7 % (45.0-75.0) H Lymphocytes (%) (Auto) 9.4 % (20.0-45.0) L Monocytes (%) (Auto) 9.0 % (1.0-10.0) Eosinophils (%) (Auto) 2.1 % (0.0-3.0) Basophils (%) (Auto) 0.8 % (0.0-2.0) Coagulation Test 04/29/17 04:05 Prothrombin Time 11.3 SEC (9.30-11.50) Prothromb Time International Ratio 1.1 (0.9-1.1) Activated Partial Thromboplast Time 62 SEC (23-33) H Chemistry Test 04/29/17 04:05 Sodium Level 140 MMOL/L (136-145) Potassium Level 4.2 MMOL/L (3.5-5.1) Chloride Level 104 MMOL/L (98-107) Carbon Dioxide Level 28 MMOL/L (21-32) Anion Gap 9 mmol/L (5-15) Blood Urea Nitrogen 39 mg/dL (7-18) H Creatinine 1.8 MG/DL (0.55-1.30) H Estimat Glomerular Filtration Rate 46.2 mL/min (>60) Glucose Level 164 MG/DL (74-106) H Calcium Level 8.9 MG/DL (8.5-10.1) Phosphorus Level 3.8 MG/DL (2.5-4.9) Magnesium Level 2.0 MG/DL (1.8-2.4) Total Bilirubin 1.1 MG/DL (0.2-1.0) H Direct Bilirubin 0.3 MG/DL (0.0-0.3) Aspartate Amino Transf (AST/SGOT) 24 U/L (15-37) Alanine Aminotransferase (ALT/SGPT) 60 U/L (12-78) Alkaline Phosphatase 51 U/L (46-116) Total Protein 6.6 G/DL (6.4-8.2) Albumin 2.1 G/DL (3.4-5.0) L Globulin 4.5 g/dL Albumin/Globulin Ratio 0.5 (1.0-2.7) L Risk Assessment & Plan Assessment: asa3 patient bleeding profusely (on heparin at this writing) from the nose and mouth, awake and alert, tachypneic, and tachycardic, unable to lie supine. Patient was extubated yesterday and does not want to be reintubated when questioned, unless absolutely necessary. Daughter is present and signs consent. Patient can also sign. Plan: Recheck labs. Postpone anesthesia at this time until patient is stable and able to lie supine. Above discussed with Dr. Brown. Status Change Before Surgery: Yes Pre-Antibiotics Drug: FLOR Moe Apr 29, 2017 10:57
--- NOTE | 2017-04-29 11:19 | Diagnostic Imaging Report ---
Indication: DYSPNEA Technique: One view of the chest Comparison: 04/28/2017 Findings: Interim endotracheal extubation. Lungs and pleural spaces are clear except for minimal right perihilar atelectasis. Left arm PICC remains. The heart size is normal. Upper mediastinal prominence persists, consistent with multinodular thyroid described on prior CT scan Impression: Interim extubation No definite acute process
--- NOTE | 2017-04-29 11:51 | Infectious Diseases Prog Note ---
Assessment/Plan Assessment/Plan Assesment: FEVER LLL PNA -CXR 04/24: Persistent left perihilar consolidation, increased since the prior examination of 04/22/17. Pneumonia is of concern. -CXR: There is some left perihilar congestion or consolidation again demonstrated, unchanged. The remainder the lungs and pleural spaces are clear. -CTA chest: Fairly extensive bilateral segmental pulmonary emboli. concern for submassive pulmonary embolus. consolidation and atelectasis of a significant portion of the posterior left lower lobe. -Sp cx Normal keely x2 Fever- multifactorial- due to PE/DVT, Angiodema s/p intubation , on high dose steroids- suspect 2ry to CAROLIN-I Possible Submassive b/l PE, R DVT Renal insufficiency- ?acute vs chronic vs acute on chronic Mutinodular goiter HTN COPD Tobacco abuse Plan: -Continue IV Cefepime # 5 / 1/ sp Vancomycin d# 4 -04/24 SP Unasyn #3 -04/23 SP IV Vanco #2 -Monitor CBC/BMP, temperatures -anticoagulation and steroids per primary team -vent management -aspiration precautions Subjective Allergies: Coded Allergies: LISINOPRIL (Verified Allergy, Severe, 04/21/17) Objective Vital Signs Last 24 Hour Vital Signs Date Time Temp Pulse Resp B/P (MAP) Pulse Ox O2 Delivery O2 Flow Rate FiO2 04/29/17 11:00 106 19 116/91 99 Room Air 04/29/17 10:00 103 19 129/88 99 Room Air 04/29/17 09:09 122 161/92 04/29/17 09:00 98 19 117/97 99 Room Air 04/29/17 08:00 98.7 98 19 161/92 98 Room Air 04/29/17 08:00 120 04/29/17 07:45 99 Room Air 21 04/29/17 07:45 Room Air 21 04/29/17 07:00 98 16 131/82 97 Nasal Cannula 3.0 04/29/17 06:00 97 16 158/92 97 Nasal Cannula 3.0 04/29/17 05:34 141/87 04/29/17 05:00 78 16 141/87 97 Nasal Cannula 3.0 04/29/17 04:00 98.6 78 16 138/93 97 Nasal Cannula 3.0 04/29/17 04:00 79 04/29/17 03:00 78 15 138/93 97 Venturi Mask 45 04/29/17 02:00 98.0 82 15 128/93 97 Venturi Mask 45 04/29/17 01:00 81 15 146/85 97 Venturi Mask 45 04/29/17 00:00 98.0 81 15 133/81 97 Venturi Mask 45 04/29/17 00:00 81 04/28/17 23:00 83 15 153/87 97 Venturi Mask 45 04/28/17 22:05 169/97 04/28/17 22:00 79 15 168/89 96 Venturi Mask 45 04/28/17 21:00 80 15 154/102 96 Venturi Mask 45 04/28/17 20:00 85 04/28/17 20:00 98.4 85 15 145/86 96 Venturi Mask 45 04/28/17 19:00 78 15 142/81 95 Venturi Mask 45 04/28/17 18:45 95 Venturi Mask 10.0 45 04/28/17 18:45 Venturi Mask 10.0 45 04/28/17 18:05 131/81 04/28/17 18:00 82 13 131/81 96 Venturi Mask 45 04/28/17 17:00 81 15 145/84 98 Venturi Mask 45 04/28/17 16:00 81 04/28/17 16:00 99.1 80 12 134/80 80 Venturi Mask 45 04/28/17 15:00 82 18 126/72 93 Venturi Mask 45 04/28/17 14:00 87 16 143/82 93 Venturi Mask 45 04/28/17 13:11 Venturi Mask 10.0 45 04/28/17 13:10 100 Venturi Mask 10.0 45 04/28/17 13:10 Venturi Mask 10.0 45 04/28/17 13:00 96 22 162/93 97 Mechanical Ventilator 45 04/28/17 12:39 95 24 45 04/28/17 12:12 143/89 04/28/17 12:00 95 04/28/17 12:00 99.6 94 23 136/82 97 Mechanical Ventilator 45 Height (Feet): 6 Height (Inches): 4.00 Weight (Pounds): 271 Microbiology Date/Time Source Procedure Growth Status 04/28/17 15:00 Urine,Clean Catch Urine Culture - Preliminary NO GROWTH Resulted Laboratory Tests Test 04/28/17 15:15 04/29/17 04:05 04/29/17 07:50 Vancomycin Level Trough 5.9 ug/mL (5.0-12.0) White Blood Count 8.6 K/UL (4.8-10.8) Red Blood Count 3.70 M/UL (4.70-6.10) L Hemoglobin 11.3 G/DL (14.2-18.0) L Hematocrit 34.4 % (42.0-52.0) L Mean Corpuscular Volume 93 FL (80-99) Mean Corpuscular Hemoglobin 30.4 PG (27.0-31.0) Mean Corpuscular Hemoglobin Concent 32.7 G/DL (32.0-36.0) Red Cell Distribution Width 13.1 % (11.6-14.8) Platelet Count 147 K/UL (150-450) L Mean Platelet Volume 10.8 FL (6.5-10.1) H Neutrophils (%) (Auto) 78.7 % (45.0-75.0) H Lymphocytes (%) (Auto) 9.4 % (20.0-45.0) L Monocytes (%) (Auto) 9.0 % (1.0-10.0) Eosinophils (%) (Auto) 2.1 % (0.0-3.0) Basophils (%) (Auto) 0.8 % (0.0-2.0) Prothrombin Time 11.3 SEC (9.30-11.50) Prothromb Time International Ratio 1.1 (0.9-1.1) Activated Partial Thromboplast Time 62 SEC (23-33) H Sodium Level 140 MMOL/L (136-145) Potassium Level 4.2 MMOL/L (3.5-5.1) Chloride Level 104 MMOL/L (98-107) Carbon Dioxide Level 28 MMOL/L (21-32) Anion Gap 9 mmol/L (5-15) Blood Urea Nitrogen 39 mg/dL (7-18) H Creatinine 1.8 MG/DL (0.55-1.30) H Estimat Glomerular Filtration Rate 46.2 mL/min (>60) Glucose Level 164 MG/DL (74-106) H Calcium Level 8.9 MG/DL (8.5-10.1) Phosphorus Level 3.8 MG/DL (2.5-4.9) Magnesium Level 2.0 MG/DL (1.8-2.4) Total Bilirubin 1.1 MG/DL (0.2-1.0) H Direct Bilirubin 0.3 MG/DL (0.0-0.3) Aspartate Amino Transf (AST/SGOT) 24 U/L (15-37) Alanine Aminotransferase (ALT/SGPT) 60 U/L (12-78) Alkaline Phosphatase 51 U/L (46-116) Total Protein 6.6 G/DL (6.4-8.2) Albumin 2.1 G/DL (3.4-5.0) L Globulin 4.5 g/dL Albumin/Globulin Ratio 0.5 (1.0-2.7) L Arterial Blood pH 7.510 (7.350-7.450) Arterial Blood Partial Pressure CO2 32.0 mmHg (35.0-45.0) L Arterial Blood Partial Pressure O2 67.4 mmHg (75.0-100.0) L Arterial Blood HCO3 25.4 mmol/L (22.0-26.0) Arterial Blood Oxygen Saturation 92.6 % (92.0-98.0) Arterial Blood Base Excess 2.9 Dayron Test Positive Current Medications Medications (Trade) Dose Ordered Sig/Kelsi Route PRN Reason Start Time Stop Time Status Last Admin Dose Admin Acetaminophen (Tylenol) 650 mg Q6H PRN ORAL Mild Pain/Temp > 100.5 04/21/17 00:45 05/21/17 00:44 04/27/17 19:38 Amlodipine Besylate (Norvasc) 5 mg DAILY GT 04/28/17 09:00 05/23/17 09:29 04/29/17 09:09 Cefepime HCl 2 gm/ Sodium Chloride 110 ml @ 220 mls/hr Q24H IV 04/27/17 10:00 05/04/17 09:59 04/29/17 09:55 Chlorhexidine Gluconate (Malena-Hex 2%) 1 applic DAILY@1999 TOPIC 04/21/17 20:00 05/21/17 19:59 04/28/17 20:27 Docusate Sodium (Colace) 100 mg THREE TIMES A DAY NG 04/22/17 18:00 05/22/17 17:59 04/29/17 09:09 Haloperidol Lactate 5 mg/ Dextrose 56 ml @ 224 mls/hr Q1H PRN IVPB AGITATION 04/24/17 08:45 05/24/17 08:44 04/29/17 08:17 Hydralazine HCl (Apresoline) 10 mg Q4H PRN IV For High Blood Pressure 04/21/17 00:45 05/21/17 00:44 04/28/17 22:05 Metoprolol Tartrate (Lopressor) 5 mg Q6H PRN IVP heart rate greater than 125 04/21/17 20:00 05/21/17 19:59 Midazolam HCl 100 ml @ 0 mls/hr Q24H PRN IVPB . 04/27/17 10:15 05/24/17 14:59 04/27/17 12:02 Nicotine (Nicoderm) 1 patch Q24H TDERMAL 04/22/17 14:00 05/22/17 13:59 04/28/17 13:36 Nitroglycerin (Nitro-Bid) 1 inch TID@0600,1200,1800 TOPIC 04/22/17 06:00 05/22/17 05:59 04/29/17 05:34 Pantoprazole (Protonix) 40 mg EVERY 12 HOURS IVP 04/29/17 09:00 05/21/17 08:59 04/29/17 09:10 Polyethylene Glycol (Miralax) 17 gm BEDTIME GT 04/27/17 21:00 05/22/17 20:59 DIANA VELAZQUEZ M.D. Apr 29, 2017 11:51
--- NOTE | 2017-04-29 12:06 | Pulmonolgy Critical Care Note ---
Critical Care - Asmt/Plan Problems: (1) Acute respiratory failure (2) ATN (acute tubular necrosis) (3) Hypertension (4) Renal insufficiency (5) Angioedema Respiratory: monitor respiratory rate, adjust FIO2, CXR Cardiac: continue to monitor HR/BP Renal: F/U I&O, keep IV fluid Infectious Disease: check cultures Gastrointestinal: continue feedings/current rate Endocrine: monitor blood sugar, check HgA1C, continue sliding scale insulin Hematologic: transfuse if hgb<8.5 Neurologic: PRN Ativan, PRN Morphine, keep patient comfortable Affect: PRN ativan Prophylaxis: Protonix Disposition: keep in ICU Notes Reviewed: caddy, cardio, renal Discussed with: nurses, consultants, test case developerquarrying manager - Objective Last 24 Hour Vital Signs Date Time Temp Pulse Resp B/P (MAP) Pulse Ox O2 Delivery O2 Flow Rate FiO2 04/29/17 11:00 106 19 116/91 99 Room Air 04/29/17 10:00 103 19 129/88 99 Room Air 04/29/17 09:09 122 161/92 04/29/17 09:00 98 19 117/97 99 Room Air 04/29/17 08:00 98.7 98 19 161/92 98 Room Air 04/29/17 08:00 120 04/29/17 07:45 99 Room Air 21 04/29/17 07:45 Room Air 21 04/29/17 07:00 98 16 131/82 97 Nasal Cannula 3.0 04/29/17 06:00 97 16 158/92 97 Nasal Cannula 3.0 04/29/17 05:34 141/87 04/29/17 05:00 78 16 141/87 97 Nasal Cannula 3.0 04/29/17 04:00 98.6 78 16 138/93 97 Nasal Cannula 3.0 04/29/17 04:00 79 04/29/17 03:00 78 15 138/93 97 Venturi Mask 45 04/29/17 02:00 98.0 82 15 128/93 97 Venturi Mask 45 04/29/17 01:00 81 15 146/85 97 Venturi Mask 45 04/29/17 00:00 98.0 81 15 133/81 97 Venturi Mask 45 04/29/17 00:00 81 04/28/17 23:00 83 15 153/87 97 Venturi Mask 45 04/28/17 22:05 169/97 04/28/17 22:00 79 15 168/89 96 Venturi Mask 45 04/28/17 21:00 80 15 154/102 96 Venturi Mask 45 04/28/17 20:00 85 04/28/17 20:00 98.4 85 15 145/86 96 Venturi Mask 45 04/28/17 19:00 78 15 142/81 95 Venturi Mask 45 04/28/17 18:45 95 Venturi Mask 10.0 45 04/28/17 18:45 Venturi Mask 10.0 45 04/28/17 18:05 131/81 04/28/17 18:00 82 13 131/81 96 Venturi Mask 45 04/28/17 17:00 81 15 145/84 98 Venturi Mask 45 04/28/17 16:00 81 04/28/17 16:00 99.1 80 12 134/80 80 Venturi Mask 45 04/28/17 15:00 82 18 126/72 93 Venturi Mask 45 04/28/17 14:00 87 16 143/82 93 Venturi Mask 45 04/28/17 13:11 Venturi Mask 10.0 45 04/28/17 13:10 100 Venturi Mask 10.0 45 04/28/17 13:10 Venturi Mask 10.0 45 04/28/17 13:00 96 22 162/93 97 Mechanical Ventilator 45 04/28/17 12:39 95 24 45 04/28/17 12:12 143/89 Status: awake Condition: critical HEENT: atraumatic Heart: HR/BP stable, regular Abdomen: non-tender Extremities: no C/C/E, edema Decubiti: location Micro: Microbiology Date/Time Source Procedure Growth Status 04/28/17 15:00 Urine,Clean Catch Urine Culture - Preliminary NO GROWTH Resulted Critical Care - Subjective ROS Limited/Unobtainable: Yes ICU Day: 12 Interval Events: pt started coughing up blood earlier today, heparin drip was stopped. IVC by radiology was ordered. but pt is too agitated and with any sedation might go to respiratory failure. We will defer the IVC until pt is more stable. Condition: critical EKG Rhythm: Sinus Rhythm FI02: 21 Vent Support Breath Rate: 8 Vent Support Mode: CPAP Vent Tidal Volume: 700 Sputum Amount: Moderate PEEP: 5.0 PIP: 13 Tube Feeding Amount: 50 I&O: Intake and Output 04/29/17 04/30/17 19:00 07:00 Intake Total 20 ml Output Total 400 ml Balance -380 ml Intake Oral 20 ml Output Urine Total 400 ml CXR: no change ET-Tube: 7.0 ET Position: 27 Labs: Laboratory Tests Test 04/28/17 15:15 04/29/17 04:05 04/29/17 07:50 Vancomycin Level Trough 5.9 ug/mL (5.0-12.0) White Blood Count 8.6 K/UL (4.8-10.8) Red Blood Count 3.70 M/UL (4.70-6.10) L Hemoglobin 11.3 G/DL (14.2-18.0) L Hematocrit 34.4 % (42.0-52.0) L Mean Corpuscular Volume 93 FL (80-99) Mean Corpuscular Hemoglobin 30.4 PG (27.0-31.0) Mean Corpuscular Hemoglobin Concent 32.7 G/DL (32.0-36.0) Red Cell Distribution Width 13.1 % (11.6-14.8) Platelet Count 147 K/UL (150-450) L Mean Platelet Volume 10.8 FL (6.5-10.1) H Neutrophils (%) (Auto) 78.7 % (45.0-75.0) H Lymphocytes (%) (Auto) 9.4 % (20.0-45.0) L Monocytes (%) (Auto) 9.0 % (1.0-10.0) Eosinophils (%) (Auto) 2.1 % (0.0-3.0) Basophils (%) (Auto) 0.8 % (0.0-2.0) Prothrombin Time 11.3 SEC (9.30-11.50) Prothromb Time International Ratio 1.1 (0.9-1.1) Activated Partial Thromboplast Time 62 SEC (23-33) H Sodium Level 140 MMOL/L (136-145) Potassium Level 4.2 MMOL/L (3.5-5.1) Chloride Level 104 MMOL/L (98-107) Carbon Dioxide Level 28 MMOL/L (21-32) Anion Gap 9 mmol/L (5-15) Blood Urea Nitrogen 39 mg/dL (7-18) H Creatinine 1.8 MG/DL (0.55-1.30) H Estimat Glomerular Filtration Rate 46.2 mL/min (>60) Glucose Level 164 MG/DL (74-106) H Calcium Level 8.9 MG/DL (8.5-10.1) Phosphorus Level 3.8 MG/DL (2.5-4.9) Magnesium Level 2.0 MG/DL (1.8-2.4) Total Bilirubin 1.1 MG/DL (0.2-1.0) H Direct Bilirubin 0.3 MG/DL (0.0-0.3) Aspartate Amino Transf (AST/SGOT) 24 U/L (15-37) Alanine Aminotransferase (ALT/SGPT) 60 U/L (12-78) Alkaline Phosphatase 51 U/L (46-116) Total Protein 6.6 G/DL (6.4-8.2) Albumin 2.1 G/DL (3.4-5.0) L Globulin 4.5 g/dL Albumin/Globulin Ratio 0.5 (1.0-2.7) L Arterial Blood pH 7.510 (7.350-7.450) Arterial Blood Partial Pressure CO2 32.0 mmHg (35.0-45.0) L Arterial Blood Partial Pressure O2 67.4 mmHg (75.0-100.0) L Arterial Blood HCO3 25.4 mmol/L (22.0-26.0) Arterial Blood Oxygen Saturation 92.6 % (92.0-98.0) Arterial Blood Base Excess 2.9 Dayron Test Positive VIVEK SOLOMON Apr 29, 2017 12:06
[2017-04-29 12:22] LABS: BASOPHILS % (AUTO) 1.2 % (0.0-2.0); LYMPHOCYTES % (AUTO) 5.9 % (20.0-45.0); MEAN CORPUSCULAR HEMOGLOBIN 29.3 PG (27.0-31.0); MEAN CORPUSCULAR HGB CONC 31.4 G/DL (32.0-36.0); MEAN CORPUSCULAR VOLUME 93 FL (80-99); MEAN PLATELET VOLUME 11.1 FL (6.5-10.1); NEUTROPHILS % (AUTO) 84.8 % (45.0-75.0); PLATELET COUNT 154 K/UL (150-450); RED BLOOD COUNT 3.79 M/UL (4.70-6.10); WHITE BLOOD COUNT 9.5 K/UL (4.8-10.8)
--- NOTE | 2017-04-29 12:31 | Infectious Diseases Prog Note ---
Assessment/Plan Assessment/Plan Assesment: FEVER, SP LLL PNA SCx : Nl keely -CXR 04/24: Persistent left perihilar consolidation, increased since the prior examination of 04/22/17. Pneumonia is of concern. -CXR: There is some left perihilar congestion or consolidation again demonstrated, unchanged. The remainder the lungs and pleural spaces are clear. -CTA chest: Fairly extensive bilateral segmental pulmonary emboli. concern for submassive pulmonary embolus. consolidation and atelectasis of a significant portion of the posterior left lower lobe. -Sp cx Normal keely x2 Fever- multifactorial- due to PE/DVT, Angiodema s/p intubation ,, SP extub 04/28 Possible Submassive b/l PE, R DVT Renal insufficiency- ?acute vs chronic vs acute on chronic Mutinodular goiter HTN COPD Tobacco abuse Plan: -Continue IV Cefepime # 06/28 sp Vancomycin d# 4 -04/24 SP Unasyn #3 -04/23 SP IV Vanco #2 -Monitor CBC/BMP, temperatures -anticoagulation and steroids per primary team -aspiration precautions monitor Cx ( Bl, Ur ) Subjective Allergies: Coded Allergies: LISINOPRIL (Verified Allergy, Severe, 04/21/17) Subjective bleeding from mouth Objective Vital Signs Last 24 Hour Vital Signs Date Time Temp Pulse Resp B/P (MAP) Pulse Ox O2 Delivery O2 Flow Rate FiO2 04/29/17 11:00 106 19 116/91 99 Room Air 04/29/17 10:00 103 19 129/88 99 Room Air 04/29/17 09:09 122 161/92 04/29/17 09:00 98 19 117/97 99 Room Air 04/29/17 08:00 98.7 98 19 161/92 98 Room Air 04/29/17 08:00 120 04/29/17 07:45 99 Room Air 21 04/29/17 07:45 Room Air 21 04/29/17 07:00 98 16 131/82 97 Nasal Cannula 3.0 04/29/17 06:00 97 16 158/92 97 Nasal Cannula 3.0 04/29/17 05:34 141/87 04/29/17 05:00 78 16 141/87 97 Nasal Cannula 3.0 04/29/17 04:00 98.6 78 16 138/93 97 Nasal Cannula 3.0 04/29/17 04:00 79 04/29/17 03:00 78 15 138/93 97 Venturi Mask 45 04/29/17 02:00 98.0 82 15 128/93 97 Venturi Mask 45 04/29/17 01:00 81 15 146/85 97 Venturi Mask 45 04/29/17 00:00 98.0 81 15 133/81 97 Venturi Mask 45 04/29/17 00:00 81 04/28/17 23:00 83 15 153/87 97 Venturi Mask 45 04/28/17 22:05 169/97 04/28/17 22:00 79 15 168/89 96 Venturi Mask 45 04/28/17 21:00 80 15 154/102 96 Venturi Mask 45 04/28/17 20:00 85 04/28/17 20:00 98.4 85 15 145/86 96 Venturi Mask 45 04/28/17 19:00 78 15 142/81 95 Venturi Mask 45 04/28/17 18:45 95 Venturi Mask 10.0 45 04/28/17 18:45 Venturi Mask 10.0 45 04/28/17 18:05 131/81 04/28/17 18:00 82 13 131/81 96 Venturi Mask 45 04/28/17 17:00 81 15 145/84 98 Venturi Mask 45 04/28/17 16:00 81 04/28/17 16:00 99.1 80 12 134/80 80 Venturi Mask 45 04/28/17 15:00 82 18 126/72 93 Venturi Mask 45 04/28/17 14:00 87 16 143/82 93 Venturi Mask 45 04/28/17 13:11 Venturi Mask 10.0 45 04/28/17 13:10 100 Venturi Mask 10.0 45 04/28/17 13:10 Venturi Mask 10.0 45 04/28/17 13:00 96 22 162/93 97 Mechanical Ventilator 45 04/28/17 12:39 95 24 45 Height (Feet): 6 Height (Inches): 4.00 Weight (Pounds): 271 HEENT: atraumatic Respiratory/Chest: respiratory distress Cardiovascular: regular rhythm Abdomen: soft, non tender Microbiology Date/Time Source Procedure Growth Status 04/28/17 15:00 Urine,Clean Catch Urine Culture - Preliminary NO GROWTH Resulted Laboratory Tests Test 04/28/17 15:15 04/29/17 04:05 04/29/17 07:50 04/29/17 12:00 Vancomycin Level Trough 5.9 ug/mL (5.0-12.0) White Blood Count 8.6 K/UL (4.8-10.8) 9.5 K/UL (4.8-10.8) Red Blood Count 3.70 M/UL (4.70-6.10) L 3.79 M/UL (4.70-6.10) L Hemoglobin 11.3 G/DL (14.2-18.0) L 11.1 G/DL (14.2-18.0) L Hematocrit 34.4 % (42.0-52.0) L 35.3 % (42.0-52.0) L Mean Corpuscular Volume 93 FL (80-99) 93 FL (80-99) Mean Corpuscular Hemoglobin 30.4 PG (27.0-31.0) 29.3 PG (27.0-31.0) Mean Corpuscular Hemoglobin Concent 32.7 G/DL (32.0-36.0) 31.4 G/DL (32.0-36.0) L Red Cell Distribution Width 13.1 % (11.6-14.8) 13.0 % (11.6-14.8) Platelet Count 147 K/UL (150-450) L 154 K/UL (150-450) Mean Platelet Volume 10.8 FL (6.5-10.1) H 11.1 FL (6.5-10.1) H Neutrophils (%) (Auto) 78.7 % (45.0-75.0) H 84.8 % (45.0-75.0) H Lymphocytes (%) (Auto) 9.4 % (20.0-45.0) L 5.9 % (20.0-45.0) L Monocytes (%) (Auto) 9.0 % (1.0-10.0) 7.0 % (1.0-10.0) Eosinophils (%) (Auto) 2.1 % (0.0-3.0) 1.0 % (0.0-3.0) Basophils (%) (Auto) 0.8 % (0.0-2.0) 1.2 % (0.0-2.0) Prothrombin Time 11.3 SEC (9.30-11.50) Pending Prothromb Time International Ratio 1.1 (0.9-1.1) Pending Activated Partial Thromboplast Time 62 SEC (23-33) H Pending Sodium Level 140 MMOL/L (136-145) Potassium Level 4.2 MMOL/L (3.5-5.1) Chloride Level 104 MMOL/L (98-107) Carbon Dioxide Level 28 MMOL/L (21-32) Anion Gap 9 mmol/L (5-15) Blood Urea Nitrogen 39 mg/dL (7-18) H Creatinine 1.8 MG/DL (0.55-1.30) H Estimat Glomerular Filtration Rate 46.2 mL/min (>60) Glucose Level 164 MG/DL (74-106) H Calcium Level 8.9 MG/DL (8.5-10.1) Phosphorus Level 3.8 MG/DL (2.5-4.9) Magnesium Level 2.0 MG/DL (1.8-2.4) Total Bilirubin 1.1 MG/DL (0.2-1.0) H Direct Bilirubin 0.3 MG/DL (0.0-0.3) Aspartate Amino Transf (AST/SGOT) 24 U/L (15-37) Alanine Aminotransferase (ALT/SGPT) 60 U/L (12-78) Alkaline Phosphatase 51 U/L (46-116) Total Protein 6.6 G/DL (6.4-8.2) Albumin 2.1 G/DL (3.4-5.0) L Globulin 4.5 g/dL Albumin/Globulin Ratio 0.5 (1.0-2.7) L Arterial Blood pH 7.510 (7.350-7.450) Arterial Blood Partial Pressure CO2 32.0 mmHg (35.0-45.0) L Arterial Blood Partial Pressure O2 67.4 mmHg (75.0-100.0) L Arterial Blood HCO3 25.4 mmol/L (22.0-26.0) Arterial Blood Oxygen Saturation 92.6 % (92.0-98.0) Arterial Blood Base Excess 2.9 Dayron Test Positive Current Medications Medications (Trade) Dose Ordered Sig/Kelsi Route PRN Reason Start Time Stop Time Status Last Admin Dose Admin Acetaminophen (Tylenol) 650 mg Q6H PRN ORAL Mild Pain/Temp > 100.5 04/21/17 00:45 05/21/17 00:44 04/27/17 19:38 Amlodipine Besylate (Norvasc) 5 mg DAILY GT 04/28/17 09:00 05/23/17 09:29 04/29/17 09:09 Cefepime HCl 2 gm/ Sodium Chloride 110 ml @ 220 mls/hr Q24H IV 04/27/17 10:00 05/04/17 09:59 04/29/17 09:55 Chlorhexidine Gluconate (Malena-Hex 2%) 1 applic DAILY@1999 TOPIC 04/21/17 20:00 05/21/17 19:59 04/28/17 20:27 Docusate Sodium (Colace) 100 mg THREE TIMES A DAY NG 04/22/17 18:00 05/22/17 17:59 04/29/17 09:09 Haloperidol Lactate 5 mg/ Dextrose 56 ml @ 224 mls/hr Q1H PRN IVPB AGITATION 04/24/17 08:45 05/24/17 08:44 04/29/17 08:17 Hydralazine HCl (Apresoline) 10 mg Q4H PRN IV For High Blood Pressure 04/21/17 00:45 05/21/17 00:44 04/28/17 22:05 Metoprolol Tartrate (Lopressor) 5 mg Q6H PRN IVP heart rate greater than 125 04/21/17 20:00 05/21/17 19:59 Midazolam HCl 100 ml @ 0 mls/hr Q24H PRN IVPB . 04/27/17 10:15 05/24/17 14:59 04/27/17 12:02 Nicotine (Nicoderm) 1 patch Q24H TDERMAL 04/22/17 14:00 05/22/17 13:59 04/28/17 13:36 Nitroglycerin (Nitro-Bid) 1 inch TID@0600,1200,1800 TOPIC 04/22/17 06:00 05/22/17 05:59 04/29/17 05:34 Pantoprazole (Protonix) 40 mg EVERY 12 HOURS IVP 04/29/17 09:00 05/21/17 08:59 04/29/17 09:10 Polyethylene Glycol (Miralax) 17 gm BEDTIME GT 04/27/17 21:00 05/22/17 20:59 DIANA VELAZQUEZ M.D. Apr 29, 2017 12:31
[2017-04-29 12:45] LABS: INR 1.1 (0.9-1.1)
[2017-04-29] MEDS ORDERED: Acetaminophen 500mg (ES) tab ORAL PRN (13:30)
[2017-04-29] MEDS ORDERED: NS 275ml ONE (16:08)
--- NOTE | 2017-04-29 19:14 | Cardiology Progress Note ---
Assessment/Plan Assessment/Plan 1. Allergic reaction. 2. Angioneurotic edema. 3. Hypertension. 4. Respiratory failure. 5. Hypoxemia. 6. Metabolic encephalopathy. 7. Renal insufficiency. 8. Tachycardia. 9. pulm htn 10. Pulmo embolism 11. abn torp likely related to PE 12 ACEI allergy 13. dvt 14. bleeding off vent bp is fine on abx sat are fine hemodynamically stable dvt noted may have been more extensive prior to embolization telel neg d/w rn is off anticaogualtion due to sig bleedign hopefully stable enough to restart soon Subjective Cardiovascular: Denies: chest pain, lightheadedness Respiratory: Denies: shortness of breath Gastrointestinal/Abdominal: Denies: abdominal pain Subjective extubated bled so off allanticoagualtion Objective Last 24 Hour Vital Signs Date Time Temp Pulse Resp B/P (MAP) Pulse Ox O2 Delivery O2 Flow Rate FiO2 04/29/17 18:00 106 20 135/75 95 Nasal Cannula 3.0 04/29/17 17:51 126/86 04/29/17 17:00 111 20 139/81 96 Nasal Cannula 3.0 04/29/17 16:00 99.2 114 19 136/85 95 Nasal Cannula 3.0 04/29/17 16:00 109 04/29/17 15:00 113 20 140/80 95 Nasal Cannula 3.0 04/29/17 14:00 116 19 155/92 95 Nasal Cannula 3.0 04/29/17 13:00 117 19 161/87 98 Nasal Cannula 3.0 04/29/17 12:59 135/95 04/29/17 12:00 98.7 112 19 135/97 99 Nasal Cannula 3.0 04/29/17 12:00 133 04/29/17 11:00 106 19 116/91 99 Room Air 04/29/17 10:00 103 19 129/88 99 Room Air 04/29/17 09:09 122 161/92 04/29/17 09:00 98 19 117/97 99 Room Air 04/29/17 08:00 98.7 98 19 161/92 98 Room Air 04/29/17 08:00 120 04/29/17 07:45 99 Room Air 21 04/29/17 07:45 Room Air 21 04/29/17 07:00 98 16 131/82 97 Nasal Cannula 3.0 04/29/17 06:00 97 16 158/92 97 Nasal Cannula 3.0 04/29/17 05:34 141/87 04/29/17 05:00 78 16 141/87 97 Nasal Cannula 3.0 04/29/17 04:00 98.6 78 16 138/93 97 Nasal Cannula 3.0 04/29/17 04:00 79 04/29/17 03:00 78 15 138/93 97 Venturi Mask 45 04/29/17 02:00 98.0 82 15 128/93 97 Venturi Mask 45 04/29/17 01:00 81 15 146/85 97 Venturi Mask 45 04/29/17 00:00 98.0 81 15 133/81 97 Venturi Mask 45 04/29/17 00:00 81 04/28/17 23:00 83 15 153/87 97 Venturi Mask 45 04/28/17 22:05 169/97 04/28/17 22:00 79 15 168/89 96 Venturi Mask 45 04/28/17 21:00 80 15 154/102 96 Venturi Mask 45 04/28/17 20:00 85 04/28/17 20:00 98.4 85 15 145/86 96 Venturi Mask 45 General Appearance: no apparent distress, alert Cardiovascular: normal rate, tachycardia - mild Abdomen: non tender, soft Extremities: no swelling Intake and Output 04/29/17 04/30/17 19:00 07:00 Intake Total 1024 ml Output Total 995 ml Balance 29 ml Intake Oral 20 ml IV Total 444 ml Blood Product 560 ml Output Urine Total 995 ml # Bowel Movements 2 Laboratory Tests Test 04/29/17 04:05 04/29/17 07:50 04/29/17 12:00 04/29/17 16:20 White Blood Count 8.6 K/UL (4.8-10.8) 9.5 K/UL (4.8-10.8) Red Blood Count 3.70 M/UL (4.70-6.10) L 3.79 M/UL (4.70-6.10) L Hemoglobin 11.3 G/DL (14.2-18.0) L 11.1 G/DL (14.2-18.0) L Hematocrit 34.4 % (42.0-52.0) L 35.3 % (42.0-52.0) L Mean Corpuscular Volume 93 FL (80-99) 93 FL (80-99) Mean Corpuscular Hemoglobin 30.4 PG (27.0-31.0) 29.3 PG (27.0-31.0) Mean Corpuscular Hemoglobin Concent 32.7 G/DL (32.0-36.0) 31.4 G/DL (32.0-36.0) L Red Cell Distribution Width 13.1 % (11.6-14.8) 13.0 % (11.6-14.8) Platelet Count 147 K/UL (150-450) L 154 K/UL (150-450) Mean Platelet Volume 10.8 FL (6.5-10.1) H 11.1 FL (6.5-10.1) H Neutrophils (%) (Auto) 78.7 % (45.0-75.0) H 84.8 % (45.0-75.0) H Lymphocytes (%) (Auto) 9.4 % (20.0-45.0) L 5.9 % (20.0-45.0) L Monocytes (%) (Auto) 9.0 % (1.0-10.0) 7.0 % (1.0-10.0) Eosinophils (%) (Auto) 2.1 % (0.0-3.0) 1.0 % (0.0-3.0) Basophils (%) (Auto) 0.8 % (0.0-2.0) 1.2 % (0.0-2.0) Prothrombin Time 11.3 SEC (9.30-11.50) 11.0 SEC (9.30-11.50) Prothromb Time International Ratio 1.1 (0.9-1.1) 1.1 (0.9-1.1) Activated Partial Thromboplast Time 62 SEC (23-33) H 31 SEC (23-33) Sodium Level 140 MMOL/L (136-145) Potassium Level 4.2 MMOL/L (3.5-5.1) Chloride Level 104 MMOL/L (98-107) Carbon Dioxide Level 28 MMOL/L (21-32) Anion Gap 9 mmol/L (5-15) Blood Urea Nitrogen 39 mg/dL (7-18) H Creatinine 1.8 MG/DL (0.55-1.30) H Estimat Glomerular Filtration Rate 46.2 mL/min (>60) Glucose Level 164 MG/DL (74-106) H Calcium Level 8.9 MG/DL (8.5-10.1) Phosphorus Level 3.8 MG/DL (2.5-4.9) Magnesium Level 2.0 MG/DL (1.8-2.4) Total Bilirubin 1.1 MG/DL (0.2-1.0) H Direct Bilirubin 0.3 MG/DL (0.0-0.3) Aspartate Amino Transf (AST/SGOT) 24 U/L (15-37) Alanine Aminotransferase (ALT/SGPT) 60 U/L (12-78) Alkaline Phosphatase 51 U/L (46-116) Total Protein 6.6 G/DL (6.4-8.2) Albumin 2.1 G/DL (3.4-5.0) L Globulin 4.5 g/dL Albumin/Globulin Ratio 0.5 (1.0-2.7) L Arterial Blood pH 7.510 (7.350-7.450) Arterial Blood Partial Pressure CO2 32.0 mmHg (35.0-45.0) L Arterial Blood Partial Pressure O2 67.4 mmHg (75.0-100.0) L Arterial Blood HCO3 25.4 mmol/L (22.0-26.0) Arterial Blood Oxygen Saturation 92.6 % (92.0-98.0) Arterial Blood Base Excess 2.9 Dayron Test Positive Prostate Specific Antigen 12.1 ng/mL (0.0-4.0) H Microbiology Date/Time Source Procedure Growth Status 04/29/17 04:30 Sputum Gram Stain - Final Resulted 04/29/17 04:30 Sputum Sputum Culture Pending Resulted 04/28/17 15:00 Urine,Clean Catch Urine Culture - Preliminary NO GROWTH Resulted RUBEN CHAVEZ Apr 29, 2017 19:14
[2017-04-29] MEDS: Dyna-Hex 2% Top Sol 2oz TOPIC SCH (20:56)
[2017-04-29] MEDS: Miralax 17gm pkt GT SCH (20:56)
[2017-04-29 21:48] LABS: BASOPHILS % (AUTO) 0.4 % (0.0-2.0); EOSINOPHILS % (AUTO) 0.9 % (0.0-3.0); LYMPHOCYTES % (AUTO) 8.2 % (20.0-45.0); MEAN CORPUSCULAR HGB CONC 32.1 G/DL (32.0-36.0); MEAN CORPUSCULAR VOLUME 93 FL (80-99); MEAN PLATELET VOLUME 11.2 FL (6.5-10.1); MONOCYTES % (AUTO) 8.1 % (1.0-10.0); NEUTROPHILS % (AUTO) 82.3 % (45.0-75.0); PLATELET COUNT 148 K/UL (150-450); RED BLOOD COUNT 3.26 M/UL (4.70-6.10); RED CELL DISTRIBUTION WIDTH 12.6 % (11.6-14.8); WHITE BLOOD COUNT 9.5 K/UL (4.8-10.8)
--- NOTE | 2017-04-29 22:55 | General Progress Note ---
Assessment/Plan Assessment/Plan Assessment and Recs 1. Pulmonary embolism. --> no longer on heparin, due to bleeding 2. DVT- right leg subacute thrombus in mid superficial femoral vein. 3. Coagulopathy 2/2 heparin drip 4. Anemia, work up if drops below 10 5. Thrombocytopenia, concerning for HIT vs sepsis --> HIT test negative Subjective ROS Limited/Unobtainable: Yes Allergies: Coded Allergies: LISINOPRIL (Verified Allergy, Severe, 04/21/17) Subjective bleeding from mouth noted Objective Last 24 Hour Vital Signs Date Time Temp Pulse Resp B/P (MAP) Pulse Ox O2 Delivery O2 Flow Rate FiO2 04/29/17 22:00 105 19 121/90 95 Nasal Cannula 3.0 04/29/17 21:00 110 20 135/99 96 Nasal Cannula 3.0 04/29/17 20:00 98.8 109 24 136/87 95 Nasal Cannula 3.0 04/29/17 20:00 112 04/29/17 19:32 95 Nasal Cannula 3.0 32 04/29/17 19:32 Nasal Cannula 3.0 32 04/29/17 19:00 108 20 123/88 95 Nasal Cannula 3.0 04/29/17 18:00 106 20 135/75 95 Nasal Cannula 3.0 04/29/17 17:51 126/86 04/29/17 17:00 111 20 139/81 96 Nasal Cannula 3.0 04/29/17 16:00 99.2 114 19 136/85 95 Nasal Cannula 3.0 04/29/17 16:00 109 04/29/17 15:00 113 20 140/80 95 Nasal Cannula 3.0 04/29/17 14:00 116 19 155/92 95 Nasal Cannula 3.0 04/29/17 13:00 117 19 161/87 98 Nasal Cannula 3.0 04/29/17 12:59 135/95 04/29/17 12:00 98.7 112 19 135/97 99 Nasal Cannula 3.0 04/29/17 12:00 133 04/29/17 11:00 106 19 116/91 99 Room Air 04/29/17 10:00 103 19 129/88 99 Room Air 04/29/17 09:09 122 161/92 04/29/17 09:00 98 19 117/97 99 Room Air 04/29/17 08:00 98.7 98 19 161/92 98 Room Air 04/29/17 08:00 120 04/29/17 07:45 99 Room Air 21 04/29/17 07:45 Room Air 21 04/29/17 07:00 98 16 131/82 97 Nasal Cannula 3.0 04/29/17 06:00 97 16 158/92 97 Nasal Cannula 3.0 04/29/17 05:34 141/87 04/29/17 05:00 78 16 141/87 97 Nasal Cannula 3.0 04/29/17 04:00 98.6 78 16 138/93 97 Nasal Cannula 3.0 04/29/17 04:00 79 04/29/17 03:00 78 15 138/93 97 Venturi Mask 45 04/29/17 02:00 98.0 82 15 128/93 97 Venturi Mask 45 04/29/17 01:00 81 15 146/85 97 Venturi Mask 45 04/29/17 00:00 98.0 81 15 133/81 97 Venturi Mask 45 04/29/17 00:00 81 04/28/17 23:00 83 15 153/87 97 Venturi Mask 45 Intake and Output 04/29/17 04/30/17 19:00 07:00 Intake Total 1024 ml 0 ml Output Total 1115 ml 200 ml Balance -91 ml -200 ml Intake Oral 20 ml 0 ml IV Total 444 ml Blood Product 560 ml Output Urine Total 1115 ml 200 ml # Bowel Movements 4 Laboratory Tests 04/29/17 04:05: White Blood Count 8.6, Red Blood Count 3.70L, Hemoglobin 11.3L, Hematocrit 34.4L , Mean Corpuscular Volume 93, Mean Corpuscular Hemoglobin 30.4, Mean Corpuscular Hemoglobin Concent 32.7, Red Cell Distribution Width 13.1, Platelet Count 147L, Mean Platelet Volume 10.8H, Neutrophils (%) (Auto) 78.7H, Lymphocytes (%) (Auto) 9.4L, Monocytes (%) (Auto) 9.0, Eosinophils (%) (Auto) 2.1, Basophils (%) (Auto) 0.8, Prothrombin Time 11.3, Prothromb Time International Ratio 1.1, Activated Partial Thromboplast Time 62H, Sodium Level 140, Potassium Level 4.2, Chloride Level 104, Carbon Dioxide Level 28, Anion Gap 9, Blood Urea Nitrogen 39H, Creatinine 1.8H, Estimat Glomerular Filtration Rate 46.2, Glucose Level 164H, Calcium Level 8.9, Phosphorus Level 3.8, Magnesium Level 2.0, Total Bilirubin 1.1H, Direct Bilirubin 0.3, Aspartate Amino Transf (AST/SGOT) 24, Alanine Aminotransferase (ALT/SGPT) 60, Alkaline Phosphatase 51, Total Protein 6.6, Albumin 2.1L, Globulin 4.5, Albumin/Globulin Ratio 0.5L 04/29/17 07:50: Arterial Blood pH 7.510H, Arterial Blood Partial Pressure CO2 32.0L, Arterial Blood Partial Pressure O2 67.4L, Arterial Blood HCO3 25.4, Arterial Blood Oxygen Saturation 92.6, Arterial Blood Base Excess 2.9, Dayron Test Positive 04/29/17 12:00: White Blood Count 9.5, Red Blood Count 3.79L, Hemoglobin 11.1L, Hematocrit 35.3L , Mean Corpuscular Volume 93, Mean Corpuscular Hemoglobin 29.3, Mean Corpuscular Hemoglobin Concent 31.4L, Red Cell Distribution Width 13.0, Platelet Count 154, Mean Platelet Volume 11.1H, Neutrophils (%) (Auto) 84.8H, Lymphocytes (%) (Auto) 5.9L, Monocytes (%) (Auto) 7.0, Eosinophils (%) (Auto) 1.0, Basophils (%) (Auto) 1.2, Prothrombin Time 11.0, Prothromb Time International Ratio 1.1, Activated Partial Thromboplast Time 31 04/29/17 16:20: Prostate Specific Antigen 12.1H 04/29/17 21:15: White Blood Count 9.5, Red Blood Count 3.26L, Hemoglobin 9.8L, Hematocrit 30.4L , Mean Corpuscular Volume 93, Mean Corpuscular Hemoglobin 30.0, Mean Corpuscular Hemoglobin Concent 32.1, Red Cell Distribution Width 12.6, Platelet Count 148L, Mean Platelet Volume 11.2H, Neutrophils (%) (Auto) 82.3H, Lymphocytes (%) (Auto) 8.2L, Monocytes (%) (Auto) 8.1, Eosinophils (%) (Auto) 0.9, Basophils (%) (Auto) 0.4 Height (Feet): 6 Height (Inches): 4.00 Weight (Pounds): 271 General Appearance: no apparent distress EENT: normal ENT inspection Neck: normal alignment 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
[2017-04-30] VITALS (24 sets, daily range): BP systolic 115–149; BP diastolic 73–94
[2017-04-30 04:46] LABS: BASOPHILS % (AUTO) 0.6 % (0.0-2.0); EOSINOPHILS % (AUTO) 1.5 % (0.0-3.0); LYMPHOCYTES % (AUTO) 8.2 % (20.0-45.0); MEAN CORPUSCULAR HEMOGLOBIN 30.3 PG (27.0-31.0); MEAN CORPUSCULAR HGB CONC 32.8 G/DL (32.0-36.0); MEAN CORPUSCULAR VOLUME 92 FL (80-99); MEAN PLATELET VOLUME 10.8 FL (6.5-10.1); NEUTROPHILS % (AUTO) 81.8 % (45.0-75.0); PLATELET COUNT 164 K/UL (150-450); RED BLOOD COUNT 3.25 M/UL (4.70-6.10); RED CELL DISTRIBUTION WIDTH 12.9 % (11.6-14.8); WHITE BLOOD COUNT 9.4 K/UL (4.8-10.8)
[2017-04-30 05:07] LABS: INR 1.1 (0.9-1.1); PROTHROMBIN TIME 11.1 SEC (9.30-11.50)
[2017-04-30 05:17] LABS: ALANINE AMINOTRANSFERASE 62 U/L (12-78); ALBUMIN/GLOBULIN RATIO 0.5 (1.0-2.7); ANION GAP 8 mmol/L (5-15); ASPARTATE AMINO TRANSFERASE 29 U/L (15-37); CALCIUM 9.1 MG/DL (8.5-10.1); CARBON DIOXIDE 27 MMOL/L (21-32); CHLORIDE 106 MMOL/L (98-107); GLOMERULAR FILTRATION RATE 40.8 mL/min (>60); POTASSIUM 4.5 MMOL/L (3.5-5.1); SODIUM 141 MMOL/L (136-145); TOTAL PROTEIN 6.8 G/DL (6.4-8.2)
[2017-04-30] MEDS: Nitroglycerin 2% oint pkt TOPIC SCH ×3 (05:48→17:59)
--- NOTE | 2017-04-30 08:15 | Pulmonolgy Critical Care Note ---
Critical Care - Asmt/Plan Assessment/Plan: ASSESSMENT acute respiratory failure 2 to angioedema, requiring intubation s/p extubation 04/28 angioneurotic edema LLL PNA acute metabolic encephalopathy acute PE elevated troponin liekly 2 to acute PE DVT RLE new onset of DM HTN severe pulmonary HTN benign hypertensive kidney disease with CKD ARF on CKD CAROLIN allergy COPD tobacco abuse with dependency right hydronephrosis bleeding 2 to a/coagulation multinodular goiter anemia elevated PSA PLAN OF CARE ICU off a/coagulation 2 to bleeding IVC filter placement pending CTA + acute PE venous Diuplex + subacute thrombus RLE ( before probably acute, likely longterm ) s/p extubation O2 to keep sat above 92% pulmonary toilet Nicotine patch 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 on smoking 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 hemodynamically stable abx ID follows cx negative fup with CXR cardio follows tele negative ECHO with EF 60& and evidence of severe pulmonary HTN , as well as significant LVH BP management with CCB and optimize further as needed nephro follows monitor renal parameters, lytes renal US with borderline R hydro, normal echogenicity bilaterally monitor renal parameters, lytes and avoid nephroptotics elevated PSA noted [id number], diagnostic for diabetes, no hx of DM in the past declined insulin and pills will get endo consult CT with evidence of multinodular goiter will check TFT GI follows diet as tolerated monitor HH, GI prophylaxis heme follows bowel regimen pain management case discussed and evaluated by supervising physician Critical Care - Objective Last 24 Hour Vital Signs Date Time Temp Pulse Resp B/P (MAP) Pulse Ox O2 Delivery O2 Flow Rate FiO2 04/30/17 06:00 101 20 127/87 99 Nasal Cannula 2.0 04/30/17 05:48 133/84 04/30/17 05:00 100 22 133/84 100 Nasal Cannula 2.0 04/30/17 04:00 98.0 110 26 142/91 96 Nasal Cannula 2.0 04/30/17 04:00 110 04/30/17 03:00 97 22 125/93 98 Nasal Cannula 2.0 04/30/17 02:00 103 21 129/92 95 Nasal Cannula 3.0 04/30/17 01:00 101 23 130/88 100 Nasal Cannula 3.0 04/30/17 00:00 97.7 104 24 140/78 96 Nasal Cannula 3.0 04/30/17 00:00 104 04/29/17 23:00 105 20 126/87 95 Nasal Cannula 3.0 04/29/17 22:00 105 19 121/90 95 Nasal Cannula 3.0 04/29/17 21:00 110 20 135/99 96 Nasal Cannula 3.0 04/29/17 20:00 98.8 109 24 136/87 95 Nasal Cannula 3.0 04/29/17 20:00 112 04/29/17 19:32 95 Nasal Cannula 3.0 32 04/29/17 19:32 Nasal Cannula 3.0 32 04/29/17 19:00 108 20 123/88 95 Nasal Cannula 3.0 04/29/17 18:00 106 20 135/75 95 Nasal Cannula 3.0 04/29/17 17:51 126/86 04/29/17 17:00 111 20 139/81 96 Nasal Cannula 3.0 04/29/17 16:00 99.2 114 19 136/85 95 Nasal Cannula 3.0 04/29/17 16:00 109 04/29/17 15:00 113 20 140/80 95 Nasal Cannula 3.0 04/29/17 14:00 116 19 155/92 95 Nasal Cannula 3.0 04/29/17 13:00 117 19 161/87 98 Nasal Cannula 3.0 04/29/17 12:59 135/95 04/29/17 12:00 98.7 112 19 135/97 99 Nasal Cannula 3.0 04/29/17 12:00 133 04/29/17 11:00 106 19 116/91 99 Room Air 04/29/17 10:00 103 19 129/88 99 Room Air 04/29/17 09:09 122 161/92 04/29/17 09:00 98 19 117/97 99 Room Air Status: awake, other - awake, alert, oriented x4, Condition: improving, other - A/A/O x 3 HEENT: atraumatic, normocephalic, other - O2 via NC Neck: full ROM Lungs: clear Heart: HR/BP stable - ST on tele , other - LUE PICC intact Abdomen: soft, non-tender, active bowel sounds Extremities: no C/C/E Micro: Microbiology Date/Time Source Procedure Growth Status 04/28/17 15:30 Blood Blood Culture - Preliminary NO GROWTH AFTER 24 HOURS Resulted 04/28/17 15:15 Blood Blood Culture - Preliminary NO GROWTH AFTER 24 HOURS Resulted 04/29/17 04:30 Sputum Gram Stain - Final Resulted 04/29/17 04:30 Sputum Sputum Culture Pending Resulted 04/28/17 15:00 Urine,Clean Catch Urine Culture - Final NO GROWTH AFTER 48 HOURS Complete Critical Care - Subjective Interval Events: a/coagulation stopped 2 to bleeding IVC filter placement pending respiratory status stable tolerated diet daughter at the bedside Condition: critical IV Access: PICC - LUE intact EKG Rhythm: Sinus Tachycardia FI02: 21 Sputum Amount: Moderate CXR: no definite acute process Christine Edgar NP ([facility]) Apr 30, 2017 08:15
[2017-04-30] MEDS: Docusate 100mg/10ml Liq NG SCH ×3 (09:00→17:55)
[2017-04-30] MEDS: Pantoprazole Inj IVP SCH ×2 (09:05→20:51)
[2017-04-30 10:06] LABS: BASOPHILS % (AUTO) 0.9 % (0.0-2.0); EOSINOPHILS % (AUTO) 1.6 % (0.0-3.0); MEAN CORPUSCULAR HEMOGLOBIN 29.1 PG (27.0-31.0); MEAN CORPUSCULAR HGB CONC 31.2 G/DL (32.0-36.0); MEAN CORPUSCULAR VOLUME 93 FL (80-99); MEAN PLATELET VOLUME 11.3 FL (6.5-10.1); MONOCYTES % (AUTO) 7.1 % (1.0-10.0); NEUTROPHILS % (AUTO) 83.5 % (45.0-75.0); PLATELET COUNT 147 K/UL (150-450); RED BLOOD COUNT 3.24 M/UL (4.70-6.10); RED CELL DISTRIBUTION WIDTH 13.1 % (11.6-14.8); WHITE BLOOD COUNT 8.3 K/UL (4.8-10.8)
[2017-04-30] MEDS: Cefepime HCl 2 GM in NS 110 ML IV SCH (10:26)
--- NOTE | 2017-04-30 14:06 | Nephrology Progress Note ---
Assessment/Plan Problem List: (1) Renal insufficiency (2) Acute respiratory failure (3) Pulmonary embolism (4) Benign hypertensive kidney disease with chronic kidney disease Assessment Pulmonary emboli , on heparin, bleeding complications Acute respiratory failure- Was On Vent- Now extubated Renal failure ? CKD ? Superimposed Acute renal failure- Cr 2 unchanged HTN- Smoker- Jorge Inhibitor Allergy Plan Plan: Post extubation care- Keep BP in check Off heparin- Due IVC filter 2D Echo- EjFx 60% Pulmonary support- urine studies- Kidney MIKEY Right kidney demonstrates borderline hydronephrosis. monitor renal parameters- Avoid nephrotoxics Subjective ROS Limited/Unobtainable: No Constitutional: Reports: other - stronger and more alert Objective Objective Last 24 Hour Vital Signs Date Time Temp Pulse Resp B/P (MAP) Pulse Ox O2 Delivery O2 Flow Rate FiO2 04/30/17 12:35 120/81 04/30/17 11:45 21 04/30/17 10:00 105 22 120/81 93 Nasal Cannula 2.0 04/30/17 09:05 110 123/73 04/30/17 09:00 108 21 127/80 95 Nasal Cannula 2.0 04/30/17 08:00 110 20 123/73 97 Nasal Cannula 2.0 04/30/17 07:00 106 19 127/89 95 Nasal Cannula 2.0 04/30/17 06:00 101 20 127/87 99 Nasal Cannula 2.0 04/30/17 05:48 133/84 04/30/17 05:00 100 22 133/84 100 Nasal Cannula 2.0 04/30/17 04:00 98.0 110 26 142/91 96 Nasal Cannula 2.0 04/30/17 04:00 110 04/30/17 03:00 97 22 125/93 98 Nasal Cannula 2.0 04/30/17 02:00 103 21 129/92 95 Nasal Cannula 3.0 04/30/17 01:00 101 23 130/88 100 Nasal Cannula 3.0 04/30/17 00:00 97.7 104 24 140/78 96 Nasal Cannula 3.0 04/30/17 00:00 104 04/29/17 23:00 105 20 126/87 95 Nasal Cannula 3.0 04/29/17 22:00 105 19 121/90 95 Nasal Cannula 3.0 04/29/17 21:00 110 20 135/99 96 Nasal Cannula 3.0 04/29/17 20:00 98.8 109 24 136/87 95 Nasal Cannula 3.0 04/29/17 20:00 112 04/29/17 19:32 95 Nasal Cannula 3.0 32 04/29/17 19:32 Nasal Cannula 3.0 32 04/29/17 19:00 108 20 123/88 95 Nasal Cannula 3.0 04/29/17 18:00 106 20 135/75 95 Nasal Cannula 3.0 04/29/17 17:51 126/86 04/29/17 17:00 111 20 139/81 96 Nasal Cannula 3.0 04/29/17 16:00 99.2 114 19 136/85 95 Nasal Cannula 3.0 04/29/17 16:00 109 04/29/17 15:00 113 20 140/80 95 Nasal Cannula 3.0 Intake and Output 04/30/17 05/01/17 19:00 07:00 Intake Total 110 ml Output Total 200 ml Balance -90 ml IV Total 110 ml Output Urine Total 200 ml Laboratory Tests 04/29/17 16:20: Prostate Specific Antigen 12.1H 04/29/17 21:15: White Blood Count 9.5, Red Blood Count 3.26L, Hemoglobin 9.8L, Hematocrit 30.4L , Mean Corpuscular Volume 93, Mean Corpuscular Hemoglobin 30.0, Mean Corpuscular Hemoglobin Concent 32.1, Red Cell Distribution Width 12.6, Platelet Count 148L, Mean Platelet Volume 11.2H, Neutrophils (%) (Auto) 82.3H, Lymphocytes (%) (Auto) 8.2L, Monocytes (%) (Auto) 8.1, Eosinophils (%) (Auto) 0.9, Basophils (%) (Auto) 0.4 04/30/17 03:42: White Blood Count 9.4, Red Blood Count 3.25L, Hemoglobin 9.9L, Hematocrit 30.0L , Mean Corpuscular Volume 92, Mean Corpuscular Hemoglobin 30.3, Mean Corpuscular Hemoglobin Concent 32.8, Red Cell Distribution Width 12.9, Platelet Count 164, Mean Platelet Volume 10.8H, Neutrophils (%) (Auto) 81.8H, Lymphocytes (%) (Auto) 8.2L, Monocytes (%) (Auto) 8.0, Eosinophils (%) (Auto) 1.5, Basophils (%) (Auto) 0.6, Prothrombin Time 11.1, Prothromb Time International Ratio 1.1, Activated Partial Thromboplast Time 29, Sodium Level 141, Potassium Level 4.5, Chloride Level 106, Carbon Dioxide Level 27, Anion Gap 8, Blood Urea Nitrogen 53H, Creatinine 2.0H, Estimat Glomerular Filtration Rate 40.8, Glucose Level 181H, Calcium Level 9.1, Total Bilirubin 1.0, Aspartate Amino Transf (AST/SGOT) 29, Alanine Aminotransferase (ALT/SGPT) 62, Alkaline Phosphatase 53, Total Protein 6.8, Albumin 2.3L, Globulin 4.5, Albumin/ Globulin Ratio 0.5L, Thyroid Stimulating Hormone (TSH) [Pending], Free Thyroxine [Pending] 04/30/17 09:40: White Blood Count 8.3, Red Blood Count 3.24L, Hemoglobin 9.4L, Hematocrit 30.3L , Mean Corpuscular Volume 93, Mean Corpuscular Hemoglobin 29.1, Mean Corpuscular Hemoglobin Concent 31.2L, Red Cell Distribution Width 13.1, Platelet Count 147L, Mean Platelet Volume 11.3H, Neutrophils (%) (Auto) 83.5H, Lymphocytes (%) (Auto) 7.0L, Monocytes (%) (Auto) 7.1, Eosinophils (%) (Auto) 1.6, Basophils (%) (Auto) 0.9 Height (Feet): 6 Height (Inches): 4.00 Weight (Pounds): 260 General Appearance: no apparent distress Respiratory/Chest: decreased breath sounds Abdomen: soft, distended TIARRA PARTIDA Apr 30, 2017 14:06
[2017-04-30 14:59] LABS: THYROID STIMULATING HORMONE 0.012 uiU/mL (0.360-3.740)
[2017-04-30 16:16] LABS: BASOPHILS % (AUTO) 0.5 % (0.0-2.0); EOSINOPHILS % (AUTO) 2.3 % (0.0-3.0); LYMPHOCYTES % (AUTO) 10.1 % (20.0-45.0); MEAN CORPUSCULAR HEMOGLOBIN 29.3 PG (27.0-31.0); MEAN CORPUSCULAR HGB CONC 31.4 G/DL (32.0-36.0); MEAN CORPUSCULAR VOLUME 93 FL (80-99); NEUTROPHILS % (AUTO) 80.1 % (45.0-75.0); PLATELET COUNT 160 K/UL (150-450); RED BLOOD COUNT 3.22 M/UL (4.70-6.10); RED CELL DISTRIBUTION WIDTH 12.9 % (11.6-14.8); WHITE BLOOD COUNT 9.2 K/UL (4.8-10.8)
[2017-04-30] MEDS ORDERED: NS 275ml ONE (17:49)
[2017-04-30] MEDS ORDERED: Tubing IV Blood Pump IV ONE (17:49)
[2017-04-30] MEDS ORDERED: Tubing IV Secondary IV ONE (17:49)
[2017-04-30] MEDS: Miralax 17gm pkt GT SCH (20:51)
[2017-04-30] MEDS: Dyna-Hex 2% Top Sol 2oz TOPIC SCH (20:51)
--- NOTE | 2017-04-30 21:12 | General Progress Note ---
Assessment/Plan Assessment/Plan Assessment and Recs 1. Pulmonary embolism. --> no longer on heparin, due to bleeding 2. DVT- right leg subacute thrombus in mid superficial femoral vein. --> ivc filter pending 3. Coagulopathy 2/2 heparin drip 4. Anemia, work up if drops below 10 5. Thrombocytopenia, concerning for HIT vs sepsis --> HIT test negative Subjective ROS Limited/Unobtainable: Yes Allergies: Coded Allergies: LISINOPRIL (Verified Allergy, Severe, 04/21/17) Subjective off heparin Objective Last 24 Hour Vital Signs Date Time Temp Pulse Resp B/P (MAP) Pulse Ox O2 Delivery O2 Flow Rate FiO2 04/30/17 19:30 Nasal Cannula 2.0 28 04/30/17 19:30 98 Nasal Cannula 2.0 28 04/30/17 19:00 99 20 123/75 99 Nasal Cannula 2.0 04/30/17 18:00 104 22 127/85 91 Nasal Cannula 2.0 04/30/17 17:59 126/85 04/30/17 17:00 99 20 123/75 91 Nasal Cannula 2.0 04/30/17 16:00 97.3 104 20 118/79 93 Nasal Cannula 2.0 04/30/17 15:58 102 04/30/17 15:58 102 04/30/17 15:00 104 22 127/85 91 Nasal Cannula 2.0 04/30/17 14:00 104 21 115/83 92 Nasal Cannula 2.0 04/30/17 13:00 104 23 136/73 96 Nasal Cannula 2.0 04/30/17 12:35 120/81 04/30/17 12:00 107 21 120/85 95 Nasal Cannula 2.0 04/30/17 11:58 107 04/30/17 11:45 21 04/30/17 11:00 107 21 128/78 94 Nasal Cannula 2.0 04/30/17 10:00 105 22 120/81 93 Nasal Cannula 2.0 04/30/17 09:05 110 123/73 04/30/17 09:00 108 21 127/80 95 Nasal Cannula 2.0 04/30/17 08:00 110 20 123/73 97 Nasal Cannula 2.0 04/30/17 07:48 102 04/30/17 07:00 106 19 127/89 95 Nasal Cannula 2.0 04/30/17 06:00 101 20 127/87 99 Nasal Cannula 2.0 04/30/17 05:48 133/84 04/30/17 05:00 100 22 133/84 100 Nasal Cannula 2.0 04/30/17 04:00 98.0 110 26 142/91 96 Nasal Cannula 2.0 04/30/17 04:00 110 04/30/17 03:00 97 22 125/93 98 Nasal Cannula 2.0 04/30/17 02:00 103 21 129/92 95 Nasal Cannula 3.0 04/30/17 01:00 101 23 130/88 100 Nasal Cannula 3.0 04/30/17 00:00 97.7 104 24 140/78 96 Nasal Cannula 3.0 04/30/17 00:00 104 04/29/17 23:00 105 20 126/87 95 Nasal Cannula 3.0 04/29/17 22:00 105 19 121/90 95 Nasal Cannula 3.0 Intake and Output 04/30/17 05/01/17 19:00 07:00 Intake Total 260 ml Output Total 400 ml Balance -140 ml Intake Oral 150 ml IV Total 110 ml Output Urine Total 400 ml # Bowel Movements 1 Laboratory Tests 04/29/17 21:15: White Blood Count 9.5, Red Blood Count 3.26L, Hemoglobin 9.8L, Hematocrit 30.4L , Mean Corpuscular Volume 93, Mean Corpuscular Hemoglobin 30.0, Mean Corpuscular Hemoglobin Concent 32.1, Red Cell Distribution Width 12.6, Platelet Count 148L, Mean Platelet Volume 11.2H, Neutrophils (%) (Auto) 82.3H, Lymphocytes (%) (Auto) 8.2L, Monocytes (%) (Auto) 8.1, Eosinophils (%) (Auto) 0.9, Basophils (%) (Auto) 0.4 04/30/17 03:42: White Blood Count 9.4, Red Blood Count 3.25L, Hemoglobin 9.9L, Hematocrit 30.0L , Mean Corpuscular Volume 92, Mean Corpuscular Hemoglobin 30.3, Mean Corpuscular Hemoglobin Concent 32.8, Red Cell Distribution Width 12.9, Platelet Count 164, Mean Platelet Volume 10.8H, Neutrophils (%) (Auto) 81.8H, Lymphocytes (%) (Auto) 8.2L, Monocytes (%) (Auto) 8.0, Eosinophils (%) (Auto) 1.5, Basophils (%) (Auto) 0.6, Prothrombin Time 11.1, Prothromb Time International Ratio 1.1, Activated Partial Thromboplast Time 29, Sodium Level 141, Potassium Level 4.5, Chloride Level 106, Carbon Dioxide Level 27, Anion Gap 8, Blood Urea Nitrogen 53H, Creatinine 2.0H, Estimat Glomerular Filtration Rate 40.8, Glucose Level 181H, Calcium Level 9.1, Total Bilirubin 1.0, Aspartate Amino Transf (AST/SGOT) 29, Alanine Aminotransferase (ALT/SGPT) 62, Alkaline Phosphatase 53, Total Protein 6.8, Albumin 2.3L, Globulin 4.5, Albumin/ Globulin Ratio 0.5L, Thyroid Stimulating Hormone (TSH) 0.012L, Free Thyroxine 2.61H 04/30/17 09:40: White Blood Count 8.3, Red Blood Count 3.24L, Hemoglobin 9.4L, Hematocrit 30.3L , Mean Corpuscular Volume 93, Mean Corpuscular Hemoglobin 29.1, Mean Corpuscular Hemoglobin Concent 31.2L, Red Cell Distribution Width 13.1, Platelet Count 147L, Mean Platelet Volume 11.3H, Neutrophils (%) (Auto) 83.5H, Lymphocytes (%) (Auto) 7.0L, Monocytes (%) (Auto) 7.1, Eosinophils (%) (Auto) 1.6, Basophils (%) (Auto) 0.9 04/30/17 15:50: White Blood Count 9.2, Red Blood Count 3.22L, Hemoglobin 9.4L, Hematocrit 30.0L , Mean Corpuscular Volume 93, Mean Corpuscular Hemoglobin 29.3, Mean Corpuscular Hemoglobin Concent 31.4L, Red Cell Distribution Width 12.9, Platelet Count 160, Mean Platelet Volume 12.0H, Neutrophils (%) (Auto) 80.1H, Lymphocytes (%) (Auto) 10.1L, Monocytes (%) (Auto) 7.0, Eosinophils (%) (Auto) 2.3, Basophils (%) (Auto) 0.5 Height (Feet): 6 Height (Inches): 4.00 Weight (Pounds): 260 General Appearance: no apparent distress EENT: normal ENT inspection Neck: normal alignment Cardiovascular: no gallop/murmur Extremities: non-tender Skin: warm/dry RHODA MCLEOD Apr 30, 2017 21:12
--- NOTE | 2017-04-30 23:18 | Cardiology Progress Note ---
Assessment/Plan Assessment/Plan pulmonary emboli, off anticoagulation will monitor, stable at present time Subjective Subjective The patient is resting in bed, comfortable, denies chest pain, has mild dyspnea Objective Last 24 Hour Vital Signs Date Time Temp Pulse Resp B/P (MAP) Pulse Ox O2 Delivery O2 Flow Rate FiO2 04/30/17 22:00 101 18 129/89 94 Nasal Cannula 2.0 04/30/17 21:00 102 24 139/94 93 Nasal Cannula 2.0 04/30/17 20:00 98 04/30/17 20:00 97.6 98 19 133/82 94 Nasal Cannula 2.0 04/30/17 19:30 Nasal Cannula 2.0 28 04/30/17 19:30 98 Nasal Cannula 2.0 28 04/30/17 19:00 99 20 123/75 99 Nasal Cannula 2.0 04/30/17 18:00 104 22 127/85 91 Nasal Cannula 2.0 04/30/17 17:59 126/85 04/30/17 17:00 99 20 123/75 91 Nasal Cannula 2.0 04/30/17 16:00 97.3 104 20 118/79 93 Nasal Cannula 2.0 04/30/17 15:58 102 04/30/17 15:58 102 04/30/17 15:00 104 22 127/85 91 Nasal Cannula 2.0 04/30/17 14:00 104 21 115/83 92 Nasal Cannula 2.0 04/30/17 13:00 104 23 136/73 96 Nasal Cannula 2.0 04/30/17 12:35 120/81 04/30/17 12:00 107 21 120/85 95 Nasal Cannula 2.0 04/30/17 11:58 107 04/30/17 11:45 21 04/30/17 11:00 107 21 128/78 94 Nasal Cannula 2.0 04/30/17 10:00 105 22 120/81 93 Nasal Cannula 2.0 04/30/17 09:05 110 123/73 04/30/17 09:00 108 21 127/80 95 Nasal Cannula 2.0 04/30/17 08:00 110 20 123/73 97 Nasal Cannula 2.0 04/30/17 07:48 102 04/30/17 07:00 106 19 127/89 95 Nasal Cannula 2.0 04/30/17 06:00 101 20 127/87 99 Nasal Cannula 2.0 04/30/17 05:48 133/84 04/30/17 05:00 100 22 133/84 100 Nasal Cannula 2.0 04/30/17 04:00 98.0 110 26 142/91 96 Nasal Cannula 2.0 04/30/17 04:00 110 04/30/17 03:00 97 22 125/93 98 Nasal Cannula 2.0 04/30/17 02:00 103 21 129/92 95 Nasal Cannula 3.0 04/30/17 01:00 101 23 130/88 100 Nasal Cannula 3.0 04/30/17 00:00 97.7 104 24 140/78 96 Nasal Cannula 3.0 04/30/17 00:00 104 General Appearance: no apparent distress EENT: PERRL/EOMI Neck: JVD Rhythm: NSR Cardiovascular: normal rate Respiratory/Chest: crackles/rales Abdomen: non tender Extremities: normal range of motion Neurologic: alert Intake and Output 04/30/17 05/01/17 19:00 07:00 Intake Total 260 ml 50 ml Output Total 450 ml 160 ml Balance -190 ml -110 ml Intake Oral 150 ml 50 ml IV Total 110 ml Output Urine Total 450 ml 160 ml # Bowel Movements 1 Laboratory Tests Test 04/30/17 03:42 04/30/17 09:40 04/30/17 15:50 White Blood Count 9.4 K/UL (4.8-10.8) 8.3 K/UL (4.8-10.8) 9.2 K/UL (4.8-10.8) Red Blood Count 3.25 M/UL (4.70-6.10) L 3.24 M/UL (4.70-6.10) L 3.22 M/UL (4.70-6.10) L Hemoglobin 9.9 G/DL (14.2-18.0) L 9.4 G/DL (14.2-18.0) L 9.4 G/DL (14.2-18.0) L Hematocrit 30.0 % (42.0-52.0) L 30.3 % (42.0-52.0) L 30.0 % (42.0-52.0) L Mean Corpuscular Volume 92 FL (80-99) 93 FL (80-99) 93 FL (80-99) Mean Corpuscular Hemoglobin 30.3 PG (27.0-31.0) 29.1 PG (27.0-31.0) 29.3 PG (27.0-31.0) Mean Corpuscular Hemoglobin Concent 32.8 G/DL (32.0-36.0) 31.2 G/DL (32.0-36.0) L 31.4 G/DL (32.0-36.0) L Red Cell Distribution Width 12.9 % (11.6-14.8) 13.1 % (11.6-14.8) 12.9 % (11.6-14.8) Platelet Count 164 K/UL (150-450) 147 K/UL (150-450) L 160 K/UL (150-450) Mean Platelet Volume 10.8 FL (6.5-10.1) H 11.3 FL (6.5-10.1) H 12.0 FL (6.5-10.1) H Neutrophils (%) (Auto) 81.8 % (45.0-75.0) H 83.5 % (45.0-75.0) H 80.1 % (45.0-75.0) H Lymphocytes (%) (Auto) 8.2 % (20.0-45.0) L 7.0 % (20.0-45.0) L 10.1 % (20.0-45.0) L Monocytes (%) (Auto) 8.0 % (1.0-10.0) 7.1 % (1.0-10.0) 7.0 % (1.0-10.0) Eosinophils (%) (Auto) 1.5 % (0.0-3.0) 1.6 % (0.0-3.0) 2.3 % (0.0-3.0) Basophils (%) (Auto) 0.6 % (0.0-2.0) 0.9 % (0.0-2.0) 0.5 % (0.0-2.0) Prothrombin Time 11.1 SEC (9.30-11.50) Prothromb Time International Ratio 1.1 (0.9-1.1) Activated Partial Thromboplast Time 29 SEC (23-33) Sodium Level 141 MMOL/L (136-145) Potassium Level 4.5 MMOL/L (3.5-5.1) Chloride Level 106 MMOL/L (98-107) Carbon Dioxide Level 27 MMOL/L (21-32) Anion Gap 8 mmol/L (5-15) Blood Urea Nitrogen 53 mg/dL (7-18) H Creatinine 2.0 MG/DL (0.55-1.30) H Estimat Glomerular Filtration Rate 40.8 mL/min (>60) Glucose Level 181 MG/DL (74-106) H Calcium Level 9.1 MG/DL (8.5-10.1) Total Bilirubin 1.0 MG/DL (0.2-1.0) Aspartate Amino Transf (AST/SGOT) 29 U/L (15-37) Alanine Aminotransferase (ALT/SGPT) 62 U/L (12-78) Alkaline Phosphatase 53 U/L (46-116) Total Protein 6.8 G/DL (6.4-8.2) Albumin 2.3 G/DL (3.4-5.0) L Globulin 4.5 g/dL Albumin/Globulin Ratio 0.5 (1.0-2.7) L Thyroid Stimulating Hormone (TSH) 0.012 uiU/mL (0.360-3.740) Free Thyroxine 2.61 NG/DL (0.10-1.46) H Microbiology Date/Time Source Procedure Growth Status 04/28/17 15:30 Blood Blood Culture - Preliminary NO GROWTH AFTER 24 HOURS Resulted 04/28/17 15:15 Blood Blood Culture - Preliminary NO GROWTH AFTER 24 HOURS Resulted 04/29/17 04:30 Sputum Gram Stain - Final Resulted 04/29/17 04:30 Sputum Sputum Culture Pending Resulted 04/28/17 15:00 Urine,Clean Catch Urine Culture - Final NO GROWTH AFTER 48 HOURS JAY Sagastume Apr 30, 2017 23:18
[2017-05-01] VITALS (24 sets, daily range): BP systolic 105–160; BP diastolic 70–110
[2017-05-01 05:45] LABS: BASOPHILS % (AUTO) 0.6 % (0.0-2.0); EOSINOPHILS % (AUTO) 1.7 % (0.0-3.0); LYMPHOCYTES % (AUTO) 9.4 % (20.0-45.0); MEAN CORPUSCULAR HEMOGLOBIN 29.5 PG (27.0-31.0); MEAN CORPUSCULAR HGB CONC 31.4 G/DL (32.0-36.0); MEAN CORPUSCULAR VOLUME 94 FL (80-99); MEAN PLATELET VOLUME 9.9 FL (6.5-10.1); MONOCYTES % (AUTO) 5.6 % (1.0-10.0); NEUTROPHILS % (AUTO) 82.7 % (45.0-75.0); PLATELET COUNT 145 K/UL (150-450); RED BLOOD COUNT 3.19 M/UL (4.70-6.10); RED CELL DISTRIBUTION WIDTH 13.1 % (11.6-14.8); WHITE BLOOD COUNT 9.4 K/UL (4.8-10.8)
[2017-05-01 05:52] LABS: INR 1.1 (0.9-1.1); PROTHROMBIN TIME 11.4 SEC (9.30-11.50)
[2017-05-01] MEDS: Nitroglycerin 2% oint pkt TOPIC SCH ×3 (05:55→18:00)
[2017-05-01 06:00] LABS: ANION GAP 9 mmol/L (5-15); CALCIUM 9.2 MG/DL (8.5-10.1); CARBON DIOXIDE 26 MMOL/L (21-32); CHLORIDE 102 MMOL/L (98-107); CREATININE 2.2 MG/DL (0.55-1.30); GLOMERULAR FILTRATION RATE 36.6 mL/min (>60); POTASSIUM 4.4 MMOL/L (3.5-5.1); SODIUM 137 MMOL/L (136-145)
--- NOTE | 2017-05-01 08:46 | Infectious Diseases Prog Note ---
Assessment/Plan Assessment/Plan A; Pneumonia Pulmonary emboli DVT of right leg COPD Nicotine dependence P; Continue Cefepime Subjective ROS Limited/Unobtainable: No Constitutional: Reports: no symptoms Respiratory: Reports: shortness of breath, dry cough, other - both are better Gastrointestinal/Abdominal: Reports: no symptoms Genitourinary: Reports: no symptoms Hematologic: Reports: other - no bleeding Allergies: Coded Allergies: LISINOPRIL (Verified Allergy, Severe, 04/21/17) Objective Vital Signs Last 24 Hour Vital Signs Date Time Temp Pulse Resp B/P (MAP) Pulse Ox O2 Delivery O2 Flow Rate FiO2 05/01/17 08:00 98.5 96 20 131/83 98 Nasal Cannula 2.0 05/01/17 06:00 100 18 123/95 98 Nasal Cannula 2.0 05/01/17 05:55 135/71 05/01/17 05:00 97 19 135/71 98 Nasal Cannula 2.0 05/01/17 04:00 98.4 101 18 105/74 99 Nasal Cannula 2.0 05/01/17 04:00 101 05/01/17 03:00 107 22 138/88 94 Nasal Cannula 2.0 05/01/17 02:00 102 24 160/95 96 Nasal Cannula 2.0 05/01/17 01:00 100 20 148/91 96 Nasal Cannula 2.0 05/01/17 00:00 105 05/01/17 00:00 98.2 99 22 129/94 93 Nasal Cannula 2.0 04/30/17 23:00 102 19 149/90 95 Nasal Cannula 2.0 04/30/17 22:00 101 18 129/89 94 Nasal Cannula 2.0 04/30/17 21:00 102 24 139/94 93 Nasal Cannula 2.0 04/30/17 20:00 98 04/30/17 20:00 97.6 98 19 133/82 94 Nasal Cannula 2.0 04/30/17 19:30 Nasal Cannula 2.0 28 04/30/17 19:30 98 Nasal Cannula 2.0 28 04/30/17 19:00 99 20 123/75 99 Nasal Cannula 2.0 04/30/17 18:00 104 22 127/85 91 Nasal Cannula 2.0 04/30/17 17:59 126/85 04/30/17 17:00 99 20 123/75 91 Nasal Cannula 2.0 04/30/17 16:00 97.3 104 20 118/79 93 Nasal Cannula 2.0 04/30/17 15:58 102 04/30/17 15:58 102 04/30/17 15:00 104 22 127/85 91 Nasal Cannula 2.0 04/30/17 14:00 104 21 115/83 92 Nasal Cannula 2.0 04/30/17 13:00 104 23 136/73 96 Nasal Cannula 2.0 04/30/17 12:35 120/81 04/30/17 12:00 107 21 120/85 95 Nasal Cannula 2.0 04/30/17 11:58 107 04/30/17 11:45 21 04/30/17 11:00 107 21 128/78 94 Nasal Cannula 2.0 04/30/17 10:00 105 22 120/81 93 Nasal Cannula 2.0 04/30/17 09:05 110 123/73 04/30/17 09:00 108 21 127/80 95 Nasal Cannula 2.0 Height (Feet): 6 Height (Inches): 4.00 Weight (Pounds): 261 General Appearance: no acute distress HEENT: mucous membranes moist Respiratory/Chest: rhonchi - bilaterally Cardiovascular: normal rate Abdomen: soft, non tender Extremities: no edema Neurologic/Psychiatric: alert, oriented x 3, responsive Microbiology Date/Time Source Procedure Growth Status 04/28/17 15:30 Blood Blood Culture - Preliminary NO GROWTH AFTER 48 HOURS Resulted 04/28/17 15:15 Blood Blood Culture - Preliminary NO GROWTH AFTER 48 HOURS Resulted 04/29/17 04:30 Sputum Gram Stain - Final Resulted 04/29/17 04:30 Sputum Culture - Preliminary YEAST Usual Upper Respiratory Vivien Resulted 04/28/17 15:00 Urine,Clean Catch Urine Culture - Final NO GROWTH AFTER 48 HOURS Complete Laboratory Tests Test 04/30/17 09:40 04/30/17 15:50 05/01/17 04:30 White Blood Count 8.3 K/UL (4.8-10.8) 9.2 K/UL (4.8-10.8) 9.4 K/UL (4.8-10.8) Red Blood Count 3.24 M/UL (4.70-6.10) L 3.22 M/UL (4.70-6.10) L 3.19 M/UL (4.70-6.10) L Hemoglobin 9.4 G/DL (14.2-18.0) L 9.4 G/DL (14.2-18.0) L 9.4 G/DL (14.2-18.0) L Hematocrit 30.3 % (42.0-52.0) L 30.0 % (42.0-52.0) L 30.1 % (42.0-52.0) L Mean Corpuscular Volume 93 FL (80-99) 93 FL (80-99) 94 FL (80-99) Mean Corpuscular Hemoglobin 29.1 PG (27.0-31.0) 29.3 PG (27.0-31.0) 29.5 PG (27.0-31.0) Mean Corpuscular Hemoglobin Concent 31.2 G/DL (32.0-36.0) L 31.4 G/DL (32.0-36.0) L 31.4 G/DL (32.0-36.0) L Red Cell Distribution Width 13.1 % (11.6-14.8) 12.9 % (11.6-14.8) 13.1 % (11.6-14.8) Platelet Count 147 K/UL (150-450) L 160 K/UL (150-450) 145 K/UL (150-450) L Mean Platelet Volume 11.3 FL (6.5-10.1) H 12.0 FL (6.5-10.1) H 9.9 FL (6.5-10.1) Neutrophils (%) (Auto) 83.5 % (45.0-75.0) H 80.1 % (45.0-75.0) H 82.7 % (45.0-75.0) H Lymphocytes (%) (Auto) 7.0 % (20.0-45.0) L 10.1 % (20.0-45.0) L 9.4 % (20.0-45.0) L Monocytes (%) (Auto) 7.1 % (1.0-10.0) 7.0 % (1.0-10.0) 5.6 % (1.0-10.0) Eosinophils (%) (Auto) 1.6 % (0.0-3.0) 2.3 % (0.0-3.0) 1.7 % (0.0-3.0) Basophils (%) (Auto) 0.9 % (0.0-2.0) 0.5 % (0.0-2.0) 0.6 % (0.0-2.0) Prothrombin Time 11.4 SEC (9.30-11.50) Prothromb Time International Ratio 1.1 (0.9-1.1) Activated Partial Thromboplast Time 29 SEC (23-33) Sodium Level 137 MMOL/L (136-145) Potassium Level 4.4 MMOL/L (3.5-5.1) Chloride Level 102 MMOL/L (98-107) Carbon Dioxide Level 26 MMOL/L (21-32) Anion Gap 9 mmol/L (5-15) Blood Urea Nitrogen 49 mg/dL (7-18) H Creatinine 2.2 MG/DL (0.55-1.30) H Estimat Glomerular Filtration Rate 36.6 mL/min (>60) Glucose Level 225 MG/DL (74-106) H Calcium Level 9.2 MG/DL (8.5-10.1) Current Medications Medications (Trade) Dose Ordered Sig/Kelsi Route PRN Reason Start Time Stop Time Status Last Admin Dose Admin Acetaminophen (Tylenol) 500 mg NEEDED PRN ORAL 30M PRIOR TO BLOOD TRANSFUSION 04/29/17 13:30 Acetaminophen (Tylenol) 650 mg Q6H PRN ORAL Mild Pain/Temp > 100.5 04/21/17 00:45 05/21/17 00:44 04/27/17 19:38 Amlodipine Besylate (Norvasc) 5 mg DAILY GT 04/28/17 09:00 05/23/17 09:29 04/30/17 09:05 Cefepime HCl 2 gm/ Sodium Chloride 110 ml @ 220 mls/hr Q24H IV 04/27/17 10:00 05/04/17 09:59 04/30/17 10:26 Chlorhexidine Gluconate (Malena-Hex 2%) 1 applic DAILY@2000 TOPIC 04/21/17 20:00 05/21/17 19:59 04/30/17 20:51 Diphenhydramine HCl (Benadryl) 50 mg NEEDED PRN ORAL 30M PRIOR TO BLOOD TRANSFUSION 04/29/17 13:30 Docusate Sodium (Colace) 100 mg THREE TIMES A DAY NG 04/22/17 18:00 05/22/17 17:59 04/29/17 09:09 Haloperidol Lactate 5 mg/ Dextrose 56 ml @ 224 mls/hr Q1H PRN IVPB AGITATION 04/24/17 08:45 05/24/17 08:44 04/29/17 08:17 Hydralazine HCl (Apresoline) 10 mg Q4H PRN IV For High Blood Pressure 04/21/17 00:45 05/21/17 00:44 04/28/17 22:05 Metoprolol Tartrate (Lopressor) 5 mg Q6H PRN IVP heart rate greater than 125 04/21/17 20:00 05/21/17 19:59 Nicotine (Nicoderm) 1 patch Q24H TDERMAL 04/22/17 14:00 05/22/17 13:59 04/30/17 14:55 Nitroglycerin (Nitro-Bid) 1 inch TID@0600,1200,1800 TOPIC 04/22/17 06:00 05/22/17 05:59 05/01/17 05:55 Pantoprazole (Protonix) 40 mg EVERY 12 HOURS IVP 04/29/17 09:00 05/21/17 08:59 04/30/17 20:51 Polyethylene Glycol (Miralax) 17 gm BEDTIME GT 04/27/17 21:00 05/22/17 20:59 04/30/17 20:51 SUMAN CHEN May 01, 2017 08:46
--- NOTE | 2017-05-01 08:53 | Pulmonolgy Critical Care Note ---
Critical Care - Asmt/Plan Assessment/Plan: ASSESSMENT acute respiratory failure 2 to angioedema, requiring intubation s/p extubation 04/28 angioneurotic edema LLL PNA acute metabolic encephalopathy acute PE elevated troponin likely 2 to acute PE DVT RLE new onset of diabetes HTN severe pulmonary HTN benign hypertensive kidney disease with CKD ARF on CKD CAROLIN allergy COPD tobacco abuse with dependency right hydronephrosis bleeding 2 to a/coagulation toxic multinodular goiter with evidence of hyperthyroidism anemia elevated PSA PLAN OF CARE ICU off a/coagulation 2 to bleeding IVC filter placement pending for am by IR CTA + acute PE venous Diuplex + subacute thrombus RLE ( before probably acute, likely residential ) s/p extubation O2 to keep sat above 92%, no signs of respiratory distress pulmonary toilet 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 hemodynamically stable abx ID follows sputum cx + pardeep, otherwise all cx negative fup with CXR cardio follows tele negative ECHO with EF 60& and evidence of severe pulmonary HTN , as well as significant LVH BP management with CCB and optimize further as needed [id number], diagnostic for diabetes, no hx of DM in the past declined insulin and pills will get endo consult CT with evidence of multinodular goiter low TSH, high free T4, started on Methimazole endo eval on Tuesday for recommendations of further maanegemtn as outpatient nephro follows monitor renal parameters, lytes renal US with borderline R hydro, normal echogenicity bilaterally monitor renal parameters, lytes creat worsening avoid nephroptotics elevated PSA noted -outpt fup with urology GI follows diet as tolerated monitor HH, GI prophylaxis heme follows bowel regimen pain management case discussed and evaluated by supervising physician Critical Care - Objective Last 24 Hour Vital Signs Date Time Temp Pulse Resp B/P (MAP) Pulse Ox O2 Delivery O2 Flow Rate FiO2 05/01/17 08:00 98.5 96 20 131/83 98 Nasal Cannula 2.0 05/01/17 06:00 100 18 123/95 98 Nasal Cannula 2.0 05/01/17 05:55 135/71 05/01/17 05:00 97 19 135/71 98 Nasal Cannula 2.0 05/01/17 04:00 98.4 101 18 105/74 99 Nasal Cannula 2.0 05/01/17 04:00 101 05/01/17 03:00 107 22 138/88 94 Nasal Cannula 2.0 05/01/17 02:00 102 24 160/95 96 Nasal Cannula 2.0 05/01/17 01:00 100 20 148/91 96 Nasal Cannula 2.0 05/01/17 00:00 105 05/01/17 00:00 98.2 99 22 129/94 93 Nasal Cannula 2.0 04/30/17 23:00 102 19 149/90 95 Nasal Cannula 2.0 04/30/17 22:00 101 18 129/89 94 Nasal Cannula 2.0 04/30/17 21:00 102 24 139/94 93 Nasal Cannula 2.0 04/30/17 20:00 98 04/30/17 20:00 97.6 98 19 133/82 94 Nasal Cannula 2.0 04/30/17 19:30 Nasal Cannula 2.0 28 04/30/17 19:30 98 Nasal Cannula 2.0 28 04/30/17 19:00 99 20 123/75 99 Nasal Cannula 2.0 04/30/17 18:00 104 22 127/85 91 Nasal Cannula 2.0 04/30/17 17:59 126/85 04/30/17 17:00 99 20 123/75 91 Nasal Cannula 2.0 04/30/17 16:00 97.3 104 20 118/79 93 Nasal Cannula 2.0 04/30/17 15:58 102 04/30/17 15:58 102 04/30/17 15:00 104 22 127/85 91 Nasal Cannula 2.0 04/30/17 14:00 104 21 115/83 92 Nasal Cannula 2.0 04/30/17 13:00 104 23 136/73 96 Nasal Cannula 2.0 04/30/17 12:35 120/81 04/30/17 12:00 107 21 120/85 95 Nasal Cannula 2.0 04/30/17 11:58 107 04/30/17 11:45 21 04/30/17 11:00 107 21 128/78 94 Nasal Cannula 2.0 04/30/17 10:00 105 22 120/81 93 Nasal Cannula 2.0 04/30/17 09:05 110 123/73 04/30/17 09:00 108 21 127/80 95 Nasal Cannula 2.0 Objective: Status: awake, awake, alert, oriented x4, HEENT: atraumatic, normocephalic, O2 via NC Neck: full ROM Lungs: clear Heart: HR/BP stable, SR on tele , LUE PICC intact Abdomen: soft, non-tender, active bowel sounds Extremities: no C/C/E Micro: Microbiology Date/Time Source Procedure Growth Status 04/28/17 15:30 Blood Blood Culture - Preliminary NO GROWTH AFTER 48 HOURS Resulted 04/28/17 15:15 Blood Blood Culture - Preliminary NO GROWTH AFTER 48 HOURS Resulted 04/29/17 04:30 Sputum Gram Stain - Final Resulted 04/29/17 04:30 Sputum Culture - Preliminary YEAST Usual Upper Respiratory Vivien Resulted 04/28/17 15:00 Urine,Clean Catch Urine Culture - Final NO GROWTH AFTER 48 HOURS Complete Critical Care - Subjective ROS Limited/Unobtainable: No Interval Events: denies chest pain, SOB, palpitations, dizziness, cough awaiting for IVC filter placement in am for acute PE on O2 via NC pulse oximetry stable Condition: improving IV Access: PICC - LUE intact EKG Rhythm: Sinus Rhythm FI02: 21 Sputum Amount: Moderate I&O: Intake and Output 05/01/17 05/02/17 19:00 07:00 Output Total 70 ml Balance -70 ml Output Urine Total 70 ml CXR: 05/01 lungs clear Herve (Christine Chen NP May 01, 2017 08:53
[2017-05-01] MEDS: Docusate 100mg/10ml Liq NG SCH ×3 (09:00→18:00)
[2017-05-01] MEDS: Pantoprazole Inj IVP SCH ×2 (09:12→20:42)
[2017-05-01] MEDS: Cefepime HCl 2 GM in NS 110 ML IV SCH (10:01)
--- NOTE | 2017-05-01 11:09 | Diagnostic Imaging Report ---
Indication: SOB Technique: CHEST 1 VIEW. Comparison: 04/29/2017 Findings: The cardiomediastinal silhouette is unchanged. The lungs are clear. Widening of the superior mediastinum is again identified. Impression: No significant change from prior examination.
--- NOTE | 2017-05-01 11:21 | Nephrology Progress Note ---
Assessment/Plan Problem List: (1) Renal insufficiency (2) Acute respiratory failure (3) Pulmonary embolism (4) Benign hypertensive kidney disease with chronic kidney disease Assessment Pulmonary emboli , on heparin, bleeding complications Acute respiratory failure- Was On Vent- Now extubated Renal failure ? CKD ? Superimposed Acute renal failure- Cr 2.2 today HTN- Smoker- Jorge Inhibitor Allergy Plan Plan: due for IVC filter in am Post extubation care- Keep BP in check Off heparin- 2D Echo- EjFx 60% Pulmonary support- urine studies- Kidney MIKEY Right kidney demonstrates borderline hydronephrosis. monitor renal parameters- Avoid nephrotoxics Subjective ROS Limited/Unobtainable: No Constitutional: Reports: malaise Objective Objective Last 24 Hour Vital Signs Date Time Temp Pulse Resp B/P (MAP) Pulse Ox O2 Delivery O2 Flow Rate FiO2 05/01/17 09:10 103 131/96 05/01/17 09:00 98 20 128/86 98 Nasal Cannula 2.0 05/01/17 08:00 98.5 96 20 131/83 98 Nasal Cannula 2.0 05/01/17 08:00 73 05/01/17 06:00 100 18 123/95 98 Nasal Cannula 2.0 05/01/17 05:55 135/71 05/01/17 05:00 97 19 135/71 98 Nasal Cannula 2.0 05/01/17 04:00 98.4 101 18 105/74 99 Nasal Cannula 2.0 05/01/17 04:00 101 05/01/17 03:00 107 22 138/88 94 Nasal Cannula 2.0 05/01/17 02:00 102 24 160/95 96 Nasal Cannula 2.0 05/01/17 01:00 100 20 148/91 96 Nasal Cannula 2.0 05/01/17 00:00 105 05/01/17 00:00 98.2 99 22 129/94 93 Nasal Cannula 2.0 04/30/17 23:00 102 19 149/90 95 Nasal Cannula 2.0 04/30/17 22:00 101 18 129/89 94 Nasal Cannula 2.0 04/30/17 21:00 102 24 139/94 93 Nasal Cannula 2.0 04/30/17 20:00 98 04/30/17 20:00 97.6 98 19 133/82 94 Nasal Cannula 2.0 04/30/17 19:30 Nasal Cannula 2.0 28 04/30/17 19:30 98 Nasal Cannula 2.0 28 04/30/17 19:00 99 20 123/75 99 Nasal Cannula 2.0 04/30/17 18:00 104 22 127/85 91 Nasal Cannula 2.0 04/30/17 17:59 126/85 04/30/17 17:00 99 20 123/75 91 Nasal Cannula 2.0 04/30/17 16:00 97.3 104 20 118/79 93 Nasal Cannula 2.0 04/30/17 15:58 102 04/30/17 15:58 102 04/30/17 15:00 104 22 127/85 91 Nasal Cannula 2.0 04/30/17 14:00 104 21 115/83 92 Nasal Cannula 2.0 04/30/17 13:00 104 23 136/73 96 Nasal Cannula 2.0 04/30/17 12:35 120/81 04/30/17 12:00 107 21 120/85 95 Nasal Cannula 2.0 04/30/17 11:58 107 04/30/17 11:45 21 Intake and Output 05/01/17 05/02/17 19:00 07:00 Output Total 110 ml Balance -110 ml Output Urine Total 110 ml Laboratory Tests 04/30/17 15:50: White Blood Count 9.2, Red Blood Count 3.22L, Hemoglobin 9.4L, Hematocrit 30.0L , Mean Corpuscular Volume 93, Mean Corpuscular Hemoglobin 29.3, Mean Corpuscular Hemoglobin Concent 31.4L, Red Cell Distribution Width 12.9, Platelet Count 160, Mean Platelet Volume 12.0H, Neutrophils (%) (Auto) 80.1H, Lymphocytes (%) (Auto) 10.1L, Monocytes (%) (Auto) 7.0, Eosinophils (%) (Auto) 2.3, Basophils (%) (Auto) 0.5 05/01/17 04:30: White Blood Count 9.4, Red Blood Count 3.19L, Hemoglobin 9.4L, Hematocrit 30.1L , Mean Corpuscular Volume 94, Mean Corpuscular Hemoglobin 29.5, Mean Corpuscular Hemoglobin Concent 31.4L, Red Cell Distribution Width 13.1, Platelet Count 145L, Mean Platelet Volume 9.9, Neutrophils (%) (Auto) 82.7H, Lymphocytes (%) (Auto) 9.4L, Monocytes (%) (Auto) 5.6, Eosinophils (%) (Auto) 1.7, Basophils (%) (Auto) 0.6, Prothrombin Time 11.4, Prothromb Time International Ratio 1.1, Activated Partial Thromboplast Time 29, Sodium Level 137, Potassium Level 4.4, Chloride Level 102, Carbon Dioxide Level 26, Anion Gap 9, Blood Urea Nitrogen 49H, Creatinine 2.2H, Estimat Glomerular Filtration Rate 36.6, Glucose Level 225H, Calcium Level 9.2 Height (Feet): 6 Height (Inches): 4.00 Weight (Pounds): 261 General Appearance: no apparent distress Cardiovascular: tachycardia Respiratory/Chest: decreased breath sounds Abdomen: soft Objective no other changes TIARRA PARTIDA May 01, 2017 11:21
--- NOTE | 2017-05-01 17:44 | Cardiology Progress Note ---
Assessment/Plan Assessment/Plan pulmonary emboli, off anticoagulation will monitor, stable at present time Subjective Subjective The patient is resting in bed, comfortable, denies chest pain, has mild dyspnea Objective Last 24 Hour Vital Signs Date Time Temp Pulse Resp B/P (MAP) Pulse Ox O2 Delivery O2 Flow Rate FiO2 05/01/17 16:00 98.9 90 19 118/90 99 Nasal Cannula 2.0 05/01/17 16:00 93 05/01/17 15:00 99 20 142/84 98 Nasal Cannula 2.0 05/01/17 14:00 98 20 153/85 98 Nasal Cannula 2.0 05/01/17 13:00 98 20 132/90 98 Nasal Cannula 2.0 05/01/17 12:00 90 05/01/17 12:00 136/86 05/01/17 12:00 98.6 96 20 136/70 98 Nasal Cannula 2.0 05/01/17 11:49 21 05/01/17 11:00 96 20 132/93 98 Nasal Cannula 2.0 05/01/17 10:00 98 20 132/90 98 Nasal Cannula 2.0 05/01/17 09:10 103 131/96 05/01/17 09:00 98 20 128/86 98 Nasal Cannula 2.0 05/01/17 08:00 98.5 96 20 131/83 98 Nasal Cannula 2.0 05/01/17 08:00 73 05/01/17 07:00 92 16 131/88 97 Nasal Cannula 2.0 05/01/17 06:00 100 18 123/95 98 Nasal Cannula 2.0 05/01/17 05:55 135/71 05/01/17 05:00 97 19 135/71 98 Nasal Cannula 2.0 05/01/17 04:00 98.4 101 18 105/74 99 Nasal Cannula 2.0 05/01/17 04:00 101 05/01/17 03:00 107 22 138/88 94 Nasal Cannula 2.0 05/01/17 02:00 102 24 160/95 96 Nasal Cannula 2.0 05/01/17 01:00 100 20 148/91 96 Nasal Cannula 2.0 05/01/17 00:00 105 05/01/17 00:00 98.2 99 22 129/94 93 Nasal Cannula 2.0 04/30/17 23:00 102 19 149/90 95 Nasal Cannula 2.0 04/30/17 22:00 101 18 129/89 94 Nasal Cannula 2.0 04/30/17 21:00 102 24 139/94 93 Nasal Cannula 2.0 04/30/17 20:00 98 04/30/17 20:00 97.6 98 19 133/82 94 Nasal Cannula 2.0 04/30/17 19:30 Nasal Cannula 2.0 28 04/30/17 19:30 98 Nasal Cannula 2.0 28 04/30/17 19:00 99 20 123/75 99 Nasal Cannula 2.0 04/30/17 18:00 104 22 127/85 91 Nasal Cannula 2.0 04/30/17 17:59 126/85 General Appearance: alert EENT: PERRL/EOMI Neck: supple, JVD Cardiovascular: regular rhythm Respiratory/Chest: crackles/rales Abdomen: soft Extremities: moderate edema Intake and Output 05/01/17 05/02/17 19:00 07:00 Intake Total 310 ml Output Total 590 ml Balance -280 ml Intake Oral 200 ml IV Total 110 ml Output Urine Total 590 ml # Bowel Movements 1 Laboratory Tests Test 05/01/17 04:30 White Blood Count 9.4 K/UL (4.8-10.8) Red Blood Count 3.19 M/UL (4.70-6.10) L Hemoglobin 9.4 G/DL (14.2-18.0) L Hematocrit 30.1 % (42.0-52.0) L Mean Corpuscular Volume 94 FL (80-99) Mean Corpuscular Hemoglobin 29.5 PG (27.0-31.0) Mean Corpuscular Hemoglobin Concent 31.4 G/DL (32.0-36.0) L Red Cell Distribution Width 13.1 % (11.6-14.8) Platelet Count 145 K/UL (150-450) L Mean Platelet Volume 9.9 FL (6.5-10.1) Neutrophils (%) (Auto) 82.7 % (45.0-75.0) H Lymphocytes (%) (Auto) 9.4 % (20.0-45.0) L Monocytes (%) (Auto) 5.6 % (1.0-10.0) Eosinophils (%) (Auto) 1.7 % (0.0-3.0) Basophils (%) (Auto) 0.6 % (0.0-2.0) Prothrombin Time 11.4 SEC (9.30-11.50) Prothromb Time International Ratio 1.1 (0.9-1.1) Activated Partial Thromboplast Time 29 SEC (23-33) Sodium Level 137 MMOL/L (136-145) Potassium Level 4.4 MMOL/L (3.5-5.1) Chloride Level 102 MMOL/L (98-107) Carbon Dioxide Level 26 MMOL/L (21-32) Anion Gap 9 mmol/L (5-15) Blood Urea Nitrogen 49 mg/dL (7-18) H Creatinine 2.2 MG/DL (0.55-1.30) H Estimat Glomerular Filtration Rate 36.6 mL/min (>60) Glucose Level 225 MG/DL (74-106) H Calcium Level 9.2 MG/DL (8.5-10.1) Microbiology Date/Time Source Procedure Growth Status 04/29/17 04:30 Sputum Gram Stain - Final Resulted 04/29/17 04:30 Sputum Culture - Preliminary YEAST Usual Upper Respiratory Vivien Resulted JAY MARCOS May 01, 2017 17:44
--- NOTE | 2017-05-01 18:21 | General Progress Note ---
Assessment/Plan Assessment/Plan Assessment and Recs 1. Pulmonary embolism. --> no longer on heparin, due to bleeding 2. DVT- right leg subacute thrombus in mid superficial femoral vein. --> ivc filter pending 3. Coagulopathy 2/2 heparin drip 4. Anemia 2/2 chronic disease --> no transfusion required unless hgb drops below 7 5. Thrombocytopenia, concerning for HIT vs sepsis --> HIT test negative Subjective ROS Limited/Unobtainable: Yes Allergies: Coded Allergies: LISINOPRIL (Verified Allergy, Severe, 04/21/17) Subjective no complaints, appears comfortable Objective Last 24 Hour Vital Signs Date Time Temp Pulse Resp B/P (MAP) Pulse Ox O2 Delivery O2 Flow Rate FiO2 05/01/17 17:00 99 17 126/85 99 Nasal Cannula 2.0 05/01/17 16:00 98.9 90 19 118/90 99 Nasal Cannula 2.0 05/01/17 16:00 93 05/01/17 15:00 99 20 142/84 98 Nasal Cannula 2.0 05/01/17 14:00 98 20 153/85 98 Nasal Cannula 2.0 05/01/17 13:00 98 20 132/90 98 Nasal Cannula 2.0 05/01/17 12:00 90 05/01/17 12:00 136/86 05/01/17 12:00 98.6 96 20 136/70 98 Nasal Cannula 2.0 05/01/17 11:49 21 05/01/17 11:00 96 20 132/93 98 Nasal Cannula 2.0 05/01/17 10:00 98 20 132/90 98 Nasal Cannula 2.0 05/01/17 09:10 103 131/96 05/01/17 09:00 98 20 128/86 98 Nasal Cannula 2.0 05/01/17 08:00 98.5 96 20 131/83 98 Nasal Cannula 2.0 05/01/17 08:00 73 05/01/17 07:00 92 16 131/88 97 Nasal Cannula 2.0 05/01/17 06:00 100 18 123/95 98 Nasal Cannula 2.0 05/01/17 05:55 135/71 05/01/17 05:00 97 19 135/71 98 Nasal Cannula 2.0 05/01/17 04:00 98.4 101 18 105/74 99 Nasal Cannula 2.0 05/01/17 04:00 101 05/01/17 03:00 107 22 138/88 94 Nasal Cannula 2.0 05/01/17 02:00 102 24 160/95 96 Nasal Cannula 2.0 05/01/17 01:00 100 20 148/91 96 Nasal Cannula 2.0 05/01/17 00:00 105 05/01/17 00:00 98.2 99 22 129/94 93 Nasal Cannula 2.0 04/30/17 23:00 102 19 149/90 95 Nasal Cannula 2.0 04/30/17 22:00 101 18 129/89 94 Nasal Cannula 2.0 04/30/17 21:00 102 24 139/94 93 Nasal Cannula 2.0 04/30/17 20:00 98 04/30/17 20:00 97.6 98 19 133/82 94 Nasal Cannula 2.0 04/30/17 19:30 Nasal Cannula 2.0 28 04/30/17 19:30 98 Nasal Cannula 2.0 28 04/30/17 19:00 99 20 123/75 99 Nasal Cannula 2.0 Intake and Output 05/01/17 05/02/17 19:00 07:00 Intake Total 310 ml Output Total 590 ml Balance -280 ml Intake Oral 200 ml IV Total 110 ml Output Urine Total 590 ml # Bowel Movements 1 Laboratory Tests 05/01/17 04:30: White Blood Count 9.4, Red Blood Count 3.19L, Hemoglobin 9.4L, Hematocrit 30.1L , Mean Corpuscular Volume 94, Mean Corpuscular Hemoglobin 29.5, Mean Corpuscular Hemoglobin Concent 31.4L, Red Cell Distribution Width 13.1, Platelet Count 145L, Mean Platelet Volume 9.9, Neutrophils (%) (Auto) 82.7H, Lymphocytes (%) (Auto) 9.4L, Monocytes (%) (Auto) 5.6, Eosinophils (%) (Auto) 1.7, Basophils (%) (Auto) 0.6, Prothrombin Time 11.4, Prothromb Time International Ratio 1.1, Activated Partial Thromboplast Time 29, Sodium Level 137, Potassium Level 4.4, Chloride Level 102, Carbon Dioxide Level 26, Anion Gap 9, Blood Urea Nitrogen 49H, Creatinine 2.2H, Estimat Glomerular Filtration Rate 36.6, Glucose Level 225H, Calcium Level 9.2 Height (Feet): 6 Height (Inches): 4.00 Weight (Pounds): 261 General Appearance: no apparent distress EENT: PERRL/EOMI Neck: non-tender, normal alignment Cardiovascular: normal rate Abdomen: non tender, soft Extremities: non-tender Edema: no edema noted Pedal (L), no edema noted Pedal (R) 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
[2017-05-01] MEDS: Dyna-Hex 2% Top Sol 2oz TOPIC SCH (20:28)
[2017-05-01] MEDS: Miralax 17gm pkt GT SCH (20:42)
[2017-05-02] VITALS (29 sets, daily range): BP systolic 102–171; BP diastolic 78–144
[2017-05-02 05:57] LABS: BASOPHILS % (AUTO) 0.7 % (0.0-2.0); EOSINOPHILS % (AUTO) 2.6 % (0.0-3.0); LYMPHOCYTES % (AUTO) 9.6 % (20.0-45.0); MEAN CORPUSCULAR HEMOGLOBIN 29.7 PG (27.0-31.0); MEAN CORPUSCULAR HGB CONC 31.8 G/DL (32.0-36.0); MEAN CORPUSCULAR VOLUME 93 FL (80-99); MEAN PLATELET VOLUME 9.9 FL (6.5-10.1); MONOCYTES % (AUTO) 6.5 % (1.0-10.0); NEUTROPHILS % (AUTO) 80.6 % (45.0-75.0); PLATELET COUNT 153 K/UL (150-450); RED BLOOD COUNT 3.28 M/UL (4.70-6.10); RED CELL DISTRIBUTION WIDTH 12.9 % (11.6-14.8); WHITE BLOOD COUNT 8.2 K/UL (4.8-10.8)
[2017-05-02] MEDS: Nitroglycerin 2% oint pkt TOPIC SCH ×3 (06:04→17:51)
[2017-05-02 06:16] LABS: INR 2.3 (0.9-1.1); PROTHROMBIN TIME 24.1 SEC (9.30-11.50)
[2017-05-02 06:25] LABS: ALANINE AMINOTRANSFERASE 60 U/L (12-78); ALBUMIN/GLOBULIN RATIO 0.5 (1.0-2.7); ANION GAP 9 mmol/L (5-15); ASPARTATE AMINO TRANSFERASE 23 U/L (15-37); CALCIUM 9.3 MG/DL (8.5-10.1); CARBON DIOXIDE 26 MMOL/L (21-32); CHLORIDE 103 MMOL/L (98-107); CREATININE 1.8 MG/DL (0.55-1.30); GLOMERULAR FILTRATION RATE 46.2 mL/min (>60); POTASSIUM 4.2 MMOL/L (3.5-5.1); SODIUM 138 MMOL/L (136-145); TOTAL PROTEIN 7.1 G/DL (6.4-8.2)
[2017-05-02 06:26] LABS: CRP QUANT 8.7 mg/dL (0.00-0.90); MAGNESIUM 2.2 MG/DL (1.8-2.4); PHOSPHORUS 4.9 MG/DL (2.5-4.9); URIC ACID 6.5 MG/DL (2.6-7.2)
[2017-05-02] MEDS: Docusate 100mg/10ml Liq NG SCH ×3 (08:33→17:51)
[2017-05-02] MEDS: Pantoprazole Inj IVP SCH ×2 (08:43→20:51)
[2017-05-02] MEDS: Cefepime HCl 2 GM in NS 110 ML IV SCH (10:01)
[2017-05-02 10:03] LABS: INR 1.1 (0.9-1.1); PROTHROMBIN TIME 11.2 SEC (9.30-11.50)
--- NOTE | 2017-05-02 10:48 | Nephrology Progress Note ---
Assessment/Plan Problem List: (1) Renal insufficiency (2) Acute respiratory failure (3) Pulmonary embolism (4) Benign hypertensive kidney disease with chronic kidney disease Assessment due IVC filter- Pulmonary emboli , on heparin, bleeding complications Acute respiratory failure- Was On Vent- Now extubated Renal failure ? CKD ? Superimposed Acute renal failure- Cr 1.8 today HTN- Smoker- Jorge Inhibitor Allergy Plan Plan: due for IVC filter today DC bonner after procedure- Post extubation care- Keep BP in check Off heparin- 2D Echo- EjFx 60% Pulmonary support- urine studies- Kidney MIKEY Right kidney demonstrates borderline hydronephrosis. monitor renal parameters- Avoid nephrotoxics Subjective ROS Limited/Unobtainable: No Constitutional: Reports: malaise Objective Objective Last 24 Hour Vital Signs Date Time Temp Pulse Resp B/P (MAP) Pulse Ox O2 Delivery O2 Flow Rate FiO2 05/02/17 10:00 103 14 141/97 100 Nasal Cannula 2.0 05/02/17 09:00 100 16 125/123 100 Nasal Cannula 2.0 05/02/17 08:32 97 142/93 05/02/17 08:00 97 05/02/17 08:00 98.1 97 21 142/93 98 Nasal Cannula 2.0 05/02/17 07:00 97 20 162/101 98 Nasal Cannula 2.0 05/02/17 06:04 152/92 05/02/17 06:00 90 14 152/96 97 Nasal Cannula 2.0 05/02/17 05:00 95 16 152/92 98 Nasal Cannula 2.0 05/02/17 04:00 96 05/02/17 04:00 98.1 97 24 117/85 99 Nasal Cannula 2.0 05/02/17 03:00 95 15 126/85 98 Nasal Cannula 2.0 05/02/17 02:00 98 16 145/98 98 Nasal Cannula 2.0 05/02/17 01:00 96 15 133/85 95 Nasal Cannula 2.0 05/02/17 00:00 92 05/02/17 00:00 97.9 92 16 102/82 97 Nasal Cannula 2.0 05/01/17 23:00 95 16 129/81 96 Nasal Cannula 2.0 05/01/17 22:00 96 17 136/94 97 Nasal Cannula 2.0 05/01/17 21:00 94 20 136/110 99 Nasal Cannula 2.0 05/01/17 20:00 98 05/01/17 20:00 98.8 92 16 134/94 99 Nasal Cannula 2.0 05/01/17 19:30 Nasal Cannula 2.0 28 05/01/17 19:30 98 Nasal Cannula 2.0 28 05/01/17 19:00 93 20 144/84 Nasal Cannula 2.0 05/01/17 18:00 95 20 151/75 Nasal Cannula 2.0 05/01/17 18:00 151/75 05/01/17 17:00 99 17 126/85 99 Nasal Cannula 2.0 05/01/17 16:00 98.9 90 19 118/90 99 Nasal Cannula 2.0 05/01/17 16:00 93 05/01/17 15:00 99 20 142/84 98 Nasal Cannula 2.0 05/01/17 14:00 98 20 153/85 98 Nasal Cannula 2.0 05/01/17 13:00 98 20 132/90 98 Nasal Cannula 2.0 05/01/17 12:00 90 05/01/17 12:00 136/86 05/01/17 12:00 98.6 96 20 136/70 98 Nasal Cannula 2.0 05/01/17 11:49 21 05/01/17 11:00 96 20 132/93 98 Nasal Cannula 2.0 Intake and Output 05/02/17 05/03/17 19:00 07:00 Output Total 145 ml Balance -145 ml Output Urine Total 145 ml Laboratory Tests 05/02/17 05:10: White Blood Count 8.2, Red Blood Count 3.28L, Hemoglobin 9.7L, Hematocrit 30.6L , Mean Corpuscular Volume 93, Mean Corpuscular Hemoglobin 29.7, Mean Corpuscular Hemoglobin Concent 31.8L, Red Cell Distribution Width 12.9, Platelet Count 153, Mean Platelet Volume 9.9, Neutrophils (%) (Auto) 80.6H, Lymphocytes (%) (Auto) 9.6L, Monocytes (%) (Auto) 6.5, Eosinophils (%) (Auto) 2.6, Basophils (%) (Auto) 0.7, Prothrombin Time 24.1H, Prothromb Time International Ratio 2.3H, Activated Partial Thromboplast Time 41H, Sodium Level 138, Potassium Level 4.2, Chloride Level 103, Carbon Dioxide Level 26, Anion Gap 9, Blood Urea Nitrogen 39H, Creatinine 1.8H, Estimat Glomerular Filtration Rate 46.2, Glucose Level 146H, Uric Acid 6.5, Calcium Level 9.3, Phosphorus Level 4.9, Magnesium Level 2.2, Total Bilirubin 0.9, Aspartate Amino Transf (AST /SGOT) 23, Alanine Aminotransferase (ALT/SGPT) 60, Alkaline Phosphatase 60, C- Reactive Protein, Quantitative 8.7H, Total Protein 7.1, Albumin 2.4L, Globulin 4.7, Albumin/Globulin Ratio 0.5L 05/02/17 09:00: Prothrombin Time 11.2, Prothromb Time International Ratio 1.1, Activated Partial Thromboplast Time 26 Height (Feet): 6 Height (Inches): 4.00 Weight (Pounds): 257 General Appearance: no apparent distress Cardiovascular: tachycardia Respiratory/Chest: decreased breath sounds Abdomen: soft Objective no other changes TIARRA PARTIDA May 02, 2017 10:48
[2017-05-02] MEDS: NovoLOG Insulin Flexpen SUBQ SCH ×3 (11:32→21:22)
--- NOTE | 2017-05-02 12:05 | Pre-Procedure Note/Attestation ---
Pre-Procedure Note/Attestation Complete Prior to Procedure Planned Procedure: right Procedure Narrative: ivc filter Indications for Procedure Pre-Operative Diagnosis: dvt/pe. contraindication for anticoagulation Attestation I attest that I discussed the nature of the procedure; its benefits; risks and complications; and alternatives (and the risks and benefits of such alternatives ), prior to the procedure, with the patient (or the patient's legal advertising account representative). I attest that, if there was a reasonable possibility of needing a blood transfusion, the patient (or the patient's legal advertising account representative) was given the [facility] standardized written summary, pursuant to the [employer] Blood Safety Act ([place] Health and Safety Code # 1645, as amended). I attest that I re-evaluated the patient just prior to the surgery and that there has been no change in the patient's H&P, except as documented below: IRIS ALBA M.D. May 02, 2017 12:04
--- NOTE | 2017-05-02 12:23 | Infectious Diseases Prog Note ---
Assessment/Plan Assessment/Plan Assesment: FEVER, SP LLL PNA SCx : Nl keely -CXR 04/24: Persistent left perihilar consolidation, increased since the prior examination of 04/22/17. Pneumonia is of concern. -CXR: There is some left perihilar congestion or consolidation again demonstrated, unchanged. The remainder the lungs and pleural spaces are clear. -CTA chest: Fairly extensive bilateral segmental pulmonary emboli. concern for submassive pulmonary embolus. consolidation and atelectasis of a significant portion of the posterior left lower lobe. -Sp cx Normal keely x2 DVT , IVC filter 05/02 Angiodema s/p intubation ,, SP extub 04/28 Possible Submassive b/l PE, R DVT Renal insufficiency- ?acute vs chronic vs acute on chronic Mutinodular goiter HTN COPD Tobacco abuse Plan: -Continue IV Cefepime # 06/28 sp Vancomycin d# 4 -04/24 SP Unasyn #3 -04/23 SP IV Vanco #2 -Monitor CBC/BMP, temperatures -anticoagulation and steroids per primary team -aspiration precautions - Blood Cx Subjective Constitutional: Denies: no symptoms, fever, chills, fatigue, anorexia, drenching sweats, other Allergies: Coded Allergies: LISINOPRIL (Verified Allergy, Severe, 04/21/17) Subjective IVC filter today Objective Vital Signs Last 24 Hour Vital Signs Date Time Temp Pulse Resp B/P (MAP) Pulse Ox O2 Delivery O2 Flow Rate FiO2 05/02/17 11:32 170/117 05/02/17 11:28 170/117 05/02/17 11:00 107 14 170/117 100 Nasal Cannula 2.0 05/02/17 10:00 103 14 141/97 100 Nasal Cannula 2.0 05/02/17 09:00 100 16 125/123 100 Nasal Cannula 2.0 05/02/17 08:32 97 142/93 05/02/17 08:00 97 05/02/17 08:00 98.1 97 21 142/93 98 Nasal Cannula 2.0 05/02/17 07:00 97 20 162/101 98 Nasal Cannula 2.0 05/02/17 06:04 152/92 05/02/17 06:00 90 14 152/96 97 Nasal Cannula 2.0 05/02/17 05:00 95 16 152/92 98 Nasal Cannula 2.0 05/02/17 04:00 96 05/02/17 04:00 98.1 97 24 117/85 99 Nasal Cannula 2.0 05/02/17 03:00 95 15 126/85 98 Nasal Cannula 2.0 05/02/17 02:00 98 16 145/98 98 Nasal Cannula 2.0 05/02/17 01:00 96 15 133/85 95 Nasal Cannula 2.0 05/02/17 00:00 92 05/02/17 00:00 97.9 92 16 102/82 97 Nasal Cannula 2.0 05/01/17 23:00 95 16 129/81 96 Nasal Cannula 2.0 05/01/17 22:00 96 17 136/94 97 Nasal Cannula 2.0 05/01/17 21:00 94 20 136/110 99 Nasal Cannula 2.0 05/01/17 20:00 98 05/01/17 20:00 98.8 92 16 134/94 99 Nasal Cannula 2.0 05/01/17 19:30 Nasal Cannula 2.0 28 05/01/17 19:30 98 Nasal Cannula 2.0 28 05/01/17 19:00 93 20 144/84 Nasal Cannula 2.0 05/01/17 18:00 95 20 151/75 Nasal Cannula 2.0 05/01/17 18:00 151/75 05/01/17 17:00 99 17 126/85 99 Nasal Cannula 2.0 05/01/17 16:00 98.9 90 19 118/90 99 Nasal Cannula 2.0 05/01/17 16:00 93 05/01/17 15:00 99 20 142/84 98 Nasal Cannula 2.0 05/01/17 14:00 98 20 153/85 98 Nasal Cannula 2.0 05/01/17 13:00 98 20 132/90 98 Nasal Cannula 2.0 Height (Feet): 6 Height (Inches): 4.00 Weight (Pounds): 257 HEENT: anicteric Respiratory/Chest: no respiratory distress Cardiovascular: no gallop/murmur Abdomen: non distended Laboratory Tests Test 05/02/17 05:10 05/02/17 09:00 White Blood Count 8.2 K/UL (4.8-10.8) Red Blood Count 3.28 M/UL (4.70-6.10) L Hemoglobin 9.7 G/DL (14.2-18.0) L Hematocrit 30.6 % (42.0-52.0) L Mean Corpuscular Volume 93 FL (80-99) Mean Corpuscular Hemoglobin 29.7 PG (27.0-31.0) Mean Corpuscular Hemoglobin Concent 31.8 G/DL (32.0-36.0) L Red Cell Distribution Width 12.9 % (11.6-14.8) Platelet Count 153 K/UL (150-450) Mean Platelet Volume 9.9 FL (6.5-10.1) Neutrophils (%) (Auto) 80.6 % (45.0-75.0) H Lymphocytes (%) (Auto) 9.6 % (20.0-45.0) L Monocytes (%) (Auto) 6.5 % (1.0-10.0) Eosinophils (%) (Auto) 2.6 % (0.0-3.0) Basophils (%) (Auto) 0.7 % (0.0-2.0) Prothrombin Time 24.1 SEC (9.30-11.50) H 11.2 SEC (9.30-11.50) Prothromb Time International Ratio 2.3 (0.9-1.1) H 1.1 (0.9-1.1) Activated Partial Thromboplast Time 41 SEC (23-33) H 26 SEC (23-33) Sodium Level 138 MMOL/L (136-145) Potassium Level 4.2 MMOL/L (3.5-5.1) Chloride Level 103 MMOL/L (98-107) Carbon Dioxide Level 26 MMOL/L (21-32) Anion Gap 9 mmol/L (5-15) Blood Urea Nitrogen 39 mg/dL (7-18) H Creatinine 1.8 MG/DL (0.55-1.30) H Estimat Glomerular Filtration Rate 46.2 mL/min (>60) Glucose Level 146 MG/DL (74-106) H Uric Acid 6.5 MG/DL (2.6-7.2) Calcium Level 9.3 MG/DL (8.5-10.1) Phosphorus Level 4.9 MG/DL (2.5-4.9) Magnesium Level 2.2 MG/DL (1.8-2.4) Total Bilirubin 0.9 MG/DL (0.2-1.0) Aspartate Amino Transf (AST/SGOT) 23 U/L (15-37) Alanine Aminotransferase (ALT/SGPT) 60 U/L (12-78) Alkaline Phosphatase 60 U/L (46-116) C-Reactive Protein, Quantitative 8.7 mg/dL (0.00-0.90) H Total Protein 7.1 G/DL (6.4-8.2) Albumin 2.4 G/DL (3.4-5.0) L Globulin 4.7 g/dL Albumin/Globulin Ratio 0.5 (1.0-2.7) L Current Medications Medications (Trade) Dose Ordered Sig/Kelsi Route PRN Reason Start Time Stop Time Status Last Admin Dose Admin Acetaminophen (Tylenol) 650 mg Q6H PRN ORAL Mild Pain/Temp > 100.5 04/21/17 00:45 05/21/17 00:44 04/27/17 19:38 Amlodipine Besylate (Norvasc) 5 mg DAILY GT 04/28/17 09:00 05/23/17 09:29 05/01/17 09:10 Cefepime HCl 2 gm/ Sodium Chloride 110 ml @ 220 mls/hr Q24H IV 04/27/17 10:00 05/04/17 09:59 05/02/17 10:01 Chlorhexidine Gluconate (Malena-Hex 2%) 1 applic DAILY@2000 TOPIC 04/21/17 20:00 05/21/17 19:59 05/01/17 20:28 Dextrose (Dextrose 50%) STAT PRN IV Hypoglycemia 05/02/17 07:00 06/01/17 06:59 Diphenhydramine HCl (Benadryl) 50 mg NEEDED PRN ORAL 30M PRIOR TO BLOOD TRANSFUSION 04/29/17 13:30 Docusate Sodium (Colace) 100 mg THREE TIMES A DAY NG 04/22/17 18:00 05/22/17 17:59 04/29/17 09:09 Haloperidol Lactate 5 mg/ Dextrose 56 ml @ 224 mls/hr Q1H PRN IVPB AGITATION 04/24/17 08:45 05/24/17 08:44 04/29/17 08:17 Heparin Sodium/ Sodium Chloride (Heparin 2000 units/Ns 1000ml premix) 2,000 unit ONCE ONCE INJ 05/02/17 12:15 05/02/17 12:16 UNV Hydralazine HCl (Apresoline) 10 mg Q4H PRN IV For High Blood Pressure 04/21/17 00:45 05/21/17 00:44 05/02/17 11:28 Insulin Aspart (NovoLOG) BEFORE MEALS AND HS SUBQ 05/02/17 11:30 06/01/17 11:29 05/02/17 11:32 Lidocaine HCl (Xylocaine 1% 30ml) 30 ml ONCE ONCE INJ 05/02/17 12:15 05/02/17 12:16 UNV Methimazole (Tapazole) 20 mg DAILY ORAL 05/02/17 09:00 05/31/17 10:29 Metoprolol Tartrate (Lopressor) 5 mg Q6H PRN IVP heart rate greater than 125 04/21/17 20:00 05/21/17 19:59 Nicotine (Nicoderm) 1 patch Q24H TDERMAL 04/22/17 14:00 05/22/17 13:59 05/01/17 14:06 Nitroglycerin (Nitro-Bid) 1 inch TID@0600,1200,1800 TOPIC 04/22/17 06:00 05/22/17 05:59 05/02/17 11:32 Pantoprazole (Protonix) 40 mg EVERY 12 HOURS IVP 04/29/17 09:00 05/21/17 08:59 05/02/17 08:43 Polyethylene Glycol (Miralax) 17 gm BEDTIME GT 04/27/17 21:00 05/22/17 20:59 05/01/17 20:42 DIANA VELAZQUZE M.D. May 02, 2017 12:23
--- NOTE | 2017-05-02 12:27 | Pulmonolgy Critical Care Note ---
Critical Care - Asmt/Plan Problems: (1) Acute respiratory failure (2) ATN (acute tubular necrosis) (3) Hypertension (4) Renal insufficiency (5) Angioedema Respiratory: monitor respiratory rate, adjust FIO2 Cardiac: continue to monitor HR/BP Renal: F/U I&O Infectious Disease: check cultures Gastrointestinal: continue feedings/current rate Endocrine: check TSH Neurologic: PRN Ativan Prophylaxis: Protonix, Heparin Disposition: transfer to - med/surg after IV C Time Spent (Minutes): 30 Notes Reviewed: cardio, renal Discussed with: nurses, consultants Critical Care - Objective Last 24 Hour Vital Signs Date Time Temp Pulse Resp B/P (MAP) Pulse Ox O2 Delivery O2 Flow Rate FiO2 05/02/17 11:32 170/117 05/02/17 11:28 170/117 05/02/17 11:00 107 14 170/117 100 Nasal Cannula 2.0 05/02/17 10:00 103 14 141/97 100 Nasal Cannula 2.0 05/02/17 09:00 100 16 125/123 100 Nasal Cannula 2.0 05/02/17 08:32 97 142/93 05/02/17 08:00 97 05/02/17 08:00 98.1 97 21 142/93 98 Nasal Cannula 2.0 05/02/17 07:00 97 20 162/101 98 Nasal Cannula 2.0 05/02/17 06:04 152/92 05/02/17 06:00 90 14 152/96 97 Nasal Cannula 2.0 05/02/17 05:00 95 16 152/92 98 Nasal Cannula 2.0 05/02/17 04:00 96 05/02/17 04:00 98.1 97 24 117/85 99 Nasal Cannula 2.0 05/02/17 03:00 95 15 126/85 98 Nasal Cannula 2.0 05/02/17 02:00 98 16 145/98 98 Nasal Cannula 2.0 05/02/17 01:00 96 15 133/85 95 Nasal Cannula 2.0 05/02/17 00:00 92 05/02/17 00:00 97.9 92 16 102/82 97 Nasal Cannula 2.0 05/01/17 23:00 95 16 129/81 96 Nasal Cannula 2.0 05/01/17 22:00 96 17 136/94 97 Nasal Cannula 2.0 05/01/17 21:00 94 20 136/110 99 Nasal Cannula 2.0 05/01/17 20:00 98 05/01/17 20:00 98.8 92 16 134/94 99 Nasal Cannula 2.0 05/01/17 19:30 Nasal Cannula 2.0 28 05/01/17 19:30 98 Nasal Cannula 2.0 28 05/01/17 19:00 93 20 144/84 Nasal Cannula 2.0 05/01/17 18:00 95 20 151/75 Nasal Cannula 2.0 05/01/17 18:00 151/75 05/01/17 17:00 99 17 126/85 99 Nasal Cannula 2.0 05/01/17 16:00 98.9 90 19 118/90 99 Nasal Cannula 2.0 05/01/17 16:00 93 05/01/17 15:00 99 20 142/84 98 Nasal Cannula 2.0 05/01/17 14:00 98 20 153/85 98 Nasal Cannula 2.0 05/01/17 13:00 98 20 132/90 98 Nasal Cannula 2.0 Status: awake Condition: critical Neck: full ROM Lungs: clear Heart: HR/BP stable, regular Abdomen: soft, non-tender, active bowel sounds Extremities: no C/C/E Accucheck: 131 Critical Care - Subjective ROS Limited/Unobtainable: No ICU Day: 12 Condition: critical EKG Rhythm: Sinus Rhythm FI02: 28 Sputum Amount: Moderate Secretions: none I&O: Intake and Output 05/02/17 05/03/17 19:00 07:00 Intake Total 220 ml Output Total 265 ml Balance -45 ml IV Total 220 ml Output Urine Total 265 ml CXR: no change Labs: Laboratory Tests Test 05/02/17 05:10 05/02/17 09:00 White Blood Count 8.2 K/UL (4.8-10.8) Red Blood Count 3.28 M/UL (4.70-6.10) L Hemoglobin 9.7 G/DL (14.2-18.0) L Hematocrit 30.6 % (42.0-52.0) L Mean Corpuscular Volume 93 FL (80-99) Mean Corpuscular Hemoglobin 29.7 PG (27.0-31.0) Mean Corpuscular Hemoglobin Concent 31.8 G/DL (32.0-36.0) L Red Cell Distribution Width 12.9 % (11.6-14.8) Platelet Count 153 K/UL (150-450) Mean Platelet Volume 9.9 FL (6.5-10.1) Neutrophils (%) (Auto) 80.6 % (45.0-75.0) H Lymphocytes (%) (Auto) 9.6 % (20.0-45.0) L Monocytes (%) (Auto) 6.5 % (1.0-10.0) Eosinophils (%) (Auto) 2.6 % (0.0-3.0) Basophils (%) (Auto) 0.7 % (0.0-2.0) Prothrombin Time 24.1 SEC (9.30-11.50) H 11.2 SEC (9.30-11.50) Prothromb Time International Ratio 2.3 (0.9-1.1) H 1.1 (0.9-1.1) Activated Partial Thromboplast Time 41 SEC (23-33) H 26 SEC (23-33) Sodium Level 138 MMOL/L (136-145) Potassium Level 4.2 MMOL/L (3.5-5.1) Chloride Level 103 MMOL/L (98-107) Carbon Dioxide Level 26 MMOL/L (21-32) Anion Gap 9 mmol/L (5-15) Blood Urea Nitrogen 39 mg/dL (7-18) H Creatinine 1.8 MG/DL (0.55-1.30) H Estimat Glomerular Filtration Rate 46.2 mL/min (>60) Glucose Level 146 MG/DL (74-106) H Uric Acid 6.5 MG/DL (2.6-7.2) Calcium Level 9.3 MG/DL (8.5-10.1) Phosphorus Level 4.9 MG/DL (2.5-4.9) Magnesium Level 2.2 MG/DL (1.8-2.4) Total Bilirubin 0.9 MG/DL (0.2-1.0) Aspartate Amino Transf (AST/SGOT) 23 U/L (15-37) Alanine Aminotransferase (ALT/SGPT) 60 U/L (12-78) Alkaline Phosphatase 60 U/L (46-116) C-Reactive Protein, Quantitative 8.7 mg/dL (0.00-0.90) H Total Protein 7.1 G/DL (6.4-8.2) Albumin 2.4 G/DL (3.4-5.0) L Globulin 4.7 g/dL Albumin/Globulin Ratio 0.5 (1.0-2.7) L VIVEK SOLOMON May 02, 2017 12:27
--- NOTE | 2017-05-02 12:36 | GI Progress Note ---
Assessment/Plan Problems: (1) Abdominal distension ICD Codes: R14.0 - Abdominal distension (gaseous) SNOMED: 23001021 (2) Hypoalbuminemia ICD Codes: E88.09 - Other disorders of plasma-protein metabolism, not elsewhere classified SNOMED: 289037755 (3) Angioedema ICD Codes: T78.3XXA - Angioneurotic edema, initial encounter SNOMED: 96763929 Status: stable Status Narrative Discussed with Dr. Cazares. Assessment/Plan regular diet monitor H&H, prn transfusions ppi fu pulm recs, now extubated fu labs Subjective Subjective limited Objective Last 24 Hour Vital Signs Date Time Temp Pulse Resp B/P (MAP) Pulse Ox O2 Delivery O2 Flow Rate FiO2 05/02/17 11:32 170/117 05/02/17 11:28 170/117 05/02/17 11:00 107 14 170/117 100 Nasal Cannula 2.0 05/02/17 10:00 103 14 141/97 100 Nasal Cannula 2.0 05/02/17 09:00 100 16 125/123 100 Nasal Cannula 2.0 05/02/17 08:32 97 142/93 05/02/17 08:00 97 05/02/17 08:00 98.1 97 21 142/93 98 Nasal Cannula 2.0 05/02/17 07:00 97 20 162/101 98 Nasal Cannula 2.0 05/02/17 06:04 152/92 05/02/17 06:00 90 14 152/96 97 Nasal Cannula 2.0 05/02/17 05:00 95 16 152/92 98 Nasal Cannula 2.0 05/02/17 04:00 96 05/02/17 04:00 98.1 97 24 117/85 99 Nasal Cannula 2.0 05/02/17 03:00 95 15 126/85 98 Nasal Cannula 2.0 05/02/17 02:00 98 16 145/98 98 Nasal Cannula 2.0 05/02/17 01:00 96 15 133/85 95 Nasal Cannula 2.0 05/02/17 00:00 92 05/02/17 00:00 97.9 92 16 102/82 97 Nasal Cannula 2.0 05/01/17 23:00 95 16 129/81 96 Nasal Cannula 2.0 05/01/17 22:00 96 17 136/94 97 Nasal Cannula 2.0 05/01/17 21:00 94 20 136/110 99 Nasal Cannula 2.0 05/01/17 20:00 98 05/01/17 20:00 98.8 92 16 134/94 99 Nasal Cannula 2.0 05/01/17 19:30 Nasal Cannula 2.0 28 05/01/17 19:30 98 Nasal Cannula 2.0 28 05/01/17 19:00 93 20 144/84 Nasal Cannula 2.0 05/01/17 18:00 95 20 151/75 Nasal Cannula 2.0 05/01/17 18:00 151/75 05/01/17 17:00 99 17 126/85 99 Nasal Cannula 2.0 05/01/17 16:00 98.9 90 19 118/90 99 Nasal Cannula 2.0 05/01/17 16:00 93 05/01/17 15:00 99 20 142/84 98 Nasal Cannula 2.0 05/01/17 14:00 98 20 153/85 98 Nasal Cannula 2.0 05/01/17 13:00 98 20 132/90 98 Nasal Cannula 2.0 Intake and Output 05/02/17 05/03/17 19:00 07:00 Intake Total 220 ml Output Total 265 ml Balance -45 ml IV Total 220 ml Output Urine Total 265 ml Laboratory Tests Test 05/02/17 05:10 05/02/17 09:00 White Blood Count 8.2 K/UL (4.8-10.8) Red Blood Count 3.28 M/UL (4.70-6.10) L Hemoglobin 9.7 G/DL (14.2-18.0) L Hematocrit 30.6 % (42.0-52.0) L Mean Corpuscular Volume 93 FL (80-99) Mean Corpuscular Hemoglobin 29.7 PG (27.0-31.0) Mean Corpuscular Hemoglobin Concent 31.8 G/DL (32.0-36.0) L Red Cell Distribution Width 12.9 % (11.6-14.8) Platelet Count 153 K/UL (150-450) Mean Platelet Volume 9.9 FL (6.5-10.1) Neutrophils (%) (Auto) 80.6 % (45.0-75.0) H Lymphocytes (%) (Auto) 9.6 % (20.0-45.0) L Monocytes (%) (Auto) 6.5 % (1.0-10.0) Eosinophils (%) (Auto) 2.6 % (0.0-3.0) Basophils (%) (Auto) 0.7 % (0.0-2.0) Prothrombin Time 24.1 SEC (9.30-11.50) H 11.2 SEC (9.30-11.50) Prothromb Time International Ratio 2.3 (0.9-1.1) H 1.1 (0.9-1.1) Activated Partial Thromboplast Time 41 SEC (23-33) H 26 SEC (23-33) Sodium Level 138 MMOL/L (136-145) Potassium Level 4.2 MMOL/L (3.5-5.1) Chloride Level 103 MMOL/L (98-107) Carbon Dioxide Level 26 MMOL/L (21-32) Anion Gap 9 mmol/L (5-15) Blood Urea Nitrogen 39 mg/dL (7-18) H Creatinine 1.8 MG/DL (0.55-1.30) H Estimat Glomerular Filtration Rate 46.2 mL/min (>60) Glucose Level 146 MG/DL (74-106) H Uric Acid 6.5 MG/DL (2.6-7.2) Calcium Level 9.3 MG/DL (8.5-10.1) Phosphorus Level 4.9 MG/DL (2.5-4.9) Magnesium Level 2.2 MG/DL (1.8-2.4) Total Bilirubin 0.9 MG/DL (0.2-1.0) Aspartate Amino Transf (AST/SGOT) 23 U/L (15-37) Alanine Aminotransferase (ALT/SGPT) 60 U/L (12-78) Alkaline Phosphatase 60 U/L (46-116) C-Reactive Protein, Quantitative 8.7 mg/dL (0.00-0.90) H Total Protein 7.1 G/DL (6.4-8.2) Albumin 2.4 G/DL (3.4-5.0) L Globulin 4.7 g/dL Albumin/Globulin Ratio 0.5 (1.0-2.7) L Height (Feet): 6 Height (Inches): 4.00 Weight (Pounds): 257 General Appearance: WD/WN, no apparent distress, alert, obese Cardiovascular: normal rate Respiratory/Chest: normal breath sounds, no respiratory distress Abdominal Exam: normal bowel sounds, non tender, soft Objective bleeding gums Radha Mckeon N.P. May 02, 2017 12:35
[2017-05-02] MEDS ORDERED: Heparin 2000 units/Ns 1000ml INJ ONE (13:00)
[2017-05-02] MEDS ORDERED: Lidocaine 1% Plain 30 ml INJ ONE (13:00)
--- NOTE | 2017-05-02 15:08 | Diagnostic Imaging Report ---
Indication: Dyspnea Comparison: 05/01/17 A single view chest radiograph was obtained. Findings: Prominent superior mediastinal density again demonstrated. PICC line has changed in position. The tip has cranially within the SVC. The catheter may be used in this position. It is more optimal in its the tip points toward the right atrium. Heart size is stable. Lungs remain clear. Impression: No acute findings. Note the PICC line tip directed cranially.
--- NOTE | 2017-05-02 16:34 | Diagnostic Imaging Report ---
Indication:Contraindication to medical anticoagulation Procedure: After the indications, procedure, risks, complications, and alternatives of the procedure were explained, written informed consent was obtained. Patient was brought to the angio-fluoroscopic suite and placed supine on the table. The right neck was prepped and draped in the standard sterile fashion.1% lidocaine was used to anesthetize the skin. Using ultrasound guidance, the jugular vein was accessed using an 18 gauge needle. An 035 wire was introduced over which a 4 surinamese multi-endhole infusion catheter was introduced and negotiated into the lower IVC. Standard venogram was performed with digital subtraction. Location of the renal veins was noted. Inferior vena cava filter sheath was then exchanged over the wire. Inner stylette and wire then removed. The filter was then inserted into the sheath. Under fluoroscopic observation, a [place] IVC filter was then unsheathed and deployed. The sheath was carefully removed under fluoroscopic observation. There were no complications. The patient tolerated the procedure well. Manual pressure was held at the site of venopuncture until hemostasis was achieved. Impression: Successful placement of inferior vena cava filter below the renal veins.
--- NOTE | 2017-05-02 18:42 | Cardiology Progress Note ---
Assessment/Plan Assessment/Plan 1. Allergic reaction. 2. Angioneurotic edema. 3. Hypertension. 4. Respiratory failure. 5. Hypoxemia. 6. Metabolic encephalopathy. 7. Renal insufficiency. 8. Tachycardia. 9. pulm htn 10. Pulmo embolism 11. abn torp likely related to PE 12 ACEI allergy 13. dvt 14. bleeding off vent bp is fine on abx sat are fine hemodynamically stable dvt noted may have been more extensive prior to embolization telel sinus tachy d/w rn is off anticaogualtion due to sig bleedign hopefully stable enough to restart soon s/p ivc filter eat chele pr rn Subjective Cardiovascular: Denies: chest pain, lightheadedness, palpitations Respiratory: Denies: shortness of breath Gastrointestinal/Abdominal: Denies: abdominal pain Genitourinary: Denies: burning Objective Last 24 Hour Vital Signs Date Time Temp Pulse Resp B/P (MAP) Pulse Ox O2 Delivery O2 Flow Rate FiO2 05/02/17 18:00 120 17 132/89 96 Nasal Cannula 2.0 05/02/17 17:51 132/87 05/02/17 17:00 121 20 132/87 98 Nasal Cannula 2.0 05/02/17 16:00 117 05/02/17 16:00 98.2 117 19 129/78 98 Nasal Cannula 2.0 05/02/17 15:00 108 16 134/83 100 Nasal Cannula 2.0 05/02/17 14:00 112 15 133/83 100 Nasal Cannula 2.0 05/02/17 13:24 112 16 131/83 98 Nasal Cannula 3.0 05/02/17 13:20 114 18 150/80 97 Nasal Cannula 3.0 05/02/17 13:15 115 18 134/92 97 Nasal Cannula 3.0 05/02/17 13:10 115 16 143/95 98 Nasal Cannula 3.0 05/02/17 13:05 115 18 143/89 98 Nasal Cannula 3.0 05/02/17 12:04 33 23 4.0 05/02/17 12:00 98.2 97 21 142/93 98 Nasal Cannula 2.0 05/02/17 12:00 108 05/02/17 11:32 170/117 05/02/17 11:28 170/117 05/02/17 11:00 107 14 170/117 100 Nasal Cannula 2.0 05/02/17 10:00 103 14 141/97 100 Nasal Cannula 2.0 05/02/17 09:00 100 16 125/123 100 Nasal Cannula 2.0 05/02/17 08:32 97 142/93 05/02/17 08:00 97 05/02/17 08:00 98.1 97 21 142/93 98 Nasal Cannula 2.0 05/02/17 07:00 97 20 162/101 98 Nasal Cannula 2.0 05/02/17 06:04 152/92 05/02/17 06:00 90 14 152/96 97 Nasal Cannula 2.0 05/02/17 05:00 95 16 152/92 98 Nasal Cannula 2.0 05/02/17 04:00 96 05/02/17 04:00 98.1 97 24 117/85 99 Nasal Cannula 2.0 05/02/17 03:00 95 15 126/85 98 Nasal Cannula 2.0 05/02/17 02:00 98 16 145/98 98 Nasal Cannula 2.0 05/02/17 01:00 96 15 133/85 95 Nasal Cannula 2.0 05/02/17 00:00 92 05/02/17 00:00 97.9 92 16 102/82 97 Nasal Cannula 2.0 05/01/17 23:00 95 16 129/81 96 Nasal Cannula 2.0 05/01/17 22:00 96 17 136/94 97 Nasal Cannula 2.0 05/01/17 21:00 94 20 136/110 99 Nasal Cannula 2.0 05/01/17 20:00 98 05/01/17 20:00 98.8 92 16 134/94 99 Nasal Cannula 2.0 05/01/17 19:30 Nasal Cannula 2.0 28 05/01/17 19:30 98 Nasal Cannula 2.0 28 05/01/17 19:00 93 20 144/84 Nasal Cannula 2.0 General Appearance: no apparent distress, alert Cardiovascular: regular rhythm, tachycardia Respiratory/Chest: lungs clear Abdomen: normal bowel sounds, non tender, soft Extremities: no swelling Intake and Output 05/02/17 05/03/17 19:00 07:00 Intake Total 220 ml Output Total 800 ml Balance -580 ml IV Total 220 ml Output Urine Total 800 ml Laboratory Tests Test 05/02/17 05:10 05/02/17 09:00 White Blood Count 8.2 K/UL (4.8-10.8) Red Blood Count 3.28 M/UL (4.70-6.10) L Hemoglobin 9.7 G/DL (14.2-18.0) L Hematocrit 30.6 % (42.0-52.0) L Mean Corpuscular Volume 93 FL (80-99) Mean Corpuscular Hemoglobin 29.7 PG (27.0-31.0) Mean Corpuscular Hemoglobin Concent 31.8 G/DL (32.0-36.0) L Red Cell Distribution Width 12.9 % (11.6-14.8) Platelet Count 153 K/UL (150-450) Mean Platelet Volume 9.9 FL (6.5-10.1) Neutrophils (%) (Auto) 80.6 % (45.0-75.0) H Lymphocytes (%) (Auto) 9.6 % (20.0-45.0) L Monocytes (%) (Auto) 6.5 % (1.0-10.0) Eosinophils (%) (Auto) 2.6 % (0.0-3.0) Basophils (%) (Auto) 0.7 % (0.0-2.0) Prothrombin Time 24.1 SEC (9.30-11.50) H 11.2 SEC (9.30-11.50) Prothromb Time International Ratio 2.3 (0.9-1.1) H 1.1 (0.9-1.1) Activated Partial Thromboplast Time 41 SEC (23-33) H 26 SEC (23-33) Sodium Level 138 MMOL/L (136-145) Potassium Level 4.2 MMOL/L (3.5-5.1) Chloride Level 103 MMOL/L (98-107) Carbon Dioxide Level 26 MMOL/L (21-32) Anion Gap 9 mmol/L (5-15) Blood Urea Nitrogen 39 mg/dL (7-18) H Creatinine 1.8 MG/DL (0.55-1.30) H Estimat Glomerular Filtration Rate 46.2 mL/min (>60) Glucose Level 146 MG/DL (74-106) H Uric Acid 6.5 MG/DL (2.6-7.2) Calcium Level 9.3 MG/DL (8.5-10.1) Phosphorus Level 4.9 MG/DL (2.5-4.9) Magnesium Level 2.2 MG/DL (1.8-2.4) Total Bilirubin 0.9 MG/DL (0.2-1.0) Aspartate Amino Transf (AST/SGOT) 23 U/L (15-37) Alanine Aminotransferase (ALT/SGPT) 60 U/L (12-78) Alkaline Phosphatase 60 U/L (46-116) C-Reactive Protein, Quantitative 8.7 mg/dL (0.00-0.90) H Total Protein 7.1 G/DL (6.4-8.2) Albumin 2.4 G/DL (3.4-5.0) L Globulin 4.7 g/dL Albumin/Globulin Ratio 0.5 (1.0-2.7) L RUBEN CHAVEZ May 02, 2017 18:42
[2017-05-02] MEDS: Dyna-Hex 2% Top Sol 2oz TOPIC SCH (20:50)
[2017-05-02] MEDS: Miralax 17gm pkt GT SCH (20:52)
--- NOTE | 2017-05-02 22:34 | General Progress Note ---
Assessment/Plan Assessment/Plan Assessment and Recs 1. Pulmonary embolism. Cardiology to assess patient for potential thrombolysis 2. DVT- right leg subacute thrombus in mid superficial femoral vein. --> ivc filter placement today 3. Coagulopathy 2/2 heparin drip 4. Anemia, work up if drops below 10 5. Thrombocytopenia, concerning for HIT vs sepsis, will order HIT test Subjective Allergies: Coded Allergies: LISINOPRIL (Verified Allergy, Severe, 04/21/17) Subjective NAD Objective Last 24 Hour Vital Signs Date Time Temp Pulse Resp B/P (MAP) Pulse Ox O2 Delivery O2 Flow Rate FiO2 05/02/17 21:00 110 26 126/81 98 Nasal Cannula 2.0 05/02/17 20:00 97.9 121 18 138/144 99 Nasal Cannula 2.0 05/02/17 19:30 Nasal Cannula 2.0 28 05/02/17 19:30 98 Nasal Cannula 2.0 28 05/02/17 19:00 122 17 155/108 99 Nasal Cannula 2.0 05/02/17 18:00 120 17 132/89 96 Nasal Cannula 2.0 05/02/17 17:51 132/87 05/02/17 17:00 121 20 132/87 98 Nasal Cannula 2.0 05/02/17 16:00 117 05/02/17 16:00 98.2 117 19 129/78 98 Nasal Cannula 2.0 05/02/17 15:00 108 16 134/83 100 Nasal Cannula 2.0 05/02/17 14:00 112 15 133/83 100 Nasal Cannula 2.0 05/02/17 13:24 112 16 131/83 98 Nasal Cannula 3.0 05/02/17 13:20 114 18 150/80 97 Nasal Cannula 3.0 05/02/17 13:15 115 18 134/92 97 Nasal Cannula 3.0 05/02/17 13:10 115 16 143/95 98 Nasal Cannula 3.0 05/02/17 13:05 115 18 143/89 98 Nasal Cannula 3.0 05/02/17 12:04 33 23 4.0 05/02/17 12:00 98.2 97 21 142/93 98 Nasal Cannula 2.0 05/02/17 12:00 108 05/02/17 11:32 170/117 05/02/17 11:28 170/117 05/02/17 11:00 107 14 170/117 100 Nasal Cannula 2.0 05/02/17 10:00 103 14 141/97 100 Nasal Cannula 2.0 05/02/17 09:00 100 16 125/123 100 Nasal Cannula 2.0 05/02/17 08:32 97 142/93 05/02/17 08:00 97 05/02/17 08:00 98.1 97 21 142/93 98 Nasal Cannula 2.0 05/02/17 07:00 97 20 162/101 98 Nasal Cannula 2.0 05/02/17 06:04 152/92 05/02/17 06:00 90 14 152/96 97 Nasal Cannula 2.0 05/02/17 05:00 95 16 152/92 98 Nasal Cannula 2.0 05/02/17 04:00 96 05/02/17 04:00 98.1 97 24 117/85 99 Nasal Cannula 2.0 05/02/17 03:00 95 15 126/85 98 Nasal Cannula 2.0 05/02/17 02:00 98 16 145/98 98 Nasal Cannula 2.0 05/02/17 01:00 96 15 133/85 95 Nasal Cannula 2.0 05/02/17 00:00 92 05/02/17 00:00 97.9 92 16 102/82 97 Nasal Cannula 2.0 05/01/17 23:00 95 16 129/81 96 Nasal Cannula 2.0 Intake and Output 05/02/17 05/03/17 19:00 07:00 Intake Total 220 ml Output Total 950 ml 650 ml Balance -730 ml -650 ml IV Total 220 ml Output Urine Total 950 ml 650 ml Laboratory Tests 05/02/17 05:10: White Blood Count 8.2, Red Blood Count 3.28L, Hemoglobin 9.7L, Hematocrit 30.6L , Mean Corpuscular Volume 93, Mean Corpuscular Hemoglobin 29.7, Mean Corpuscular Hemoglobin Concent 31.8L, Red Cell Distribution Width 12.9, Platelet Count 153, Mean Platelet Volume 9.9, Neutrophils (%) (Auto) 80.6H, Lymphocytes (%) (Auto) 9.6L, Monocytes (%) (Auto) 6.5, Eosinophils (%) (Auto) 2.6, Basophils (%) (Auto) 0.7, Prothrombin Time 24.1H, Prothromb Time International Ratio 2.3H, Activated Partial Thromboplast Time 41H, Sodium Level 138, Potassium Level 4.2, Chloride Level 103, Carbon Dioxide Level 26, Anion Gap 9, Blood Urea Nitrogen 39H, Creatinine 1.8H, Estimat Glomerular Filtration Rate 46.2, Glucose Level 146H, Uric Acid 6.5, Calcium Level 9.3, Phosphorus Level 4.9, Magnesium Level 2.2, Total Bilirubin 0.9, Aspartate Amino Transf (AST /SGOT) 23, Alanine Aminotransferase (ALT/SGPT) 60, Alkaline Phosphatase 60, C- Reactive Protein, Quantitative 8.7H, Total Protein 7.1, Albumin 2.4L, Globulin 4.7, Albumin/Globulin Ratio 0.5L 05/02/17 09:00: Prothrombin Time 11.2, Prothromb Time International Ratio 1.1, Activated Partial Thromboplast Time 26 Height (Feet): 6 Height (Inches): 4.00 Weight (Pounds): 257 Sulaiman Dudley May 02, 2017 22:34
[2017-05-03] VITALS (14 sets, daily range): BP systolic 96–150; BP diastolic 66–99
--- NOTE | 2017-05-03 05:22 | General Progress Note ---
Assessment/Plan Problem List: (1) New onset type 2 diabetes mellitus ICD Codes: E11.9 - Type 2 diabetes mellitus without complications SNOMED: 90346538 (2) Toxic nodular goiter ICD Codes: E05.20 - Thyrotoxicosis with toxic multinodular goiter without thyrotoxic crisis or storm SNOMED: 61692883 (3) Benign hypertensive kidney disease with chronic kidney disease ICD Codes: I12.9 - Hypertensive chronic kidney disease with stage 1 through stage 4 chronic kidney disease, or unspecified chronic kidney disease SNOMED: 630394, 237823366 (4) Renal insufficiency ICD Codes: N28.9 - Disorder of kidney and ureter, unspecified SNOMED: 033970458 (5) Hypertension ICD Codes: I10 - Essential (primary) hypertension SNOMED: 81532245 (6) Acute respiratory failure ICD Codes: J96.00 - Acute respiratory failure, unspecified whether with hypoxia or hypercapnia SNOMED: 67041227 (7) Angioedema ICD Codes: T78.3XXA - Angioneurotic edema, initial encounter SNOMED: 37380215 Assessment/Plan continue Tapazole 20 mg daily follow thyroid function in one months thyroid US as OP will hold off on starting oral diabetic agents for now he wishes to manage his DM with diet Subjective Allergies: Coded Allergies: LISINOPRIL (Verified Allergy, Severe, 04/21/17) All Systems: reviewed and negative except above Subjective events noted Objective Last 24 Hour Vital Signs Date Time Temp Pulse Resp B/P (MAP) Pulse Ox O2 Delivery O2 Flow Rate FiO2 05/03/17 05:00 100 12 109/79 99 Nasal Cannula 2.0 05/03/17 04:00 98.1 99 14 142/75 99 Nasal Cannula 2.0 05/03/17 03:00 95 16 133/69 98 Nasal Cannula 2.0 05/03/17 02:00 112 13 96/75 96 Nasal Cannula 2.0 05/03/17 01:00 106 15 134/69 98 Nasal Cannula 2.0 05/03/17 00:00 116 15 150/99 98 Nasal Cannula 2.0 05/03/17 00:00 113 05/02/17 23:16 171/94 05/02/17 23:00 98.2 109 18 171/94 99 Nasal Cannula 2.0 05/02/17 22:00 112 20 132/82 98 Nasal Cannula 2.0 05/02/17 21:00 110 26 126/81 98 Nasal Cannula 2.0 05/02/17 20:00 111 05/02/17 20:00 97.9 121 18 138/144 99 Nasal Cannula 2.0 05/02/17 19:30 Nasal Cannula 2.0 28 05/02/17 19:30 98 Nasal Cannula 2.0 28 05/02/17 19:00 122 17 155/108 99 Nasal Cannula 2.0 05/02/17 18:00 120 17 132/89 96 Nasal Cannula 2.0 05/02/17 17:51 132/87 05/02/17 17:00 121 20 132/87 98 Nasal Cannula 2.0 05/02/17 16:00 117 05/02/17 16:00 98.2 117 19 129/78 98 Nasal Cannula 2.0 05/02/17 15:00 108 16 134/83 100 Nasal Cannula 2.0 05/02/17 14:00 112 15 133/83 100 Nasal Cannula 2.0 05/02/17 13:24 112 16 131/83 98 Nasal Cannula 3.0 05/02/17 13:20 114 18 150/80 97 Nasal Cannula 3.0 05/02/17 13:15 115 18 134/92 97 Nasal Cannula 3.0 05/02/17 13:10 115 16 143/95 98 Nasal Cannula 3.0 05/02/17 13:05 115 18 143/89 98 Nasal Cannula 3.0 05/02/17 12:04 33 23 4.0 05/02/17 12:00 98.2 97 21 142/93 98 Nasal Cannula 2.0 05/02/17 12:00 108 05/02/17 11:32 170/117 05/02/17 11:28 170/117 05/02/17 11:00 107 14 170/117 100 Nasal Cannula 2.0 05/02/17 10:00 103 14 141/97 100 Nasal Cannula 2.0 05/02/17 09:00 100 16 125/123 100 Nasal Cannula 2.0 05/02/17 08:32 97 142/93 05/02/17 08:00 97 05/02/17 08:00 98.1 97 21 142/93 98 Nasal Cannula 2.0 05/02/17 07:00 97 20 162/101 98 Nasal Cannula 2.0 05/02/17 06:04 152/92 05/02/17 06:00 90 14 152/96 97 Nasal Cannula 2.0 Laboratory Tests 05/02/17 09:00: Prothrombin Time 11.2, Prothromb Time International Ratio 1.1, Activated Partial Thromboplast Time 26 05/03/17 04:30: Prothrombin Time [Pending], Prothromb Time International Ratio [Pending], Activated Partial Thromboplast Time [Pending], White Blood Count [Pending], Red Blood Count [Pending], Hemoglobin [Pending], Hematocrit [Pending], Mean Corpuscular Volume [Pending], Mean Corpuscular Hemoglobin [Pending], Mean Corpuscular Hemoglobin Concent [Pending], Red Cell Distribution Width [Pending] , Platelet Count [Pending], Mean Platelet Volume [Pending], Neutrophils (%) ( Auto) [Pending], Lymphocytes (%) (Auto) [Pending], Monocytes (%) (Auto) [Pending ], Eosinophils (%) (Auto) [Pending], Basophils (%) (Auto) [Pending], Sodium Level [Pending], Potassium Level [Pending], Chloride Level [Pending], Carbon Dioxide Level [Pending], Blood Urea Nitrogen [Pending], Creatinine [Pending], Estimat Glomerular Filtration Rate [Pending], Glucose Level [Pending], Calcium Level [Pending], Total Bilirubin [Pending], Aspartate Amino Transf (AST/SGOT) [ Pending], Alanine Aminotransferase (ALT/SGPT) [Pending], Alkaline Phosphatase [ Pending], Total Protein [Pending], Albumin [Pending], Globulin [Pending] Height (Feet): 6 Height (Inches): 4.00 Weight (Pounds): 257 General Appearance: no apparent distress Neck: normal alignment Cardiovascular: normal rate Respiratory/Chest: lungs clear Abdomen: normal bowel sounds Objective Current Medications Medications (Trade) Dose Ordered Sig/Kelsi Route PRN Reason Start Time Stop Time Status Last Admin Dose Admin Acetaminophen (Tylenol) 650 mg Q6H PRN ORAL Mild Pain/Temp > 100.5 04/21/17 00:45 05/21/17 00:44 04/27/17 19:38 Amlodipine Besylate (Norvasc) 5 mg DAILY GT 11/2/17 09:00 05/23/17 09:29 05/01/17 09:10 Cefepime HCl 2 gm/ Sodium Chloride 110 ml @ 220 mls/hr Q24H IV 04/27/17 10:00 05/04/17 09:59 05/02/17 10:01 Chlorhexidine Gluconate (Malena-Hex 2%) 1 applic DAILY@2000 TOPIC 04/21/17 20:00 05/21/17 19:59 05/02/17 20:50 Dextrose (Dextrose 50%) STAT PRN IV Hypoglycemia 05/02/17 07:00 06/01/17 06:59 Diphenhydramine HCl (Benadryl) 50 mg NEEDED PRN ORAL 30M PRIOR TO BLOOD TRANSFUSION 04/29/17 13:30 Docusate Sodium (Colace) 100 mg THREE TIMES A DAY NG 04/22/17 18:00 05/22/17 17:59 04/29/17 09:09 Haloperidol Lactate 5 mg/ Dextrose 56 ml @ 224 mls/hr Q1H PRN IVPB AGITATION 04/24/17 08:45 05/24/17 08:44 04/29/17 08:17 Hydralazine HCl (Apresoline) 10 mg Q4H PRN IV For High Blood Pressure 04/21/17 00:45 05/21/17 00:44 05/02/17 23:16 Insulin Aspart (NovoLOG) BEFORE MEALS AND HS SUBQ 05/02/17 11:30 06/01/17 11:29 05/02/17 21:22 Methimazole (Tapazole) 20 mg DAILY ORAL 05/02/17 09:00 05/31/17 10:29 Metoprolol Tartrate (Lopressor) 5 mg Q6H PRN IVP heart rate greater than 125 04/21/17 20:00 05/21/17 19:59 Nicotine (Nicoderm) 1 patch Q24H TDERMAL 04/22/17 14:00 05/22/17 13:59 05/02/17 13:56 Nitroglycerin (Nitro-Bid) 1 inch TID@0600,1200,1800 TOPIC 04/22/17 06:00 05/22/17 05:59 05/02/17 11:32 Pantoprazole (Protonix) 40 mg EVERY 12 HOURS IVP 11/3/17 09:00 05/21/17 08:59 05/02/17 20:51 Polyethylene Glycol (Miralax) 17 gm BEDTIME GT 04/27/17 21:00 05/22/17 20:59 05/01/17 20:42 Item Value Date Time Bedside Blood Glucose 160 mg/dl H 05/02/172 Bedside Blood Glucose 199 mg/dl H 05/02/17 1645 Bedside Blood Glucose 131 mg/dl H 05/02/17 1132 MEGHANA ROSADO May 03, 2017 05:22
[2017-05-03 05:25] LABS: MEAN CORPUSCULAR VOLUME 94 FL (80-99); MEAN PLATELET VOLUME 8.4 FL (6.5-10.1); PLATELET COUNT 207 K/UL (150-450); RED BLOOD COUNT 1.58 M/UL (4.70-6.10); WHITE BLOOD COUNT 10.5 K/UL (4.8-10.8)
[2017-05-03 06:01] LABS: INR 1.1 (0.9-1.1); PROTHROMBIN TIME 11.6 SEC (9.30-11.50)
[2017-05-03 06:08] LABS: ALANINE AMINOTRANSFERASE 50 U/L (12-78); ALBUMIN/GLOBULIN RATIO 0.5 (1.0-2.7); ANION GAP 13 mmol/L (5-15); ASPARTATE AMINO TRANSFERASE 21 U/L (15-37); CALCIUM 9.3 MG/DL (8.5-10.1); CARBON DIOXIDE 22 MMOL/L (21-32); CHLORIDE 106 MMOL/L (98-107); GLOMERULAR FILTRATION RATE 40.8 mL/min (>60); POTASSIUM 4.4 MMOL/L (3.5-5.1); SODIUM 141 MMOL/L (136-145); TOTAL PROTEIN 7.1 G/DL (6.4-8.2)
[2017-05-03] MEDS: NovoLOG Insulin Flexpen SUBQ SCH ×4 (06:10→20:55)
[2017-05-03] MEDS: Nitroglycerin 2% oint pkt TOPIC SCH ×3 (06:11→17:51)
[2017-05-03 06:53] LABS: BASOPHILS % (AUTO) 1.2 % (0.0-2.0); EOSINOPHILS % (AUTO) 1.7 % (0.0-3.0); LYMPHOCYTES % (AUTO) 6.1 % (20.0-45.0); MEAN CORPUSCULAR HEMOGLOBIN 29.3 PG (27.0-31.0); MEAN CORPUSCULAR VOLUME 95 FL (80-99); MEAN PLATELET VOLUME 9.2 FL (6.5-10.1); MONOCYTES % (AUTO) 7.5 % (1.0-10.0); NEUTROPHILS % (AUTO) 83.5 % (45.0-75.0); PLATELET COUNT 159 K/UL (150-450); RED BLOOD COUNT 3.32 M/UL (4.70-6.10); RED CELL DISTRIBUTION WIDTH 13.1 % (11.6-14.8); WHITE BLOOD COUNT 9.3 K/UL (4.8-10.8)
--- NOTE | 2017-05-03 07:53 | Pulmonolgy Critical Care Note ---
Critical Care - Asmt/Plan Problems: (1) Acute respiratory failure (2) ATN (acute tubular necrosis) (3) Hypertension (4) Renal insufficiency (5) Angioedema Respiratory: monitor respiratory rate, adjust FIO2, CXR Cardiac: continue to monitor HR/BP Renal: F/U I&O, keep IV fluid, check electrolytes Infectious Disease: check cultures Gastrointestinal: continue feedings/current rate Endocrine: monitor blood sugar, continue sliding scale insulin Hematologic: monitor H/H, transfuse if hgb<8.5 Neurologic: PRN Ativan, keep patient comfortable Affect: PRN ativan Prophylaxis: Protonix Disposition: transfer to Notes Reviewed: roving or yarn color checker Discussed with: nurses, consultants, case coordinatorresearch program manager - Objective Last 24 Hour Vital Signs Date Time Temp Pulse Resp B/P (MAP) Pulse Ox O2 Delivery O2 Flow Rate FiO2 05/03/17 07:00 99 14 128/98 100 Nasal Cannula 2.0 05/03/17 06:11 112/69 05/03/17 06:00 97 16 112/69 99 Nasal Cannula 2.0 05/03/17 05:00 100 12 109/79 99 Nasal Cannula 2.0 05/03/17 04:00 117 05/03/17 04:00 98.1 99 14 142/75 99 Nasal Cannula 2.0 05/03/17 03:00 95 16 133/69 98 Nasal Cannula 2.0 05/03/17 02:00 112 13 96/75 96 Nasal Cannula 2.0 05/03/17 01:00 106 15 134/69 98 Nasal Cannula 2.0 05/03/17 00:00 116 15 150/99 98 Nasal Cannula 2.0 05/03/17 00:00 113 05/02/17 23:16 171/94 05/02/17 23:00 98.2 109 18 171/94 99 Nasal Cannula 2.0 05/02/17 22:00 112 20 132/82 98 Nasal Cannula 2.0 05/02/17 21:00 110 26 126/81 98 Nasal Cannula 2.0 05/02/17 20:00 111 05/02/17 20:00 97.9 121 18 138/144 99 Nasal Cannula 2.0 05/02/17 19:30 Nasal Cannula 2.0 28 05/02/17 19:30 98 Nasal Cannula 2.0 28 05/02/17 19:00 122 17 155/108 99 Nasal Cannula 2.0 05/02/17 18:00 120 17 132/89 96 Nasal Cannula 2.0 05/02/17 17:51 132/87 05/02/17 17:00 121 20 132/87 98 Nasal Cannula 2.0 05/02/17 16:00 117 05/02/17 16:00 98.2 117 19 129/78 98 Nasal Cannula 2.0 05/02/17 15:00 108 16 134/83 100 Nasal Cannula 2.0 05/02/17 14:00 112 15 133/83 100 Nasal Cannula 2.0 05/02/17 13:24 112 16 131/83 98 Nasal Cannula 3.0 05/02/17 13:20 114 18 150/80 97 Nasal Cannula 3.0 05/02/17 13:15 115 18 134/92 97 Nasal Cannula 3.0 05/02/17 13:10 115 16 143/95 98 Nasal Cannula 3.0 05/02/17 13:05 115 18 143/89 98 Nasal Cannula 3.0 05/02/17 12:04 33 23 4.0 05/02/17 12:00 98.2 97 21 142/93 98 Nasal Cannula 2.0 05/02/17 12:00 108 05/02/17 11:32 170/117 05/02/17 11:28 170/117 05/02/17 11:00 107 14 170/117 100 Nasal Cannula 2.0 05/02/17 10:00 103 14 141/97 100 Nasal Cannula 2.0 05/02/17 09:00 100 16 125/123 100 Nasal Cannula 2.0 05/02/17 08:32 97 142/93 05/02/17 08:00 97 05/02/17 08:00 98.1 97 21 142/93 98 Nasal Cannula 2.0 Status: awake Condition: critical HEENT: atraumatic Lungs: clear Heart: HR/BP stable Abdomen: soft Extremities: no C/C/E Accucheck: 159 Critical Care - Subjective ROS Limited/Unobtainable: Yes ICU Day: 13 Condition: critical EKG Rhythm: Sinus Rhythm FI02: 28 Sputum Amount: Moderate CXR: no acute changes Labs: Laboratory Tests Test 05/02/17 09:00 05/03/17 04:30 05/03/17 06:25 Prothrombin Time 11.2 SEC (9.30-11.50) 11.6 SEC (9.30-11.50) H Prothromb Time International Ratio 1.1 (0.9-1.1) 1.1 (0.9-1.1) Activated Partial Thromboplast Time 26 SEC (23-33) 31 SEC (23-33) White Blood Count 10.5 K/UL (4.8-10.8) 9.3 K/UL (4.8-10.8) Red Blood Count 1.58 M/UL (4.70-6.10) L 3.32 M/UL (4.70-6.10) L Hemoglobin 4.8 G/DL (14.2-18.0) 9.7 G/DL (14.2-18.0) #L Hematocrit 14.9 % (42.0-52.0) #L 31.4 % (42.0-52.0) #L Mean Corpuscular Volume 94 FL (80-99) 95 FL (80-99) Mean Corpuscular Hemoglobin 30.0 PG (27.0-31.0) 29.3 PG (27.0-31.0) Mean Corpuscular Hemoglobin Concent 32.0 G/DL (32.0-36.0) 31.0 G/DL (32.0-36.0) L Red Cell Distribution Width 13.0 % (11.6-14.8) 13.1 % (11.6-14.8) Platelet Count 207 K/UL (150-450) 159 K/UL (150-450) Mean Platelet Volume 8.4 FL (6.5-10.1) 9.2 FL (6.5-10.1) Neutrophils (%) (Auto) % (45.0-75.0) 83.5 % (45.0-75.0) H Lymphocytes (%) (Auto) % (20.0-45.0) 6.1 % (20.0-45.0) L Monocytes (%) (Auto) % (1.0-10.0) 7.5 % (1.0-10.0) Eosinophils (%) (Auto) % (0.0-3.0) 1.7 % (0.0-3.0) Basophils (%) (Auto) % (0.0-2.0) 1.2 % (0.0-2.0) Neutrophils % (Manual) Pending Lymphocytes % (Manual) Pending Platelet Estimate Pending Platelet Morphology Pending Sodium Level 141 MMOL/L (136-145) Potassium Level 4.4 MMOL/L (3.5-5.1) Chloride Level 106 MMOL/L (98-107) Carbon Dioxide Level 22 MMOL/L (21-32) Anion Gap 13 mmol/L (5-15) Blood Urea Nitrogen 39 mg/dL (7-18) H Creatinine 2.0 MG/DL (0.55-1.30) H Estimat Glomerular Filtration Rate 40.8 mL/min (>60) Glucose Level 151 MG/DL (74-106) H Calcium Level 9.3 MG/DL (8.5-10.1) Total Bilirubin 1.0 MG/DL (0.2-1.0) Aspartate Amino Transf (AST/SGOT) 21 U/L (15-37) Alanine Aminotransferase (ALT/SGPT) 50 U/L (12-78) Alkaline Phosphatase 60 U/L (46-116) Total Protein 7.1 G/DL (6.4-8.2) Albumin 2.5 G/DL (3.4-5.0) L Globulin 4.6 g/dL Albumin/Globulin Ratio 0.5 (1.0-2.7) L VIVEK SOLOMON May 03, 2017 07:53
--- NOTE | 2017-05-03 08:15 | Consultation ---
DATE OF CONSULTATION: 05/02/2017 ENDOCRINOLOGY CONSULTATION CONSULTING PHYSICIAN: Chace Hardy M.D. REFERRING PHYSICIAN: Bryce Dias M.D. ATTENDING PHYSICIAN: Bryce Dias M.D. REASON FOR CONSULTATION: Hyperthyroidism. HISTORY OF PRESENT ILLNESS: The patient is a pleasant 67-year-old male with a history of COPD and hypertension, who was transferred from [facility] to our center on 04/20/2017. Initially, the patient presented to [facility] with respiratory failure, angioedema, and swollen tongue. He was nasally intubated and stabilized and transferred to our ICU. The patient was eventually successfully extubated. Imaging with CT of the chest showed a PE and also additionally showed an incidental finding of a large goiter with numerous nodules. The thyroid function test was ordered, which showed a TSH of 0.012, suppressed and elevated free T4 of 2.61. The patient does not have symptoms of hyperthyroidism and has no known thyroid history. PAST MEDICAL HISTORY: 1. Hypertension. 2. COPD. 3. Obesity. PAST SURGICAL HISTORY: None to my knowledge. SOCIAL HISTORY: The patient is smoker. No alcohol or drug use. FAMILY HISTORY: Noncontributory. REVIEW OF SYSTEMS: A 12-point review of systems was performed. The pertinent positives and negatives are as mentioned in the history of present illness. PHYSICAL EXAMINATION: GENERAL: He is awake and alert. VITAL SIGNS: Blood pressure is 152/92, pulse of 90, respiratory rate of 14, and temperature of 97. HEENT: Pupils are equal and reactive to light. Sclerae are anicteric. NECK: No JVD. Thyroid is palpable. It is full. I cannot feel the lower border of the thyroid gland. LUNGS: Crackles. HEART: Regular. ABDOMEN: Positive bowel sounds. EXTREMITIES: No clubbing or cyanosis. Positive for edema. LABORATORY VALUES: Thyroid function was discussed in the present illness. Sodium 137, potassium 4.4, chloride 102, bicarbonate 26, BUN 49, and creatinine 2.2. Glucose of 225. Hemoglobin A1c of 6.7. DIAGNOSES: 1. Respiratory failure due to angioedema, status post extubation. 2. Chronic obstructive pulmonary disease. 3. Borderline diabetes. 4. Pulmonary embolism. 5. Toxic goiter. DISCUSSION: For the treatment of hyperthyroidism, the patient is to be treated with methimazole 20 mg daily. A thyroid function test should be repeated in four to six weeks as an outpatient in order to adjust the dosage. In the residential, the patient is a candidate for radioactive iodine ablation of the toxic goiter in order to regulate the function as well as shrink the size. The patient decided to move to [place] and this will be undertaken by an activity leader in the area that he will live. A thyroid ultrasound also needs to be done in order to assess the thyroid nodule and possibly evaluate for fine needle aspiration. I will not order that anytime during this stay because this is an elective procedure that can be done by his activity leader as an outpatient. His hemoglobin A1c is 6.7, which is at the range of type 2 diabetes. We will start monitoring his blood glucose and we will consider starting on pharmacologic therapy if the blood glucose continues to run high. I will follow him during the hospital stay. Thank you, Dr. Dias, for the courtesy of this consultation. Chace Hardy M.D. DR: ERVIN JOB#: [id number] CC: AYANNA
[2017-05-03] MEDS: Cefepime HCl 2 GM in NS 110 ML IV SCH (09:27)
[2017-05-03] MEDS: Docusate 100mg/10ml Liq NG SCH ×3 (09:28→17:51)
[2017-05-03] MEDS: Pantoprazole Inj IVP SCH ×2 (09:29→20:54)
[2017-05-03] MEDS ORDERED: NS 275ml ONE (09:43)
[2017-05-03] MEDS ORDERED: Tubing IV Secondary IV ONE (09:43)
[2017-05-03 09:46] LABS: BAND NEUTROPHILS % (MANUAL) 4 % (0-8); BASOPHILS % (MANUAL) 1 % (0-2); EOSINOPHILS % (MANUAL) 4 % (0-3); LYMPHOCYTES % (MANUAL) 13 % (20-45); NEUTROPHILS % (MANUAL) 76 % (45-75); PLATELET ESTIMATE ADEQUATE; PLATELET MORPHOLOGY NORMAL; TOTAL CELLS COUNTED 100
[2017-05-03 09:47] LABS: HYPOCHROMASIA 1+
[2017-05-03] MEDS ORDERED: Haloperidol Lactate 5 MG in D5W 55 ML IVPB PRN (10:45)
[2017-05-03] MEDS ORDERED: Metoprolol 5mg/5ml Inj IVP PRN (11:00)
--- NOTE | 2017-05-03 12:56 | GI Progress Note ---
Assessment/Plan Problems: (1) Abdominal distension ICD Codes: R14.0 - Abdominal distension (gaseous) SNOMED: 73433138 (2) Hypoalbuminemia ICD Codes: E88.09 - Other disorders of plasma-protein metabolism, not elsewhere classified SNOMED: 700002282 (3) Angioedema ICD Codes: T78.3XXA - Angioneurotic edema, initial encounter SNOMED: 83075765 Status: progressing Status Narrative Discussed with Dr. Cazares. Assessment/Plan regular diet monitor H&H, prn transfusions ppi fu pulm recs, now extubated fu labs Subjective Subjective feels better Objective Last 24 Hour Vital Signs Date Time Temp Pulse Resp B/P (MAP) Pulse Ox O2 Delivery O2 Flow Rate FiO2 05/03/17 12:03 97.5 90 18 125/72 94 Room Air 05/03/17 10:00 102 15 129/82 100 Nasal Cannula 2.0 05/03/17 09:28 108 137/82 05/03/17 09:00 103 14 137/82 100 Nasal Cannula 2.0 05/03/17 08:00 111 05/03/17 08:00 98.1 111 18 123/79 99 Nasal Cannula 2.0 05/03/17 07:54 100 Nasal Cannula 2.0 28 05/03/17 07:54 Nasal Cannula 2.0 28 05/03/17 07:00 99 14 128/98 100 Nasal Cannula 2.0 05/03/17 06:11 112/69 05/03/17 06:00 97 16 112/69 99 Nasal Cannula 2.0 05/03/17 05:00 100 12 109/79 99 Nasal Cannula 2.0 05/03/17 04:00 117 05/03/17 04:00 98.1 99 14 142/75 99 Nasal Cannula 2.0 05/03/17 03:00 95 16 133/69 98 Nasal Cannula 2.0 05/03/17 02:00 112 13 96/75 96 Nasal Cannula 2.0 05/03/17 01:00 106 15 134/69 98 Nasal Cannula 2.0 05/03/17 00:00 116 15 150/99 98 Nasal Cannula 2.0 05/03/17 00:00 113 05/02/17 23:16 171/94 05/02/17 23:00 98.2 109 18 171/94 99 Nasal Cannula 2.0 05/02/17 22:00 112 20 132/82 98 Nasal Cannula 2.0 05/02/17 21:00 110 26 126/81 98 Nasal Cannula 2.0 05/02/17 20:00 111 05/02/17 20:00 97.9 121 18 138/144 99 Nasal Cannula 2.0 05/02/17 19:30 Nasal Cannula 2.0 28 05/02/17 19:30 98 Nasal Cannula 2.0 28 05/02/17 19:00 122 17 155/108 99 Nasal Cannula 2.0 05/02/17 18:00 120 17 132/89 96 Nasal Cannula 2.0 05/02/17 17:51 132/87 05/02/17 17:00 121 20 132/87 98 Nasal Cannula 2.0 05/02/17 16:00 117 05/02/17 16:00 98.2 117 19 129/78 98 Nasal Cannula 2.0 05/02/17 15:00 108 16 134/83 100 Nasal Cannula 2.0 05/02/17 14:00 112 15 133/83 100 Nasal Cannula 2.0 05/02/17 13:24 112 16 131/83 98 Nasal Cannula 3.0 05/02/17 13:20 114 18 150/80 97 Nasal Cannula 3.0 05/02/17 13:15 115 18 134/92 97 Nasal Cannula 3.0 05/02/17 13:10 115 16 143/95 98 Nasal Cannula 3.0 05/02/17 13:05 115 18 143/89 98 Nasal Cannula 3.0 Intake and Output 05/03/17 05/04/17 19:00 07:00 Intake Total 30 ml Balance 30 ml Intake Oral 30 ml # Voids 1 Laboratory Tests Test 05/03/17 04:30 05/03/17 06:25 White Blood Count 10.5 K/UL (4.8-10.8) 9.3 K/UL (4.8-10.8) Red Blood Count 1.58 M/UL (4.70-6.10) L 3.32 M/UL (4.70-6.10) L Hemoglobin 4.8 G/DL (14.2-18.0) 9.7 G/DL (14.2-18.0) #L Hematocrit 14.9 % (42.0-52.0) #L 31.4 % (42.0-52.0) #L Mean Corpuscular Volume 94 FL (80-99) 95 FL (80-99) Mean Corpuscular Hemoglobin 30.0 PG (27.0-31.0) 29.3 PG (27.0-31.0) Mean Corpuscular Hemoglobin Concent 32.0 G/DL (32.0-36.0) 31.0 G/DL (32.0-36.0) L Red Cell Distribution Width 13.0 % (11.6-14.8) 13.1 % (11.6-14.8) Platelet Count 207 K/UL (150-450) 159 K/UL (150-450) Mean Platelet Volume 8.4 FL (6.5-10.1) 9.2 FL (6.5-10.1) Neutrophils (%) (Auto) % (45.0-75.0) 83.5 % (45.0-75.0) H Lymphocytes (%) (Auto) % (20.0-45.0) 6.1 % (20.0-45.0) L Monocytes (%) (Auto) % (1.0-10.0) 7.5 % (1.0-10.0) Eosinophils (%) (Auto) % (0.0-3.0) 1.7 % (0.0-3.0) Basophils (%) (Auto) % (0.0-2.0) 1.2 % (0.0-2.0) Differential Total Cells Counted 100 Neutrophils % (Manual) 76 % (45-75) H Lymphocytes % (Manual) 13 % (20-45) L Monocytes % (Manual) 2 % (1-10) Eosinophils % (Manual) 4 % (0-3) H Basophils % (Manual) 1 % (0-2) Band Neutrophils 4 % (0-8) Platelet Estimate Adequate Platelet Morphology Normal Hypochromasia 1+ Prothrombin Time 11.6 SEC (9.30-11.50) H Prothromb Time International Ratio 1.1 (0.9-1.1) Activated Partial Thromboplast Time 31 SEC (23-33) Sodium Level 141 MMOL/L (136-145) Potassium Level 4.4 MMOL/L (3.5-5.1) Chloride Level 106 MMOL/L (98-107) Carbon Dioxide Level 22 MMOL/L (21-32) Anion Gap 13 mmol/L (5-15) Blood Urea Nitrogen 39 mg/dL (7-18) H Creatinine 2.0 MG/DL (0.55-1.30) H Estimat Glomerular Filtration Rate 40.8 mL/min (>60) Glucose Level 151 MG/DL (74-106) H Calcium Level 9.3 MG/DL (8.5-10.1) Total Bilirubin 1.0 MG/DL (0.2-1.0) Aspartate Amino Transf (AST/SGOT) 21 U/L (15-37) Alanine Aminotransferase (ALT/SGPT) 50 U/L (12-78) Alkaline Phosphatase 60 U/L (46-116) Total Protein 7.1 G/DL (6.4-8.2) Albumin 2.5 G/DL (3.4-5.0) L Globulin 4.6 g/dL Albumin/Globulin Ratio 0.5 (1.0-2.7) L Height (Feet): 6 Height (Inches): 4.00 Weight (Pounds): 258 General Appearance: WD/WN, no apparent distress, alert, overweight Cardiovascular: normal rate Respiratory/Chest: normal breath sounds, no respiratory distress Abdominal Exam: normal bowel sounds, non tender, soft Extremities: normal range of motion, non-tender Objective bleeding gums Radha Mckeon N.PBooker May 03, 2017 12:56
--- NOTE | 2017-05-03 14:01 | Nephrology Progress Note ---
Assessment/Plan Problem List: (1) Renal insufficiency (2) Acute respiratory failure (3) Pulmonary embolism (4) Benign hypertensive kidney disease with chronic kidney disease Assessment Had IVC filter- Pulmonary emboli , on heparin, bleeding complications Acute respiratory failure- Was On Vent- Now extubated Renal failure ? CKD ? Superimposed Acute renal failure- Cr 2.0 today HTN- Smoker- Jorge Inhibitor Allergy Plan Plan: Had IVC filter bonner out- voiding- Keep BP in check Off heparin- 2D Echo- EjFx 60% Pulmonary support- urine studies- Kidney MIKEY Right kidney demonstrates borderline hydronephrosis. monitor renal parameters- Avoid nephrotoxics Subjective ROS Limited/Unobtainable: No Constitutional: Reports: malaise Objective Objective Last 24 Hour Vital Signs Date Time Temp Pulse Resp B/P (MAP) Pulse Ox O2 Delivery O2 Flow Rate FiO2 05/03/17 13:09 125/72 05/03/17 12:03 97.5 90 18 125/72 94 Room Air 05/03/17 12:03 101 05/03/17 10:00 102 15 129/82 100 Nasal Cannula 2.0 05/03/17 09:28 108 137/82 05/03/17 09:00 103 14 137/82 100 Nasal Cannula 2.0 05/03/17 08:00 111 05/03/17 08:00 98.1 111 18 123/79 99 Nasal Cannula 2.0 05/03/17 07:54 100 Nasal Cannula 2.0 28 05/03/17 07:54 Nasal Cannula 2.0 28 05/03/17 07:00 99 14 128/98 100 Nasal Cannula 2.0 05/03/17 06:11 112/69 05/03/17 06:00 97 16 112/69 99 Nasal Cannula 2.0 05/03/17 05:00 100 12 109/79 99 Nasal Cannula 2.0 05/03/17 04:00 117 05/03/17 04:00 98.1 99 14 142/75 99 Nasal Cannula 2.0 05/03/17 03:00 95 16 133/69 98 Nasal Cannula 2.0 05/03/17 02:00 112 13 96/75 96 Nasal Cannula 2.0 05/03/17 01:00 106 15 134/69 98 Nasal Cannula 2.0 05/03/17 00:00 116 15 150/99 98 Nasal Cannula 2.0 05/03/17 00:00 113 05/02/17 23:16 171/94 05/02/17 23:00 98.2 109 18 171/94 99 Nasal Cannula 2.0 05/02/17 22:00 112 20 132/82 98 Nasal Cannula 2.0 05/02/17 21:00 110 26 126/81 98 Nasal Cannula 2.0 05/02/17 20:00 111 05/02/17 20:00 97.9 121 18 138/144 99 Nasal Cannula 2.0 05/02/17 19:30 Nasal Cannula 2.0 28 05/02/17 19:30 98 Nasal Cannula 2.0 28 05/02/17 19:00 122 17 155/108 99 Nasal Cannula 2.0 05/02/17 18:00 120 17 132/89 96 Nasal Cannula 2.0 05/02/17 17:51 132/87 05/02/17 17:00 121 20 132/87 98 Nasal Cannula 2.0 05/02/17 16:00 117 05/02/17 16:00 98.2 117 19 129/78 98 Nasal Cannula 2.0 05/02/17 15:00 108 16 134/83 100 Nasal Cannula 2.0 05/02/17 14:00 112 15 133/83 100 Nasal Cannula 2.0 Intake and Output 05/03/17 05/04/17 19:00 07:00 Intake Total 150 ml Balance 150 ml Intake Oral 150 ml # Voids 1 Laboratory Tests 05/03/17 04:30: White Blood Count 10.5, Red Blood Count 1.58L, Hemoglobin 4.8#*L, Hematocrit 14.9#L, Mean Corpuscular Volume 94, Mean Corpuscular Hemoglobin 30.0, Mean Corpuscular Hemoglobin Concent 32.0, Red Cell Distribution Width 13.0, Platelet Count 207, Mean Platelet Volume 8.4, Neutrophils (%) (Auto) , Lymphocytes (%) ( Auto) , Monocytes (%) (Auto) , Eosinophils (%) (Auto) , Basophils (%) (Auto) , Differential Total Cells Counted 100, Neutrophils % (Manual) 76H, Lymphocytes % (Manual) 13L, Monocytes % (Manual) 2, Eosinophils % (Manual) 4H, Basophils % ( Manual) 1, Band Neutrophils 4, Platelet Estimate Adequate, Platelet Morphology Normal, Hypochromasia 1+, Prothrombin Time 11.6H, Prothromb Time International Ratio 1.1, Activated Partial Thromboplast Time 31, Sodium Level 141, Potassium Level 4.4, Chloride Level 106, Carbon Dioxide Level 22, Anion Gap 13, Blood Urea Nitrogen 39H, Creatinine 2.0H, Estimat Glomerular Filtration Rate 40.8, Glucose Level 151H, Calcium Level 9.3, Total Bilirubin 1.0, Aspartate Amino Transf (AST/SGOT) 21, Alanine Aminotransferase (ALT/SGPT) 50, Alkaline Phosphatase 60, Total Protein 7.1, Albumin 2.5L, Globulin 4.6, Albumin/Globulin Ratio 0.5L 05/03/17 06:25: White Blood Count 9.3, Red Blood Count 3.32L, Hemoglobin 9.7#L, Hematocrit 31.4# L, Mean Corpuscular Volume 95, Mean Corpuscular Hemoglobin 29.3, Mean Corpuscular Hemoglobin Concent 31.0L, Red Cell Distribution Width 13.1, Platelet Count 159, Mean Platelet Volume 9.2, Neutrophils (%) (Auto) 83.5H, Lymphocytes (%) (Auto) 6.1L, Monocytes (%) (Auto) 7.5, Eosinophils (%) (Auto) 1.7, Basophils (%) (Auto) 1.2 Height (Feet): 6 Height (Inches): 4.00 Weight (Pounds): 258 General Appearance: no apparent distress Cardiovascular: tachycardia Respiratory/Chest: decreased breath sounds Abdomen: soft Objective no other changes TIARRA PARTIDA May 03, 2017 14:00
--- NOTE | 2017-05-03 14:51 | Cardiology Progress Note ---
Assessment/Plan Assessment/Plan 1. Allergic reaction. 2. Angioneurotic edema. 3. Hypertension. 4. Respiratory failure. 5. Hypoxemia. 6. Metabolic encephalopathy. 7. Renal insufficiency. 8. Tachycardia due to pe adn hyperthyroidism 9. pulm htn 10. Pulmo embolism 11. abn torp likely related to PE 12 ACEI allergy 13. dvt 14. bleeding 15. hyperthyroidism bp is fine on abx sat are fine hemodynamically stable dvt noted may have been more extensive prior to embolization telel sinus tachy d/w rn is off anticaogualtion due to sig bleeding hopefully stable enough to restart soon s/p ivc filter dc nitrobid increase norvasc Subjective Cardiovascular: Denies: chest pain, lightheadedness, palpitations Respiratory: Denies: SOB with excertion Gastrointestinal/Abdominal: Denies: abdominal pain, blood in stool Genitourinary: Denies: burning Objective Last 24 Hour Vital Signs Date Time Temp Pulse Resp B/P (MAP) Pulse Ox O2 Delivery O2 Flow Rate FiO2 05/03/17 13:09 125/72 05/03/17 12:03 97.5 90 18 125/72 94 Room Air 05/03/17 12:03 101 05/03/17 10:00 102 15 129/82 100 Nasal Cannula 2.0 05/03/17 09:28 108 137/82 05/03/17 09:00 103 14 137/82 100 Nasal Cannula 2.0 05/03/17 08:00 111 05/03/17 08:00 98.1 111 18 123/79 99 Nasal Cannula 2.0 05/03/17 07:54 100 Nasal Cannula 2.0 28 05/03/17 07:54 Nasal Cannula 2.0 28 05/03/17 07:00 99 14 128/98 100 Nasal Cannula 2.0 05/03/17 06:11 112/69 05/03/17 06:00 97 16 112/69 99 Nasal Cannula 2.0 05/03/17 05:00 100 12 109/79 99 Nasal Cannula 2.0 05/03/17 04:00 117 05/03/17 04:00 98.1 99 14 142/75 99 Nasal Cannula 2.0 05/03/17 03:00 95 16 133/69 98 Nasal Cannula 2.0 05/03/17 02:00 112 13 96/75 96 Nasal Cannula 2.0 05/03/17 01:00 106 15 134/69 98 Nasal Cannula 2.0 05/03/17 00:00 116 15 150/99 98 Nasal Cannula 2.0 05/03/17 00:00 113 05/02/17 23:16 171/94 05/02/17 23:00 98.2 109 18 171/94 99 Nasal Cannula 2.0 05/02/17 22:00 112 20 132/82 98 Nasal Cannula 2.0 05/02/17 21:00 110 26 126/81 98 Nasal Cannula 2.0 05/02/17 20:00 111 05/02/17 20:00 97.9 121 18 138/144 99 Nasal Cannula 2.0 05/02/17 19:30 Nasal Cannula 2.0 28 05/02/17 19:30 98 Nasal Cannula 2.0 28 05/02/17 19:00 122 17 155/108 99 Nasal Cannula 2.0 05/02/17 18:00 120 17 132/89 96 Nasal Cannula 2.0 05/02/17 17:51 132/87 05/02/17 17:00 121 20 132/87 98 Nasal Cannula 2.0 05/02/17 16:00 117 05/02/17 16:00 98.2 117 19 129/78 98 Nasal Cannula 2.0 05/02/17 15:00 108 16 134/83 100 Nasal Cannula 2.0 General Appearance: no apparent distress, alert Neck: supple Cardiovascular: normal rate, regular rhythm Respiratory/Chest: lungs clear, normal breath sounds Abdomen: normal bowel sounds, non tender, soft Extremities: no swelling Intake and Output 05/03/17 05/04/17 19:00 07:00 Intake Total 150 ml Balance 150 ml Intake Oral 150 ml # Voids 1 Laboratory Tests Test 05/03/17 04:30 05/03/17 06:25 White Blood Count 10.5 K/UL (4.8-10.8) 9.3 K/UL (4.8-10.8) Red Blood Count 1.58 M/UL (4.70-6.10) L 3.32 M/UL (4.70-6.10) L Hemoglobin 4.8 G/DL (14.2-18.0) 9.7 G/DL (14.2-18.0) #L Hematocrit 14.9 % (42.0-52.0) #L 31.4 % (42.0-52.0) #L Mean Corpuscular Volume 94 FL (80-99) 95 FL (80-99) Mean Corpuscular Hemoglobin 30.0 PG (27.0-31.0) 29.3 PG (27.0-31.0) Mean Corpuscular Hemoglobin Concent 32.0 G/DL (32.0-36.0) 31.0 G/DL (32.0-36.0) L Red Cell Distribution Width 13.0 % (11.6-14.8) 13.1 % (11.6-14.8) Platelet Count 207 K/UL (150-450) 159 K/UL (150-450) Mean Platelet Volume 8.4 FL (6.5-10.1) 9.2 FL (6.5-10.1) Neutrophils (%) (Auto) % (45.0-75.0) 83.5 % (45.0-75.0) H Lymphocytes (%) (Auto) % (20.0-45.0) 6.1 % (20.0-45.0) L Monocytes (%) (Auto) % (1.0-10.0) 7.5 % (1.0-10.0) Eosinophils (%) (Auto) % (0.0-3.0) 1.7 % (0.0-3.0) Basophils (%) (Auto) % (0.0-2.0) 1.2 % (0.0-2.0) Differential Total Cells Counted 100 Neutrophils % (Manual) 76 % (45-75) H Lymphocytes % (Manual) 13 % (20-45) L Monocytes % (Manual) 2 % (1-10) Eosinophils % (Manual) 4 % (0-3) H Basophils % (Manual) 1 % (0-2) Band Neutrophils 4 % (0-8) Platelet Estimate Adequate Platelet Morphology Normal Hypochromasia 1+ Prothrombin Time 11.6 SEC (9.30-11.50) H Prothromb Time International Ratio 1.1 (0.9-1.1) Activated Partial Thromboplast Time 31 SEC (23-33) Sodium Level 141 MMOL/L (136-145) Potassium Level 4.4 MMOL/L (3.5-5.1) Chloride Level 106 MMOL/L (98-107) Carbon Dioxide Level 22 MMOL/L (21-32) Anion Gap 13 mmol/L (5-15) Blood Urea Nitrogen 39 mg/dL (7-18) H Creatinine 2.0 MG/DL (0.55-1.30) H Estimat Glomerular Filtration Rate 40.8 mL/min (>60) Glucose Level 151 MG/DL (74-106) H Calcium Level 9.3 MG/DL (8.5-10.1) Total Bilirubin 1.0 MG/DL (0.2-1.0) Aspartate Amino Transf (AST/SGOT) 21 U/L (15-37) Alanine Aminotransferase (ALT/SGPT) 50 U/L (12-78) Alkaline Phosphatase 60 U/L (46-116) Total Protein 7.1 G/DL (6.4-8.2) Albumin 2.5 G/DL (3.4-5.0) L Globulin 4.6 g/dL Albumin/Globulin Ratio 0.5 (1.0-2.7) L RUBEN CHAVEZ May 03, 2017 14:51
--- NOTE | 2017-05-03 15:38 | Infectious Diseases Prog Note ---
Assessment/Plan Assessment/Plan Assesment: Fever, SP LLL PNA SCx : Nl keely -CXR 04/24: Persistent left perihilar consolidation, increased since the prior examination of 04/22/17. Pneumonia is of concern. -CXR: There is some left perihilar congestion or consolidation again demonstrated, unchanged. The remainder the lungs and pleural spaces are clear. -CTA chest: Fairly extensive bilateral segmental pulmonary emboli. concern for submassive pulmonary embolus. consolidation and atelectasis of a significant portion of the posterior left lower lobe. -Sp cx Normal keely x2 DVT , IVC filter 05/02 Angiodema s/p intubation ,, SP extub 04/28 Possible Submassive b/l PE, R DVT Renal insufficiency- ?acute vs chronic vs acute on chronic Mutinodular goiter HTN COPD Tobacco abuse Plan: DC IV Cefepime # and monitor pt off of AB Rx 06/28 sp Vancomycin d# 4 -04/24 SP Unasyn #3 -04/23 SP IV Vanco #2 -Monitor CBC/BMP, temperatures -anticoagulation and steroids per primary team -aspiration precautions - Blood Cx Subjective Constitutional: Denies: no symptoms, fever, chills, fatigue, anorexia, drenching sweats, other Allergies: Coded Allergies: LISINOPRIL (Verified Allergy, Severe, 04/21/17) Subjective IVC filter today Objective Vital Signs Last 24 Hour Vital Signs Date Time Temp Pulse Resp B/P (MAP) Pulse Ox O2 Delivery O2 Flow Rate FiO2 05/03/17 13:09 125/72 05/03/17 12:03 97.5 90 18 125/72 94 Room Air 05/03/17 12:03 101 05/03/17 10:00 102 15 129/82 100 Nasal Cannula 2.0 05/03/17 09:28 108 137/82 05/03/17 09:00 103 14 137/82 100 Nasal Cannula 2.0 05/03/17 08:00 111 05/03/17 08:00 98.1 111 18 123/79 99 Nasal Cannula 2.0 05/03/17 07:54 100 Nasal Cannula 2.0 28 05/03/17 07:54 Nasal Cannula 2.0 28 05/03/17 07:00 99 14 128/98 100 Nasal Cannula 2.0 05/03/17 06:11 112/69 117/17 06:00 97 16 112/69 99 Nasal Cannula 2.0 05/03/17 05:00 100 12 109/79 99 Nasal Cannula 2.0 05/03/17 04:00 117 05/03/17 04:00 98.1 99 14 142/75 99 Nasal Cannula 2.0 05/03/17 03:00 95 16 133/69 98 Nasal Cannula 2.0 05/03/17 02:00 112 13 96/75 96 Nasal Cannula 2.0 05/03/17 01:00 106 15 134/69 98 Nasal Cannula 2.0 05/03/17 00:00 116 15 150/99 98 Nasal Cannula 2.0 05/03/17 00:00 113 05/02/17 23:16 171/94 05/02/17 23:00 98.2 109 18 171/94 99 Nasal Cannula 2.0 05/02/17 22:00 112 20 132/82 98 Nasal Cannula 2.0 05/02/17 21:00 110 26 126/81 98 Nasal Cannula 2.0 05/02/17 20:00 111 05/02/17 20:00 97.9 121 18 138/144 99 Nasal Cannula 2.0 05/02/17 19:30 Nasal Cannula 2.0 28 05/02/17 19:30 98 Nasal Cannula 2.0 28 05/02/17 19:00 122 17 155/108 99 Nasal Cannula 2.0 05/02/17 18:00 120 17 132/89 96 Nasal Cannula 2.0 05/02/17 17:51 132/87 05/02/17 17:00 121 20 132/87 98 Nasal Cannula 2.0 05/02/17 16:00 117 05/02/17 16:00 98.2 117 19 129/78 98 Nasal Cannula 2.0 Height (Feet): 6 Height (Inches): 4.00 Weight (Pounds): 258 HEENT: anicteric Respiratory/Chest: no respiratory distress Cardiovascular: regularly irregular Abdomen: no organomegaly Laboratory Tests Test 05/03/17 04:30 05/03/17 06:25 White Blood Count 10.5 K/UL (4.8-10.8) 9.3 K/UL (4.8-10.8) Red Blood Count 1.58 M/UL (4.70-6.10) L 3.32 M/UL (4.70-6.10) L Hemoglobin 4.8 G/DL (14.2-18.0) 9.7 G/DL (14.2-18.0) #L Hematocrit 14.9 % (42.0-52.0) #L 31.4 % (42.0-52.0) #L Mean Corpuscular Volume 94 FL (80-99) 95 FL (80-99) Mean Corpuscular Hemoglobin 30.0 PG (27.0-31.0) 29.3 PG (27.0-31.0) Mean Corpuscular Hemoglobin Concent 32.0 G/DL (32.0-36.0) 31.0 G/DL (32.0-36.0) L Red Cell Distribution Width 13.0 % (11.6-14.8) 13.1 % (11.6-14.8) Platelet Count 207 K/UL (150-450) 159 K/UL (150-450) Mean Platelet Volume 8.4 FL (6.5-10.1) 9.2 FL (6.5-10.1) Neutrophils (%) (Auto) % (45.0-75.0) 83.5 % (45.0-75.0) H Lymphocytes (%) (Auto) % (20.0-45.0) 6.1 % (20.0-45.0) L Monocytes (%) (Auto) % (1.0-10.0) 7.5 % (1.0-10.0) Eosinophils (%) (Auto) % (0.0-3.0) 1.7 % (0.0-3.0) Basophils (%) (Auto) % (0.0-2.0) 1.2 % (0.0-2.0) Differential Total Cells Counted 100 Neutrophils % (Manual) 76 % (45-75) H Lymphocytes % (Manual) 13 % (20-45) L Monocytes % (Manual) 2 % (1-10) Eosinophils % (Manual) 4 % (0-3) H Basophils % (Manual) 1 % (0-2) Band Neutrophils 4 % (0-8) Platelet Estimate Adequate Platelet Morphology Normal Hypochromasia 1+ Prothrombin Time 11.6 SEC (9.30-11.50) H Prothromb Time International Ratio 1.1 (0.9-1.1) Activated Partial Thromboplast Time 31 SEC (23-33) Sodium Level 141 MMOL/L (136-145) Potassium Level 4.4 MMOL/L (3.5-5.1) Chloride Level 106 MMOL/L (98-107) Carbon Dioxide Level 22 MMOL/L (21-32) Anion Gap 13 mmol/L (5-15) Blood Urea Nitrogen 39 mg/dL (7-18) H Creatinine 2.0 MG/DL (0.55-1.30) H Estimat Glomerular Filtration Rate 40.8 mL/min (>60) Glucose Level 151 MG/DL (74-106) H Calcium Level 9.3 MG/DL (8.5-10.1) Total Bilirubin 1.0 MG/DL (0.2-1.0) Aspartate Amino Transf (AST/SGOT) 21 U/L (15-37) Alanine Aminotransferase (ALT/SGPT) 50 U/L (12-78) Alkaline Phosphatase 60 U/L (46-116) Total Protein 7.1 G/DL (6.4-8.2) Albumin 2.5 G/DL (3.4-5.0) L Globulin 4.6 g/dL Albumin/Globulin Ratio 0.5 (1.0-2.7) L Current Medications Medications (Trade) Dose Ordered Sig/Kelsi Route PRN Reason Start Time Stop Time Status Last Admin Dose Admin Acetaminophen (Tylenol) 650 mg Q6H PRN ORAL Mild Pain/Temp > 100.5 05/03/17 11:00 05/21/17 10:59 Amlodipine Besylate (Norvasc) 5 mg DAILY GT 05/04/17 09:00 05/23/17 09:29 Cefepime HCl 2 gm/ Sodium Chloride 110 ml @ 220 mls/hr Q24H IV 05/04/17 10:00 05/04/17 10:30 Chlorhexidine Gluconate (Malena-Hex 2%) 1 applic DAILY@1999 TOPIC 05/03/17 20:00 05/21/17 19:59 Dextrose (Dextrose 50%) STAT PRN IV Hypoglycemia 05/03/17 11:00 06/02/17 10:59 Diphenhydramine HCl (Benadryl) 50 mg NEEDED PRN ORAL 30M PRIOR TO BLOOD TRANSFUSION 05/03/17 13:30 05/04/17 23:59 Docusate Sodium (Colace) 100 mg THREE TIMES A DAY NG 05/03/17 13:00 05/22/17 17:59 Haloperidol Lactate 5 mg/ Dextrose 56 ml @ 224 mls/hr Q1H PRN IVPB AGITATION 05/03/17 10:45 05/24/17 08:44 Hydralazine HCl (Apresoline) 10 mg Q4H PRN IV SBP > 160mmHg 05/03/17 11:00 05/21/17 10:59 Insulin Aspart (NovoLOG) BEFORE MEALS AND HS SUBQ 05/03/17 12:00 06/01/17 11:59 05/03/17 12:44 Methimazole (Tapazole) 20 mg DAILY ORAL 05/04/17 09:00 05/31/17 10:29 Metoprolol Tartrate (Lopressor) 5 mg Q6H PRN IVP heart rate greater than 125BPM 05/03/17 11:00 05/21/17 10:59 Nicotine (Nicoderm) 1 patch Q24H TDERMAL 05/03/17 14:00 05/22/17 13:59 05/03/17 14:50 Nitroglycerin (Nitro-Bid) 1 inch TID@0600,1200,1800 TOPIC 05/03/17 12:00 05/22/17 05:59 05/03/17 13:09 Pantoprazole (Protonix) 40 mg EVERY 12 HOURS IVP 05/03/17 21:00 05/21/17 08:59 Polyethylene Glycol (Miralax) 17 gm BEDTIME GT 05/03/17 21:00 05/22/17 20:59 DIANA VELAZQUEZ M.D. May 03, 2017 15:38
--- NOTE | 2017-05-03 16:08 | General Progress Note ---
Assessment/Plan Assessment/Plan Assessment and Recs 1. Pulmonary embolism. --> no longer on heparin, due to bleeding 2. DVT- right leg subacute thrombus in mid superficial femoral vein. --> ivc filter placed 05/02 3. Coagulopathy 2/2 heparin drip 4. Anemia 2/2 chronic disease --> no transfusion required unless hgb drops below 7 5. Thrombocytopenia, concerning for HIT vs sepsis --> HIT test negative Subjective ROS Limited/Unobtainable: Yes Allergies: Coded Allergies: LISINOPRIL (Verified Allergy, Severe, 04/21/17) Subjective s/p ivc filter placment Objective Last 24 Hour Vital Signs Date Time Temp Pulse Resp B/P (MAP) Pulse Ox O2 Delivery O2 Flow Rate FiO2 05/03/17 13:09 125/72 05/03/17 12:03 97.5 90 18 125/72 94 Room Air 05/03/17 12:03 101 05/03/17 10:00 102 15 129/82 100 Nasal Cannula 2.0 05/03/17 09:28 108 137/82 05/03/17 09:00 103 14 137/82 100 Nasal Cannula 2.0 05/03/17 08:00 111 05/03/17 08:00 98.1 111 18 123/79 99 Nasal Cannula 2.0 05/03/17 07:54 100 Nasal Cannula 2.0 28 05/03/17 07:54 Nasal Cannula 2.0 28 05/03/17 07:00 99 14 128/98 100 Nasal Cannula 2.0 05/03/17 06:11 112/69 05/03/17 06:00 97 16 112/69 99 Nasal Cannula 2.0 05/03/17 05:00 100 12 109/79 99 Nasal Cannula 2.0 05/03/17 04:00 117 05/03/17 04:00 98.1 99 14 142/75 99 Nasal Cannula 2.0 05/03/17 03:00 95 16 133/69 98 Nasal Cannula 2.0 05/03/17 02:00 112 13 96/75 96 Nasal Cannula 2.0 05/03/17 01:00 106 15 134/69 98 Nasal Cannula 2.0 05/03/17 00:00 116 15 150/99 98 Nasal Cannula 2.0 05/03/17 00:00 113 05/02/17 23:16 171/94 05/02/17 23:00 98.2 109 18 171/94 99 Nasal Cannula 2.0 05/02/17 22:00 112 20 132/82 98 Nasal Cannula 2.0 05/02/17 21:00 110 26 126/81 98 Nasal Cannula 2.0 05/02/17 20:00 111 05/02/17 20:00 97.9 121 18 138/144 99 Nasal Cannula 2.0 05/02/17 19:30 Nasal Cannula 2.0 28 05/02/17 19:30 98 Nasal Cannula 2.0 28 05/02/17 19:00 122 17 155/108 99 Nasal Cannula 2.0 05/02/17 18:00 120 17 132/89 96 Nasal Cannula 2.0 05/02/17 17:51 132/87 05/02/17 17:00 121 20 132/87 98 Nasal Cannula 2.0 Intake and Output 05/03/17 05/04/17 19:00 07:00 Intake Total 150 ml Balance 150 ml Intake Oral 150 ml # Voids 1 Laboratory Tests 05/03/17 04:30: White Blood Count 10.5, Red Blood Count 1.58L, Hemoglobin 4.8#*L, Hematocrit 14.9#L, Mean Corpuscular Volume 94, Mean Corpuscular Hemoglobin 30.0, Mean Corpuscular Hemoglobin Concent 32.0, Red Cell Distribution Width 13.0, Platelet Count 207, Mean Platelet Volume 8.4, Neutrophils (%) (Auto) , Lymphocytes (%) ( Auto) , Monocytes (%) (Auto) , Eosinophils (%) (Auto) , Basophils (%) (Auto) , Differential Total Cells Counted 100, Neutrophils % (Manual) 76H, Lymphocytes % (Manual) 13L, Monocytes % (Manual) 2, Eosinophils % (Manual) 4H, Basophils % ( Manual) 1, Band Neutrophils 4, Platelet Estimate Adequate, Platelet Morphology Normal, Hypochromasia 1+, Prothrombin Time 11.6H, Prothromb Time International Ratio 1.1, Activated Partial Thromboplast Time 31, Sodium Level 141, Potassium Level 4.4, Chloride Level 106, Carbon Dioxide Level 22, Anion Gap 13, Blood Urea Nitrogen 39H, Creatinine 2.0H, Estimat Glomerular Filtration Rate 40.8, Glucose Level 151H, Calcium Level 9.3, Total Bilirubin 1.0, Aspartate Amino Transf (AST/SGOT) 21, Alanine Aminotransferase (ALT/SGPT) 50, Alkaline Phosphatase 60, Total Protein 7.1, Albumin 2.5L, Globulin 4.6, Albumin/Globulin Ratio 0.5L 05/03/17 06:25: White Blood Count 9.3, Red Blood Count 3.32L, Hemoglobin 9.7#L, Hematocrit 31.4# L, Mean Corpuscular Volume 95, Mean Corpuscular Hemoglobin 29.3, Mean Corpuscular Hemoglobin Concent 31.0L, Red Cell Distribution Width 13.1, Platelet Count 159, Mean Platelet Volume 9.2, Neutrophils (%) (Auto) 83.5H, Lymphocytes (%) (Auto) 6.1L, Monocytes (%) (Auto) 7.5, Eosinophils (%) (Auto) 1.7, Basophils (%) (Auto) 1.2 Height (Feet): 6 Height (Inches): 4.00 Weight (Pounds): 258 General Appearance: no apparent distress EENT: normal ENT inspection Neck: normal alignment Cardiovascular: normal peripheral pulses Edema: trace edema 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
[2017-05-03] MEDS ORDERED: Dyna-Hex 2% Top Sol 2oz TOPIC SCH (20:00)
[2017-05-03] MEDS: Miralax 17gm pkt GT SCH (20:54)
[2017-05-04] VITALS (7 sets, daily range): BP systolic 102–146; BP diastolic 54–82
--- NOTE | 2017-05-04 01:36 | Consultation ---
History of Present Illness General Referring physician: VIVEK ZHANG Reason for Consultation: ABDOMINAL DISTENTION Present Illness HPI 67-year-old male with a history of COPD and hypertension, who was transferred from [facility] to our center on 04/20/2017. the pt is somewhat onfused and restless attempts to come out of bed, not sitter and the pt does not sitter at this time. anxiety should be managed with meds. the pt has diff with memory and gets agitated Allergies: Coded Allergies: LISINOPRIL (Verified Allergy, Severe, 04/21/17) Medication History Scheduled Amlodipine Besylate/Benazepril 5-10 Mg* (Amlodipine-Benazepril 5-10 Mg*), 1 CAP ORAL DAILY, (Reported) Carvedilol* (Carvedilol*), 3.125 MG ORAL BID, (Reported) Miscellaneous Medications Diphenhydramine In 0.9 % Nacl (Diphenhydramine-Ns 50 Mg/50 Ml), 50 MG IV, ( Reported) Epinephrine HCl/Pf (Epinephrine 1 mg/ml Ampul), 0.3 MG IV, (Reported) Famotidine/Pf (Famotidine 20 Mg/2 Ml Vial), 20 MG IV, (Reported) Icatibant Acetate (Firazyr), 30 MG SQ, (Reported) Labetalol HCl (Labetalol HCl), 20 MG IV, (Reported) Methylprednisolone Sod Succ/Pf (Solu-Medrol (Pf) 40 Mg Vial), 125 MG IJ, ( Reported) Midazolam HCl (Midazolam HCl), 1 MG IJ, (Reported) Midazolam HCl (Midazolam HCl), 2 MG IJ, (Reported) Propofol (Diprivan), 1,000 MG IV, (Reported) Sodium Chloride 0.45 % (Sodium Chloride), 1,000 ML IV, (Reported) Patient History Limited by: medical condition History Provided By: Patient, Medical Record Healthcare decision maker Resuscitation status Full Code Advanced Directive on File Past Medical/Surgical History Past Medical/Surgical History: (1) Renal insufficiency (2) Hypertension (3) Acute respiratory failure (4) ATN (acute tubular necrosis) (5) Angioedema (6) Abdominal distension (7) Hypoalbuminemia (8) Pulmonary embolism (9) Benign hypertensive kidney disease with chronic kidney disease (10) Toxic nodular goiter (11) New onset type 2 diabetes mellitus Review of Systems Psychiatric: Reports: prior hx, anxiety, emotional problems, hallucinations Physical Exam General Appearance: no apparent distress, alert, agitated, overweight Neurologic: alert, responsive, disoriented, depressed affect Last 24 Hour Vital Signs Date Time Temp Pulse Resp B/P (MAP) Pulse Ox O2 Delivery O2 Flow Rate FiO2 05/04/17 00:03 97.0 95 24 102/54 97 Room Air 05/03/17 20:27 97.3 97 20 128/81 94 Room Air 05/03/17 20:00 98 05/03/17 19:30 Room Air 21 05/03/17 19:30 97 Room Air 21 05/03/17 17:51 126/66 05/03/17 16:10 97.9 80 18 126/66 96 Room Air 05/03/17 15:35 102 05/03/17 13:09 125/72 05/03/17 12:03 97.5 90 18 125/72 94 Room Air 05/03/17 12:03 101 05/03/17 10:00 102 15 129/82 100 Nasal Cannula 2.0 05/03/17 09:28 108 137/82 05/03/17 09:00 103 14 137/82 100 Nasal Cannula 2.0 05/03/17 08:00 111 05/03/17 08:00 98.1 111 18 123/79 99 Nasal Cannula 2.0 05/03/17 07:54 100 Nasal Cannula 2.0 28 05/03/17 07:54 Nasal Cannula 2.0 28 05/03/17 07:00 99 14 128/98 100 Nasal Cannula 2.0 05/03/17 06:11 112/69 05/03/17 06:00 97 16 112/69 99 Nasal Cannula 2.0 05/03/17 05:00 100 12 109/79 99 Nasal Cannula 2.0 05/03/17 04:00 117 05/03/17 04:00 98.1 99 14 142/75 99 Nasal Cannula 2.0 05/03/17 03:00 95 16 133/69 98 Nasal Cannula 2.0 05/03/17 02:00 112 13 96/75 96 Nasal Cannula 2.0 Laboratory Tests Test 05/03/17 04:30 05/03/17 06:25 White Blood Count 10.5 K/UL (4.8-10.8) 9.3 K/UL (4.8-10.8) Red Blood Count 1.58 M/UL (4.70-6.10) L 3.32 M/UL (4.70-6.10) L Hemoglobin 4.8 G/DL (14.2-18.0) 9.7 G/DL (14.2-18.0) #L Hematocrit 14.9 % (42.0-52.0) #L 31.4 % (42.0-52.0) #L Mean Corpuscular Volume 94 FL (80-99) 95 FL (80-99) Mean Corpuscular Hemoglobin 30.0 PG (27.0-31.0) 29.3 PG (27.0-31.0) Mean Corpuscular Hemoglobin Concent 32.0 G/DL (32.0-36.0) 31.0 G/DL (32.0-36.0) L Red Cell Distribution Width 13.0 % (11.6-14.8) 13.1 % (11.6-14.8) Platelet Count 207 K/UL (150-450) 159 K/UL (150-450) Mean Platelet Volume 8.4 FL (6.5-10.1) 9.2 FL (6.5-10.1) Neutrophils (%) (Auto) % (45.0-75.0) 83.5 % (45.0-75.0) H Lymphocytes (%) (Auto) % (20.0-45.0) 6.1 % (20.0-45.0) L Monocytes (%) (Auto) % (1.0-10.0) 7.5 % (1.0-10.0) Eosinophils (%) (Auto) % (0.0-3.0) 1.7 % (0.0-3.0) Basophils (%) (Auto) % (0.0-2.0) 1.2 % (0.0-2.0) Differential Total Cells Counted 100 Neutrophils % (Manual) 76 % (45-75) H Lymphocytes % (Manual) 13 % (20-45) L Monocytes % (Manual) 2 % (1-10) Eosinophils % (Manual) 4 % (0-3) H Basophils % (Manual) 1 % (0-2) Band Neutrophils 4 % (0-8) Platelet Estimate Adequate Platelet Morphology Normal Hypochromasia 1+ Prothrombin Time 11.6 SEC (9.30-11.50) H Prothromb Time International Ratio 1.1 (0.9-1.1) Activated Partial Thromboplast Time 31 SEC (23-33) Sodium Level 141 MMOL/L (136-145) Potassium Level 4.4 MMOL/L (3.5-5.1) Chloride Level 106 MMOL/L (98-107) Carbon Dioxide Level 22 MMOL/L (21-32) Anion Gap 13 mmol/L (5-15) Blood Urea Nitrogen 39 mg/dL (7-18) H Creatinine 2.0 MG/DL (0.55-1.30) H Estimat Glomerular Filtration Rate 40.8 mL/min (>60) Glucose Level 151 MG/DL (74-106) H Calcium Level 9.3 MG/DL (8.5-10.1) Total Bilirubin 1.0 MG/DL (0.2-1.0) Aspartate Amino Transf (AST/SGOT) 21 U/L (15-37) Alanine Aminotransferase (ALT/SGPT) 50 U/L (12-78) Alkaline Phosphatase 60 U/L (46-116) Total Protein 7.1 G/DL (6.4-8.2) Albumin 2.5 G/DL (3.4-5.0) L Globulin 4.6 g/dL Albumin/Globulin Ratio 0.5 (1.0-2.7) L Height (Feet): 6 Height (Inches): 4.00 Weight (Pounds): 258 Medications Current Medications Medications (Trade) Dose Ordered Sig/Kelsi Route PRN Reason Start Time Stop Time Status Last Admin Dose Admin Acetaminophen (Tylenol) 650 mg Q6H PRN ORAL Mild Pain/Temp > 100.5 05/03/17 11:00 05/21/17 10:59 Amlodipine Besylate (Norvasc) 5 mg DAILY GT 05/04/17 09:00 05/23/17 09:29 Dextrose (Dextrose 50%) STAT PRN IV Hypoglycemia 05/03/17 11:00 06/02/17 10:59 Diphenhydramine HCl (Benadryl) 50 mg NEEDED PRN ORAL 30M PRIOR TO BLOOD TRANSFUSION 05/03/17 13:30 05/04/17 23:59 Docusate Sodium (Colace) 100 mg THREE TIMES A DAY NG 05/03/17 13:00 05/22/17 17:59 05/03/17 17:51 Haloperidol Lactate 5 mg/ Dextrose 56 ml @ 224 mls/hr Q1H PRN IVPB AGITATION 05/03/17 10:45 05/24/17 08:44 Hydralazine HCl (Apresoline) 10 mg Q4H PRN IV SBP > 160mmHg 05/03/17 11:00 05/21/17 10:59 Insulin Aspart (NovoLOG) BEFORE MEALS AND HS SUBQ 05/03/17 12:00 06/01/17 11:59 05/03/17 20:55 Methimazole (Tapazole) 20 mg DAILY ORAL 05/04/17 09:00 05/31/17 10:29 Metoprolol Tartrate (Lopressor) 5 mg Q6H PRN IVP heart rate greater than 125BPM 05/03/17 11:00 05/21/17 10:59 Nicotine (Nicoderm) 1 patch Q24H TDERMAL 05/03/17 14:00 05/22/17 13:59 05/03/17 14:50 Nitroglycerin (Nitro-Bid) 1 inch TID@0600,1200,1800 TOPIC 05/03/17 12:00 05/22/17 05:59 05/03/17 17:51 Pantoprazole (Protonix) 40 mg EVERY 12 HOURS IVP 05/03/17 21:00 05/21/17 08:59 05/03/17 20:54 Polyethylene Glycol (Miralax) 17 gm BEDTIME GT 05/03/17 21:00 05/22/17 20:59 05/03/17 20:54 Assessment/Plan Status: stable, progressing Assessment/Plan haldol Im risperdal 2mg qhs encephalopathy d/w Valdemar Espino M.D. May 04, 2017 01:35
[2017-05-04] MEDS: NovoLOG Insulin Flexpen SUBQ SCH ×4 (06:12→21:00)
[2017-05-04] MEDS: Nitroglycerin 2% oint pkt TOPIC SCH ×3 (06:17→18:00)
[2017-05-04 07:57] LABS: BASOPHILS % (AUTO) 0.4 % (0.0-2.0); EOSINOPHILS % (AUTO) 2.1 % (0.0-3.0); LYMPHOCYTES % (AUTO) 11.1 % (20.0-45.0); MEAN CORPUSCULAR HEMOGLOBIN 29.2 PG (27.0-31.0); MEAN CORPUSCULAR HGB CONC 32.4 G/DL (32.0-36.0); MEAN CORPUSCULAR VOLUME 90 FL (80-99); MONOCYTES % (AUTO) 6.8 % (1.0-10.0); NEUTROPHILS % (AUTO) 79.6 % (45.0-75.0); PLATELET COUNT 150 K/UL (150-450); RED BLOOD COUNT 3.25 M/UL (4.70-6.10); RED CELL DISTRIBUTION WIDTH 13.3 % (11.6-14.8); WHITE BLOOD COUNT 7.2 K/UL (4.8-10.8)
[2017-05-04 08:08] LABS: ALANINE AMINOTRANSFERASE 43 U/L (12-78); ALBUMIN/GLOBULIN RATIO 0.5 (1.0-2.7); ANION GAP 9 mmol/L (5-15); ASPARTATE AMINO TRANSFERASE 21 U/L (15-37); CALCIUM 8.8 MG/DL (8.5-10.1); CARBON DIOXIDE 24 MMOL/L (21-32); CHLORIDE 104 MMOL/L (98-107); CREATININE 2.2 MG/DL (0.55-1.30); CRP QUANT 8.6 mg/dL (0.00-0.90); GLOMERULAR FILTRATION RATE 36.6 mL/min (>60); PHOSPHORUS 4.3 MG/DL (2.5-4.9); POTASSIUM 3.9 MMOL/L (3.5-5.1); SODIUM 137 MMOL/L (136-145); TOTAL PROTEIN 7.3 G/DL (6.4-8.2)
[2017-05-04 08:12] LABS: INR 1.1 (0.9-1.1); PROTHROMBIN TIME 11.2 SEC (9.30-11.50)
[2017-05-04] MEDS: Docusate 100mg/10ml Liq NG SCH ×3 (09:49→18:00)
[2017-05-04] MEDS: Pantoprazole Inj IVP SCH ×2 (09:51→21:00)
[2017-05-04] MEDS ORDERED: Cefepime HCl 2 GM in NS 110 ML IV SCH (10:00)
--- NOTE | 2017-05-04 11:06 | GI Progress Note ---
Assessment/Plan Problems: (1) Abdominal distension ICD Codes: R14.0 - Abdominal distension (gaseous) SNOMED: 31089482 (2) Hypoalbuminemia ICD Codes: E88.09 - Other disorders of plasma-protein metabolism, not elsewhere classified SNOMED: 990145238 (3) Angioedema ICD Codes: T78.3XXA - Angioneurotic edema, initial encounter SNOMED: 69526802 Status: stable Status Narrative Discussed with Dr. Cazares. Assessment/Plan okay for DC per GI standpoint regular diet, tolerating monitor H&H, prn transfusions ppi fu pulm recs, now extubated fu labs Subjective Subjective feels better OOB Objective Last 24 Hour Vital Signs Date Time Temp Pulse Resp B/P (MAP) Pulse Ox O2 Delivery O2 Flow Rate FiO2 05/04/17 09:50 103 137/74 05/04/17 09:03 95 Room Air 21 05/04/17 09:03 Room Air 21 05/04/17 07:47 97.9 103 20 137/74 96 Room Air 05/04/17 06:17 106/57 05/04/17 04:08 97.0 56 20 121/55 100 Room Air 05/04/17 04:00 98 05/04/17 00:03 97.0 95 24 102/54 97 Room Air 05/04/17 00:00 94 05/03/17 20:27 97.3 97 20 128/81 94 Room Air 05/03/17 20:00 98 05/03/17 19:30 Room Air 21 05/03/17 19:30 97 Room Air 21 05/03/17 17:51 126/66 05/03/17 16:10 97.9 80 18 126/66 96 Room Air 05/03/17 15:35 102 05/03/17 13:09 125/72 05/03/17 12:03 97.5 90 18 125/72 94 Room Air 05/03/17 12:03 101 Intake and Output 05/04/17 05/05/17 19:00 07:00 Intake Total 240 ml Output Total 250 ml Balance -10 ml Intake Oral 240 ml Output Urine Total 250 ml Laboratory Tests Test 05/04/17 07:41 White Blood Count 7.2 K/UL (4.8-10.8) Red Blood Count 3.25 M/UL (4.70-6.10) L Hemoglobin 9.5 G/DL (14.2-18.0) L Hematocrit 29.3 % (42.0-52.0) L Mean Corpuscular Volume 90 FL (80-99) Mean Corpuscular Hemoglobin 29.2 PG (27.0-31.0) Mean Corpuscular Hemoglobin Concent 32.4 G/DL (32.0-36.0) Red Cell Distribution Width 13.3 % (11.6-14.8) Platelet Count 150 K/UL (150-450) Mean Platelet Volume 8.0 FL (6.5-10.1) Neutrophils (%) (Auto) 79.6 % (45.0-75.0) H Lymphocytes (%) (Auto) 11.1 % (20.0-45.0) L Monocytes (%) (Auto) 6.8 % (1.0-10.0) Eosinophils (%) (Auto) 2.1 % (0.0-3.0) Basophils (%) (Auto) 0.4 % (0.0-2.0) Erythrocyte Sedimentation Rate 113 MM/HR (0-20) H Prothrombin Time 11.2 SEC (9.30-11.50) Prothromb Time International Ratio 1.1 (0.9-1.1) Activated Partial Thromboplast Time 29 SEC (23-33) Sodium Level 137 MMOL/L (136-145) Potassium Level 3.9 MMOL/L (3.5-5.1) Chloride Level 104 MMOL/L (98-107) Carbon Dioxide Level 24 MMOL/L (21-32) Anion Gap 9 mmol/L (5-15) Blood Urea Nitrogen 40 mg/dL (7-18) H Creatinine 2.2 MG/DL (0.55-1.30) H Estimat Glomerular Filtration Rate 36.6 mL/min (>60) Glucose Level 186 MG/DL (74-106) H Calcium Level 8.8 MG/DL (8.5-10.1) Phosphorus Level 4.3 MG/DL (2.5-4.9) Magnesium Level 2.0 MG/DL (1.8-2.4) Total Bilirubin 0.8 MG/DL (0.2-1.0) Aspartate Amino Transf (AST/SGOT) 21 U/L (15-37) Alanine Aminotransferase (ALT/SGPT) 43 U/L (12-78) Alkaline Phosphatase 61 U/L (46-116) C-Reactive Protein, Quantitative 8.6 mg/dL (0.00-0.90) H Total Protein 7.3 G/DL (6.4-8.2) Albumin 2.5 G/DL (3.4-5.0) L Globulin 4.8 g/dL Albumin/Globulin Ratio 0.5 (1.0-2.7) L Height (Feet): 6 Height (Inches): 4.00 Weight (Pounds): 245 General Appearance: WD/WN, no apparent distress, alert, overweight Cardiovascular: normal rate Respiratory/Chest: normal breath sounds, no respiratory distress Abdominal Exam: normal bowel sounds, non tender, soft Extremities: normal range of motion, non-tender Objective bleeding gums Radha Mckeon N.P. May 04, 2017 11:06
--- NOTE | 2017-05-04 13:34 | Infectious Diseases Prog Note ---
Assessment/Plan Assessment/Plan Assesment: Fever, SP LLL PNA SCx : Nl keely -CXR 04/24: Persistent left perihilar consolidation, increased since the prior examination of 04/22/17. Pneumonia is of concern. -CXR: There is some left perihilar congestion or consolidation again demonstrated, unchanged. The remainder the lungs and pleural spaces are clear. -CTA chest: Fairly extensive bilateral segmental pulmonary emboli. concern for submassive pulmonary embolus. consolidation and atelectasis of a significant portion of the posterior left lower lobe. -Sp cx Normal keely x2 DVT , IVC filter 05/02 Angiodema s/p intubation ,, SP extub 04/28 Possible Submassive b/l PE, R DVT Renal insufficiency- ?acute vs chronic vs acute on chronic Mutinodular goiter HTN COPD Tobacco abuse Plan: monitor pt off of AB Rx SP IV Cefepime # 1 sp Vancomycin d# 4 -04/24 SP Unasyn #3 -04/23 SP IV Vanco #2 -Monitor CBC/BMP, temperatures -anticoagulation and steroids per primary team -aspiration precautions Subjective Constitutional: Denies: no symptoms, fever, chills, fatigue, anorexia, drenching sweats, other Allergies: Coded Allergies: LISINOPRIL (Verified Allergy, Severe, 04/21/17) Subjective IVC filter today Objective Vital Signs Last 24 Hour Vital Signs Date Time Temp Pulse Resp B/P (MAP) Pulse Ox O2 Delivery O2 Flow Rate FiO2 05/04/17 12:00 109 05/04/17 11:22 98.1 101 20 111/70 98 Room Air 05/04/17 09:50 103 137/74 05/04/17 09:03 95 Room Air 21 05/04/17 09:03 Room Air 21 05/04/17 08:00 102 05/04/17 07:47 97.9 103 20 137/74 96 Room Air 05/04/17 06:17 106/57 05/04/17 04:08 97.0 56 20 121/55 100 Room Air 05/04/17 04:00 98 05/04/17 00:03 97.0 95 24 102/54 97 Room Air 05/04/17 00:00 94 05/03/17 20:27 97.3 97 20 128/81 94 Room Air 05/03/17 20:00 98 05/03/17 19:30 Room Air 21 05/03/17 19:30 97 Room Air 21 05/03/17 17:51 126/66 05/03/17 16:10 97.9 80 18 126/66 96 Room Air 05/03/17 15:35 102 Height (Feet): 6 Height (Inches): 4.00 Weight (Pounds): 245 HEENT: anicteric Respiratory/Chest: no accessory muscle use Cardiovascular: regularly irregular Abdomen: non distended Laboratory Tests Test 05/04/17 07:41 White Blood Count 7.2 K/UL (4.8-10.8) Red Blood Count 3.25 M/UL (4.70-6.10) L Hemoglobin 9.5 G/DL (14.2-18.0) L Hematocrit 29.3 % (42.0-52.0) L Mean Corpuscular Volume 90 FL (80-99) Mean Corpuscular Hemoglobin 29.2 PG (27.0-31.0) Mean Corpuscular Hemoglobin Concent 32.4 G/DL (32.0-36.0) Red Cell Distribution Width 13.3 % (11.6-14.8) Platelet Count 150 K/UL (150-450) Mean Platelet Volume 8.0 FL (6.5-10.1) Neutrophils (%) (Auto) 79.6 % (45.0-75.0) H Lymphocytes (%) (Auto) 11.1 % (20.0-45.0) L Monocytes (%) (Auto) 6.8 % (1.0-10.0) Eosinophils (%) (Auto) 2.1 % (0.0-3.0) Basophils (%) (Auto) 0.4 % (0.0-2.0) Erythrocyte Sedimentation Rate 113 MM/HR (0-20) H Prothrombin Time 11.2 SEC (9.30-11.50) Prothromb Time International Ratio 1.1 (0.9-1.1) Activated Partial Thromboplast Time 29 SEC (23-33) Sodium Level 137 MMOL/L (136-145) Potassium Level 3.9 MMOL/L (3.5-5.1) Chloride Level 104 MMOL/L (98-107) Carbon Dioxide Level 24 MMOL/L (21-32) Anion Gap 9 mmol/L (5-15) Blood Urea Nitrogen 40 mg/dL (7-18) H Creatinine 2.2 MG/DL (0.55-1.30) H Estimat Glomerular Filtration Rate 36.6 mL/min (>60) Glucose Level 186 MG/DL (74-106) H Calcium Level 8.8 MG/DL (8.5-10.1) Phosphorus Level 4.3 MG/DL (2.5-4.9) Magnesium Level 2.0 MG/DL (1.8-2.4) Total Bilirubin 0.8 MG/DL (0.2-1.0) Aspartate Amino Transf (AST/SGOT) 21 U/L (15-37) Alanine Aminotransferase (ALT/SGPT) 43 U/L (12-78) Alkaline Phosphatase 61 U/L (46-116) C-Reactive Protein, Quantitative 8.6 mg/dL (0.00-0.90) H Total Protein 7.3 G/DL (6.4-8.2) Albumin 2.5 G/DL (3.4-5.0) L Globulin 4.8 g/dL Albumin/Globulin Ratio 0.5 (1.0-2.7) L Current Medications Medications (Trade) Dose Ordered Sig/Kelsi Route PRN Reason Start Time Stop Time Status Last Admin Dose Admin Acetaminophen (Tylenol) 650 mg Q6H PRN ORAL Mild Pain/Temp > 100.5 05/03/17 11:00 05/21/17 10:59 Amlodipine Besylate (Norvasc) 5 mg DAILY GT 05/04/17 09:00 05/23/17 09:29 05/04/17 09:50 Dextrose (Dextrose 50%) STAT PRN IV Hypoglycemia 05/03/17 11:00 06/02/17 10:59 Diphenhydramine HCl (Benadryl) 50 mg NEEDED PRN ORAL 30M PRIOR TO BLOOD TRANSFUSION 05/03/17 13:30 05/04/17 23:59 Docusate Sodium (Colace) 100 mg THREE TIMES A DAY NG 05/03/17 13:00 05/22/17 17:59 05/04/17 09:49 Haloperidol Lactate 5 mg/ Dextrose 56 ml @ 224 mls/hr Q1H PRN IVPB AGITATION 05/03/17 10:45 05/24/17 08:44 Hydralazine HCl (Apresoline) 10 mg Q4H PRN IV SBP > 160mmHg 05/03/17 11:00 05/21/17 10:59 Insulin Aspart (NovoLOG) BEFORE MEALS AND HS SUBQ 05/03/17 12:00 06/01/17 11:59 05/04/17 06:12 Methimazole (Tapazole) 20 mg DAILY ORAL 05/04/17 09:00 05/31/17 10:29 05/04/17 09:50 Metoprolol Tartrate (Lopressor) 5 mg Q6H PRN IVP heart rate greater than 125BPM 05/03/17 11:00 05/21/17 10:59 Nicotine (Nicoderm) 1 patch Q24H TDERMAL 05/03/17 14:00 05/22/17 13:59 05/03/17 14:50 Nitroglycerin (Nitro-Bid) 1 inch TID@0600,1200,1800 TOPIC 05/03/17 12:00 05/22/17 05:59 05/04/17 06:17 Pantoprazole (Protonix) 40 mg EVERY 12 HOURS IVP 05/03/17 21:00 05/21/17 08:59 05/04/17 09:51 Polyethylene Glycol (Miralax) 17 gm BEDTIME GT 05/03/17 21:00 05/22/17 20:59 05/03/17 20:54 Risperidone (RisperDAL) 2 mg BEDTIME ORAL 05/04/17 21:00 06/03/17 20:59 DIANA VELAZQUEZ M.D. May 04, 2017 13:34
--- NOTE | 2017-05-04 14:54 | Pulmonology Progress Note ---
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 Subjective ROS Limited/Unobtainable: No Constitutional: Reports: no symptoms HEENT: Repors: no symptoms Respiratory: Reports: no symptoms Allergies: Coded Allergies: LISINOPRIL (Verified Allergy, Severe, 04/21/17) Objective Last 24 Hour Vital Signs Date Time Temp Pulse Resp B/P (MAP) Pulse Ox O2 Delivery O2 Flow Rate FiO2 05/04/17 12:00 109 05/04/17 11:22 98.1 101 20 111/70 98 Room Air 05/04/17 09:50 103 137/74 05/04/17 09:03 95 Room Air 05/04/17 09:03 Room Air 05/04/17 08:00 102 05/04/17 07:47 97.9 103 20 137/74 96 Room Air 05/04/17 06:17 106/57 05/04/17 04:08 97.0 56 20 121/55 100 Room Air 05/04/17 04:00 98 05/04/17 00:03 97.0 95 24 102/54 97 Room Air 05/04/17 00:00 94 05/03/17 20:27 97.3 97 20 128/81 94 Room Air 05/03/17 20:00 98 05/03/17 19:30 Room Air 05/03/17 19:30 97 Room Air 05/03/17 17:51 126/66 05/03/17 16:10 97.9 80 18 126/66 96 Room Air 05/03/17 15:35 102 Intake and Output 05/04/17 05/05/17 19:00 07:00 Intake Total 240 ml Output Total 350 ml Balance -110 ml Intake Oral 240 ml Output Urine Total 350 ml General Appearance: WD/WN HEENT: normocephalic, anicteric Respiratory/Chest: chest wall non-tender, lungs clear Cardiovascular: normal peripheral pulses, normal rate Abdomen: normal bowel sounds, soft, non tender Extremities: no cyanosis Neurologic/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: 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, normal mood/affect Laboratory Tests 05/04/17 07:41: White Blood Count 7.2, Red Blood Count 3.25L, Hemoglobin 9.5L, Hematocrit 29.3L , Mean Corpuscular Volume 90, Mean Corpuscular Hemoglobin 29.2, Mean Corpuscular Hemoglobin Concent 32.4, Red Cell Distribution Width 13.3, Platelet Count 150, Mean Platelet Volume 8.0, Neutrophils (%) (Auto) 79.6H, Lymphocytes ( %) (Auto) 11.1L, Monocytes (%) (Auto) 6.8, Eosinophils (%) (Auto) 2.1, Basophils (%) (Auto) 0.4, Erythrocyte Sedimentation Rate 113H, Prothrombin Time 11.2, Prothromb Time International Ratio 1.1, Activated Partial Thromboplast Time 29, Sodium Level 137, Potassium Level 3.9, Chloride Level 104, Carbon Dioxide Level 24, Anion Gap 9, Blood Urea Nitrogen 40H, Creatinine 2.2H, Estimat Glomerular Filtration Rate 36.6, Glucose Level 186H, Calcium Level 8.8, Phosphorus Level 4.3, Magnesium Level 2.0, Total Bilirubin 0.8, Aspartate Amino Transf (AST/SGOT) 21, Alanine Aminotransferase (ALT/SGPT) 43, Alkaline Phosphatase 61, C-Reactive Protein, Quantitative 8.6H, Total Protein 7.3, Albumin 2.5L, Globulin 4.8, Albumin/Globulin Ratio 0.5L Current Medications Medications (Trade) Dose Ordered Sig/Kelsi Route PRN Reason Start Time Stop Time Status Last Admin Dose Admin Acetaminophen (Tylenol) 650 mg Q6H PRN ORAL Mild Pain/Temp > 100.5 05/03/17 11:00 05/21/17 10:59 Amlodipine Besylate (Norvasc) 5 mg DAILY GT 05/04/17 09:00 05/23/17 09:29 05/04/17 09:50 Dextrose (Dextrose 50%) STAT PRN IV Hypoglycemia 05/03/17 11:00 06/02/17 10:59 Diphenhydramine HCl (Benadryl) 50 mg NEEDED PRN ORAL 30M PRIOR TO BLOOD TRANSFUSION 05/03/17 13:30 05/04/17 23:59 Docusate Sodium (Colace) 100 mg THREE TIMES A DAY NG 05/03/17 13:00 05/22/17 17:59 05/04/17 09:49 Haloperidol Lactate 5 mg/ Dextrose 56 ml @ 224 mls/hr Q1H PRN IVPB AGITATION 05/03/17 10:45 05/24/17 08:44 Hydralazine HCl (Apresoline) 10 mg Q4H PRN IV SBP > 160mmHg 05/03/17 11:00 05/21/17 10:59 Insulin Aspart (NovoLOG) BEFORE MEALS AND HS SUBQ 05/03/17 12:00 06/01/17 11:59 05/04/17 06:12 Methimazole (Tapazole) 20 mg DAILY ORAL 05/04/17 09:00 05/31/17 10:29 05/04/17 09:50 Metoprolol Tartrate (Lopressor) 5 mg Q6H PRN IVP heart rate greater than 125BPM 05/03/17 11:00 05/21/17 10:59 Nicotine (Nicoderm) 1 patch Q24H TDERMAL 05/03/17 14:00 05/22/17 13:59 05/03/17 14:50 Nitroglycerin (Nitro-Bid) 1 inch TID@0600,1200,1800 TOPIC 05/03/17 12:00 05/22/17 05:59 05/04/17 06:17 Pantoprazole (Protonix) 40 mg EVERY 12 HOURS IVP 05/03/17 21:00 05/21/17 08:59 05/04/17 09:51 Polyethylene Glycol (Miralax) 17 gm BEDTIME GT 05/03/17 21:00 05/22/17 20:59 05/03/17 20:54 Risperidone (RisperDAL) 2 mg BEDTIME ORAL 05/04/17 21:00 06/03/17 20:59 VIVEK SOLOMON May 04, 2017 14:54
--- NOTE | 2017-05-04 15:33 | Nephrology Progress Note ---
Assessment/Plan Problem List: (1) Renal insufficiency (2) Acute respiratory failure (3) Pulmonary embolism (4) Benign hypertensive kidney disease with chronic kidney disease Assessment Had IVC filter- Pulmonary emboli , on heparin, bleeding complications Acute respiratory failure- Was On Vent- Now extubated Renal failure ? CKD ? Superimposed Acute renal failure- Cr 2.2 today HTN- Smoker- Jorge Inhibitor Allergy Plan Plan: Had IVC filter bonner out- voiding- Keep BP in check Off heparin- 2D Echo- EjFx 60% Pulmonary support- urine studies- Kidney MIKEY Right kidney demonstrates borderline hydronephrosis. monitor renal parameters- Avoid nephrotoxics Subjective ROS Limited/Unobtainable: No Constitutional: Reports: malaise, weakness Objective Objective Last 24 Hour Vital Signs Date Time Temp Pulse Resp B/P (MAP) Pulse Ox O2 Delivery O2 Flow Rate FiO2 05/04/17 15:22 99.3 110 20 146/80 98 Room Air 05/04/17 12:00 109 05/04/17 11:22 98.1 101 20 111/70 98 Room Air 05/04/17 09:50 103 137/74 05/04/17 09:03 95 Room Air 21 05/04/17 09:03 Room Air 21 05/04/17 08:00 102 05/04/17 07:47 97.9 103 20 137/74 96 Room Air 05/04/17 06:17 106/57 05/04/17 04:08 97.0 56 20 121/55 100 Room Air 05/04/17 04:00 98 05/04/17 00:03 97.0 95 24 102/54 97 Room Air 05/04/17 00:00 94 05/03/17 20:27 97.3 97 20 128/81 94 Room Air 05/03/17 20:00 98 05/03/17 19:30 Room Air 21 05/03/17 19:30 97 Room Air 21 05/03/17 17:51 126/66 05/03/17 16:10 97.9 80 18 126/66 96 Room Air 05/03/17 15:35 102 Intake and Output 05/04/17 05/05/17 19:00 07:00 Intake Total 240 ml Output Total 450 ml Balance -210 ml Intake Oral 240 ml Output Urine Total 450 ml Laboratory Tests 05/04/17 07:41: White Blood Count 7.2, Red Blood Count 3.25L, Hemoglobin 9.5L, Hematocrit 29.3L , Mean Corpuscular Volume 90, Mean Corpuscular Hemoglobin 29.2, Mean Corpuscular Hemoglobin Concent 32.4, Red Cell Distribution Width 13.3, Platelet Count 150, Mean Platelet Volume 8.0, Neutrophils (%) (Auto) 79.6H, Lymphocytes ( %) (Auto) 11.1L, Monocytes (%) (Auto) 6.8, Eosinophils (%) (Auto) 2.1, Basophils (%) (Auto) 0.4, Erythrocyte Sedimentation Rate 113H, Prothrombin Time 11.2, Prothromb Time International Ratio 1.1, Activated Partial Thromboplast Time 29, Sodium Level 137, Potassium Level 3.9, Chloride Level 104, Carbon Dioxide Level 24, Anion Gap 9, Blood Urea Nitrogen 40H, Creatinine 2.2H, Estimat Glomerular Filtration Rate 36.6, Glucose Level 186H, Calcium Level 8.8, Phosphorus Level 4.3, Magnesium Level 2.0, Total Bilirubin 0.8, Aspartate Amino Transf (AST/SGOT) 21, Alanine Aminotransferase (ALT/SGPT) 43, Alkaline Phosphatase 61, C-Reactive Protein, Quantitative 8.6H, Total Protein 7.3, Albumin 2.5L, Globulin 4.8, Albumin/Globulin Ratio 0.5L Height (Feet): 6 Height (Inches): 4.00 Weight (Pounds): 245 General Appearance: no apparent distress, lethargic Cardiovascular: tachycardia Respiratory/Chest: decreased breath sounds Abdomen: distended Objective no other changes TIARRA PARTIDA May 04, 2017 15:33
[2017-05-04] MEDS ORDERED: NS 275ml ONE (17:03)
[2017-05-04] MEDS: Miralax 17gm pkt GT SCH (21:00)
[2017-05-04] MEDS ORDERED: Metoprolol 5mg/5ml Inj IVP PRN (23:00)
--- NOTE | 2017-05-04 23:07 | General Progress Note ---
Assessment/Plan Assessment/Plan Assessment and Recs 1. DVT- right leg subacute thrombus in mid superficial femoral vein. --> ivc filter placed 05/02 2. Anemia 2/2 chronic disease --> no transfusion required unless hgb drops below 7 3. Thrombocytopenia, concerning for HIT vs sepsis --> plt count normalized --> HIT test negative Subjective ROS Limited/Unobtainable: Yes Allergies: Coded Allergies: LISINOPRIL (Verified Allergy, Severe, 04/21/17) Subjective NAD Objective Last 24 Hour Vital Signs Date Time Temp Pulse Resp B/P (MAP) Pulse Ox O2 Delivery O2 Flow Rate FiO2 05/04/17 20:54 98.2 102 18 124/60 94 Room Air 05/04/17 16:00 84 05/04/17 15:22 99.3 110 20 146/80 98 Room Air 05/04/17 12:00 109 05/04/17 11:22 98.1 101 20 111/70 98 Room Air 05/04/17 09:50 103 137/74 05/04/17 09:03 95 Room Air 21 05/04/17 09:03 Room Air 21 05/04/17 08:00 102 05/04/17 07:47 97.9 103 20 137/74 96 Room Air 05/04/17 06:17 106/57 05/04/17 04:08 97.0 56 20 121/55 100 Room Air 05/04/17 04:00 98 05/04/17 00:03 97.0 95 24 102/54 97 Room Air 05/04/17 00:00 94 Intake and Output 05/04/17 05/05/17 19:00 07:00 Intake Total 480 ml Output Total 650 ml Balance -170 ml Intake Oral 480 ml Output Urine Total 650 ml Laboratory Tests 05/04/17 07:41: White Blood Count 7.2, Red Blood Count 3.25L, Hemoglobin 9.5L, Hematocrit 29.3L , Mean Corpuscular Volume 90, Mean Corpuscular Hemoglobin 29.2, Mean Corpuscular Hemoglobin Concent 32.4, Red Cell Distribution Width 13.3, Platelet Count 150, Mean Platelet Volume 8.0, Neutrophils (%) (Auto) 79.6H, Lymphocytes ( %) (Auto) 11.1L, Monocytes (%) (Auto) 6.8, Eosinophils (%) (Auto) 2.1, Basophils (%) (Auto) 0.4, Erythrocyte Sedimentation Rate 113H, Prothrombin Time 11.2, Prothromb Time International Ratio 1.1, Activated Partial Thromboplast Time 29, Sodium Level 137, Potassium Level 3.9, Chloride Level 104, Carbon Dioxide Level 24, Anion Gap 9, Blood Urea Nitrogen 40H, Creatinine 2.2H, Estimat Glomerular Filtration Rate 36.6, Glucose Level 186H, Calcium Level 8.8, Phosphorus Level 4.3, Magnesium Level 2.0, Total Bilirubin 0.8, Aspartate Amino Transf (AST/SGOT) 21, Alanine Aminotransferase (ALT/SGPT) 43, Alkaline Phosphatase 61, C-Reactive Protein, Quantitative 8.6H, Total Protein 7.3, Albumin 2.5L, Globulin 4.8, Albumin/Globulin Ratio 0.5L Height (Feet): 6 Height (Inches): 4.00 Weight (Pounds): 245 General Appearance: no apparent distress EENT: PERRL/EOMI Neck: non-tender Cardiovascular: normal peripheral pulses Extremities: normal range of motion 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
[2017-05-04] MEDS ORDERED: Haloperidol Lactate 5 MG in D5W 55 ML IVPB PRN (23:45)
[2017-05-05] VITALS: BP 130/81
[2017-05-05 04:00] VITALS: BP 134/82
[2017-05-05] MEDS: Nitroglycerin 2% oint pkt TOPIC SCH ×3 (05:31→17:19)
[2017-05-05] MEDS: NovoLOG Insulin Flexpen SUBQ SCH ×4 (05:46→20:31)
[2017-05-05 07:10] LABS: BASOPHILS % (AUTO) 1.7 % (0.0-2.0); EOSINOPHILS % (AUTO) 2.7 % (0.0-3.0); LYMPHOCYTES % (AUTO) 10.5 % (20.0-45.0); MEAN CORPUSCULAR HEMOGLOBIN 28.9 PG (27.0-31.0); MEAN CORPUSCULAR HGB CONC 30.4 G/DL (32.0-36.0); MEAN CORPUSCULAR VOLUME 95 FL (80-99); MEAN PLATELET VOLUME 9.2 FL (6.5-10.1); MONOCYTES % (AUTO) 9.3 % (1.0-10.0); NEUTROPHILS % (AUTO) 75.8 % (45.0-75.0); PLATELET COUNT 125 K/UL (150-450); RED BLOOD COUNT 2.99 M/UL (4.70-6.10); RED CELL DISTRIBUTION WIDTH 12.7 % (11.6-14.8); WHITE BLOOD COUNT 6.5 K/UL (4.8-10.8)
[2017-05-05 07:37] LABS: ANION GAP 10 mmol/L (5-15); CALCIUM 8.8 MG/DL (8.5-10.1); CARBON DIOXIDE 24 MMOL/L (21-32); CHLORIDE 104 MMOL/L (98-107); GLOMERULAR FILTRATION RATE 40.8 mL/min (>60); SODIUM 138 MMOL/L (136-145)
[2017-05-05 08:04] VITALS: BP 131/78
--- NOTE | 2017-05-05 08:10 | General Progress Note ---
Assessment/Plan Problem List: (1) New onset type 2 diabetes mellitus ICD Codes: E11.9 - Type 2 diabetes mellitus without complications SNOMED: 80856158 (2) Toxic nodular goiter ICD Codes: E05.20 - Thyrotoxicosis with toxic multinodular goiter without thyrotoxic crisis or storm SNOMED: 92066335 (3) Benign hypertensive kidney disease with chronic kidney disease ICD Codes: I12.9 - Hypertensive chronic kidney disease with stage 1 through stage 4 chronic kidney disease, or unspecified chronic kidney disease SNOMED: 077145, 939701274 (4) Renal insufficiency ICD Codes: N28.9 - Disorder of kidney and ureter, unspecified SNOMED: 249686547 (5) Hypertension ICD Codes: I10 - Essential (primary) hypertension SNOMED: 65818515 (6) Acute respiratory failure ICD Codes: J96.00 - Acute respiratory failure, unspecified whether with hypoxia or hypercapnia SNOMED: 22226802 (7) Angioedema ICD Codes: T78.3XXA - Angioneurotic edema, initial encounter SNOMED: 79325561 Assessment/Plan continue Tapazole 20 mg daily follow thyroid function in one months thyroid US as OP will hold off on starting oral diabetic agents for now he wishes to manage his DM with diet Subjective Allergies: Coded Allergies: LISINOPRIL (Verified Allergy, Severe, 04/21/17) All Systems: reviewed and negative except above Subjective events noted Objective Last 24 Hour Vital Signs Date Time Temp Pulse Resp B/P (MAP) Pulse Ox O2 Delivery O2 Flow Rate FiO2 05/05/17 08:04 97.8 103 20 131/78 94 Room Air 05/05/17 04:00 97.4 99 19 134/82 97 Room Air 05/05/17 00:00 97.9 97 20 130/81 94 Room Air 05/04/17 23:10 97.4 99 19 135/82 92 Room Air 05/04/17 20:54 98.2 102 18 124/60 94 Room Air 05/04/17 16:00 84 05/04/17 15:22 99.3 110 20 146/80 98 Room Air 05/04/17 12:00 109 05/04/17 11:22 98.1 101 20 111/70 98 Room Air 05/04/17 09:50 103 137/74 05/04/17 09:03 95 Room Air 21 05/04/17 09:03 Room Air 21 Laboratory Tests 05/05/17 05:20: White Blood Count 6.5, Red Blood Count 2.99L, Hemoglobin 8.6L, Hematocrit 28.4L , Mean Corpuscular Volume 95, Mean Corpuscular Hemoglobin 28.9, Mean Corpuscular Hemoglobin Concent 30.4L, Red Cell Distribution Width 12.7, Platelet Count 125L, Mean Platelet Volume 9.2, Neutrophils (%) (Auto) 75.8H, Lymphocytes (%) (Auto) 10.5L, Monocytes (%) (Auto) 9.3, Eosinophils (%) (Auto) 2.7, Basophils (%) (Auto) 1.7, Sodium Level 138, Potassium Level 4.0, Chloride Level 104, Carbon Dioxide Level 24, Anion Gap 10, Blood Urea Nitrogen 44H, Creatinine 2.0H, Estimat Glomerular Filtration Rate 40.8, Glucose Level 119H, Calcium Level 8.8 Height (Feet): 6 Height (Inches): 4.00 Weight (Pounds): 239 General Appearance: no apparent distress Neck: normal alignment Cardiovascular: normal rate Respiratory/Chest: lungs clear Abdomen: normal bowel sounds Objective Current Medications Medications (Trade) Dose Ordered Sig/Kelsi Route PRN Reason Start Time Stop Time Status Last Admin Dose Admin Acetaminophen (Tylenol) 650 mg Q6H PRN ORAL Mild Pain/Temp > 100.5 05/04/17 23:00 05/21/17 10:59 Amlodipine Besylate (Norvasc) 5 mg DAILY GT 05/05/17 09:00 05/23/17 09:29 Dextrose (Dextrose 50%) STAT PRN IV Hypoglycemia 05/05/17 11:00 06/02/17 10:59 Docusate Sodium (Colace) 100 mg THREE TIMES A DAY NG 05/05/17 09:00 05/22/17 17:59 Haloperidol Lactate 5 mg/ Dextrose 56 ml @ 224 mls/hr Q1H PRN IVPB AGITATION 05/04/17 23:45 05/24/17 08:44 Insulin Aspart (NovoLOG) BEFORE MEALS AND HS SUBQ 05/05/17 06:30 06/01/17 11:59 Methimazole (Tapazole) 20 mg DAILY ORAL 05/05/17 09:00 05/31/17 10:29 Nicotine (Nicoderm) 1 patch Q24H TDERMAL 05/05/17 09:00 05/22/17 08:59 Nitroglycerin (Nitro-Bid) 1 inch TID@0600,1200,1800 TOPIC 05/05/17 06:00 05/22/17 05:59 Pantoprazole (Protonix) 40 mg EVERY 12 HOURS IVP 05/05/17 09:00 05/21/17 08:59 Polyethylene Glycol (Miralax) 17 gm BEDTIME GT 05/05/17 21:00 05/22/17 20:59 Risperidone (RisperDAL) 2 mg BEDTIME ORAL 05/05/17 21:00 06/03/17 20:59 Item Value Date Time Bedside Blood Glucose 132 mg/dl H 05/05/17 0547 Bedside Blood Glucose 135 mg/dl H 05/04/17 2100 Bedside Blood Glucose 121 mg/dl H 05/04/17 1630 Bedside Blood Glucose 134 mg/dl H 05/04/17 1130 Bedside Blood Glucose 158 mg/dl H 05/04/17 0630 MEGHANA ROSADO May 05, 2017 08:10
[2017-05-05] MEDS: Docusate 100mg/10ml Liq NG SCH ×3 (09:00→17:18)
[2017-05-05] MEDS ORDERED: Norco 5mg/325mg tab ORAL PRN (09:15)
[2017-05-05] MEDS ORDERED: Norco 10mg/325mg tab ORAL PRN (09:15)
[2017-05-05] MEDS: Pantoprazole Inj IVP SCH ×2 (09:19→20:30)
--- NOTE | 2017-05-05 09:19 | Discharge Summary ---
Discharge Summary Hospital Course Date of Admission Apr 20, 2017 at 23:38 Date of Discharge Admitting Diagnosis HPI Abel Sheriff is a 67 year old male who was admitted on Apr 20, 2017 at 23:38 for Angioedema Hospital Course dc summary #[id number] Discharge Medications New Medications: Omeprazole (Omeprazole) 20 Mg Capsule.dr 20 MG ORAL DAILY, #30 CAP Amlodipine Besylate (Norvasc) 5 Mg Tablet 5 MG GT DAILY, #30 TAB Methimazole (Methimazole) 5 Mg Tablet 20 MG ORAL DAILY, #30 TAB Nicotine (Nicotine Patch) 1 Each Patch.td24 1 PATCH TDERMAL Q24H, #30 PATCH Risperidone* (Risperdal*) 2 Mg Tablet 2 MG ORAL BEDTIME, #30 TAB Discontinued Medications: Amlodipine Besylate/Benazepril 5-10 Mg* (Amlodipine-Benazepril 5-10 Mg*) 1 Each Capsule 1 CAP ORAL DAILY Diphenhydramine In 0.9 % Nacl (Diphenhydramine-Ns 50 Mg/50 Ml) 50 Mg/50 Ml Piggyback 50 MG IV, % Epinephrine HCl/Pf (Epinephrine 1 mg/ml Ampul) 1 Mg/1 Ml Ampul 0.3 MG IV, AMP Famotidine/Pf (Famotidine 20 Mg/2 Ml Vial) 20 Mg/2 Ml Vial 20 MG IV, VIAL Icatibant Acetate (Firazyr) 30 Mg/3 Ml Syringe 30 MG SQ, EA Labetalol HCl (Labetalol HCl) 5 Mg/1 Ml Vial 20 MG IV, VIAL Methylprednisolone Sod Succ/Pf (Solu-Medrol (Pf) 40 Mg Vial) 40 Mg/1 Ml Vial 125 MG IJ, VIAL Midazolam HCl (Midazolam HCl) 2 Mg/2 Ml Vial 1 MG IJ, VIAL Midazolam HCl (Midazolam HCl) 2 Mg/2 Ml Vial 2 MG IJ, VIAL Propofol (Diprivan) 10 Mg/1 Ml Vial 1000 MG IV, EA Sodium Chloride 0.45 % (Sodium Chloride) 250 Ml Pggybk.prt 1000 ML IV Discharge Condition Upon Discharge: stable Discharge Disposition Patient was discharged home with home health Discharge Diagnoses: Herve (Jenni)Christine NP May 05, 2017 09:19
--- NOTE | 2017-05-05 09:23 | Discharge Instructions ---
Discharge Instructions Discharge Instructions Follow up with: at [place] Call MD/Return to Hospital if: respiratory distress, chest pain, SOB, fast heart beat Services at Discharge: DME agency - w/chair, BSC, home health services Diet: diabetic calorie control, cardiac 2 GM Na, low fat Activity: as tolerated Special Instructions 1. follow up with buyer liaison ( new onset of diabetes, new onset of hyperthyroidism , multinodular toxic goiter) Need thyroid US and further management per buyer liaison prescription provided or methimazole patient declined antiglcyemic medications , prefer to manage blood sugar with diet 2. follow up with urologist -for elevated PSA For Congestive Heart Failure Reminder Report to your physician any weight gain of 5 pounds or more in one week. [facility]Christine ROBERTO May 05, 2017 09:23
[2017-05-05] MEDS ORDERED: RISPERDAL2 MG ORAL (09:26)
[2017-05-05] MEDS ORDERED: NORVASC5 MG GT (09:26)
[2017-05-05] MEDS ORDERED: NICODERM 7MG/24H1 EA TDERMAL (09:26)
[2017-05-05] MEDS ORDERED: OMEPRAZOLE20 M2 ORAL (09:26)
[2017-05-05] MEDS ORDERED: TAPAZOLE5 MG ORAL (09:26)
--- NOTE | 2017-05-05 09:41 | Consultation ---
Consult Note Assessment/Plan discussed dc planning with correctional casework specialist daughter is willing to take her father to [facility] provided patient will need home health for PT/OT ( see notes), medication management, BS check ( currently not on meds, declined, but blood sugar need to be checked) Upon dc needs front wheel walker, wheelchair and bedside commode according to PT/OT evaluation- unsteady gait with front wheel walker only able to do 3-4 small steps, impaired balance Patient weak, deconditioned, debilitated unable to ambulate independently and requires manual w/chair as a mode for transportation Patient will need to follow up as outpatient with primary care provider, urologist and ivory polisher Herve ([facility]),Christine ROBERTO May 05, 2017 09:41
--- NOTE | 2017-05-05 10:08 | General Progress Note ---
Progress Note Progress Note Mr Abel Sheriff is weak, debilitated and deconditioned, He is unable to ambulate independently and requries a [employer] Wheelchair for mode of transportation. VIVEK SOLOMON May 05, 2017 10:08
--- NOTE | 2017-05-05 11:03 | GI Progress Note ---
Assessment/Plan Problems: (1) Abdominal distension ICD Codes: R14.0 - Abdominal distension (gaseous) SNOMED: 30794652 (2) Hypoalbuminemia ICD Codes: E88.09 - Other disorders of plasma-protein metabolism, not elsewhere classified SNOMED: 718129004 (3) Angioedema ICD Codes: T78.3XXA - Angioneurotic edema, initial encounter SNOMED: 40316699 Status: stable Status Narrative Discussed with Dr. Cazares. Assessment/Plan okay for DC per GI standpoint regular diet, tolerating monitor H&H, prn transfusions ppi fu pulm recs, now extubated fu labs Subjective Subjective feels better OOB Objective Last 24 Hour Vital Signs Date Time Temp Pulse Resp B/P (MAP) Pulse Ox O2 Delivery O2 Flow Rate FiO2 05/05/17 09:19 103 131/78 05/05/17 08:04 97.8 103 20 131/78 94 Room Air 05/05/17 04:00 97.4 99 19 134/82 97 Room Air 05/05/17 00:00 97.9 97 20 130/81 94 Room Air 05/04/17 23:10 97.4 99 19 135/82 92 Room Air 05/04/17 20:54 98.2 102 18 124/60 94 Room Air 05/04/17 16:00 84 05/04/17 15:22 99.3 110 20 146/80 98 Room Air 05/04/17 12:00 109 05/04/17 11:22 98.1 101 20 111/70 98 Room Air Intake and Output 05/05/17 05/06/17 19:00 07:00 Intake Total 425 ml Balance 425 ml Intake Oral 425 ml # Voids 1 # Bowel Movements 1 Laboratory Tests Test 05/05/17 05:20 White Blood Count 6.5 K/UL (4.8-10.8) Red Blood Count 2.99 M/UL (4.70-6.10) L Hemoglobin 8.6 G/DL (14.2-18.0) L Hematocrit 28.4 % (42.0-52.0) L Mean Corpuscular Volume 95 FL (80-99) Mean Corpuscular Hemoglobin 28.9 PG (27.0-31.0) Mean Corpuscular Hemoglobin Concent 30.4 G/DL (32.0-36.0) L Red Cell Distribution Width 12.7 % (11.6-14.8) Platelet Count 125 K/UL (150-450) L Mean Platelet Volume 9.2 FL (6.5-10.1) Neutrophils (%) (Auto) 75.8 % (45.0-75.0) H Lymphocytes (%) (Auto) 10.5 % (20.0-45.0) L Monocytes (%) (Auto) 9.3 % (1.0-10.0) Eosinophils (%) (Auto) 2.7 % (0.0-3.0) Basophils (%) (Auto) 1.7 % (0.0-2.0) Sodium Level 138 MMOL/L (136-145) Potassium Level 4.0 MMOL/L (3.5-5.1) Chloride Level 104 MMOL/L (98-107) Carbon Dioxide Level 24 MMOL/L (21-32) Anion Gap 10 mmol/L (5-15) Blood Urea Nitrogen 44 mg/dL (7-18) H Creatinine 2.0 MG/DL (0.55-1.30) H Estimat Glomerular Filtration Rate 40.8 mL/min (>60) Glucose Level 119 MG/DL (74-106) H Calcium Level 8.8 MG/DL (8.5-10.1) Height (Feet): 6 Height (Inches): 4.00 Weight (Pounds): 239 General Appearance: WD/WN, no apparent distress, alert Cardiovascular: normal rate Respiratory/Chest: normal breath sounds, no respiratory distress Abdominal Exam: normal bowel sounds, non tender, soft Extremities: normal range of motion, non-tender Objective bleeding gums Radha Mckeon N.PBooker May 05, 2017 11:03
[2017-05-05 11:59] VITALS: BP 128/87
--- NOTE | 2017-05-05 13:28 | Infectious Diseases Prog Note ---
Assessment/Plan Assessment/Plan Assesment: Fever, SP LLL PNA SCx : Nl keely -CXR 04/24: Persistent left perihilar consolidation, increased since the prior examination of 04/22/17. Pneumonia is of concern. -CXR: There is some left perihilar congestion or consolidation again demonstrated, unchanged. The remainder the lungs and pleural spaces are clear. -CTA chest: Fairly extensive bilateral segmental pulmonary emboli. concern for submassive pulmonary embolus. consolidation and atelectasis of a significant portion of the posterior left lower lobe. -Sp cx Normal keely x2 DVT , IVC filter 05/02 Angiodema s/p intubation ,, SP extub 04/28 Possible Submassive b/l PE, R DVT Renal insufficiency- ?acute vs chronic vs acute on chronic Mutinodular goiter HTN COPD Tobacco abuse Plan: monitor pt off of AB Rx SP IV Cefepime # 1 sp Vancomycin d# 4 -04/24 SP Unasyn #3 -04/23 SP IV Vanco #2 -Monitor CBC/BMP, temperatures -anticoagulation and steroids per primary team -aspiration precautions Subjective Allergies: Coded Allergies: LISINOPRIL (Verified Allergy, Severe, 04/21/17) Subjective comfortable Objective Vital Signs Last 24 Hour Vital Signs Date Time Temp Pulse Resp B/P (MAP) Pulse Ox O2 Delivery O2 Flow Rate FiO2 05/05/17 12:41 128/87 05/05/17 11:59 98.4 96 20 128/87 95 Room Air 05/05/17 09:19 103 131/78 05/05/17 08:04 97.8 103 20 131/78 94 Room Air 05/05/17 04:00 97.4 99 19 134/82 97 Room Air 05/05/17 00:00 97.9 97 20 130/81 94 Room Air 05/04/17 23:10 97.4 99 19 135/82 92 Room Air 05/04/17 20:54 98.2 102 18 124/60 94 Room Air 05/04/17 16:00 84 05/04/17 15:22 99.3 110 20 146/80 98 Room Air Height (Feet): 6 Height (Inches): 4.00 Weight (Pounds): 239 HEENT: mucous membranes moist Respiratory/Chest: no respiratory distress Cardiovascular: normal rate Abdomen: non distended Laboratory Tests Test 05/05/17 05:20 White Blood Count 6.5 K/UL (4.8-10.8) Red Blood Count 2.99 M/UL (4.70-6.10) L Hemoglobin 8.6 G/DL (14.2-18.0) L Hematocrit 28.4 % (42.0-52.0) L Mean Corpuscular Volume 95 FL (80-99) Mean Corpuscular Hemoglobin 28.9 PG (27.0-31.0) Mean Corpuscular Hemoglobin Concent 30.4 G/DL (32.0-36.0) L Red Cell Distribution Width 12.7 % (11.6-14.8) Platelet Count 125 K/UL (150-450) L Mean Platelet Volume 9.2 FL (6.5-10.1) Neutrophils (%) (Auto) 75.8 % (45.0-75.0) H Lymphocytes (%) (Auto) 10.5 % (20.0-45.0) L Monocytes (%) (Auto) 9.3 % (1.0-10.0) Eosinophils (%) (Auto) 2.7 % (0.0-3.0) Basophils (%) (Auto) 1.7 % (0.0-2.0) Sodium Level 138 MMOL/L (136-145) Potassium Level 4.0 MMOL/L (3.5-5.1) Chloride Level 104 MMOL/L (98-107) Carbon Dioxide Level 24 MMOL/L (21-32) Anion Gap 10 mmol/L (5-15) Blood Urea Nitrogen 44 mg/dL (7-18) H Creatinine 2.0 MG/DL (0.55-1.30) H Estimat Glomerular Filtration Rate 40.8 mL/min (>60) Glucose Level 119 MG/DL (74-106) H Calcium Level 8.8 MG/DL (8.5-10.1) Current Medications Medications (Trade) Dose Ordered Sig/Kelsi Route PRN Reason Start Time Stop Time Status Last Admin Dose Admin Acetaminophen (Tylenol) 650 mg Q6H PRN ORAL Mild Pain/Temp > 100.5 05/04/17 23:00 05/21/17 10:59 Amlodipine Besylate (Norvasc) 5 mg DAILY GT 05/05/17 09:00 05/23/17 09:29 05/05/17 09:19 Dextrose (Dextrose 50%) STAT PRN IV Hypoglycemia 05/05/17 11:00 06/02/17 10:59 Docusate Sodium (Colace) 100 mg THREE TIMES A DAY NG 05/05/17 09:00 05/22/17 17:59 Haloperidol Lactate 5 mg/ Dextrose 56 ml @ 224 mls/hr Q1H PRN IVPB AGITATION 05/04/17 23:45 05/24/17 08:44 Insulin Aspart (NovoLOG) BEFORE MEALS AND HS SUBQ 05/05/17 06:30 06/01/17 11:59 Methimazole (Tapazole) 20 mg DAILY ORAL 05/05/17 09:00 05/31/17 10:29 05/05/17 09:21 Nicotine (Nicoderm) 1 patch Q24H TDERMAL 05/05/17 09:00 05/22/17 08:59 05/05/17 09:19 Nitroglycerin (Nitro-Bid) 1 inch TID@0600,1200,1800 TOPIC 05/05/17 06:00 05/22/17 05:59 Pantoprazole (Protonix) 40 mg EVERY 12 HOURS IVP 05/05/17 09:00 05/21/17 08:59 05/05/17 09:19 Polyethylene Glycol (Miralax) 17 gm BEDTIME GT 05/05/17 21:00 05/22/17 20:59 Risperidone (RisperDAL) 2 mg BEDTIME ORAL 05/05/17 21:00 06/03/17 20:59 DIANA VELAZQUEZ M.D. May 05, 2017 13:28
[2017-05-05 15:36] VITALS: BP 130/92
--- NOTE | 2017-05-05 16:00 | General Progress Note ---
Assessment/Plan Assessment/Plan Assessment and Recs 1. DVT- right leg subacute thrombus in mid superficial femoral vein. --> ivc filter placed 05/02 2. Anemia 2/2 chronic disease --> no transfusion required unless hgb drops below 7 3. Thrombocytopenia, concerning for HIT vs sepsis --> plt count normalized --> HIT test negative Subjective Allergies: Coded Allergies: LISINOPRIL (Verified Allergy, Severe, 04/21/17) All Systems: reviewed and negative except above Subjective no complaints,slight drop in HH Objective Last 24 Hour Vital Signs Date Time Temp Pulse Resp B/P (MAP) Pulse Ox O2 Delivery O2 Flow Rate FiO2 05/05/17 15:36 98.1 103 20 130/92 96 Room Air 05/05/17 12:41 128/87 05/05/17 11:59 98.4 96 20 128/87 95 Room Air 05/05/17 09:19 103 131/78 05/05/17 08:04 97.8 103 20 131/78 94 Room Air 05/05/17 04:00 97.4 99 19 134/82 97 Room Air 05/05/17 00:00 97.9 97 20 130/81 94 Room Air 05/04/17 23:10 97.4 99 19 135/82 92 Room Air 05/04/17 20:54 98.2 102 18 124/60 94 Room Air 05/04/17 16:00 84 Intake and Output 05/05/17 05/06/17 19:00 07:00 Intake Total 949 ml Balance 949 ml Intake Oral 949 ml # Voids 2 # Bowel Movements 1 Laboratory Tests 05/05/17 05:20: White Blood Count 6.5, Red Blood Count 2.99L, Hemoglobin 8.6L, Hematocrit 28.4L , Mean Corpuscular Volume 95, Mean Corpuscular Hemoglobin 28.9, Mean Corpuscular Hemoglobin Concent 30.4L, Red Cell Distribution Width 12.7, Platelet Count 125L, Mean Platelet Volume 9.2, Neutrophils (%) (Auto) 75.8H, Lymphocytes (%) (Auto) 10.5L, Monocytes (%) (Auto) 9.3, Eosinophils (%) (Auto) 2.7, Basophils (%) (Auto) 1.7, Sodium Level 138, Potassium Level 4.0, Chloride Level 104, Carbon Dioxide Level 24, Anion Gap 10, Blood Urea Nitrogen 44H, Creatinine 2.0H, Estimat Glomerular Filtration Rate 40.8, Glucose Level 119H, Calcium Level 8.8 Height (Feet): 6 Height (Inches): 4.00 Weight (Pounds): 239 General Appearance: no apparent distress EENT: normal ENT inspection Neck: normal alignment Respiratory/Chest: chest wall non-tender, decreased breath sounds Abdomen: normal bowel sounds Extremities: normal range of motion 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
--- NOTE | 2017-05-05 16:26 | Nephrology Progress Note ---
Assessment/Plan Problem List: (1) Renal insufficiency (2) Acute respiratory failure (3) Pulmonary embolism (4) Benign hypertensive kidney disease with chronic kidney disease Assessment Had IVC filter- Cr down to 2 Pulmonary emboli , on heparin, bleeding complications Acute respiratory failure- Was On Vent- Now extubated Renal failure ? CKD ? Superimposed Acute renal failure- Cr 2 today HTN- Smoker- Jorge Inhibitor Allergy Plan Plan: Had IVC filter bonner out- voiding- Keep BP in check Off heparin- 2D Echo- EjFx 60% Pulmonary support- urine studies- Kidney MIKEY Right kidney demonstrates borderline hydronephrosis. monitor renal parameters- Avoid nephrotoxics Subjective ROS Limited/Unobtainable: No Constitutional: Reports: malaise Objective Objective Last 24 Hour Vital Signs Date Time Temp Pulse Resp B/P (MAP) Pulse Ox O2 Delivery O2 Flow Rate FiO2 05/05/17 15:36 98.1 103 20 130/92 96 Room Air 05/05/17 12:41 128/87 05/05/17 11:59 98.4 96 20 128/87 95 Room Air 05/05/17 09:19 103 131/78 05/05/17 08:04 97.8 103 20 131/78 94 Room Air 05/05/17 04:00 97.4 99 19 134/82 97 Room Air 05/05/17 00:00 97.9 97 20 130/81 94 Room Air 05/04/17 23:10 97.4 99 19 135/82 92 Room Air 05/04/17 20:54 98.2 102 18 124/60 94 Room Air Intake and Output 05/05/17 05/06/17 19:00 07:00 Intake Total 949 ml Balance 949 ml Intake Oral 949 ml # Voids 2 # Bowel Movements 1 Laboratory Tests 05/05/17 05:20: White Blood Count 6.5, Red Blood Count 2.99L, Hemoglobin 8.6L, Hematocrit 28.4L , Mean Corpuscular Volume 95, Mean Corpuscular Hemoglobin 28.9, Mean Corpuscular Hemoglobin Concent 30.4L, Red Cell Distribution Width 12.7, Platelet Count 125L, Mean Platelet Volume 9.2, Neutrophils (%) (Auto) 75.8H, Lymphocytes (%) (Auto) 10.5L, Monocytes (%) (Auto) 9.3, Eosinophils (%) (Auto) 2.7, Basophils (%) (Auto) 1.7, Sodium Level 138, Potassium Level 4.0, Chloride Level 104, Carbon Dioxide Level 24, Anion Gap 10, Blood Urea Nitrogen 44H, Creatinine 2.0H, Estimat Glomerular Filtration Rate 40.8, Glucose Level 119H, Calcium Level 8.8 Height (Feet): 6 Height (Inches): 4.00 Weight (Pounds): 239 General Appearance: no apparent distress Objective no other changes TIARRA PARTIDA May 05, 2017 16:26
--- NOTE | 2017-05-05 18:23 | Pulmonology Progress Note ---
Assessment/Plan Problems: (1) Acute respiratory failure (2) ATN (acute tubular necrosis) (3) New onset type 2 diabetes mellitus (4) Toxic nodular goiter (5) Pulmonary embolism Assessment/Plan pt/ot monitor BP sliding scale med/surg rehabilitation caseworker trying to arrange for discharge. Subjective ROS Limited/Unobtainable: No Allergies: Coded Allergies: LISINOPRIL (Verified Allergy, Severe, 04/21/17) Objective Last 24 Hour Vital Signs Date Time Temp Pulse Resp B/P (MAP) Pulse Ox O2 Delivery O2 Flow Rate FiO2 05/05/17 17:19 130/92 05/05/17 15:36 98.1 103 20 130/92 96 Room Air 05/05/17 12:41 128/87 05/05/17 11:59 98.4 96 20 128/87 95 Room Air 05/05/17 09:19 103 131/78 05/05/17 08:04 97.8 103 20 131/78 94 Room Air 05/05/17 04:00 97.4 99 19 134/82 97 Room Air 05/05/17 00:00 97.9 97 20 130/81 94 Room Air 05/04/17 23:10 97.4 99 19 135/82 92 Room Air 05/04/17 20:54 98.2 102 18 124/60 94 Room Air Intake and Output 05/05/17 05/06/17 19:00 07:00 Intake Total 1369 ml Balance 1369 ml Intake Oral 1369 ml # Voids 2 # Bowel Movements 1 Objective General Appearance: WD/WN, no apparent distress Lines, tubes and drains: peripheral, PICC HEENT: normocephalic, anicteric Neck: non-tender, normal alignment Respiratory/Chest: chest wall non-tender, lungs clear Cardiovascular/Chest: normal rate, regular rhythm Abdomen: non tender, soft Genitourinary/Rectal: normal genital exam, normal rectal exam Extremities: normal range of motion, non-pitting Laboratory Tests 05/05/17 05:20: White Blood Count 6.5, Red Blood Count 2.99L, Hemoglobin 8.6L, Hematocrit 28.4L , Mean Corpuscular Volume 95, Mean Corpuscular Hemoglobin 28.9, Mean Corpuscular Hemoglobin Concent 30.4L, Red Cell Distribution Width 12.7, Platelet Count 125L, Mean Platelet Volume 9.2, Neutrophils (%) (Auto) 75.8H, Lymphocytes (%) (Auto) 10.5L, Monocytes (%) (Auto) 9.3, Eosinophils (%) (Auto) 2.7, Basophils (%) (Auto) 1.7, Sodium Level 138, Potassium Level 4.0, Chloride Level 104, Carbon Dioxide Level 24, Anion Gap 10, Blood Urea Nitrogen 44H, Creatinine 2.0H, Estimat Glomerular Filtration Rate 40.8, Glucose Level 119H, Calcium Level 8.8 Current Medications Medications (Trade) Dose Ordered Sig/Kelsi Route PRN Reason Start Time Stop Time Status Last Admin Dose Admin Acetaminophen (Tylenol) 650 mg Q6H PRN ORAL Mild Pain/Temp > 100.5 05/04/17 23:00 05/21/17 10:59 Amlodipine Besylate (Norvasc) 5 mg DAILY GT 05/05/17 09:00 05/23/17 09:29 05/05/17 09:19 Dextrose (Dextrose 50%) STAT PRN IV Hypoglycemia 05/05/17 11:00 06/02/17 10:59 Docusate Sodium (Colace) 100 mg THREE TIMES A DAY NG 05/05/17 09:00 05/22/17 17:59 Haloperidol Lactate 5 mg/ Dextrose 56 ml @ 224 mls/hr Q1H PRN IVPB AGITATION 05/04/17 23:45 05/24/17 08:44 Insulin Aspart (NovoLOG) BEFORE MEALS AND HS SUBQ 05/05/17 06:30 06/01/17 11:59 Methimazole (Tapazole) 20 mg DAILY ORAL 05/05/17 09:00 05/31/17 10:29 05/05/17 09:21 Nicotine (Nicoderm) 1 patch Q24H TDERMAL 05/05/17 09:00 05/22/17 08:59 05/05/17 09:19 Nitroglycerin (Nitro-Bid) 1 inch TID@0600,1200,1800 TOPIC 05/05/17 06:00 05/22/17 05:59 05/05/17 17:19 Pantoprazole (Protonix) 40 mg EVERY 12 HOURS IVP 05/05/17 09:00 05/21/17 08:59 05/05/17 09:19 Polyethylene Glycol (Miralax) 17 gm BEDTIME GT 05/05/17 21:00 05/22/17 20:59 Risperidone (RisperDAL) 2 mg BEDTIME ORAL 05/05/17 21:00 06/03/17 20:59 VIVEK SOLOMON May 05, 2017 18:23
--- NOTE | 2017-05-05 19:26 | Cardiology Progress Note ---
Assessment/Plan Assessment/Plan 1. Allergic reaction. 2. Angioneurotic edema. 3. Hypertension. 4. Respiratory failure. 5. Hypoxemia. 6. Metabolic encephalopathy. 7. Renal insufficiency. 8. Tachycardia due to pe adn hyperthyroidism 9. pulm htn 10. Pulmo embolism 11. abn torp likely related to PE 12 ACEI allergy 13. dvt 14. bleeding 15. hyperthyroidism bp is fine hemodynamically stable dvt noted may have been more extensive prior to embolization d/w rn is off anticaogualtion due to sig bleeding s/p ivc filter dc nitrobid increase norvasc cr imporved Subjective Cardiovascular: Denies: chest pain, palpitations, syncope Respiratory: Denies: shortness of breath Gastrointestinal/Abdominal: Denies: abdominal pain Genitourinary: Denies: burning Objective Last 24 Hour Vital Signs Date Time Temp Pulse Resp B/P (MAP) Pulse Ox O2 Delivery O2 Flow Rate FiO2 05/05/17 18:28 Room Air 05/05/17 18:27 95 Room Air 05/05/17 17:19 130/92 05/05/17 15:36 98.1 103 20 130/92 96 Room Air 05/05/17 12:41 128/87 05/05/17 11:59 98.4 96 20 128/87 95 Room Air 05/05/17 09:19 103 131/78 05/05/17 08:04 97.8 103 20 131/78 94 Room Air 05/05/17 04:00 97.4 99 19 134/82 97 Room Air 05/05/17 00:00 97.9 97 20 130/81 94 Room Air 05/04/17 23:10 97.4 99 19 135/82 92 Room Air 05/04/17 20:54 98.2 102 18 124/60 94 Room Air General Appearance: no apparent distress, alert Neck: supple Cardiovascular: normal rate, regular rhythm Respiratory/Chest: lungs clear Abdomen: normal bowel sounds, non tender, soft Extremities: no swelling Intake and Output 05/05/17 05/06/17 19:00 07:00 Intake Total 1369 ml Balance 1369 ml Intake Oral 1369 ml # Voids 2 # Bowel Movements 1 Laboratory Tests Test 05/05/17 05:20 White Blood Count 6.5 K/UL (4.8-10.8) Red Blood Count 2.99 M/UL (4.70-6.10) L Hemoglobin 8.6 G/DL (14.2-18.0) L Hematocrit 28.4 % (42.0-52.0) L Mean Corpuscular Volume 95 FL (80-99) Mean Corpuscular Hemoglobin 28.9 PG (27.0-31.0) Mean Corpuscular Hemoglobin Concent 30.4 G/DL (32.0-36.0) L Red Cell Distribution Width 12.7 % (11.6-14.8) Platelet Count 125 K/UL (150-450) L Mean Platelet Volume 9.2 FL (6.5-10.1) Neutrophils (%) (Auto) 75.8 % (45.0-75.0) H Lymphocytes (%) (Auto) 10.5 % (20.0-45.0) L Monocytes (%) (Auto) 9.3 % (1.0-10.0) Eosinophils (%) (Auto) 2.7 % (0.0-3.0) Basophils (%) (Auto) 1.7 % (0.0-2.0) Sodium Level 138 MMOL/L (136-145) Potassium Level 4.0 MMOL/L (3.5-5.1) Chloride Level 104 MMOL/L (98-107) Carbon Dioxide Level 24 MMOL/L (21-32) Anion Gap 10 mmol/L (5-15) Blood Urea Nitrogen 44 mg/dL (7-18) H Creatinine 2.0 MG/DL (0.55-1.30) H Estimat Glomerular Filtration Rate 40.8 mL/min (>60) Glucose Level 119 MG/DL (74-106) H Calcium Level 8.8 MG/DL (8.5-10.1) RUBEN CHAVEZ May 05, 2017 19:26
[2017-05-05 20:00] VITALS: BP 145/94
[2017-05-05] MEDS ORDERED: Miralax 17gm pkt GT SCH (21:00)
--- NOTE | 2017-05-05 21:25 | General Progress Note ---
Assessment/Plan Status: progressing Assessment/Plan memory impairment and refuses meds disoriented Subjective Date patient seen: May 04, 2017 Neurologic/Psychiatric: Reports: anxiety, depressed, emotional problems Allergies: Coded Allergies: LISINOPRIL (Verified Allergy, Severe, 04/21/17) Objective Last 24 Hour Vital Signs Date Time Temp Pulse Resp B/P (MAP) Pulse Ox O2 Delivery O2 Flow Rate FiO2 05/05/17 18:28 Room Air 05/05/17 18:27 95 Room Air 05/05/17 17:19 130/92 05/05/17 15:36 98.1 103 20 130/92 96 Room Air 05/05/17 12:41 128/87 05/05/17 11:59 98.4 96 20 128/87 95 Room Air 05/05/17 09:19 103 131/78 05/05/17 08:04 97.8 103 20 131/78 94 Room Air 05/05/17 04:00 97.4 99 19 134/82 97 Room Air 05/05/17 00:00 97.9 97 20 130/81 94 Room Air 05/04/17 23:10 97.4 99 19 135/82 92 Room Air Intake and Output 05/05/17 05/06/17 19:00 07:00 Intake Total 1369 ml Balance 1369 ml Intake Oral 1369 ml # Voids 2 # Bowel Movements 1 Laboratory Tests 05/05/17 05:20: White Blood Count 6.5, Red Blood Count 2.99L, Hemoglobin 8.6L, Hematocrit 28.4L , Mean Corpuscular Volume 95, Mean Corpuscular Hemoglobin 28.9, Mean Corpuscular Hemoglobin Concent 30.4L, Red Cell Distribution Width 12.7, Platelet Count 125L, Mean Platelet Volume 9.2, Neutrophils (%) (Auto) 75.8H, Lymphocytes (%) (Auto) 10.5L, Monocytes (%) (Auto) 9.3, Eosinophils (%) (Auto) 2.7, Basophils (%) (Auto) 1.7, Sodium Level 138, Potassium Level 4.0, Chloride Level 104, Carbon Dioxide Level 24, Anion Gap 10, Blood Urea Nitrogen 44H, Creatinine 2.0H, Estimat Glomerular Filtration Rate 40.8, Glucose Level 119H, Calcium Level 8.8 Height (Feet): 6 Height (Inches): 4.00 Weight (Pounds): 239 General Appearance: no apparent distress, alert, overweight Neurologic: alert, responsive, depressed affect Valdemar Murillo M.D. May 05, 2017 21:25
[2017-05-06] VITALS: BP 137/94
[2017-05-06 04:00] VITALS: BP 122/76
--- NOTE | 2017-05-06 05:00 | Discharge Summary 2 SIG ---
DATE OF ADMISSION: 04/20/2017 DATE OF DISCHARGE: 05/05/2017 REASON FOR ADMISSION: 67-year-old male was brought by paramedics to [facility] for severe angioedema and swollen tongue. Epinephrine was administered. The patient was emergently intubated with anesthesia and ENT nasally for airway protection and subsequently was transferred to [facility] for further care due to the insurance purposes. The patient was admitted with diagnoses of respiratory failure, allergic reaction, angioneurotic edema, and metabolic encephalopathy. The patient was unable to provide any other history. The patient was prior on CAROLIN inhibitor for blood pressure management and it was felt that he had allergic reaction to CAROLIN. HOSPITAL STAY: The patient was admitted to ICU. Ventilator support and pulmonary toilet were provided. The patient noted to have renal failure. Upon admission, BUN-37 and creatinine -2.6. Nurse Licensed Practical consult was requested along with the ID and oral and maxillofacial surgery resident. V/Q scan was done on 04/22/2017 and revealed findings suspicious but not definite for the diagnosis of pulmonary emboli. The patient subsequently same day undergone CTA of the chest, which revealed fairly extensive bilateral segmental pulmonary emboli. The patient was started on anticoagulation. Venous duplex of bilateral lower extremities revealed subacute thrombus in the right leg in the mid superficial femoral vein and patent deep venous system in the left lower extremity. The patient was started on anticoagulation. Pad Machine Offbearer followed the patient. DVT likely was more extensive prior to embolization. The patient unfortunately developed bleeding secondary to anticoagulation, and anticoagulation was stopped due to the significant bleeding. At the same time, also noted elevated troponin. Troponin were minimally elevated, initial -0.622, then -0.706, then trending down and the last one on 04/25/2017 was -0.053. EKG revealed no acute ischemic changes. According to oral and maxillofacial surgery resident, elevated troponin were likely due to the acute PE. Subsequently, due to intolerance at this time for anticoagulation, the patient undergone placement of IVC filter on 05/02/2017. The patient had an echocardiogram done on 04/21/2017, which revealed preserved ejection fraction of 60%. No wall motion abnormalities were identified, significant left ventricular hypertrophy noted and right ventricular systolic pressure of 76 consistent with severe pulmonary hypertension. Patient was started on weaning protocol , when stabilized, and subsequently was able to be extubated on 04/28/2017. Supplemental oxygen was provided as needed. Pulmonary toilet was provided. The patient was treated for left lower lobe pneumonia as was evident on the chest x-ray. Sputum culture initially was with Radha, then last sputum culture was negative. The patient status post treatment for pneumonia. Last chest x-ray on 05/02/2017 revealed no acute findings. The patient was able to be weaned from the supplemental oxygen, prior to discharge on room air with stable pulse oximetry. The patient had evidence of severe anemia with hemoglobin -4.8 and hematocrit -14.9 on 05/03/2017 , and subsequently undergone transfusion of 2 units packed red blood cells. On 05/05/2017, hemoglobin- 8.6 and hematocrit -28.4. No evidence of bleeding. Pad Machine Offbearer checked pertaining labs, HIT and anticardiolipin IgM antibody both were negative. as well. Renal ultrasound revealed borderline right hydronephrosis, no left hydronephrosis, normal kidney echogenicity bilaterally. The patient was on the IV hydration. Nurse Licensed Practical followed. Nephrotoxics were avoided. Renal parameters were closely monitored. Electrolytes were replaced as needed. Creatinine down to 2.0, likely acute renal failure on chronic renal insufficiency. CT of the chest in addition to acute PE, also noted markedly enlarged multinodular thyroid consistent with multinodular goiter. Subsequently, thyroid function test was done, which revealed low TSH and high free T4. The patient was started on methimazole for a newly diagnosed hyperthyroidism. Endocrinology consult was requested. The patient was also noted to have hemoglobin A1c - 6.7, no history of diabetes in the past. The patient declined insulin and oral pills and expressed desire to manage diabetes with diet. Administrative Office Assistant seen and evaluated the patient. Recommended continue methimazole and get outpatient thyroid ultrasound. He recommended to follow up with dungeon master and start oral antiglycemic. Blood pressure was managed with calcium channel wendy. Dose was increased and blood pressure was stable. Patient was counseled to avoid CAROLIN in the future. Noted elevated PSA. Nurse Licensed Practical recommended outpatient followup with the urologist. The patient was on nicotine patch. The patient was counseled on smoking cessation. GI followed the patient. The patient was able to tolerate diet. GI prophylaxis was provided. Bowel regimen was instituted. Pain management provided. The patient was stable for discharge home. Daughter will take the patient to [place] and resume care of her father. The patient will need home health services at [place]. Prescription will be provided along with a prescription for wheelchair and bedside commode FINAL DIAGNOSES: 1. Acute respiratory failure secondary to angioedema, requiring intubation. 2. Status post extubation on 04/28/2017. 3. Angioneurotic edema likely due to the angiotensin-converting enzyme inhibitor allergy. 4. Left lower lobe pneumonia, status post treatment. 5. Acute metabolic encephalopathy, resolved ( likely due to acute renal failure , acute PE and hypoxemia) 6. Acute pulmonary embolism. 7. Elevated troponin, likely secondary to acute pulmonary embolism. 8. Deep venous thrombosis right lower extremity. 9. Status post inferior vena cava filter placement on 05/02/2017. 10. New onset of diabetes. 11. Hypertension. 12. Severe pulmonary hypertension. 13. Benign hypertensive kidney disease with chronic kidney disease. 14. Acute renal failure on chronic kidney disease. 15. Angiotensin-converting enzyme inhibitor allergy. 16. Chronic obstructive pulmonary disease. 17. Tobacco abuse with dependency. 18. Right hydronephrosis. 19. Elevated prostate-specific antigen. 20. Bleeding secondary to anticoagulation. 21. Multinodular goiter with evidence of hyperthyroidism, new onset. 22. Anemia requiring blood transfusion. DISCHARGE MEDICATIONS: See medication reconciliation list. DISCHARGE INSTRUCTIONS: The patient was discharged home. The patient will be going with his daughter to [place] with home health services to follow.. Prescription were provided. Recommended outpatient follow up with the urologist for elevated PSA and with the dungeon master for new onset of hyperthyroidism and diabetes. Bryce Dias M.D. [facility]Al[facility] Center[facility]aw[facility] NSherrie DR: HOLLIS JOB#: [id number] CC: AYANNA
[2017-05-06] MEDS: NovoLOG Insulin Flexpen SUBQ SCH (05:51)
[2017-05-06 08:00] VITALS: BP 142/89
[2017-05-06 09:00] VITALS: BP 142/89
[2017-05-06] MEDS: Pantoprazole Inj IVP SCH (09:00)
[2017-05-06] MEDS: Docusate 100mg/10ml Liq NG SCH (09:00)
[2017-05-06] MEDS ORDERED: NS 275ml ONE (09:29)
--- NOTE | 2017-05-06 09:57 | Infectious Diseases Prog Note ---
Assessment/Plan Assessment/Plan Assesment: Fever, SP LLL PNA SCx : Nl keely -CXR 04/24: Persistent left perihilar consolidation, increased since the prior examination of 04/22/17. Pneumonia is of concern. -CXR: There is some left perihilar congestion or consolidation again demonstrated, unchanged. The remainder the lungs and pleural spaces are clear. -CTA chest: Fairly extensive bilateral segmental pulmonary emboli. concern for submassive pulmonary embolus. consolidation and atelectasis of a significant portion of the posterior left lower lobe. -Sp cx Normal keely x2 DVT , IVC filter 05/02 Angiodema s/p intubation ,, SP extub 04/28 Possible Submassive b/l PE, R DVT Renal insufficiency- ?acute vs chronic vs acute on chronic Mutinodular goiter HTN COPD Tobacco abuse Plan: monitor pt off of AB Rx SP IV Cefepime # 1 sp Vancomycin d# 4 -04/24 SP Unasyn #3 -04/23 SP IV Vanco #2 -Monitor CBC/BMP, temperatures -anticoagulation and steroids per primary team -aspiration precautions Subjective Allergies: Coded Allergies: LISINOPRIL (Verified Allergy, Severe, 04/21/17) Subjective comfortable no new complain Objective Vital Signs Last 24 Hour Vital Signs Date Time Temp Pulse Resp B/P (MAP) Pulse Ox O2 Delivery O2 Flow Rate FiO2 05/06/17 09:00 99 142/89 05/06/17 08:00 97.5 99 20 142/89 95 Room Air 05/06/17 07:40 96 Room Air 05/06/17 07:40 Room Air 05/06/17 04:00 97.2 98 20 122/76 99 Room Air 05/06/17 00:00 97.3 100 19 137/94 96 Room Air 05/05/17 20:00 97.2 104 19 145/94 94 Room Air 05/05/17 18:28 Room Air 05/05/17 18:27 95 Room Air 05/05/17 17:19 130/92 05/05/17 15:36 98.1 103 20 130/92 96 Room Air 05/05/17 12:41 128/87 05/05/17 11:59 98.4 96 20 128/87 95 Room Air Height (Feet): 6 Height (Inches): 4.00 Weight (Pounds): 243 HEENT: anicteric Respiratory/Chest: no respiratory distress Cardiovascular: regular rhythm Abdomen: no organomegaly Current Medications Medications (Trade) Dose Ordered Sig/Kelsi Route PRN Reason Start Time Stop Time Status Last Admin Dose Admin Acetaminophen (Tylenol) 650 mg Q6H PRN ORAL Mild Pain/Temp > 100.5 05/04/17 23:00 05/21/17 10:59 Amlodipine Besylate (Norvasc) 7.5 mg DAILY GT 05/06/17 09:00 06/05/17 08:59 Dextrose (Dextrose 50%) STAT PRN IV Hypoglycemia 05/05/17 11:00 06/02/17 10:59 Docusate Sodium (Colace) 100 mg THREE TIMES A DAY NG 05/05/17 09:00 05/22/17 17:59 Haloperidol Lactate 5 mg/ Dextrose 56 ml @ 224 mls/hr Q1H PRN IVPB AGITATION 05/04/17 23:45 05/24/17 08:44 Insulin Aspart (NovoLOG) BEFORE MEALS AND HS SUBQ 05/05/17 06:30 06/01/17 11:59 Methimazole (Tapazole) 20 mg DAILY ORAL 05/05/17 09:00 05/31/17 10:29 05/05/17 09:21 Pantoprazole (Protonix) 40 mg EVERY 12 HOURS IVP 05/05/17 09:00 05/21/17 08:59 05/05/17 09:19 Polyethylene Glycol (Miralax) 17 gm BEDTIME GT 05/05/17 21:00 05/22/17 20:59 Risperidone (RisperDAL) 2 mg BEDTIME ORAL 05/05/17 21:00 06/03/17 20:59 DIANA VELAZQUEZ M.D. May 06, 2017 09:57
--- NOTE | 2017-05-06 12:53 | General Progress Note ---
Assessment/Plan Problem List: (1) Renal insufficiency ICD Codes: N28.9 - Disorder of kidney and ureter, unspecified SNOMED: 715168081 (2) Acute respiratory failure ICD Codes: J96.00 - Acute respiratory failure, unspecified whether with hypoxia or hypercapnia SNOMED: 67700636 (3) Pulmonary embolism ICD Codes: I26.99 - Other pulmonary embolism without acute cor pulmonale SNOMED: 94432282 (4) Benign hypertensive kidney disease with chronic kidney disease ICD Codes: I12.9 - Hypertensive chronic kidney disease with stage 1 through stage 4 chronic kidney disease, or unspecified chronic kidney disease SNOMED: 540878, 469324988 Status: stable Assessment/Plan status; Pulmonary emboli , on heparin Acute respiratory failure- Was On Vent- Now extubated Renal failure ? CKD ? Superimposed Acute renal failure HTN- Smoker- Jorge Inhibor Allergy Plan: stablle for DC Subjective Date patient seen: May 06, 2017 Time patient seen: 09:00 Allergies: Coded Allergies: LISINOPRIL (Verified Allergy, Severe, 04/21/17) Objective Last 24 Hour Vital Signs Date Time Temp Pulse Resp B/P (MAP) Pulse Ox O2 Delivery O2 Flow Rate FiO2 05/06/17 09:00 99 142/89 05/06/17 08:00 97.5 99 20 142/89 95 Room Air 05/06/17 07:40 96 Room Air 21 05/06/17 07:40 Room Air 21 05/06/17 04:00 97.2 98 20 122/76 99 Room Air 05/06/17 00:00 97.3 100 19 137/94 96 Room Air 05/05/17 20:00 97.2 104 19 145/94 94 Room Air 05/05/17 18:28 Room Air 05/05/17 18:27 95 Room Air 05/05/17 17:19 130/92 05/05/17 15:36 98.1 103 20 130/92 96 Room Air Intake and Output 05/06/17 05/07/17 19:00 07:00 Intake Total 350 ml Output Total 200 ml Balance 150 ml Intake Oral 350 ml Output Urine Total 200 ml # Voids 1 Height (Feet): 6 Height (Inches): 4.00 Weight (Pounds): 243 General Appearance: no apparent distress Objective no other changes TIARRA PARTIDA May 06, 2017 12:53
--- NOTE | 2017-05-06 14:03 | Pulmonology Progress Note ---
Assessment/Plan Problems: (1) Acute respiratory failure (2) ATN (acute tubular necrosis) (3) New onset type 2 diabetes mellitus (4) Toxic nodular goiter (5) Pulmonary embolism Assessment/Plan pt/ot monitor BP sliding scale med/surg dc today with the daughter Subjective ROS Limited/Unobtainable: No Constitutional: Reports: no symptoms HEENT: Repors: no symptoms Respiratory: Reports: no symptoms Allergies: Coded Allergies: LISINOPRIL (Verified Allergy, Severe, 04/21/17) Objective Last 24 Hour Vital Signs Date Time Temp Pulse Resp B/P (MAP) Pulse Ox O2 Delivery O2 Flow Rate FiO2 05/06/17 09:00 99 142/89 05/06/17 08:00 97.5 99 20 142/89 95 Room Air 05/06/17 07:40 96 Room Air 21 05/06/17 07:40 Room Air 21 05/06/17 04:00 97.2 98 20 122/76 99 Room Air 05/06/17 00:00 97.3 100 19 137/94 96 Room Air 05/05/17 20:00 97.2 104 19 145/94 94 Room Air 05/05/17 18:28 Room Air 05/05/17 18:27 95 Room Air 05/05/17 17:19 130/92 05/05/17 15:36 98.1 103 20 130/92 96 Room Air Intake and Output 05/06/17 05/07/17 19:00 07:00 Intake Total 350 ml Output Total 200 ml Balance 150 ml Intake Oral 350 ml Output Urine Total 200 ml # Voids 1 Objective General Appearance: WD/WN, no apparent distress Lines, tubes and drains: peripheral, PICC HEENT: normocephalic, anicteric Neck: non-tender, normal alignment Respiratory/Chest: chest wall non-tender, lungs clear Cardiovascular/Chest: normal rate, regular rhythm Abdomen: non tender, soft Genitourinary/Rectal: normal genital exam, normal rectal exam Extremities: normal range of motion, non-pitting VIVEK SOLOMON May 06, 2017 14:03
--- NOTE | 2017-05-06 14:29 | GI Progress Note ---
Assessment/Plan Problems: (1) Abdominal distension ICD Codes: R14.0 - Abdominal distension (gaseous) SNOMED: 62118177 (2) Hypoalbuminemia ICD Codes: E88.09 - Other disorders of plasma-protein metabolism, not elsewhere classified SNOMED: 474134090 (3) Angioedema ICD Codes: T78.3XXA - Angioneurotic edema, initial encounter SNOMED: 07135991 Status: stable Status Narrative Discussed with Dr. Cazares. Assessment/Plan okay for DC per GI standpoint regular diet, tolerating monitor H&H, prn transfusions ppi fu pulm recs, now extubated fu labs Subjective Gastrointestinal/Abdominal: Reports: no symptoms Subjective feels better OOB Objective Last 24 Hour Vital Signs Date Time Temp Pulse Resp B/P (MAP) Pulse Ox O2 Delivery O2 Flow Rate FiO2 05/06/17 09:00 99 142/89 05/06/17 08:00 97.5 99 20 142/89 95 Room Air 05/06/17 07:40 96 Room Air 21 05/06/17 07:40 Room Air 21 05/06/17 04:00 97.2 98 20 122/76 99 Room Air 05/06/17 00:00 97.3 100 19 137/94 96 Room Air 05/05/17 20:00 97.2 104 19 145/94 94 Room Air 05/05/17 18:28 Room Air 05/05/17 18:27 95 Room Air 05/05/17 17:19 130/92 05/05/17 15:36 98.1 103 20 130/92 96 Room Air Intake and Output 05/06/17 05/07/17 19:00 07:00 Intake Total 350 ml Output Total 200 ml Balance 150 ml Intake Oral 350 ml Output Urine Total 200 ml # Voids 1 Height (Feet): 6 Height (Inches): 4.00 Weight (Pounds): 243 General Appearance: WD/WN, no apparent distress, alert, obese Cardiovascular: normal rate Respiratory/Chest: normal breath sounds, no respiratory distress Abdominal Exam: normal bowel sounds, non tender, soft Extremities: normal range of motion, non-tender Objective bleeding gums Radha Mckeon NSherrie May 06, 2017 14:29
--- NOTE | 2017-05-06 22:36 | General Progress Note ---
Assessment/Plan Status: stable, progressing Assessment/Plan memory impairment and refuses meds disoriented Subjective Neurologic/Psychiatric: Reports: anxiety, depressed, emotional problems Allergies: Coded Allergies: LISINOPRIL (Verified Allergy, Severe, 04/21/17) Objective Last 24 Hour Vital Signs Date Time Temp Pulse Resp B/P (MAP) Pulse Ox O2 Delivery O2 Flow Rate FiO2 05/06/17 09:00 99 142/89 05/06/17 08:00 97.5 99 20 142/89 95 Room Air 05/06/17 07:40 96 Room Air 21 05/06/17 07:40 Room Air 21 05/06/17 04:00 97.2 98 20 122/76 99 Room Air 05/06/17 00:00 97.3 100 19 137/94 96 Room Air Intake and Output 05/06/17 05/07/17 19:00 07:00 Intake Total 350 ml Output Total 200 ml Balance 150 ml Intake Oral 350 ml Output Urine Total 200 ml # Voids 1 Height (Feet): 6 Height (Inches): 4.00 Weight (Pounds): 243 General Appearance: no apparent distress, alert Neurologic: alert, responsive, normal mood/affect Valdemar Murillo M.D. May 06, 2017 22:36
== END 2017-05-06 09:30 | disposition home health service (06) | DRG 907 ==
LOC: ICU 23:38 → 2E 05-03 10:40 → 3E 05-04 23:23
PROC: 5A1955Z Respiratory Ventilation, Greater than 96 Consecutive Hours (ICD-10-PCS; principal; 2017-04-20)
PROC: 0BH17EZ Insertion of Endotracheal Airway into Trachea, Via Natural or Artificial Opening (ICD-10-PCS; principal; 2017-04-20)
PROC: B548ZZA Ultrasonography of Superior Vena Cava, Guidance (ICD-10-PCS; 2017-04-21)
PROC: 02HV33Z Insertion of Infusion Device into Superior Vena Cava, Percutaneous Approach (ICD-10-PCS; 2017-04-21)
PROC: 06H03DZ Insertion of Intraluminal Device into Inferior Vena Cava, Percutaneous Approach (ICD-10-PCS; 2017-05-02)
DX: T78.3XXA Angioneurotic edema, initial encounter (principal); J96.01 Acute respiratory failure with hypoxia; N17.0 Acute kidney failure with tubular necrosis; I26.99 Other pulmonary embolism without acute cor pulmonale; G93.41 Metabolic encephalopathy; J18.9 Pneumonia, unspecified organism; I82.411 Acute embolism and thrombosis of right femoral vein; J44.9 Chronic obstructive pulmonary disease, unspecified; D68.32 Hemorrhagic disorder due to extrinsic circulating anticoagulants; N13.30 Unspecified hydronephrosis; E11.22 Type 2 diabetes mellitus with diabetic chronic kidney disease; I27.20 Pulmonary hypertension, unspecified; E88.09 Other disorders of plasma-protein metabolism, not elsewhere classified; T46.4X5A Adverse effect of angiotensin-converting-enzyme inhibitors, initial encounter; R00.0 Tachycardia, unspecified; E05.20 Thyrotoxicosis with toxic multinodular goiter without thyrotoxic crisis or storm; I12.9 Hypertensive chronic kidney disease with stage 1 through stage 4 chronic kidney disease, or unspecified chronic kidney disease; N18.9 Chronic kidney disease, unspecified; R14.0 Abdominal distension (gaseous); T45.515A Adverse effect of anticoagulants, initial encounter; Y92.238 Other place in hospital as the place of occurrence of the external cause; D64.9 Anemia, unspecified; F17.210 Nicotine dependence, cigarettes, uncomplicated; D69.6 Thrombocytopenia, unspecified
CPT/HCPCS: 36415; 36569; 36600; 71010; 71250; 71275; 74000; 76775; 76937; 78580; 80048; 80053; 80061; 80202; 81001; 81003; 81241; 82140; 82248; 82550; 82728; 82746; 82803; 82962; 82977; 83036; 83735; 83880; 84100; 84153; 84300; 84439; 84443; 84484; 84550; 85007; 85025; 85044; 85060; 85300; 85303; 85305; 85379; 85384; 85610; 85613; 85651; 85730; 86140; 86147; 86850; 86900; 86901; 86927; 87040; 87070; 87081; 87086; 87205; 89050; 93005; 93306; 93970; 94002; 94003; 94664; 94760; J1815